=== PATIENT | female | born 1995 | race Native Hawaiian/Other Pacific Islander ===

== ENCOUNTER 2019-12-18 07:57 | Outpatient (REF) | payer MEDICAID, SELFPAY | END 2019-12-18 07:58 | disposition home or self-care (01) | LOC: HO.LAB 07:57 | PROVIDERS: Visit Provider Internal Medicine | DX: Z20.828 Contact with and (suspected) exposure to other viral communicable diseases (principal) | CPT/HCPCS: 87635 ==

== ENCOUNTER 2020-01-09 12:12 | Outpatient (REF) | payer MEDICAID, SELFPAY | END 2020-01-09 12:13 | disposition home or self-care (01) | LOC: HO.LAB 12:12 | PROVIDERS: PCP Internal Medicine; Visit Provider Internal Medicine | DX: Z20.828 Contact with and (suspected) exposure to other viral communicable diseases (principal) | CPT/HCPCS: C9803; U0003 ==

== ENCOUNTER 2020-01-10 17:33 | Emergency (ER) | payer MEDICAID, SELFPAY ==
[2020-01-10 17:43] VITALS: BP 110/63; PULSE 99; RESP 16; TEMP 37.4; O2SAT 97; BMI 22.1
--- NOTE | 2020-01-10 18:15 | ED.GENADULT ---
HPI - General Adult General Chief complaint: General Medical Stated complaint: flu like symptoms Time Seen by Provider: 01/10/20 18:06 History of Present Illness HPI narrative: Patient complains of body aches runny nose fatigue for 5 or 6 days, and then yesterday she developed a sore throat that makes it very painful to eat, but she is able to swallow, no cough no difficulty breathing no nausea or vomiting, she did have 1 episode of diarrhea several days ago but has no diarrhea today no abdominal pain no dysuria Related Data Allergies Allergy/AdvReac Type Severity Reaction Status Date / Time Iodinated Contrast Media Allergy Unknown RASH Unverified 11/14/19 17:33 [Iodinated Contrast Media - IV Dye] oxycodone [From PERCOCET] Allergy Unknown TACHYCARDIA Unverified 11/14/19 17:33 Review of Systems Review of Systems: Review of systems is positive for fever body aches and sore throat and runny nose There is no cough no shortness of breath no chest pain no abdominal pain no burning with urination no vomiting or diarrhea today, no rash, no headache no weakness no dizziness Yes all other systems are reviewed and are negative PMFSH Past Medical History Source: nursing notes reviewed Medical History (Updated 01/10/20 @ 19:00 by LATANYA Landaverde) Muscle spasm Ovarian cyst Social History Social History Alcohol intake: never Smoked in Last 30 Days: No Substance Use Type: Marijuana Advance Directives: No Advance Directives Information Provided: Yes Physical Exam Vital Signs: Vital Signs: Last Vital Signs Temp 99.3 F 01/10/20 17:43 Pulse 99 01/10/20 17:43 Resp 16 01/10/20 17:43 BP 110/63 01/10/20 17:43 Pulse Ox 97 01/10/20 17:43 Body Mass Index 22.1 General appearance comfortable no acute distress A&O x3 the The eyes are clear with no redness or discharge The pharynx has mild symmetrical tonsillar swelling with mild erythema, no exudate, uvula is midline there is no drooling in the voice is normal The neck is supple without lymphadenopathy The chest is clear to auscultation bilaterally with full symmetrical equal breath sounds The heart no murmurs There is no respiratory distress The abdomen is soft nontender Extremities no rash no edema no calf tenderness Neuro no focal deficit Course Course Course Narrative: Rapid strep test was negative Patient tolerates p.o. and is given 1 dose of prednisone for relief of pain on swallowing Discharge Plan Discharge Clinical Impression: Viral infection Patient Disposition: Home, Self-Care Additional Instructions: We tested for strep throat and the rapid test was negative We follow this up with a throat culture in the lab which takes 1-2 days and if it grows any strep we will call you and start antibiotics This is very likely a viral illness possibly COVID so wear mask and be careful with other people as it may be very contagious Return any time any worse condition or concerns A negative COVID test does not rule out COVID as the test can miss many patients so if you are still symptomatic you need to continue wearing a mask and staying away from close contact with people Use [id number] Tylenol or Motrin as needed Stand Alone Forms: Work/School Release
[2020-01-10] MEDS: Ibuprofen 400 MG TABLET PO (19:03)
[2020-01-10] MEDS: predniSONE 20 MG TABLET 60 MG PO (19:03)
== END 2020-01-10 19:06 | disposition home or self-care (01) ==
PROVIDERS: Emergency Provider Emergency Medicine; PCP Internal Medicine
DX: B34.9 Viral infection, unspecified (principal); M79.10 Myalgia, unspecified site; Z20.828 Contact with and (suspected) exposure to other viral communicable diseases; F12.90 Cannabis use, unspecified, uncomplicated; Z11.59 Encounter for screening for other viral diseases
CPT/HCPCS: 87071; 87880; 99283; 99284

== ENCOUNTER 2020-10-23 21:40 | Emergency (ER) | payer MEDICAID, SELFPAY ==
[2020-10-23 22:17] VITALS: BP 115/60; PULSE 60; RESP 18; TEMP 36.9; O2SAT 99; BMI 21.2
[2020-10-23 23:17] LABS: Glucose Urine UA NEG (NEG); Leukocyte Esterase Urine NEG (NEG); Nitrite Urine NEG (NEG); Specific Gravity - Urine 1.025 (1.005-1.025); UACC Culture Trigger NO; Urine Blood 2+ (NEG); Urine Ketones NEG (NEG); Urine Protein NEG (NEG-TRACE)
[2020-10-23 23:19] LABS: Appearance Urine HAZY; Color Urine YELLOW; UPreg QC Valid YES; Urine Pregnancy NEGATIVE (NEGATIVE)
[2020-10-23 23:24] LABS: Mucus Urine 4+ /LPF; Squamous Epithelial Cell Urine 2+ /LPF; WBC Urine 0 /HPF (0-4)
[2020-10-24] VITALS: BP 103/52; PULSE 64; RESP 16; TEMP 36.9; O2SAT 98
[2020-10-24 01:23] VITALS: BP 113/42; PULSE 76; RESP 18; O2SAT 98
[2020-10-24] MEDS: 0.9 % Sodium Chloride 1,000 ML 999 ML IV (01:29)
[2020-10-24] MEDS: Lidocaine HCl Viscous 2 % 15 ML SOLUTION 10 ML MUCOUS MEM (01:29)
[2020-10-24] MEDS: ondansetron HCL 4 MG/2 ML VIAL IVPUSH (01:29)
[2020-10-24] MEDS: Magnesium Hydrox/Alum Hydrox 30 ML ORAL.SUSP PO (01:29)
--- NOTE | 2020-10-24 01:46 | ED_ITS ---
HPI - Abdominal Pain General Chief Complaint: Abdominal Pain Stated Complaint: abd pain Time Seen by Provider: 10/24/20 01:00 Source: patient Mode of arrival: ambulatory History of Present Illness HPI narrative: 25-year-old female who presents with complaints of 2 months of abdominal discomfort without associated fever, chills, nausea, vomiting, diarrhea, urinary pain/burning/frequency. Patient states it had then resolved and then came back on approximately 3 days ago. Again not associated with any additional constitutional symptoms. Patient is not been evaluated by her primary care provider. Related Data Previous Rx's Medication Instructions Recorded omeprazole 40 mg capsule,delayed 40 mg PO DAILY 30 Days #30 cap 10/24/20 release Allergies Allergy/AdvReac Type Severity Reaction Status Date / Time Iodinated Contrast Media Allergy Unknown RASH Verified 10/23/20 22:16 [Iodinated Contrast Media - IV Dye] oxycodone [From PERCOCET] Allergy Unknown TACHYCARDIA Verified 10/23/20 22:16 Review of Systems Review of Systems Pertinent positives and negatives as stated in HPI 10 point review of systems is otherwise negative. Physical Exam Vital Signs: Vital Signs: Last Vital Signs Temp 98.4 F 10/24/20 00:00 Pulse 73 10/24/20 05:11 Resp 16 10/24/20 05:11 BP 106/49 L 10/24/20 05:11 Pulse Ox 100 10/24/20 05:11 Body Mass Index 21.2 VITAL SIGNS: Reviewed. GENERAL: Well developed, well nourished, in no acute distress. HEAD: Normocephalic/atraumatic EYES: PERRLA, EOMI EARS: Ext canals without abnormality NOSE: Nares patent bilateral OROPHARYNX: no oral lesions noted, posterior pharynx clear LUNGS: Normal breath sounds. No adventitious sounds or accessory muscle use. SpO2<98> CARDIOVASCULAR: Regular rate and rhythm without noted murmurs ABDOMEN: Soft, mild tenderness primarily in epigastric without rebound non- distended with bowel sounds. Course Course Course Narrative: A 25-year-old female with history and clinical presentation of gastritis and possible less likely pancreatitis. Patient otherwise appears cheerful and well and in no acute distress. On re-evaluation patient reports significant improvement of abdominal discomfort located in the epigastrium tested reports lower abdominal discomfort. Patient otherwise discharged in stable condition with instructions follow-up with primary care provider for further management. MDM - Abdominal Pain Lab Data Result diagrams: 10/24/20 01:51 10/24/20 01:51 Labs: Lab Results 10/23/20 10/23/20 10/24/20 Range/Units 23:09 23:09 01:51 WBC 6.8 (4.8-10.8) X10*3/uL RBC 4.32 (4.20-5.50) X10*6/uL Hgb 11.4 L (12.0-16.0) g/dl Hct 35.0 L (37-47) % MCV 81.0 (80-98) fL MCH 26.4 L (27.0-33.0) pg MCHC 32.6 (31.0-35.0) g/dl RDW 13.2 (11.0-16.0) % Plt Count 237 (160-400) X10*3/uL MPV 10.4 (9.4-12.3) fL Immature Gran % (Auto) 0.1 (0.0-0.4) % Neut % (Auto) 45.5 (45-73) % Lymph % (Auto) 45.0 H (20-40) % [place] % (Auto) 8.1 (2-11) % Eos % (Auto) 1.0 (0-4) % Baso % (Auto) 0.3 (0-2) % Lymph # (Auto) 3.0 (1.2-4.9) X10*3/uL [place] # (Auto) 0.6 (0.1-1.2) X10*3/uL Eos # (Auto) 0.1 (0.0-0.4) X10*3/uL Baso # (Auto) 0.0 (0.0-0.2) X10*3/uL Abs Immat Gran (auto) 0.01 (0.00-0.03) X10*3/uL Absolute Neuts (auto) 3.1 (2.0-8.3) X10*3/uL Absolute Nucleated RBC 0.000 (0.0-0.012) X10*3/uL Nucleated RBC % (auto) 0.0 (0.0-0.2) /100WBC Sodium (135-145) mmol/L Potassium (3.3-5.1) mmol/L Chloride (96-108) mmol/L Carbon Dioxide (22-29) mmol/L Anion Gap (12-20) BUN (9-16) mg/dL Creatinine (0.5-1.4) mg/dL Estim Creat Clear Calc Estimated GFR Random Glucose (60-115) mg/dL Calcium (8.4-10.2) mg/dL Total Bilirubin (0.0-1.0) mg/dL AST (5-31) U/L ALT (0-31) U/L Alkaline Phosphatase (39-117) U/L Total Protein (6.5-8.0) g/dL Albumin (3.5-5.0) g/dL Lipase (8-78) U/L Urine Color YELLOW Urine Appearance HAZY Urine pH 6.0 (5.0-8.0) Ur Specific [place] 1.025 (1.005-1.025) Urine Protein NEG (NEG-TRACE) MG/DL Urine Glucose (UA) NEG (NEG) MG/DL Urine Ketones NEG (NEG) MG/DL Urine Blood 2+ H (NEG) Urine Nitrite NEG (NEG) Ur Leukocyte Esterase NEG (NEG) Urine RBC 10-14 H (0) /HPF Urine WBC 0 (0-4) /HPF Ur Squamous Epith Cells 2+ /LPF Urine Bacteria NONE /LPF Urine Mucus 4+ /LPF Urine Test NEGATIVE (NEGATIVE) 10/24/20 Range/Units 01:51 WBC (4.8-10.8) X10*3/uL RBC (4.20-5.50) X10*6/uL Hgb (12.0-16.0) g/dl Hct (37-47) % MCV (80-98) fL MCH (27.0-33.0) pg MCHC (31.0-35.0) g/dl RDW (11.0-16.0) % Plt Count (160-400) X10*3/uL MPV (9.4-12.3) fL Immature Gran % (Auto) (0.0-0.4) % Neut % (Auto) (45-73) % Lymph % (Auto) (20-40) % [place] % (Auto) (2-11) % Eos % (Auto) (0-4) % Baso % (Auto) (0-2) % Lymph # (Auto) (1.2-4.9) X10*3/uL [place] # (Auto) (0.1-1.2) X10*3/uL Eos # (Auto) (0.0-0.4) X10*3/uL Baso # (Auto) (0.0-0.2) X10*3/uL Abs Immat Gran (auto) (0.00-0.03) X10*3/uL Absolute Neuts (auto) (2.0-8.3) X10*3/uL Absolute Nucleated RBC (0.0-0.012) X10*3/uL Nucleated RBC % (auto) (0.0-0.2) /100WBC Sodium 140 (135-145) mmol/L Potassium 3.8 (3.3-5.1) mmol/L Chloride 108 (96-108) mmol/L Carbon Dioxide 26 (22-29) mmol/L Anion Gap 10 L (12-20) BUN 12 (9-16) mg/dL Creatinine 0.72 (0.5-1.4) mg/dL Estim Creat Clear Calc 97.9 Estimated GFR > 60 Random Glucose 95 (60-115) mg/dL Calcium 8.5 (8.4-10.2) mg/dL Total Bilirubin 0.3 (0.0-1.0) mg/dL AST 14 (5-31) U/L ALT 13 (0-31) U/L Alkaline Phosphatase 51 (39-117) U/L Total Protein 6.7 (6.5-8.0) g/dL Albumin 4.0 (3.5-5.0) g/dL Lipase 28 (8-78) U/L Urine Color Urine Appearance Urine pH (5.0-8.0) Ur Specific [place] (1.005-1.025) Urine Protein (NEG-TRACE) MG/DL Urine Glucose (UA) (NEG) MG/DL Urine Ketones (NEG) MG/DL Urine Blood (NEG) Urine Nitrite (NEG) Ur Leukocyte Esterase (NEG) Urine RBC (0) /HPF Urine WBC (0-4) /HPF Ur Squamous Epith Cells /LPF Urine Bacteria /LPF Urine Mucus /LPF Urine Test (NEGATIVE) Discharge Plan Discharge Clinical Impression: Abdominal discomfort, Gastritis Patient Disposition: Home, Self-Care Instructions: Gastritis (ED), Diet for Stomach Ulcers and Gastritis (ED) Additional Instructions: 1. Increase fluid hydration especially with water. 2. Recommend Tylenol 1000 mg, orally, every 6 hours as needed for pain control. Do not exceed 4000 mg within 24 hours. 3. Ibuprofen 400 mg, orally with milk or food, every 6 hours as needed for pain control. 4. Follow-up with your primary care provider in the next 2-3 days for re-evaluation. Return to the ER for acute worsening of symptoms. Prescriptions: New omeprazole 40 mg capsule,delayed release(DR/EC) 40 mg PO DAILY 30 Days Qty: 30 RF: 0 Referrals: Ghazala Cabezas MD [Primary Care Provider] - 2 days PMF Past Medical History Source: nursing notes reviewed Medical History Muscle spasm Ovarian cyst Social History Social History Alcohol intake: never Substance Use Type: Marijuana Advance Directives: No Advance Directives Information Provided: No Patient : No
[2020-10-24 01:55] LABS: MANUAL DIFF FLAG NO
[2020-10-24 02:10] LABS: Basophils Percent Auto 0.3 % (0-2); Eosinophils Absolute Auto 0.1 X10*3/uL (0.0-0.4); Hemoglobin 11.4 g/dl (12.0-16.0); Imm Gran Abs Auto 0.01 X10*3/uL (0.00-0.03); Imm Gran Pct Auto 0.1 % (0.0-0.4); Mean Corpuscular HGB Conc 32.6 g/dl (31.0-35.0); Mean Corpuscular Hemoglobin 26.4 pg (27.0-33.0); Mean Platelet Volume 10.4 fL (9.4-12.3); Monocytes Absolute Auto 0.6 X10*3/uL (0.1-1.2); Monocytes Percent Auto 8.1 % (2-11); Neutrophils Absolute Auto 3.1 X10*3/uL (2.0-8.3); Neutrophils Percent Auto 45.5 % (45-73); Platelet Count 237 X10*3/uL (160-400); Red Blood Count 4.32 X10*6/uL (4.20-5.50); Red Cell Distribution Width 13.2 % (11.0-16.0); White Blood Count 6.8 X10*3/uL (4.8-10.8)
[2020-10-24 02:28] LABS: Alanine Aminotransferase 13 U/L (0-31); Alkaline Phosphatase 51 U/L (39-117); Anion Gap 10 (12-20); Aspartate Amino Transferase 14 U/L (5-31); Bilirubin Total 0.3 mg/dL (0.0-1.0); Blood Urea Nitrogen 12 mg/dL (9-16); Calcium 8.5 mg/dL (8.4-10.2); Carbon Dioxide 26 mmol/L (22-29); Chloride 108 mmol/L (96-108); Creatinine Clr Calc Pharmacy 97.9; Estimated Glomerular Filt Rate > 60; Glucose Random 95 mg/dL (60-115); Potassium 3.8 mmol/L (3.3-5.1); Sodium 140 mmol/L (135-145); Total Protein 6.7 g/dL (6.5-8.0)
[2020-10-24 03:12] VITALS: BP 105/56; PULSE 57; RESP 17; O2SAT 98
--- NOTE | 2020-10-24 05:04 | PC.NURSE ---
pt lubna peres, requests meds for GUERRIER. Leela made aware. Per Leela v/o pt to receive tylenol and toradol
[2020-10-24 05:11] VITALS: BP 106/49; PULSE 73; RESP 16; O2SAT 100
[2020-10-24] MEDS: Acetaminophen 325 MG TABLET PO (05:13)
[2020-10-24] MEDS: Ketorolac Tromethamine 15 MG/ML VIAL IVPUSH (05:13)
[2020-10-24] MEDS: Acetaminophen 325 MG TABLET 650 MG PO (05:13)
[2020-10-24 05:36] LABS: Lipase 28 U/L (8-78)
== END 2020-10-24 06:04 | disposition home or self-care (01) ==
PROVIDERS: Emergency Provider Student in an Organized Health Care Education/Training Program; PCP Internal Medicine
DX: K29.70 Gastritis, unspecified, without bleeding (principal); R10.13 Epigastric pain
CPT/HCPCS: 36415; 80053; 81001; 81025; 83690; 85025; 96361; 96374; 96375; 99284; J1885; J2405

== ENCOUNTER 2020-11-05 12:14 | Outpatient (REF) | payer MEDICAID, SELFPAY | END 2020-11-05 12:15 | disposition home or self-care (01) | LOC: HO.LAB 12:14 | PROVIDERS: Visit Provider Internal Medicine | DX: Z20.822 Contact with and (suspected) exposure to COVID-19 (principal) | CPT/HCPCS: C9803; U0003; U0005 ==

== ENCOUNTER 2020-11-22 17:46 | Emergency (ER) | payer MEDICAID, SELFPAY ==
--- NOTE | ~2020-11-22 | US_ITS ---
EXAMINATION: US PELVIC AND TRANSVAGINAL US PELVIS OVARIAN DOPPLER CLINICAL INFORMATION: Pain. Vaginal spotting. LMP of 10/21/2020. COMPARISON: Pelvic ultrasound from 07/27/2017 TECHNIQUE: Ultrasound of the pelvis is performed using both transabdominal and transvaginal transducers along with Doppler. Transvaginal imaging is performed due to inadequate visualization transabdominally. FINDINGS: Uterus: The uterus is anteverted, anteflexed and measures 7.5 x 2.8 x 4.4 cm (cervix to fundus x AP x transverse dimension). Endometrium measures up to 0.4 cm AP. No evidence of endometrial lesion. A contraceptive device is well centered within the endometrium. The uterus is smooth in contour and has normal myometrial echogenicity. No evidence of leiomyoma. The cervix is unremarkable. Adnexa: Both ovaries are well visualized and have normal echotexture. Right ovary measures 3.3 x 2.2 x 1.8 cm, volume of 6.8 mL. Left ovary measures 2.1 x 2.3 x 1.7 cm, volume of 4.3 mL Color Doppler images with spectral waveforms show presence of normal arterial flow within each ovary. No ovarian torsion. There is no pelvic ascites or fluid collection. US/US pelvic and transvaginal IMPRESSION: * The uterus and ovaries are sonographically normal. No ovarian mass or torsion. * A contraceptive device is well centered within the endometrial cavity. * No pelvic free fluid.
--- NOTE | ~2020-11-22 | CT_ITS ---
EXAMINATION: CT ABDOMEN AND PELVIS WITHOUT CONTRAST CLINICAL INFORMATION: Right lower quadrant abdomen pain COMPARISON: 06/24/2017 TECHNIQUE: Multidetector volumetric imaging was performed from the superior aspect of the liver through the pubic symphysis. Sagittal and coronal reformatted images were obtained on the technologist's workstation. This CT examination was performed using dose optimization techniques as appropriate, variously including the following: *Automated exposure control *Adjustment of mA and/or kV according to patient size (this includes techniques or standardized protocols for targeted exams where dose is matched to indication/reason for exam; i.e. extremities or head) *Use of iterative reconstruction technique DLP: 394 mGy-cm FINDINGS: LUNG BASES: The visualized lung bases are unremarkable. LIVER, GALLBLADDER, AND BILIARY TREE: The liver is normal in size, shape, and attenuation. No focal hepatic lesion or biliary ductal dilatation is present. The gallbladder is unremarkable with no evidence of radiopaque gallstones, gallbladder wall thickening, or obvious pericholecystic inflammatory changes. PANCREAS: Unremarkable. SPLEEN: Unremarkable. ADRENAL GLANDS: Unremarkable. KIDNEYS AND URETERS: The kidneys are normal in size, shape, and attenuation. No hydronephrosis, hydroureter, or calculi seen. No perinephric stranding. BLADDER: Unremarkable. GASTROINTESTINAL TRACT: The small and large bowel are unremarkable. The appendix is not identified, though no inflammatory changes are seen in its expected location to suggest appendicitis. No free fluid or free air is seen. ABDOMINAL WALL: No significant hernia is appreciated. LYMPH NODES: No lymphadenopathy is seen, though assessment is limited in the absence of intravenous contrast. VASCULAR: Unremarkable. PELVIC VISCERA: IUD is present. OSSEOUS STRUCTURES: Unremarkable. CT/CT abdomen pelvis wo con IMPRESSION: No acute findings identified in the abdomen/pelvis. Appendix is not identified, though no inflammatory changes are seen in its expected location to suggest appendicitis.
--- NOTE | ~2020-11-22 | US_ITS ---
EXAMINATION: US PELVIC AND TRANSVAGINAL US PELVIS OVARIAN DOPPLER CLINICAL INFORMATION: Pain. Vaginal spotting. LMP of 10/21/2020. COMPARISON: Pelvic ultrasound from 07/27/2017 TECHNIQUE: Ultrasound of the pelvis is performed using both transabdominal and transvaginal transducers along with Doppler. Transvaginal imaging is performed due to inadequate visualization transabdominally. FINDINGS: Uterus: The uterus is anteverted, anteflexed and measures 7.5 x 2.8 x 4.4 cm (cervix to fundus x AP x transverse dimension). Endometrium measures up to 0.4 cm AP. No evidence of endometrial lesion. A contraceptive device is well centered within the endometrium. The uterus is smooth in contour and has normal myometrial echogenicity. No evidence of leiomyoma. The cervix is unremarkable. Adnexa: Both ovaries are well visualized and have normal echotexture. Right ovary measures 3.3 x 2.2 x 1.8 cm, volume of 6.8 mL. Left ovary measures 2.1 x 2.3 x 1.7 cm, volume of 4.3 mL Color Doppler images with spectral waveforms show presence of normal arterial flow within each ovary. No ovarian torsion. There is no pelvic ascites or fluid collection. US/US pelvic ovarian doppler IMPRESSION: * The uterus and ovaries are sonographically normal. No ovarian mass or torsion. * A contraceptive device is well centered within the endometrial cavity. * No pelvic free fluid.
[2020-11-22 17:57] VITALS: BP 114/64; PULSE 78; RESP 17; TEMP 36.5; O2SAT 98; BMI 22.1
[2020-11-22 19:52] LABS: Appearance Urine CLEAR; Color Urine STRAW; Glucose Urine UA NEG (NEG); Leukocyte Esterase Urine NEG (NEG); Nitrite Urine NEG (NEG); PH 6.5 (5.0-8.0); Specific Gravity - Urine 1.025 (1.005-1.025); UACC Culture Trigger NO; Urine Blood 3+ (NEG); Urine Ketones NEG (NEG); Urine Protein NEG (NEG-TRACE)
[2020-11-22 19:54] LABS: UPreg QC Valid YES; Urine Pregnancy NEGATIVE (NEGATIVE)
[2020-11-22 19:59] LABS: RBC Urine 30-49 /HPF (0); Squamous Epithelial Cell Urine 1+ /LPF; WBC Urine 0 /HPF (0-4)
[2020-11-22 20:11] LABS: Basophils Percent Auto 0.4 % (0-2); Eosinophils Absolute Auto 0.1 X10*3/uL (0.0-0.4); Eosinophils Percent Auto 1.2 % (0-4); Hematocrit 39.8 % (37-47); Hemoglobin 13.1 g/dl (12.0-16.0); Imm Gran Abs Auto 0.02 X10*3/uL (0.00-0.03); Imm Gran Pct Auto 0.4 % (0.0-0.4); Lymphocytes Absolute Auto 2.4 X10*3/uL (1.2-4.9); Lymphocytes Percent Auto 42.6 % (20-40); MANUAL DIFF FLAG NO; Mean Corpuscular HGB Conc 32.9 g/dl (31.0-35.0); Mean Corpuscular Hemoglobin 26.6 pg (27.0-33.0); Mean Corpuscular Volume 80.9 fL (80-98); Monocytes Absolute Auto 0.5 X10*3/uL (0.1-1.2); Monocytes Percent Auto 8.5 % (2-11); Neutrophils Absolute Auto 2.7 X10*3/uL (2.0-8.3); Neutrophils Percent Auto 46.9 % (45-73); Platelet Count 278 X10*3/uL (160-400); Red Blood Count 4.92 X10*6/uL (4.20-5.50); Red Cell Distribution Width 13.5 % (11.0-16.0); White Blood Count 5.6 X10*3/uL (4.8-10.8)
[2020-11-22 20:29] LABS: Alanine Aminotransferase 76 U/L (0-31); Albumin Level 4.6 g/dL (3.5-5.0); Alkaline Phosphatase 70 U/L (39-117); Anion Gap 12 (12-20); Aspartate Amino Transferase 55 U/L (5-31); Bilirubin Total 0.4 mg/dL (0.0-1.0); Blood Urea Nitrogen 10 mg/dL (9-16); Calcium 9.2 mg/dL (8.4-10.2); Carbon Dioxide 26 mmol/L (22-29); Chloride 105 mmol/L (96-108); Creatinine Clr Calc Pharmacy 97.9; Estimated Glomerular Filt Rate > 60; Glucose Random 70 mg/dL (60-115); Potassium 4.4 mmol/L (3.3-5.1); Sodium 139 mmol/L (135-145); Total Protein 7.8 g/dL (6.5-8.0)
--- NOTE | 2020-11-22 22:53 | ED_ITS ---
HPI - General Adult General Chief complaint: General Medical Stated complaint: vaginal burning Time Seen by Provider: 11/22/20 19:05 Source: patient Mode of arrival: ambulatory Limitations: no limitations History of Present Illness HPI narrative: This 25-year-old female who reports history of H pylori currently on her last day of H pylori treatment she presents today with complaint of states she has had painful discomfort during intercourse for last couple days also having some discomfort during urination and slight discharge that is slightly weight and also spotting as if she is having her menstrual cycle which she will get irregular. She otherwise denies any nausea vomiting or diarrhea. States does have some suprapubic and right lower quadrant pain for same duration time. Onset (ago): day(s) Severity: mild Quality: aching Pain Consistency: constant Relieving factors: none Exacerbating factors: none Associated symptoms: denies other symptoms Treatments prior to arrival: none Related Data Previous Rx's Medication Instructions Recorded omeprazole 40 mg capsule,delayed 40 mg PO DAILY 30 Days #30 cap 10/24/20 release ibuprofen 800 mg tablet 800 mg PO Q8H PRN #14 tab 11/23/20 metronidazole 500 mg tablet 500 mg PO Q12H #14 tab 11/23/20 (Flagyl) Allergies Allergy/AdvReac Type Severity Reaction Status Date / Time Iodinated Contrast Media Allergy Intermediate RASH Verified 11/22/20 17:57 [Iodinated Contrast Media - IV Dye] oxycodone [From PERCOCET] Allergy Intermediate TACHYCARDIA Verified 11/22/20 17:57 Review of Systems Review of Systems: Constitutional: No Weight loss, No Fever, No Chills, No Night Sweats, No Fatigue, No Malaise ENT/Mouth: No Hearing loss, No Ear Pain, No Nasal Congestion, No Sinus Pain, No Hoarseness, No sore throat, No Rhinorrhea, No Swallowing Difficulty . Eyes: No Eye Pain, No Swelling, No Redness, No Foreign Body, No Discharge, No Vision Changes Cardiovascular: No Chest Pain, No SOB, No Dyspnea on Exertion, No Orthopnea, No Edema, No Palpitations Respiratory: No Cough, No Sputum, No Wheezing, No Smoke Exposure, No Dyspnea Gastrointestinal: No Nausea, No Vomiting, No Diarrhea, No Constipation, No abdominal Pain, No Hematochezia, No Melena Genitourinary:As noted per HPI Musculoskeletal: No joint pain, No Myalgias, No Joint Swelling Skin: No Skin Lesions, No rash Neuro: No Weakness, No Numbness, No Paresthesias, No Loss of Consciousness, No Dizziness, No Headache Psych: No Social Issues Heme/Lymph: No Bruising, No Bleeding,No Lymphadenopathy Endocrine: No Polyuria, No Polydipsia, No Temperature Intolerance Yes all other systems are reviewed and are negative [facility] Past Medical History Medical History Muscle spasm Ovarian cyst Social History Social History Alcohol intake: never Substance Use Type: Marijuana Advance Directives: No Advance Directives Information Provided: Yes Patient : No Physical Exam Vital Signs: Vital Signs: Last Vital Signs Temp 97.7 F 11/22/20 17:57 Pulse 78 11/22/20 17:57 Resp 17 11/22/20 17:57 BP 114/64 11/22/20 17:57 Pulse Ox 98 11/22/20 17:57 Body Mass Index 22.1 Const: General: cooperative and healthy appearing; No acute distress or intoxicated appearing Nutritional Appearance: average body habitus Orientation/consciousness: patient oriented x3 HENMT: Head: Yes normal to inspection Ears: hearing grossly normal bilaterally Eyes: General: appearance normal, both eyes and all related structures Visual Cheema: normal visual cheema by confrontation Neck: Neck: Yes normal visual inspection, No positive Brudzinski's sign, No positive Kernig's sign and No tender Thyroid: Thyroid normal Chest: Chest palpation & inspection: normal inspection of the chest Resp: Effort & Inspection: normal respiratory effort Cardio: Jugular venous distension: no JVD Rate: regular rate Rhythm: regular rhythm Heart sounds: S1 normal heart sound present and S2 normal heart sound present GI: Inspection: Yes normal to inspection Palpation (GI): Soft to palpation, Firmness to palpation present (GI) and Tenderness to palpation present (GI) in the RLQ (mild, no rebound ) Percussion: Yes normal to percussion Auscultation: normal bowel sounds : General: Yes no CVA tenderness Back/Spine/Pelvis: Back: no CVA tenderness Skin: General skin exam: no rashes or lesions noted Neuro: General: patient oriented x3 Extrem: General: Yes normal to inspection Course Course Course Narrative: Trace 5-year-old female with history of H pylori currently toward the end of her treatment presenting with right lower quadrant abdominal pain also having some spotting and mild discharge with irregular menstrual cycle. Labs overall reassuring very slight bump in AST/ALT a denies any alcohol use. She has an unremarkable ultrasound however still states mild discomfort in the right-sided suprapubic region/right lower quadrant thus CT of the abdomen/pelvis done after discussion with the patient rule out appendicitis given her allergy to IV contrast this was suboptimal however there was no findings to suggest appendicitis and given stable examination I reviewed with her precautions for home care return follow-up instructions. In the meantime will discharge with supportive care. Denies any concern for STI and defers on empiric treatment for STDs. Medical Decision Making Lab Data Result diagrams: 11/22/20 19:47 11/22/20 19:47 Labs: Lab Results 11/22/20 11/22/20 11/22/20 Range/Units 19:39 19:40 19:47 WBC 5.6 (4.8-10.8) X10*3/uL RBC 4.92 (4.20-5.50) X10*6/uL Hgb 13.1 (12.0-16.0) g/dl Hct 39.8 (37-47) % MCV 80.9 (80-98) fL MCH 26.6 L (27.0-33.0) pg MCHC 32.9 (31.0-35.0) g/dl RDW 13.5 (11.0-16.0) % Plt Count 278 (160-400) X10*3/uL MPV 10.0 (9.4-12.3) fL Immature Gran % (Auto) 0.4 (0.0-0.4) % Neut % (Auto) 46.9 (45-73) % Lymph % (Auto) 42.6 H (20-40) % [place] % (Auto) 8.5 (2-11) % Eos % (Auto) 1.2 (0-4) % Baso % (Auto) 0.4 (0-2) % Lymph # (Auto) 2.4 (1.2-4.9) X10*3/uL [place] # (Auto) 0.5 (0.1-1.2) X10*3/uL Eos # (Auto) 0.1 (0.0-0.4) X10*3/uL Baso # (Auto) 0.0 (0.0-0.2) X10*3/uL Abs Immat Gran (auto) 0.02 (0.00-0.03) X10*3/uL Absolute Neuts (auto) 2.7 (2.0-8.3) X10*3/uL Absolute Nucleated RBC 0.000 (0.0-0.012) X10*3/uL Nucleated RBC % (auto) 0.0 (0.0-0.2) /100WBC Sodium (135-145) mmol/L Potassium (3.3-5.1) mmol/L Chloride (96-108) mmol/L Carbon Dioxide (22-29) mmol/L Anion Gap (12-20) BUN (9-16) mg/dL Creatinine (0.5-1.4) mg/dL Estim Creat Clear Calc Estimated GFR Random Glucose (60-115) mg/dL Calcium (8.4-10.2) mg/dL Total Bilirubin (0.0-1.0) mg/dL AST (5-31) U/L ALT (0-31) U/L Alkaline Phosphatase (39-117) U/L Total Protein (6.5-8.0) g/dL Albumin (3.5-5.0) g/dL Urine Color STRAW Urine Appearance CLEAR Urine pH 6.5 (5.0-8.0) Ur Specific [place] 1.025 (1.005-1.025) Urine Protein NEG (NEG-TRACE) MG/DL Urine Glucose (UA) NEG (NEG) MG/DL Urine Ketones NEG (NEG) MG/DL Urine Blood 3+ H (NEG) Urine Nitrite NEG (NEG) Ur Leukocyte Esterase NEG (NEG) Urine RBC 30-49 H (0) /HPF Urine WBC 0 (0-4) /HPF Ur Squamous Epith Cells 1+ /LPF Urine Bacteria NONE /LPF Urine Test NEGATIVE (NEGATIVE) 11/22/20 Range/Units 19:47 WBC (4.8-10.8) X10*3/uL RBC (4.20-5.50) X10*6/uL Hgb (12.0-16.0) g/dl Hct (37-47) % MCV (80-98) fL MCH (27.0-33.0) pg MCHC (31.0-35.0) g/dl RDW (11.0-16.0) % Plt Count (160-400) X10*3/uL MPV (9.4-12.3) fL Immature Gran % (Auto) (0.0-0.4) % Neut % (Auto) (45-73) % Lymph % (Auto) (20-40) % [place] % (Auto) (2-11) % Eos % (Auto) (0-4) % Baso % (Auto) (0-2) % Lymph # (Auto) (1.2-4.9) X10*3/uL [place] # (Auto) (0.1-1.2) X10*3/uL Eos # (Auto) (0.0-0.4) X10*3/uL Baso # (Auto) (0.0-0.2) X10*3/uL Abs Immat Gran (auto) (0.00-0.03) X10*3/uL Absolute Neuts (auto) (2.0-8.3) X10*3/uL Absolute Nucleated RBC (0.0-0.012) X10*3/uL Nucleated RBC % (auto) (0.0-0.2) /100WBC Sodium 139 (135-145) mmol/L Potassium 4.4 (3.3-5.1) mmol/L Chloride 105 (96-108) mmol/L Carbon Dioxide 26 (22-29) mmol/L Anion Gap 12 (12-20) BUN 10 (9-16) mg/dL Creatinine 0.72 (0.5-1.4) mg/dL Estim Creat Clear Calc 97.9 Estimated GFR > 60 Random Glucose 70 (60-115) mg/dL Calcium 9.2 D (8.4-10.2) mg/dL Total Bilirubin 0.4 (0.0-1.0) mg/dL AST 55 H (5-31) U/L ALT 76 H (0-31) U/L Alkaline Phosphatase 70 D (39-117) U/L Total Protein 7.8 (6.5-8.0) g/dL Albumin 4.6 (3.5-5.0) g/dL Urine Color Urine Appearance Urine pH (5.0-8.0) Ur Specific [place] (1.005-1.025) Urine Protein (NEG-TRACE) MG/DL Urine Glucose (UA) (NEG) MG/DL Urine Ketones (NEG) MG/DL Urine Blood (NEG) Urine Nitrite (NEG) Ur Leukocyte Esterase (NEG) Urine RBC (0) /HPF Urine WBC (0-4) /HPF Ur Squamous Epith Cells /LPF Urine Bacteria /LPF Urine Test (NEGATIVE) Discharge Plan Discharge Clinical Impression: Vaginal discharge, Lower abdominal pain Patient Disposition: Home, Self-Care Instructions: Bacterial Vaginosis (ED), Acute Abdominal Pain (ED) Additional Instructions: Your ultrasound did not show any acute findings today The CT scan of your abdomen pelvis did not identify any acute findings to suggest appendicitis Your blood work was overall reassuring Your vaginal swabs are pending Given his symptoms and you will be empirically treated with antibiotics Please return if you have any concerns or worsening symptoms Otherwise follow-up as instructed Thank you Prescriptions: New metronidazole [Flagyl] 500 mg tablet 500 mg PO Q12H Qty: 14 RF: 0 ibuprofen 800 mg tablet 800 mg PO Q8H PRN (Reason: pain) Qty: 14 RF: 0 No Action omeprazole 40 mg capsule,delayed release(DR/EC) 40 mg PO DAILY 30 Days Qty: 30 RF: 0
[2020-11-23 03:24] LABS: CT PCR NOT DETECTED (Not Detect.); NG PCR NOT DETECTED (Not Detect.)
[2020-11-23 08:41] LABS: BV Int Neg Control Negative (Negative); BV Int Pos Control Positive (Positive)
== END 2020-11-23 00:54 | disposition home or self-care (01) ==
PROVIDERS: Nurse Practitioner Primary Care; Emergency Provider Emergency Medicine; PCP Internal Medicine
DX: N89.8 Other specified noninflammatory disorders of vagina (principal); R30.0 Dysuria; R10.30 Lower abdominal pain, unspecified; F12.90 Cannabis use, unspecified, uncomplicated; Z79.899 Other long term (current) drug therapy
CPT/HCPCS: 36415; 74176; 76830; 76856; 80053; 81001; 81025; 85025; 87480; 87491; 87510; 87591; 87660; 93975; 99283; 99284

== ENCOUNTER 2020-11-24 14:45 | Outpatient (REF) | payer MEDICAID, SELFPAY ==
--- NOTE | ~2020-11-24 | US_ITS ---
EXAMINATION: US VENOUS ULTRASOUND WITH DOPPLER LOWER EXTREMITY, BILATERAL CLINICAL INFORMATION: Swelling and numbness COMPARISON: None TECHNIQUE: Ultrasound of the deep veins is performed from the hip to the calf with compression sonography and color and pulse Doppler assessment. Spectral analysis with color-flow imaging is performed. FINDINGS: RIGHT: There is normal venous compression and respiratory variation and augmented flow. The visualized common femoral vein, superficial femoral vein, profunda femoral vein, popliteal vein, and the trifurcation region shows no evidence of deep venous thrombosis. There is no significant popliteal fossa cyst. LEFT: There is normal venous compression and respiratory variation and augmented flow. The visualized common femoral vein, superficial femoral vein, profunda femoral vein, popliteal vein, and the trifurcation region shows no evidence of deep venous thrombosis. There is no significant popliteal fossa cyst. US/US venous duplex LE BI IMPRESSION: No DVT demonstrated in the bilateral lower extremity.
== END 2020-11-24 14:46 | disposition home or self-care (01) ==
LOC: HO.HMGCX 14:45
PROVIDERS: PCP Internal Medicine; Visit Provider Emergency Medicine
DX: I83.93 Asymptomatic varicose veins of bilateral lower extremities (principal); R22.43 Localized swelling, mass and lump, lower limb, bilateral
CPT/HCPCS: 93970

== ENCOUNTER 2023-04-21 03:58 | Inpatient (IN) | payer MEDICAID, SELFPAY ==
[2023-04-21] VITALS (7 sets, daily range): BP systolic 98–109; BP diastolic 48–82; PULSE 74–91; RESP 14–18; TEMP 36.6–37.2; O2SAT 96–100; BMI 23.1; BMI 24.0
--- NOTE | ~2023-04-21 | CT_ITS ---
EXAMINATION: CT ABDOMEN AND PELVIS WITHOUT CONTRAST CLINICAL INFORMATION: Severe abdominal pain. COMPARISON: 11/22/2020 TECHNIQUE: Multidetector volumetric imaging was performed from the superior aspect of the liver through the pubic symphysis. Sagittal and coronal reformatted images were obtained on the technologist's workstation. This CT examination was performed using dose optimization techniques as appropriate, variously including the following: *Automated exposure control *Adjustment of mA and/or kV according to patient size (this includes techniques or standardized protocols for targeted exams where dose is matched to indication/reason for exam; i.e. extremities or head) *Use of iterative reconstruction technique DLP: 380 mGy-cm FINDINGS: LUNG BASES: The visualized lung bases are unremarkable. LIVER, GALLBLADDER, AND BILIARY TREE: The noncontrast liver is normal in size and contour. No biliary ductal dilatation is present. The gallbladder is unremarkable with no evidence of radiopaque gallstones, gallbladder wall thickening, or obvious pericholecystic inflammatory changes. PANCREAS: Unremarkable. SPLEEN: Unremarkable. ADRENAL GLANDS: Unremarkable. KIDNEYS AND URETERS: The kidneys are normal in size, shape, and attenuation. Punctate nonobstructing calculus upper pole left kidney. No hydronephrosis. No perinephric stranding. BLADDER: Unremarkable. GASTROINTESTINAL TRACT: Small and large bowel loops are of normal caliber. No small bowel obstruction. ABDOMINAL WALL: No significant hernia is appreciated. LYMPH NODES: Multiple subcentimeter mesenteric lymph nodes are nonspecific but have increased since the prior study. VASCULAR: Normal caliber abdominal aorta. PELVIC VISCERA: Intrauterine device is in place. OSSEOUS STRUCTURES: No destructive bone lesions. CT/CT abdomen pelvis wo IV con IMPRESSION: Interval increase in subcentimeter mesenteric lymph nodes. Consider mesenteric adenitis. Punctate nonobstructing left renal calculus. No hydronephrosis.
[2023-04-21] MEDS: ondansetron HCL 4 MG/2 ML VIAL IVPUSH ×2 (04:28→18:39)
[2023-04-21 04:31] LABS: MANUAL DIFF FLAG NO
[2023-04-21 04:33] LABS: Basophils Percent Auto 0.3 % (0-2); Hematocrit 37.9 % (37.0-47.0); Hemoglobin 12.8 g/dl (12.0-16.0); Imm Gran Abs Auto 0.01 X10*3/uL (0.00-0.03); Imm Gran Pct Auto 0.3 % (0.0-0.4); Lymphocytes Absolute Auto 0.6 X10*3/uL (1.2-4.9); Lymphocytes Percent Auto 15.1 % (20-40); Mean Corpuscular HGB Conc 33.8 g/dl (31.0-35.0); Mean Corpuscular Hemoglobin 26.3 pg (27.0-33.0); Mean Platelet Volume 9.5 fL (9.4-12.3); Monocytes Absolute Auto 0.8 X10*3/uL (0.1-1.2); Monocytes Percent Auto 18.9 % (2-11); Neutrophils Absolute Auto 2.6 x10*3/uL (2.0-8.3); Neutrophils Percent Auto 65.4 % (45-73); Platelet Count 222 X10*3/uL (160-400); Red Blood Count 4.86 X10*6/uL (4.20-5.50); Red Cell Distribution Width 13.5 % (11.0-16.0)
--- NOTE | 2023-04-21 04:40 | ED.ABDPAIN ---
HPI - Abdominal Pain General Chief Complaint: Abdominal Pain Stated Complaint: NAUSEA/VOMITING Time Seen by Provider: 04/21/23 04:32 Source: patient Mode of arrival: ambulatory Limitations: no limitations History of Present Illness HPI narrative: Patient comes in the emergency room complaining of 4 days of nausea vomiting and diarrhea. Patient states that she has tried multiple doses of Imodium, Pepto-Bismol but she is still having both vomiting and diarrhea. Patient complaining of mild abdominal cramping, no significant abdominal pain, no URI or UTI symptoms. Related Data Previous Rx's Medication Instructions Recorded omeprazole 40 mg capsule,delayed 40 mg PO DAILY 30 days #30 caps 10/24/20 release ibuprofen 800 mg tablet 800 mg PO Q8H PRN pain #14 tabs 11/23/20 metronidazole 500 mg tablet 500 mg PO Q12H #14 tabs 11/23/20 (Flagyl) fluconazole 150 mg tablet 150 mg PO Q3D 2 doses #2 tabs 11/26/20 (Diflucan) diphenoxylate-atropine 2.5 1 tab PO TID PRN diarrhea #10 tabs 04/21/23 mg-0.025 mg tablet (Lomotil) ondansetron 4 mg disintegrating 4 mg PO Q8H PRN nausea and 04/21/23 tablet vomiting #10 tabs Allergies Allergy/AdvReac Type Severity Reaction Status Date / Time Iodinated Contrast Media Allergy Intermediate RASH Verified 04/21/23 04:06 [Iodinated Contrast Media - IV Dye] oxycodone [From PERCOCET] Allergy Intermediate TACHYCARDIA Verified 04/21/23 04:06 Review of Systems Review of Systems Constitutional : No Weight loss, No Fever, No Chills, No Night Sweats, No Fatigue, No Malaise ENT/Mouth : No Hearing loss, No Ear Pain, No Nasal Congestion, No Sinus Pain, No Hoarseness, No sore throat, No Rhinorrhea, No Swallowing Difficulty Eyes: No Eye Pain, No Swelling, No Redness, No Foreign Body, No Discharge, No Vision Changes Cardiovascular : No Chest Pain, No SOB, No Dyspnea on Exertion, No Orthopnea, No Edema, No Palpitations Respiratory : No Cough, No Sputum, No Wheezing, No Smoke Exposure, No Dyspnea Gastrointestinal : Complaining of nausea vomiting and diarrhea, abdominal cramping Genitourinary : no irregular bleeding, No Dysuria, No Urinary Frequency, No Hematuria, No Urinary Incontinence, No Urgency, No Flank Pain, No Urinary Flow Changes, No Hesitancy Musculoskeletal : No joint pain, No Myalgias, No Joint Swelling Skin : No Skin Lesions, No rash Neuro : No Weakness, No Numbness, No Paresthesias, No Loss of Consciousness, No Dizziness, No Headache Psych : No Anxiety/Panic, No Depression, No SI/HI/AH/VH, No Social Issues, Heme/Lymph: No Bruising, No Bleeding,No Lymphadenopathy Endocrine : No Polyuria, No Polydipsia, No Temperature Intolerance [facility] Past Medical History Medical History Muscle spasm Ovarian cyst Social History Social History Alcohol intake: never Substance Use Type: Marijuana Advance Directives: No Advance Directives Information Provided: Yes Physical Exam ED Vital Signs: Vital Signs - 24 hr 04/21/23 04:08 04/21/23 06:00 Temperature 98.4 F 98.8 F Pulse Rate 75 91 Respiratory Rate 18 16 Blood Pressure 103/51 L 103/48 L Pulse Oximetry 97 97 Oxygen Delivery Method Room Air Room Air BMI result Body Mass Index 23.1 Const Other: Appearance: Alert. Oriented X3. No acute distress. Eyes: Pupils equal, round and reactive to light. ENT: Pharynx normal. Neck: Normal inspection. Neck supple. No lymph nodes noted. No crepitus CVS: Normal heart rate and rhythm. Pulses normal. Normal S1 and S2 Respiratory: No respiratory distress. Breath sounds normal. No Wheezing. No rales Abdomen: Soft and nontender. No rigidity. No distention. Skin: Skin warm and dry. Patient looks pale. Normal skin turgor. Extremities: No lower extremity edema. No Lacerations. No Rash Neuro: Oriented X 3. No motor deficit. No sensory deficit. Moving all extremities. No slurred speech. CN 2 through 12 grossly intact Psych: calm, cooperative, normal affect Course Course Course Narrative: -all of patient's labs pending Patient receiving IV fluids, Zofran and Lomotil Medical Decision Making Medical Decision Making MDM Narrative: Patient feeling much better. However, patient did not tolerate p.o. -my interpretation of labs: Hematology basically at baseline, chemistry: mild dehydration. -patient was given more medications for nausea vomiting, 2 L of fluid. -after 2 L of fluid and medications, please p.o. challenge. -if patient is able to tolerate p.o., patient may be discharged home, otherwise patient will need to be admitted -sign-out given to my colleague LATANYA Rhoades Differential Diagnosis Differential Diagnoses: The differential diagnosis associated with the presentation includes (Gastritis, gastroenteritis, viral illness) Admission/Observation Consideration of admission/observation: Escalation of care including admission/observation considered (Patient's seem dehydrated, given fluids, initially difficulty tolerating p.o.. Admission was considered) Lab Data MDM Lab Attestation statement: I reviewed the patient's lab results. 04/21/23 04:26 04/21/23 04:26 Labs: Lab Results 04/21/23 Range/Units 04:26 WBC 4.0 L (4.8-10.8) X10*3/uL RBC 4.86 (4.20-5.50) X10*6/uL Hgb 12.8 (12.0-16.0) g/dl Hct 37.9 (37.0-47.0) % MCV 78.0 L (80.0-98.0) fL MCH 26.3 L (27.0-33.0) pg MCHC 33.8 (31.0-35.0) g/dl RDW 13.5 (11.0-16.0) % Plt Count 222 (160-400) X10*3/uL MPV 9.5 (9.4-12.3) fL Immature Gran % (Auto) 0.3 (0.0-0.4) % Neut % (Auto) 65.4 (45-73) % Lymph % (Auto) 15.1 L (20-40) % [facility] % (Auto) 18.9 H (2-11) % Eos % (Auto) 0.0 (0-4) % Baso % (Auto) 0.3 (0-2) % Lymph # (Auto) 0.6 L (1.2-4.9) X10*3/uL [facility] # (Auto) 0.8 (0.1-1.2) X10*3/uL Eos # (Auto) 0.0 (0.0-0.4) X10*3/uL Baso # (Auto) 0.0 (0.0-0.2) X10*3/uL Abs Immat Gran (auto) 0.01 (0.00-0.03) X10*3/uL Absolute Neuts (auto) 2.6 (2.0-8.3) x10*3/uL Absolute Nucleated RBC 0.000 (0.0-0.012) X10*3/uL Nucleated RBC % (auto) 0.0 (0.0-0.2) /100WBC Sodium 138 (135-145) mmol/L Potassium 3.3 (3.3-5.1) mmol/L Chloride 105 (96-108) mmol/L Carbon Dioxide 21 L (22-29) mmol/L Anion Gap 15 (12-20) BUN 12 (9-16) mg/dL Creatinine 0.77 (0.5-1.4) mg/dL Estim Creat Clear Calc 89.2 Estimated GFR > 60 Random Glucose 125 H (60-115) mg/dL Calcium 9.2 (8.4-10.2) mg/dL Total Bilirubin 0.4 (0.0-1.0) mg/dL Direct Bilirubin 0.2 (0.0-0.5) mg/dL AST 37 H (5-31) U/L ALT 51 H (0-31) U/L Alkaline Phosphatase 74 (39-117) U/L Total Protein 8.3 H (6.5-8.0) g/dL Albumin 4.6 (3.5-5.0) g/dL Lipase 10 (8-78) U/L Beta HCG, Quant < 2 mIU/mL Medications Administered Discontinued Medications Generic Name Dose Route Start Last Admin Trade Name Freq PRN Reason Stop Dose Admin Diphenoxylate HCl/Atropine 1 tab 04/21/23 04:39 04/21/23 04:51 Diphenoxylate/Atrop 2.5/0.025 Tablet PO 04/21/23 04:40 1 tab ONCE ONE Administration Sodium Chloride 1,000 mls @ 999 mls/hr 04/21/23 04:38 04/21/23 05:55 Ns IVCONT 04/21/23 05:38 Infused .Q1H1M ONE Infusion Ondansetron HCl 4 mg 04/21/23 04:26 04/21/23 04:28 Ondansetron Hcl 4 Mg/2 Ml Vial IVPUSH 04/21/23 04:27 4 mg ONCE ONE Administration Prochlorperazine Edisylate 10 mg 04/21/23 06:58 04/21/23 07:22 Prochlorperazine Edisylate 10 Mg/2 Ml Vial IVPUSH 04/21/23 06:59 10 mg ONCE ONE Administration Critical Care Time Critical Care Time Critical Care Time: Yes Total Critical Care Time: 45 Attestation: I have personally provided critical care time. Time includes review of lab data, radiology results, discussion with consultants, and monitoring for potential decompensation. Intervention performed as documented. Discharge Plan Discharge Clinical Impression: Nausea & vomiting, Diarrhea Patient Disposition: Home, Self-Care Instructions: Acute Nausea and Vomiting (ED) Additional Instructions: Please follow-up with your primary care physician tomorrow. If you have any worsening or new symptoms, please return to the emergency room or call 911 Prescriptions: New ondansetron 4 mg tablet,disintegrating 4 mg PO Q8H PRN (Reason: nausea and vomiting) Qty: 10 0RF diphenoxylate-atropine [Lomotil] 2.5-0.025 mg tablet 1 tab PO TID PRN (Reason: diarrhea) Qty: 10 0RF Rx Instructions: Keep this medication out of reach of children No Action omeprazole 40 mg capsule,delayed release(DR/EC) 40 mg PO DAILY 30 Days Qty: 30 0RF metronidazole [Flagyl] 500 mg tablet 500 mg PO Q12H Qty: 14 0RF ibuprofen 800 mg tablet 800 mg PO Q8H PRN (Reason: pain) Qty: 14 0RF fluconazole [Diflucan] 150 mg tablet 150 mg PO Q3D Qty: 2 0RF Rx Instructions: may repeat second dose 72 hrs after first dose if symptoms persist Stand Alone Forms: Work/School Release
[2023-04-21 04:46] LABS: Alanine Aminotransferase 51 U/L (0-31); Albumin Level 4.6 g/dL (3.5-5.0); Alkaline Phosphatase 74 U/L (39-117); Anion Gap 15 (12-20); Aspartate Amino Transferase 37 U/L (5-31); Bilirubin Direct 0.2 mg/dL (0.0-0.5); Bilirubin Total 0.4 mg/dL (0.0-1.0); Blood Urea Nitrogen 12 mg/dL (9-16); Calcium 9.2 mg/dL (8.4-10.2); Carbon Dioxide 21 mmol/L (22-29); Chloride 105 mmol/L (96-108); Creatinine Clr Calc Pharmacy 89.2; Estimated Glomerular Filt Rate > 60; Glucose Random 125 mg/dL (60-115); Lipase 10 U/L (8-78); Potassium 3.3 mmol/L (3.3-5.1); Sodium 138 mmol/L (135-145); Total Protein 8.3 g/dL (6.5-8.0)
[2023-04-21] MEDS: Diphenoxylate/Atrop 2.5/0.025 TABLET 1 TAB PO (04:51)
[2023-04-21] MEDS: 0.9 % Sodium Chloride 1,000 ML 999 ML IVCONT ×2 (04:51→08:23)
[2023-04-21 04:53] LABS: HCG Quantitative < 2 mIU/mL
--- NOTE | 2023-04-21 06:16 | PC.NURSE ---
Pt given alycia tre and crackers for PO challenge
--- NOTE | 2023-04-21 06:29 | MHC.EDTECH ---
PATIENT WAS GIVEN PO CHALLENGE AND PATIENT TOLERATED WELL RN AND PROVIDER AWARE .
[2023-04-21] MEDS: Prochlorperazine Edisylate 10 MG/2 ML VIAL IVPUSH (07:22)
--- NOTE | 2023-04-21 07:44 | PC.NURSE ---
patient complaining of increasing abdominal pain and diarrhea after PO challenge. medicated per the MAR, continues with persistent nausea
[2023-04-21] MEDS: Famotidine/PF 20 MG/2 ML VIAL IVPUSH (08:23)
[2023-04-21] MEDS: Metoclopramide HCl 10 MG/2 ML VIAL IVPUSH (08:23)
[2023-04-21] MEDS: diphenhydrAMINE HCL 50 MG/ML VIAL IVPUSH (08:23)
--- NOTE | 2023-04-21 08:34 | PC.NURSE ---
medicated per the MAR, second liter of fluids infusing. patient resting quietly at this time with call crabtree within reach.
[2023-04-21 09:21] LABS: Influenza A PCR NEGATIVE (Negative); Influenza B PCR NEGATIVE (Negative); Resp Syncy Virus RNA Qual PCR NEGATIVE (Negative); SARS COV2 PCR INHOUSE NEGATIVE (Negative)
--- NOTE | 2023-04-21 11:14 | PC.NURSE ---
re-attempting to PO challenge with alycia tre and crackers. patient continues to endorse abdominal pain at this time.
[2023-04-21] MEDS: fentaNYL citrate/PF 100 MCG/2 ML VIAL 25 MCG IVPUSH (16:03)
--- NOTE | 2023-04-21 16:07 | PC.NURSE ---
continues to endorse vomiting and abdominal pain, unable to tolerate PO throughout shift after many PO trials. medicated per the MAR for pain
--- NOTE | 2023-04-21 16:08 | PHA.MEDREC ---
Pharmacy Consult ? Medication Reconciliation Pharmacy has completed the medication reconciliation. Patient reported taking Felxeril every once in a while. Kaylah Gill, PharmD
--- NOTE | 2023-04-21 17:21 | P.HPHOSP_ITS ---
History of Present Illness Date of Service: 04/21/23 Chief Complaint: Abdominal pain 28-year-old female presents with 4 days of nausea vomiting diarrhea. She is multiple doses of Imodium Pepto-Bismol but still no relief. In the emergency room multiple doses of Zofran and Compazine without results. CT scan consistent with mesenteric adenitis. Admission requested Review of Systems 2 Review of Systems: Denies chest pain Denies shortness of breath Admits nausea vomiting and diarrhea Denies fever chills PMFSH Medical History Muscle spasm Ovarian cyst Social History Alcohol intake: never Substance Use Type: Marijuana Advance Directives: No Advance Directives Information Provided: Yes Meds Allergies Allergy/AdvReac Type Severity Reaction Status Date / Time Iodinated Contrast Media Allergy Intermediate RASH Verified 04/21/23 04:06 [Iodinated Contrast Media - IV Dye] oxycodone [From PERCOCET] Allergy Intermediate TACHYCARDIA Verified 04/21/23 04:06 Active Medications: Current Medications Cyclobenzaprine HCl (Cyclobenzaprine Hcl 5 Mg Tablet) 5 mg PO TID PRN PRN Reason: Muscle Spasm Enoxaparin Sodium (Enoxaparin Sodium 40 Mg/0.4 Ml Syringe) 40 mg SUBCUT Q24H [facility] Morphine Sulfate (Morphine Sulfate 2 Mg/Ml Cartridge) 2 mg IVPUSH Q4H PRN; Protocol PRN Reason: Pain, Moderate(Pain Scale 4-6) Ondansetron HCl (Ondansetron Hcl 4 Mg/2 Ml Vial) 4 mg IVPUSH Q4H PRN PRN Reason: nausea Sodium Chloride (0.9 % Sodium Chloride Flush 3 Ml Syringe) 3 ml IVFLUSH QSHIFT [facility] Home Medications Medication Instructions Recorded Confirmed Last Taken Type cyclobenzaprine 5 mg tablet 5 mg PO TID PRN Muscle Spasm 04/21/23 04/21/23 Unknown History Physical Exam 2 Vital Signs and Narrative: Vital Signs: Last Vital Signs Temp 98.5 F 04/21/23 15:49 Pulse 84 04/21/23 15:49 Resp 16 04/21/23 15:49 BP 98/51 L 04/21/23 15:49 Pulse Ox 100 04/21/23 15:49 O2 Del Method Room Air 04/21/23 15:49 BMI result Body Mass Index 23.1 Const: Other: Awake alert no acute distress Resp: Other: Clear to auscultation bilaterally no rales rhonchi or wheezes Cardio: Other: No S4; positive S1-S2; no S3 murmurs rubs or gallops GI: Other: Soft nontender nondistended normoactive bowel sounds Extrem: Other: No edema bilaterally Results Labs 04/21/23 04:26 04/21/23 04:26 Labs: Laboratory Results - last 24 hr 04/21/23 04/21/23 04:26 08:30 MCV 78.0 L MCH 26.3 L MCHC 33.8 RDW 13.5 Plt Count 222 MPV 9.5 Immature Gran % (Auto) 0.3 Neut % (Auto) 65.4 Lymph % (Auto) 15.1 L [place] % (Auto) 18.9 H Eos % (Auto) 0.0 Baso % (Auto) 0.3 Lymph # (Auto) 0.6 L [place] # (Auto) 0.8 Eos # (Auto) 0.0 Baso # (Auto) 0.0 Abs Immat Gran (auto) 0.01 Absolute Neuts (auto) 2.6 Absolute Nucleated RBC 0.000 Nucleated RBC % (auto) 0.0 Anion Gap 15 Estim Creat Clear Calc 89.2 Estimated GFR > 60 Random Glucose 125 H Calcium 9.2 Total Bilirubin 0.4 Direct Bilirubin 0.2 AST 37 H ALT 51 H Alkaline Phosphatase 74 Total Protein 8.3 H Albumin 4.6 Lipase 10 Beta HCG, Quant < 2 Influenza Type A (PCR) NEGATIVE Influenza Type B (PCR) NEGATIVE RSV RNA Qual (PCR) NEGATIVE SARS-CoV-2 RNA (RT-PCR) NEGATIVE Imaging Radiologist's Impressions: Impressions Abdomen/Pelvis CT 04/21/23 12:26 IMPRESSION: Interval increase in subcentimeter mesenteric lymph nodes. Consider mesenteric adenitis. Punctate nonobstructing left renal calculus. No hydronephrosis. Assessment and Plan (1) Mesenteric adenitis: Status: Acute Plan 28-year-old female 4 days with nausea vomiting diarrhea which is failed outpatient therapy presents to ER. CT scan consistent with mesenteric adenitis 1. Mesenteric adenitis -empiric Zosyn (1) -IV morphine for pain -supplemental IV fluid with lactated Ringer's -advance diet as tolerated -GI consult if no improvement/response to therapy Full code Esequiel Will require at least 2 midnights going forward of inpatient stay to treat mesenteric adenitis and his symptoms with IV antibiotics and analgesia. May require specialist consultation. This can not be achieved a lesser acute setting Quality Stroke Does the patient have a stroke diagnosis?: No VTE Prior VTE?: No VTE Risk Level:: Medical - moderate - high VTE Device Contraindication: Treatment Not Indicated VTE Drug Contraindication: N/A - Med Ordered
[2023-04-21] MEDS: Lactated Ringers 1,000 ML 125 ML IVCONT (18:39)
--- NOTE | 2023-04-21 18:45 | PC.NURSE ---
patient reporting improvement in pain, able to tolerate PO clear liquids at this time. provided with PRN nausea medication
[2023-04-21] MEDS: Enoxaparin Sodium 40 MG/0.4 ML SYRINGE SUBCUT (20:49)
[2023-04-21 21:22] LABS: Appearance Urine Clear; Color Urine Yellow; Glucose Urine UA Negative (Negative); Leukocyte Esterase Urine Negative (Negative); Nitrite Urine Negative (Negative); PH 5.5 (5.0-9.0); Specific Gravity - Urine 1.025 (1.005-1.025); UMIC TRIGGER UACC YES; UPreg QC Valid YES; Urine Blood Large (3+) (Negative); Urine Ketones >=160 mg/dL (Negative); Urine Pregnancy NEGATIVE (NEGATIVE); Urine Protein 30 (1+) mg/dL (Neg-Trace)
[2023-04-21 21:35] LABS: Bacteria Urine None Seen (None Seen); Hyaline Casts Urine 0-2 /LPF (0-2); Squamous Epithelial Cell Urine 0-2 /HPF (0-2); WBC Urine 0-5 /HPF (0-5)
[2023-04-21] MEDS: Morphine Sulfate 2 MG/ML CARTRIDGE IVPUSH (22:40)
[2023-04-22] MEDS: Lactated Ringers 1,000 ML 125 ML IVCONT ×3 (02:45→19:08)
[2023-04-22 03:00] VITALS: BP 108/57; PULSE 62; RESP 16; TEMP 36.6; O2SAT 96
[2023-04-22] MEDS: ondansetron HCL 4 MG/2 ML VIAL IVPUSH ×4 (06:26→17:18)
[2023-04-22 06:28] LABS: Basophils Percent Auto 0.3 % (0-2); Hematocrit 33.4 % (37.0-47.0); Hemoglobin 11.1 g/dl (12.0-16.0); Imm Gran Abs Auto 0.01 X10*3/uL (0.00-0.03); Imm Gran Pct Auto 0.3 % (0.0-0.4); Lymphocytes Absolute Auto 1.7 X10*3/uL (1.2-4.9); Lymphocytes Percent Auto 48.8 % (20-40); MANUAL DIFF FLAG SCAN; Mean Corpuscular HGB Conc 33.2 g/dl (31.0-35.0); Mean Corpuscular Hemoglobin 26.4 pg (27.0-33.0); Mean Corpuscular Volume 79.5 fL (80.0-98.0); Mean Platelet Volume 9.8 fL (9.4-12.3); Monocytes Absolute Auto 0.6 X10*3/uL (0.1-1.2); Monocytes Percent Auto 16.2 % (2-11); Neutrophils Absolute Auto 1.2 x10*3/uL (2.0-8.3); Neutrophils Percent Auto 34.4 % (45-73); Platelet Count 166 X10*3/uL (160-400); Red Cell Distribution Width 13.6 % (11.0-16.0); SCAN SMEAR FLAG 1; White Blood Count 3.4 X10*3/uL (4.8-10.8)
[2023-04-22 06:47] LABS: Alanine Aminotransferase 35 U/L (0-31); Albumin Level 3.6 g/dL (3.5-5.0); Alkaline Phosphatase 55 U/L (39-117); Anion Gap 14 (12-20); Aspartate Amino Transferase 33 U/L (5-31); Bilirubin Total 0.4 mg/dL (0.0-1.0); Blood Urea Nitrogen 7 mg/dL (9-16); Calcium 8.1 mg/dL (8.4-10.2); Carbon Dioxide 22 mmol/L (22-29); Chloride 106 mmol/L (96-108); Estimated Glomerular Filt Rate > 60; Glucose Fasting 78 mg/dL (60-99); Sodium 139 mmol/L (135-145); Total Protein 6.4 g/dL (6.5-8.0)
[2023-04-22 07:31] VITALS: BP 97/55; PULSE 80; RESP 18; TEMP 36.8; O2SAT 98
[2023-04-22 08:41] LABS: SLIDE REVIEW VERIFIED
[2023-04-22] MEDS: KCl 40 mEq in 0.9 % Sodium Chl 40 MEQ/1,000 ML IV.SOLN 250 MEQ IV (08:41)
[2023-04-22] MEDS: Morphine Sulfate 2 MG/ML CARTRIDGE IVPUSH ×3 (10:52→23:56)
--- NOTE | 2023-04-22 12:48 | HO.PM.IMPN ---
Subjective Subjective Date of Service: 04/22/23 Interval History: Slowly improving. Tolerating small amounts of clear liquids Review of Systems Denies chest pain Denies shortness of breath Admits nausea vomiting and diarrhea Denies fever chills Physical Exam Vital Signs: Vital Signs: Last Vital Signs Temp 98.3 F 04/22/23 07:31 Pulse 80 04/22/23 07:31 Resp 18 04/22/23 07:31 BP 97/55 L 04/22/23 07:31 Pulse Ox 98 04/22/23 07:31 O2 Del Method Room Air 04/22/23 07:31 BMI result Body Mass Index 24.0 Const: Other: Awake alert no acute distress Resp: Other: Clear to auscultation bilaterally no rales rhonchi or wheezes Cardio: Other: No S4; positive S1-S2; no S3 murmurs rubs or gallops GI: Other: Soft nontender nondistended normoactive bowel sounds Extrem: Other: No edema bilaterally Objective Data Active Medications Cyclobenzaprine HCl (Cyclobenzaprine Hcl 5 Mg Tablet) 5 mg PO TID PRN PRN Reason: Muscle Spasm Enoxaparin Sodium (Enoxaparin Sodium 40 Mg/0.4 Ml Syringe) 40 mg SUBCUT Q24H [facility] Last Admin: 04/21/23 20:49 Dose: 40 mg Documented By: LAMIN Hydromorphone HCl (Hydromorphone Hcl 2 Mg Tablet) 2 mg PO Q4H PRN PRN Reason: Pain, Moderate(Pain Scale 4-6) Lactated Ringer's (Lr) 1,000 mls @ 125 mls/hr IVCONT .Q8H [facility] Last Admin: 04/22/23 09:07 Dose: Not Given Documented By: DEBORA Non-Admin Reason: IV Running Morphine Sulfate (Morphine Sulfate 2 Mg/Ml Cartridge) 2 mg IVPUSH Q4H PRN; Protocol PRN Reason: Pain, Moderate(Pain Scale 4-6) Last Admin: 04/22/23 10:52 Dose: 2 mg Documented By: DEBORA Ondansetron HCl (Ondansetron Hcl 4 Mg/2 Ml Vial) 4 mg IVPUSH Q4H PRN PRN Reason: nausea Last Admin: 04/22/23 12:26 Dose: 4 mg Documented By: DEBORA Sodium Chloride (0.9 % Sodium Chloride Flush 3 Ml Syringe) 3 ml IVFLUSH QSHIFT JESSICA Last Admin: 04/22/23 07:08 Dose: Not Given Documented By: DEBORA Non-Admin Reason: IV Running Labs 04/22/23 06:09 04/22/23 06:09 Labs: Laboratory Results - last 24 hr 04/21/23 04/22/23 21:12 06:09 MCV 79.5 L MCH 26.4 L MCHC 33.2 RDW 13.6 Plt Count 166 D MPV 9.8 Immature Gran % (Auto) 0.3 Neut % (Auto) 34.4 L Lymph % (Auto) 48.8 H [place] % (Auto) 16.2 H Eos % (Auto) 0.0 Baso % (Auto) 0.3 Lymph # (Auto) 1.7 [place] # (Auto) 0.6 Eos # (Auto) 0.0 Baso # (Auto) 0.0 Abs Immat Gran (auto) 0.01 Absolute Neuts (auto) 1.2 L Absolute Nucleated RBC 0.000 Nucleated RBC % (auto) 0.0 Smear Tech's Comments VERIFIED Anion Gap 14 Estim Creat Clear Calc 109.0 Estimated GFR > 60 Fasting Glucose 78 Calcium 8.1 L D Total Bilirubin 0.4 AST 33 H ALT 35 H Alkaline Phosphatase 55 Total Protein 6.4 L Albumin 3.6 Urine Color Yellow Urine Appearance Clear Urine pH 5.5 Ur Specific [place] 1.025 Urine Protein 30 (1+) H Urine Glucose (UA) Negative Urine Ketones >=160 Urine Blood Large (3+) H Urine Nitrite Negative Ur Leukocyte Esterase Negative Urine RBC 11-20 H Urine WBC 0-5 Ur Squamous Epith Cells 0-2 Urine Bacteria None Seen Hyaline Casts 0-2 Urine Test NEGATIVE Assessment and Plan (1) Mesenteric adenitis: Status: Acute Plan 28-year-old female 4 days with nausea vomiting diarrhea which is failed outpatient therapy presents to ER. CT scan consistent with mesenteric adenitis 1. Mesenteric adenitis -empiric Zosyn (2) -IV morphine for pain.. Will add oral Dilaudid -supplemental IV fluid with lactated Ringer's(potassium repleted with 40 mEq in 1 L) -advance diet as tolerated Full code Lovenox Requires ongoing hospitalization for IV antibiotics and IV volume repletion and pain management for adenitis; unable to tolerate p.o. Quality Stroke Does the patient have a stroke diagnosis?: No VTE Prior VTE?: No VTE Risk Level:: Medical - moderate - high VTE Device Contraindication: Treatment Not Indicated VTE Drug Contraindication: N/A - Med Ordered
[2023-04-22] MEDS: HYDROmorphone HCl 2 MG TABLET PO (13:30)
[2023-04-22 15:12] VITALS: BP 119/64; PULSE 75; RESP 16; TEMP 36.3; O2SAT 99
--- NOTE | 2023-04-22 15:31 | MHC.CM.PN ---
CM MET WITH PATIENT FOR ASSESSMENT.'PATIENT IS CRYING AND EXPRESSING ABDOMINAL PAIN THAT IS NOT RELIEVED. SHE IS WILLING TO PARTICIPATE IN DISCUSSION BUT FINDS IT DIFFICULT DECISION MADE WITH PATIENT TO SPEAK AT A MORE APPROPRIATE TIME FOR HER.
[2023-04-22] MEDS: Enoxaparin Sodium 40 MG/0.4 ML SYRINGE SUBCUT (17:15)
--- NOTE | 2023-04-22 17:20 | PC.NURSE ---
Pt vomiting, last given PRN zofran 4m at 16:30 not due again until 20:30. MD Dr sharma made aware, MD verbalized okay to give additional dose of zofran 4mg now, Pt medicated per APR, Pt resting in bed with eyes closed, respirations even and unlabored, call crabtree within reach.
[2023-04-22 19:11] VITALS: BP 102/59; PULSE 71; RESP 14; TEMP 36.8; O2SAT 100
[2023-04-22] MEDS: Pantoprazole Sodium 40 MG/10 ML VIAL IVPUSH (20:12)
[2023-04-22] MEDS: Prochlorperazine Edisylate 10 MG/2 ML VIAL 5 MG IVPUSH ×2 (20:13→23:56)
--- NOTE | 2023-04-22 20:35 | MHC.PIE ---
p; pt c/o nausea.note; prn zofran given at 1717, one time dose phenergan given at 1912 with no result i; dr multani notified. new order nop now, compazine prn, protonix now and schedule. e; will cont to monitor
[2023-04-22 23:47] VITALS: BP 115/58; PULSE 65; RESP 16; TEMP 36.7; O2SAT 98
[2023-04-23] MEDS: Lactated Ringers 1,000 ML 125 ML IVCONT ×3 (03:20→17:28)
[2023-04-23 04:00] VITALS: BP 117/58; PULSE 74; RESP 16; TEMP 36.9; O2SAT 98
[2023-04-23] MEDS: Pantoprazole Sodium 40 MG/10 ML VIAL IVPUSH (06:12)
[2023-04-23 07:14] VITALS: BP 124/61; PULSE 85; RESP 16; TEMP 36.3; O2SAT 98
[2023-04-23 07:53] LABS: Basophils Percent Auto 0.3 % (0-2); Eosinophils Percent Auto 0.3 % (0-4); Hemoglobin 11.2 g/dl (12.0-16.0); Lymphocytes Absolute Auto 1.6 X10*3/uL (1.2-4.9); Lymphocytes Percent Auto 51.5 % (20-40); MANUAL DIFF FLAG SCAN; Mean Corpuscular HGB Conc 32.9 g/dl (31.0-35.0); Mean Corpuscular Hemoglobin 26.2 pg (27.0-33.0); Mean Corpuscular Volume 79.6 fL (80.0-98.0); Monocytes Absolute Auto 0.4 X10*3/uL (0.1-1.2); Monocytes Percent Auto 13.4 % (2-11); Neutrophils Absolute Auto 1.1 x10*3/uL (2.0-8.3); Neutrophils Percent Auto 34.5 % (45-73); Platelet Count 165 X10*3/uL (160-400); Red Blood Count 4.27 X10*6/uL (4.20-5.50); Red Cell Distribution Width 13.7 % (11.0-16.0); SCAN SMEAR FLAG 1; White Blood Count 3.1 X10*3/uL (4.8-10.8)
[2023-04-23 08:08] LABS: Alanine Aminotransferase 31 U/L (0-31); Albumin Level 3.6 g/dL (3.5-5.0); Alkaline Phosphatase 53 U/L (39-117); Anion Gap 16 (12-20); Aspartate Amino Transferase 27 U/L (5-31); Bilirubin Total 0.4 mg/dL (0.0-1.0); Blood Urea Nitrogen 6 mg/dL (9-16); Calcium 8.3 mg/dL (8.4-10.2); Carbon Dioxide 19 mmol/L (22-29); Chloride 108 mmol/L (96-108); Creatinine Clr Calc Pharmacy 110.7; Estimated Glomerular Filt Rate > 60; Glucose Fasting 63 mg/dL (60-99); Potassium 3.4 mmol/L (3.3-5.1); Sodium 140 mmol/L (135-145); Total Protein 6.5 g/dL (6.5-8.0)
[2023-04-23 08:14] LABS: SLIDE REVIEW VERIFIED
--- NOTE | 2023-04-23 08:46 | MHC.CM.PN ---
STEFANY delivered. Patient is from home with mother. Functionally independent. Denies use of DME or services. Does not have a PCP. Physician brochure provided. Patient will make appointment this week. No HCP. CM provided education and offered assistance. Patient declined. DP: Goal is home self care. Will need shuttle or Lyft. CM will continue to follow.
[2023-04-23] MEDS: Morphine Sulfate 2 MG/ML CARTRIDGE IVPUSH ×3 (10:12→17:28)
[2023-04-23 11:41] VITALS: BP 101/57; PULSE 62; TEMP 36.1; O2SAT 98
[2023-04-23] MEDS: Prochlorperazine Edisylate 10 MG/2 ML VIAL 5 MG IVPUSH ×2 (11:44→17:28)
--- NOTE | 2023-04-23 12:14 | HO.PM.IMPN ---
Subjective Subjective Date of Service: 04/23/23 Interval History: Slowly improving. Requesting diet today Review of Systems Denies chest pain Denies shortness of breath Admits nausea vomiting and diarrhea Denies fever chills Physical Exam Vital Signs: Vital Signs: Last Vital Signs Temp 96.9 F 04/23/23 11:41 Pulse 62 04/23/23 11:41 Resp 16 04/23/23 07:14 BP 101/57 L 04/23/23 11:41 Pulse Ox 98 04/23/23 11:41 O2 Del Method Room Air 04/23/23 11:41 BMI result Body Mass Index 24.0 Const: Other: Awake alert no acute distress Resp: Other: Clear to auscultation bilaterally no rales rhonchi or wheezes Cardio: Other: No S4; positive S1-S2; no S3 murmurs rubs or gallops GI: Other: Soft nontender nondistended normoactive bowel sounds Extrem: Other: No edema bilaterally Objective Data Active Medications Cyclobenzaprine HCl (Cyclobenzaprine Hcl 5 Mg Tablet) 5 mg PO TID PRN PRN Reason: Muscle Spasm Enoxaparin Sodium (Enoxaparin Sodium 40 Mg/0.4 Ml Syringe) 40 mg SUBCUT Q24H [facility] Last Admin: 04/22/23 17:15 Dose: 40 mg Documented By: DEBORA Hydromorphone HCl (Hydromorphone Hcl 2 Mg Tablet) 2 mg PO Q4H PRN PRN Reason: Pain, Moderate(Pain Scale 4-6) Last Admin: 04/22/23 13:30 Dose: 2 mg Documented By: DEBORA Lactated Ringer's (Lr) 1,000 mls @ 125 mls/hr IVCONT .Q8H [facility] Last Admin: 04/23/23 10:12 Dose: 125 mls/hr Documented By: DEBORA Morphine Sulfate (Morphine Sulfate 2 Mg/Ml Cartridge) 2 mg IVPUSH Q4H PRN; Protocol PRN Reason: Pain, Moderate(Pain Scale 4-6) Last Admin: 04/23/23 10:12 Dose: 2 mg Documented By: DEBORA Pantoprazole Sodium (Pantoprazole Sodium 40 Mg/10 Ml Vial) 40 mg IVPUSH DAILY@0630 [facility] Last Admin: 04/23/23 06:12 Dose: 40 mg Documented By: LAMIN Prochlorperazine Edisylate (Prochlorperazine Edisylate 10 Mg/2 Ml Vial) 5 mg IVPUSH Q4H PRN PRN Reason: Nausea and Vomiting Last Admin: 04/23/23 11:44 Dose: 5 mg Documented By: DEBORA Sodium Chloride (0.9 % Sodium Chloride Flush 3 Ml Syringe) 3 ml IVFLUSH QSHIFT [facility] Last Admin: 04/23/23 07:02 Dose: Not Given Documented By: DEBORA Non-Admin Reason: IV Running Labs 04/23/23 07:22 04/23/23 07:22 Labs: Laboratory Results - last 24 hr 04/23/23 07:22 MCV 79.6 L MCH 26.2 L MCHC 32.9 RDW 13.7 Plt Count 165 MPV 10.0 Immature Gran % (Auto) 0.0 Neut % (Auto) 34.5 L Lymph % (Auto) 51.5 H [place] % (Auto) 13.4 H Eos % (Auto) 0.3 Baso % (Auto) 0.3 Lymph # (Auto) 1.6 [place] # (Auto) 0.4 Eos # (Auto) 0.0 Baso # (Auto) 0.0 Abs Immat Gran (auto) 0.00 Absolute Neuts (auto) 1.1 L Absolute Nucleated RBC 0.000 Nucleated RBC % (auto) 0.0 Smear Tech's Comments VERIFIED Anion Gap 16 Estim Creat Clear Calc 110.7 Estimated GFR > 60 Fasting Glucose 63 Calcium 8.3 L Total Bilirubin 0.4 AST 27 ALT 31 Alkaline Phosphatase 53 Total Protein 6.5 Albumin 3.6 Assessment and Plan (1) Mesenteric adenitis: Status: Acute Plan 28-year-old female 4 days with nausea vomiting diarrhea which is failed outpatient therapy presents to ER. CT scan consistent with mesenteric adenitis 1. Mesenteric adenitis -IV morphine for pain.. Will add oral Dilaudid -supplemental IV fluid with lactated Ringer's(potassium repleted with 40 mEq in 1 L) -advance diet .. Regular diet today Full code Lovenox Requires ongoing hospitalization for IV antibiotics and IV volume repletion and pain management for adenitis; unable to tolerate p.o. Quality Stroke Does the patient have a stroke diagnosis?: No VTE Prior VTE?: No VTE Risk Level:: Medical - moderate - high VTE Device Contraindication: Treatment Not Indicated VTE Drug Contraindication: N/A - Med Ordered
--- NOTE | 2023-04-23 12:40 | PC.NURSE ---
Pt complaining of increased pain and nausea, previously medicated per MAR with no relief, MD Dr Hamilton made aware, Morphine not due until 14:12, okay to give medication early per MD. Pt resting in bed, respirations even and unlabored, effectiveness pending.
[2023-04-23] MEDS: methylPREDNISolone Sod Succ 125 MG/2 ML VIAL IVPUSH (14:00)
[2023-04-23 15:19] VITALS: BP 109/59; PULSE 64; RESP 16; TEMP 36.7; O2SAT 98
[2023-04-23] MEDS: Enoxaparin Sodium 40 MG/0.4 ML SYRINGE SUBCUT (17:28)
[2023-04-23 18:46] VITALS: BP 116/61; PULSE 65; RESP 16; TEMP 36.4; O2SAT 98
[2023-04-23] MEDS: Metoclopramide HCl 10 MG/2 ML VIAL 5 MG IVPUSH (19:44)
[2023-04-23] MEDS: Ketorolac Tromethamine 15 MG/ML VIAL IVPUSH (23:08)
[2023-04-23 23:47] VITALS: BP 108/61; PULSE 70; RESP 16; TEMP 37; O2SAT 98
[2023-04-24] VITALS (8 sets, daily range): BP systolic 95–119; BP diastolic 52–66; PULSE 54–88; RESP 15–19; TEMP 36.3–37.2; O2SAT 96–98
[2023-04-24] MEDS: Lactated Ringers 1,000 ML 125 ML IVCONT ×3 (00:53→18:35)
[2023-04-24 04:01] LABS: Cancel Lactic Acid Canceled
[2023-04-24] MEDS: 0.9 % Sodium Chloride 1,000 ML 999 ML IV (04:06)
[2023-04-24 04:41] LABS: Hematocrit 33.3 % (37.0-47.0); Hemoglobin 11.3 g/dl (12.0-16.0); Lymphocytes Absolute Auto 1.3 X10*3/uL (1.2-4.9); Lymphocytes Percent Auto 57.2 % (20-40); MANUAL DIFF FLAG SCAN; Mean Corpuscular HGB Conc 33.9 g/dl (31.0-35.0); Mean Corpuscular Hemoglobin 26.6 pg (27.0-33.0); Mean Corpuscular Volume 78.4 fL (80.0-98.0); Mean Platelet Volume 9.8 fL (9.4-12.3); Monocytes Absolute Auto 0.3 X10*3/uL (0.1-1.2); Monocytes Percent Auto 11.4 % (2-11); Neutrophils Absolute Auto 0.7 x10*3/uL (2.0-8.3); Neutrophils Percent Auto 31.4 % (45-73); Platelet Count 174 X10*3/uL (160-400); Red Blood Count 4.25 X10*6/uL (4.20-5.50); Red Cell Distribution Width 13.4 % (11.0-16.0); SCAN SMEAR FLAG 1
[2023-04-24 04:42] LABS: White Blood Count 2.3 X10*3/uL (4.8-10.8)
[2023-04-24 04:54] LABS: Alanine Aminotransferase 26 U/L (0-31); Albumin Level 3.6 g/dL (3.5-5.0); Alkaline Phosphatase 49 U/L (39-117); Anion Gap 13 (12-20); Aspartate Amino Transferase 25 U/L (5-31); Bilirubin Total 0.4 mg/dL (0.0-1.0); Blood Urea Nitrogen 6 mg/dL (9-16); Calcium 8.5 mg/dL (8.4-10.2); Carbon Dioxide 20 mmol/L (22-29); Chloride 109 mmol/L (96-108); Creatinine Clr Calc Pharmacy 110.7; Estimated Glomerular Filt Rate > 60; Glucose Random 97 mg/dL (60-115); Potassium 3.9 mmol/L (3.3-5.1); Sodium 138 mmol/L (135-145); Total Protein 6.4 g/dL (6.5-8.0)
[2023-04-24 05:01] LABS: SLIDE REVIEW VERIFIED
[2023-04-24] MEDS: Metoclopramide HCl 10 MG/2 ML VIAL 5 MG IVPUSH ×4 (05:08→22:36)
[2023-04-24] MEDS: Ketorolac Tromethamine 15 MG/ML VIAL IVPUSH ×3 (05:22→18:31)
[2023-04-24] MEDS: Pantoprazole Sodium 40 MG/10 ML VIAL IVPUSH ×2 (05:25→18:27)
--- NOTE | 2023-04-24 08:53 | HO.PM.IMPN ---
Subjective Subjective Date of Service: 04/24/23 Interval History: Follow up and pain, nausea and vomiting, mesenteric adenitis Slowly improving. Requesting diet today Review of Systems Denies chest pain Denies shortness of breath Admits nausea vomiting and diarrhea Denies fever chills Physical Exam Vital Signs: Vital Signs: Last Vital Signs Temp 97.4 F 04/24/23 07:26 Pulse 88 04/24/23 07:26 Resp 15 04/24/23 07:26 BP 117/54 L 04/24/23 07:26 Pulse Ox 96 04/24/23 07:26 O2 Del Method Room Air 04/24/23 07:26 BMI result Body Mass Index 24.0 Appearing in no acute distress lung sounds are clear to auscultation heart regular rate rhythm, clear S1, S2 positive bowel sounds, abdomen is soft, nontender neuro patient is alert x3, no focal deficits Objective Data Active Medications Cyclobenzaprine HCl (Cyclobenzaprine Hcl 5 Mg Tablet) 5 mg PO TID PRN PRN Reason: Muscle Spasm Enoxaparin Sodium (Enoxaparin Sodium 40 Mg/0.4 Ml Syringe) 40 mg SUBCUT Q24H [facility] Last Admin: 04/23/23 17:28 Dose: 40 mg Documented By: DEBORA Hydromorphone HCl (Hydromorphone Hcl 2 Mg Tablet) 2 mg PO Q4H PRN PRN Reason: Pain, Moderate(Pain Scale 4-6) Last Admin: 04/22/23 13:30 Dose: 2 mg Documented By: DEBORA Lactated Ringer's (Lr) 1,000 mls @ 125 mls/hr IVCONT .Q8H [facility] Last Infusion: 04/24/23 05:13 Dose: 125 mls/hr Documented By: CHARLI Metoclopramide HCl (Metoclopramide Hcl 10 Mg/2 Ml Vial) 5 mg IVPUSH Q4H PRN PRN Reason: Nausea and Vomiting Last Admin: 04/24/23 05:08 Dose: 5 mg Documented By: CHARLI Morphine Sulfate (Morphine Sulfate 2 Mg/Ml Cartridge) 2 mg IVPUSH Q4H PRN; Protocol PRN Reason: Pain, Moderate(Pain Scale 4-6) Last Admin: 04/23/23 17:28 Dose: 2 mg Documented By: HO.PRESTOS Pantoprazole Sodium (Pantoprazole Sodium 40 Mg/10 Ml Vial) 40 mg IVPUSH DAILY@0630 [facility] Last Admin: 04/24/23 05:25 Dose: 40 mg Documented By: CHARLI Sodium Chloride (0.9 % Sodium Chloride Flush 3 Ml Syringe) 3 ml IVFLUSH QSHIFT [facility] Last Admin: 04/24/23 08:19 Dose: Not Given Documented By: DAVID Non-Admin Reason: IV Running Labs 04/24/23 04:19 04/24/23 04:19 Labs: Laboratory Results - last 24 hr 04/24/23 04:19 MCV 78.4 L MCH 26.6 L MCHC 33.9 RDW 13.4 Plt Count 174 MPV 9.8 Immature Gran % (Auto) 0.0 Neut % (Auto) 31.4 L Lymph % (Auto) 57.2 H [place] % (Auto) 11.4 H Eos % (Auto) 0.0 Baso % (Auto) 0.0 Lymph # (Auto) 1.3 [place] # (Auto) 0.3 Eos # (Auto) 0.0 Baso # (Auto) 0.0 Abs Immat Gran (auto) 0.00 Absolute Neuts (auto) 0.7 L Absolute Nucleated RBC 0.000 Nucleated RBC % (auto) 0.0 Smear Tech's Comments VERIFIED Anion Gap 13 Estim Creat Clear Calc 110.7 Estimated GFR > 60 Random Glucose 97 Calcium 8.5 Total Bilirubin 0.4 AST 25 ALT 26 Alkaline Phosphatase 49 Total Protein 6.4 L Albumin 3.6 Assessment and Plan (1) Mesenteric adenitis: Status: Acute Plan 28-year-old female 4 days with nausea vomiting diarrhea which is failed outpatient therapy presents to ER. CT scan consistent with mesenteric adenitis Mesenteric adenitis supplemental IV fluid with lactated Ringer's IV narcotics and antiemetics advance diet . Regular diet today GI consult pending supportive care Transaminitis ? viral illness resolved Full code Attending Dr. Musa Iraheta Requires ongoing hospitalization for IV antibiotics and IV volume repletion and pain management for adenitis; unable to tolerate p.o. Quality Stroke Does the patient have a stroke diagnosis?: No VTE Prior VTE?: No VTE Risk Level:: Medical - moderate - high VTE Device Contraindication: Treatment Not Indicated VTE Drug Contraindication: N/A - Med Ordered
[2023-04-24] MEDS: HYDROmorphone HCl 2 MG TABLET PO (11:18)
--- NOTE | 2023-04-24 14:04 | MHC.CM.PN ---
per rounds pt not ready for dc awaiting gi consult dc plan remains home
[2023-04-24] MEDS: LORazepam 2 MG/ML VIAL 1 MG IVPUSH (17:44)
--- NOTE | 2023-04-24 17:46 | PM.EVENT ---
Event Note Date of Service: 04/24/23 Event Note: GI Consult-Full note dictated-History from patient and EMR. Imp: Resolving viral process with associated N/V/Diarrhea and abdominal pain. She reports her 6 year old daughter had similar symptoms lasting for about 2 days just before she became ill herself. Her leukopenia with predominant lymphocytes and the CT scan with possible lymphadenitis would support a viral process as well. She denies any previous chronic GI complaints. She reports that her vomiting and diarrhea have resolved, although she is still having some nausea, anorexia, and abdominal discomfort. Her abdominal exam is benign other than some mild diffuse tenderness. Rec: Continue supportive care, analgesics, antiemetics, diet as tolerated, and PPI for the short term(I increased it to BID for the time being). F/U CBC for the morning. I don't think any further imaging or endoscopic intervention is needed at the present time. If her pain and UGI complaints persist and prevent discharge, then could consider a Gallbladder U/S and upper endoscopy. I did review all of this in detail with the patient and offered her reassurance. She is comfortable with this plan. She does have some baseline anxiety and uses marijuana at least twice a day. Her RN was going to look into getting an order for an anxiolytic if needed. Please call me if problems persist or worsen during the hospitalization. Thanks. Time Spent With Patient Time: Total time managing care of this patient today ____ minutes.
[2023-04-24] MEDS: Enoxaparin Sodium 40 MG/0.4 ML SYRINGE SUBCUT (17:48)
[2023-04-24] MEDS: ondansetron HCL 4 MG/2 ML VIAL IVPUSH (18:33)
[2023-04-24] MEDS: Morphine Sulfate 2 MG/ML CARTRIDGE IVPUSH (22:37)
[2023-04-25] MEDS: Lactated Ringers 1,000 ML 125 ML IVCONT ×2 (02:34→09:30)
[2023-04-25] MEDS: Ketorolac Tromethamine 15 MG/ML VIAL IVPUSH ×2 (02:35→09:30)
[2023-04-25] MEDS: ondansetron HCL 4 MG/2 ML VIAL IVPUSH ×3 (02:35→13:24)
[2023-04-25 03:23] VITALS: BP 102/53; PULSE 67; RESP 16; TEMP 37.1; O2SAT 98
--- NOTE | 2023-04-25 04:11 | CONS_ITS ---
DATE OF SERVICE: 04/24/2023 REASON FOR CONSULTATION: Nausea, vomiting, abdominal pain, diarrhea, and abnormal CT scan of the abdomen. HISTORY OF PRESENT ILLNESS: This has been obtained from the patient and the medical record. The patient is a 28-year-old female who is generally in good health but developed the onset of nausea, vomiting, and diarrhea. This began about 4 days ago. She describes that her 6-year-old daughter had similar symptoms for about 2 days prior to that, although she got better fairly quickly. Since the patient has been ill, she had persistent symptoms refractory to outpatient treatment with Pepto-Bismol, Imodium, and Advil. She came to the ER on April 21 and was admitted. Since admission, she does report that her diarrhea and vomiting have resolved, although she is still left with some nausea and fairly diffuse abdominal pain, although most localized in the upper abdomen. Her appetite is still diminished. She is having some symptoms of acid reflux as well. She denies any vomiting or diarrhea today. She had not noticed any hematochezia nor melena. There was no sign of any hematemesis nor coffee-grounds emesis. Prior to this acute illness she denies any chronic GI complaint such as heartburn, dysphagia, abdominal pain, anorexia, early satiety, hematochezia, nor melena. She has not been on any antibiotics at home. Other than some occasional Advil during this acute illness, she does not use any chronic NSAIDs. She does not smoke any cigarettes or use alcohol, but does smoke marijuana at least twice a day. She denies any known family history of significant GI problems. At the present time, she is feeling anxious. She describes that she does have a baseline of some anxiety. Her present medications include Protonix 40 mg IV daily, cyclobenzaprine p.r.n., Lovenox, hydromorphone p.r.n., ketorolac 15 mg IV every 6 hours p.r.n., Reglan p.r.n., morphine p.r.n., Zofran p.r.n., and the pantoprazole 40 mg daily. PAST MEDICAL HISTORY: A . Jaw surgery for TMJ syndrome. She denies any medical problems such as diabetes, heart disease, asthma, stroke, nor kidney disease. SOCIAL HISTORY: As above. She smokes marijuana twice a day but does not use any tobacco nor alcohol. She has one 6-year-old daughter. FAMILY HISTORY: Noncontributory. REVIEW OF SYSTEMS: CONSTITUTIONAL: Prior to becoming ill, she had been feeling well with good energy and good appetite. SKIN: No rash, no pruritus. CARDIAC: No chest pain. PULMONARY: No coughing, no hemoptysis. GI: As above. URINARY: No dysuria, no hematuria. NEUROLOGIC: No headache or seizures. PSYCHIATRIC: She does have some intermittent episodes of anxiety. PHYSICAL EXAMINATION: GENERAL: The patient is a pleasant, alert female. She appears comfortable, but anxious. SKIN: Warm and dry. Anicteric sclerae. Moist mucous membranes. NECK: Supple without lymphadenopathy. CHEST: Clear. CARDIAC: Normal S1, S2. ABDOMEN: Soft, nondistended. Normal bowel sounds, but she does have some mild tenderness diffusely, although more so in the epigastric area. There is no mass, rebound, or guarding. EXTREMITIES: Without edema. IMAGING DATA: Her CT scan showed no particular abnormalities other than some described small mesenteric lymph nodes which were felt to be nonspecific. There is no definitive evidence of surrounding inflammation or mass. The remainder of the study appeared unremarkable including a normal liver, gallbladder, pancreas and spleen. Her CBC has been notable for some relative leukopenia with her white count of 4000 on admission, which has decreased to 2300 today. Differential shows only 31% neutrophils and 57% lymphocytes. Hemoglobin was 11.3 with MCV of 78. Platelets 174,000. Normal chemistries. BUN 6, creatinine 0.6. LFTs were minimally elevated on admission, but are normal both yesterday and today. Lipase was normal. test was negative. She was negative for influenza, RSV, and COVID. IMPRESSION: Given the patient's clinical history of her 6-year-old having a similar illness just prior to her becoming ill, the CT scan finding with some nonspecific lymphadenopathy, her CBC with a leukopenia and predominantly lymphocytosis, and the associated symptoms of nausea, vomiting, and diarrhea, this would all tend to speak for some type of viral process that is slowly running its course. Given her workup thus far, I do not think this represents any other underlying pathology such as ulcer disease or inflammatory bowel disease. At this point she is still having some lingering symptoms including that of the nausea and abdominal pain, but her vomiting and diarrhea have resolved. I would therefore continue supportive care, analgesics, antiemetics, diet as tolerated, and a PPI for short-term use twice a day. I have ordered a followup CBC for the morning in regard to the leukopenia. At this point, I would continue to observe her, and I do not think she needs any further imaging or endoscopic intervention at this time. However, if her abdominal pain and upper GI complaints persist and are preventing her from being discharged, then we could consider a gallbladder ultrasound and upper endoscopy. However at this point, I do not think that is necessary. I do suspect her symptoms will continue to improve. I did review all this in detail with her and offered her reassurance. She understood and was comfortable with the plan. Please contact me if I could be of any further assistance during the hospitalization. Thank you for the consultation. MD DENISE Chin/HENRY / [phone] MTDD
[2023-04-25] MEDS: Pantoprazole Sodium 40 MG/10 ML VIAL IVPUSH (05:41)
[2023-04-25 06:34] LABS: Basophils Percent Auto 0.2 % (0-2); Hemoglobin 10.4 g/dl (12.0-16.0); Imm Gran Abs Auto 0.02 X10*3/uL (0.00-0.03); Imm Gran Pct Auto 0.4 % (0.0-0.4); Lymphocytes Absolute Auto 2.8 X10*3/uL (1.2-4.9); Lymphocytes Percent Auto 53.8 % (20-40); MANUAL DIFF FLAG SCAN; Mean Corpuscular HGB Conc 33.5 g/dl (31.0-35.0); Mean Corpuscular Hemoglobin 26.7 pg (27.0-33.0); Mean Corpuscular Volume 79.7 fL (80.0-98.0); Mean Platelet Volume 10.3 fL (9.4-12.3); Monocytes Absolute Auto 0.4 X10*3/uL (0.1-1.2); Monocytes Percent Auto 7.8 % (2-11); Neutrophils Percent Auto 37.8 % (45-73); Platelet Count 150 X10*3/uL (160-400); Red Blood Count 3.89 X10*6/uL (4.20-5.50); Red Cell Distribution Width 13.3 % (11.0-16.0); SCAN SMEAR FLAG 1; White Blood Count 5.2 X10*3/uL (4.8-10.8)
[2023-04-25 07:04] LABS: SLIDE REVIEW VERIFIED
[2023-04-25 07:21] VITALS: BP 111/60; PULSE 61; RESP 16; TEMP 36.6; O2SAT 98
--- NOTE | 2023-04-25 10:43 | MHC.CM.PN ---
pt slick a bed at [facility] her friend will pick her up between 2 and 3 to transport her
[2023-04-25 11:43] VITALS: BP 116/69; PULSE 58; RESP 12; TEMP 36.2; O2SAT 98
--- NOTE | 2023-04-25 11:51 | P.DS_ITS ---
DS: Providers Provider Date of Service: 04/25/23 Date of admission: 04/21/23 17:06 Primary care physician: None Physician Consults: 04/24/23 08:52 Consult to Gastroenterology Routine Consulting Provider: Marcelino Nash Reason for consultation: abd pain, mesenteric adenitis DS: Diagnosis Discharge Diagnosis (1) Mesenteric adenitis: Status: Acute DS: Summary Hospital Course Hospital Course: History and physical as per admitting provider. 28-year-old female presents with 4 days of nausea vomiting diarrhea. She is multiple doses of Imodium Pepto-Bismol but still no relief. In the emergency room multiple doses of Zofran and Compazine without results. CT scan consistent with mesenteric adenitis. Admission requested 28-year-old woman treated for intractable nausea vomiting, diarrhea with CT scan showing mesenteric adenitis. She was seen and evaluated by Gastroenterology who thought her symptoms were related to viral illness, not representing underlying pathology such as ulcer disease or inflammatory bowel disease. Patient has been treated with antiemetics, narcotic pain medications, diet has been advanced slowly. Patient is feeling significantly better. No fever leukocytosis noted. , labs within acceptable limits. The patient talked with case management regarding [facility] placement. She has been accepted at a local [facility] your plan is to discharge patient. Transaminitis. Secondary to viral illness Time Attestation Discharge coordination time: Greater than 30 minutes Quality: Safe Use of Opioids Does Pt have an Active Cancer Diagnosis on the Problem List?: No Quality: Stroke Does the patient have a stroke diagnosis?: No Physical Exam Vital Signs: Vital Signs: Last Vital Signs Temp 97.2 F 04/25/23 11:43 Pulse 58 04/25/23 11:43 Resp 12 04/25/23 11:43 BP 116/69 04/25/23 11:43 Pulse Ox 98 04/25/23 11:43 O2 Del Method Room Air 04/25/23 11:43 BMI result Body Mass Index 24.0 Appearing in no acute distress head is normocephalic atraumatic eyes pupils are PERRLA sclera is anicteric mouth throat mucous membranes are intact and moist neck is supple no lymphadenopathy, no JVD noted lung sounds are clear to auscultation heart regular rate rhythm, clear S1, S2 positive bowel sounds, abdomen is soft, nontender neuro patient is alert x3, no focal deficits DS: Data Data Completed and Pending Labs on day of discharge: Laboratory Results - last 24 hr 04/25/23 05:53 WBC 5.2 RBC 3.89 L Hgb 10.4 L Hct 31.0 L MCV 79.7 L MCH 26.7 L MCHC 33.5 RDW 13.3 Plt Count 150 L MPV 10.3 Immature Gran % (Auto) 0.4 Neut % (Auto) 37.8 L Lymph % (Auto) 53.8 H [place] % (Auto) 7.8 Eos % (Auto) 0.0 Baso % (Auto) 0.2 Lymph # (Auto) 2.8 [place] # (Auto) 0.4 Eos # (Auto) 0.0 Baso # (Auto) 0.0 Abs Immat Gran (auto) 0.02 Absolute Neuts (auto) 2.0 Absolute Nucleated RBC 0.000 Nucleated RBC % (auto) 0.0 Smear Tech's Comments VERIFIED Discharge Plan Discharge Anticipated Discharge Date/Time: 04/25/23 11:48 Patient Disposition: Home, Self-Care Discharge Diagnosis: Mesenteric adenitis Nausea, vomiting, diarrhea Discharge Medications: New ondansetron 4 mg tablet,disintegrating 4 mg PO Q8H PRN (Reason: nausea and vomiting) Qty: 10 0RF diphenoxylate-atropine [Lomotil] 2.5-0.025 mg tablet 1 tab PO TID PRN (Reason: diarrhea) Qty: 10 0RF Rx Instructions: Keep this medication out of reach of children omeprazole 20 mg Capsule,Delayed Release(Dr/Ec) 20 mg PO BID@0630,1630 Qty: 28 0RF Continued cyclobenzaprine 5 mg Tablet 5 mg PO TID PRN (Reason: Muscle Spasm) Discharge Orders: Discharge Order (Routine); Ordered 04/25/23 Ordered By: Leny Man Diet: Advance to usual diet Activity on Discharge: As tolerated Stand Alone Forms: Patient Portal Discharge page, Work/School Release Care Plan Goals: Drink plenty of fluids, eat a bland diet for a few days Health Concerns: Mesenteric adenitis Nausea, vomiting, diarrhea Plan of Treatment: Follow-up with primary care provider as needed Take all medications as prescribed Assessment: See discharge summary Patient Instructions: Acute Nausea and Vomiting (ED), Mesenteric Adenitis (GEN)
[2023-04-25] MEDS: Metoclopramide HCl 10 MG/2 ML VIAL 5 MG IVPUSH (12:22)
== END 2023-04-25 14:39 | disposition home or self-care (01) | DRG 254 ==
LOC: HO.ED 15:23 → HO.S3 18:14 → HO.EDOVER 04-24 12:08 → HO.S3 04-24 12:08
PROVIDERS: Internal Medicine; Admitting Provider Hospitalist; Emergency Provider Emergency Medicine; Visit Provider Nurse Practitioner Acute Care
DX: I88.0 Nonspecific mesenteric lymphadenitis (principal); B34.9 Viral infection, unspecified; Z91.041 Radiographic dye allergy status; Z79.899 Other long term (current) drug therapy
CPT/HCPCS: 0241U; 36415; 74176; 80048; 80053; 80076; 81001; 81025; 83690; 84702; 85025; 99285; C9113; J0737; J1200; J1650; J1885; J2060; J2270; J2405; J2550; J2765; J2930; J3010; J3480; J7120

== ENCOUNTER → 2023-04-21 17:06 | Outpatient (BNV) | payer MEDICAID, SELFPAY | PROVIDERS: Admitting Provider Hospitalist; Emergency Provider Emergency Medicine; Visit Provider Hospitalist | DX: I88.0 Nonspecific mesenteric lymphadenitis (principal) | CPT/HCPCS: 99223; 99232; 99233; 99239 ==

== ENCOUNTER 2023-06-16 11:28 | Emergency (ER) | payer MEDICAID, SELFPAY ==
--- NOTE | ~2023-06-16 | CT_ITS ---
EXAMINATION: CT ABDOMEN AND PELVIS WITHOUT CONTRAST CLINICAL INFORMATION: Periumbilical pain and vomiting COMPARISON: Previous exam March 2023 TECHNIQUE: Multidetector volumetric imaging was performed from the superior aspect of the liver through the pubic symphysis. Sagittal and coronal reformatted images were obtained on the technologist's workstation. This CT examination was performed using dose optimization techniques as appropriate, variously including the following: *Automated exposure control *Adjustment of mA and/or kV according to patient size (this includes techniques or standardized protocols for targeted exams where dose is matched to indication/reason for exam; i.e. extremities or head) *Use of iterative reconstruction technique DLP: 3-4 mGy-cm FINDINGS: LUNG BASES: The visualized lung bases are unremarkable. LIVER, GALLBLADDER, AND BILIARY TREE: The liver is normal in size, shape, and attenuation. No focal hepatic lesion or biliary ductal dilatation is present. The gallbladder is unremarkable with no evidence of radiopaque gallstones, gallbladder wall thickening, or obvious pericholecystic inflammatory changes. PANCREAS: Unremarkable. SPLEEN: Unremarkable. ADRENAL GLANDS: Unremarkable. KIDNEYS AND URETERS: The kidneys are normal in size, shape, and attenuation. No hydronephrosis, hydroureter small nonobstructing left renal stones. No perinephric stranding. BLADDER: Not optimally distended. Question mild diffuse bladder wall thickening. GASTROINTESTINAL TRACT: Constipation. The small and large bowel are otherwise unremarkable. The appendix is unremarkable. ABDOMINAL WALL: No significant hernia is appreciated. LYMPH NODES: Small bowel mesentery lymphadenopathy decreased compared to previous exam. VASCULAR: Unremarkable. PELVIC VISCERA: IUD in the uterus in satisfactory position. Uterus and ovaries otherwise unremarkable. OSSEOUS STRUCTURES: Unremarkable. CT/CT abdomen pelvis wo IV con IMPRESSION: Constipation. Small nonobstructing left renal stones. IUD in the uterus in satisfactory position. Small bowel mesentery lymphadenopathy decreased compared to previous exam Fleischner guidelines were followed.
[2023-06-16 11:37] VITALS: BP 102/56; PULSE 84
[2023-06-16 11:38] VITALS: BP 94/63; PULSE 96; RESP 17; TEMP 37.2; O2SAT 98; BMI 22.3
--- NOTE | 2023-06-16 11:38 | ED_ITS ---
HPI - General Adult General Chief complaint: Abdominal Pain Stated complaint: ABD PAIN Time Seen by Provider: 06/16/23 17:23 Source: patient Mode of arrival: ambulatory Limitations: no limitations History of Present Illness HPI narrative: 28 yo female with history of admission here in March for intractable N/V and mesenteric adenitis due to viral illness presents to the ER for evaluation of 2 days of 1010 constant abdominal pain, nausea and vomiting. The pain is from her epigastric area to her periumbilical area and she states her abd feels distended. She developed a subjective fever and a sore throat yesterday. No BM in 4 days. She has been passing gas. MD complaint: abdominal pain and throat pain Onset (ago): day(s) Location: mouth and abdomen Radiation: non-radiation Severity: severe Severity scale (1-10): 10 Quality: aching Pain Consistency: constant Relieving factors: none Exacerbating factors: eating Associated symptoms: fever/chills and nausea/vomiting Treatments prior to arrival: none Related Data Home Medications ?Medication ?Instructions ?Recorded ?Confirmed cyclobenzaprine 5 mg tablet 5 mg PO TID PRN Muscle Spasm 04/21/23 04/21/23 Previous Rx's ?Medication ?Instructions ?Recorded diphenoxylate-atropine 2.5 1 tab PO TID PRN diarrhea #10 tabs 04/21/23 mg-0.025 mg tablet (Lomotil) ondansetron 4 mg disintegrating 4 mg PO Q8H PRN nausea and 04/21/23 tablet vomiting #10 tabs omeprazole 20 mg capsule,delayed 20 mg PO BID@0630,1630 #28 caps 04/25/23 release amoxicillin 500 mg tablet 500 mg PO BID #20 tabs 06/16/23 ondansetron 4 mg disintegrating 4 mg PO TID PRN nausea and 06/16/23 tablet vomiting #7 tabs polyethylene glycol 3350 17 17 g PO DAILY #119 grams 06/16/23 gram/dose oral powder (Miralax) sennosides 8.6 mg capsule (senna) 8.6 mg PO BEDTIME PRN constipation 06/16/23 #7 caps Allergies Allergy/AdvReac Type Severity Reaction Status Date / Time Iodinated Contrast Media Allergy Intermediate RASH Verified 06/16/23 11:41 [Iodinated Contrast Media - IV Dye] oxycodone [From PERCOCET] Allergy Intermediate TACHYCARDIA Verified 06/16/23 11:41 ketorolac [From Toradol] Allergy Confusion Verified 06/16/23 11:42 Review of Systems 2 Review of Systems: Yes all other systems are reviewed and are negative [facility] Past Medical History Medical History Muscle spasm Ovarian cyst Social History Social History Household Members: Family Housing: Apartment Alcohol intake: never Patient Tobacco Use Status: Never used Tobacco Substance Use Type: Marijuana Advance Directives: No Advance Directives Information Provided: Yes service: No Physical Exam ED Vital Signs: Vital Signs - 24 hr 06/16/23 11:38 06/16/23 17:07 06/16/23 17:07 Temperature 98.9 F 98.6 F 98.3 F Pulse Rate 96 97 106 H Respiratory Rate 17 18 18 Blood Pressure 94/63 105/58 L 105/58 L Pulse Oximetry 98 99 100 Oxygen Delivery Method Room Air Room Air Room Air BMI result Body Mass Index 22.3 Appearance: Alert. Oriented X3. No acute distress. Head: normocephalic, atraumatic. Eyes: Pupils equal, round and reactive to light. ENT: Pharynx normal. + tonsillar swelling or exudates bilaterally Neck: Normal inspection. Neck supple. CVS: Normal heart rate and rhythm. Pulses normal. Respiratory: No respiratory distress. Breath sounds normal. Abdomen: Soft, mild diffuse tenderness and guarding, normal active, +BS x4 Skin: Skin warm and dry. Normal skin color. Normal skin turgor. No rashes. Extremities: No lower extremity edema. No joint swelling. Neuro/psych: Oriented X 3. No motor deficit. No sensory deficit. CN II-XII intact. Normal speech and cognition. Course Course Course Narrative: This is an RME: Additional HPI, ROS, PE not included below will be deferred to primary provider. 28 yo f presents with abdominal pain. Reports nausea and constipation X 4 days. Denies sick contacts. Denies chest pain, shortness of breath, fever. Reports dizziness. Plan- labs and viral tests Medications Administered Discontinued Medications Generic Name Dose Route Start Last Admin Trade Name Freq PRN Reason Stop Dose Admin Lactated Ringer's 1,000 mls @ 999 mls/hr 06/16/23 17:30 06/16/23 17:53 Lr IV 06/16/23 18:30 999 mls/hr .Q1H1M JESSICA Administration Morphine Sulfate 4 mg 06/16/23 17:30 06/16/23 17:49 Morphine Sulfate 4 Mg/Ml Cartridge IVPUSH 06/16/23 17:31 4 mg ONCE ONE Administration Protocol Ondansetron HCl 4 mg 06/16/23 17:06 06/16/23 17:12 Ondansetron Odt 4 Mg Tab.Rapdis TRANSLINGU 06/16/23 17:07 4 mg ONCE ONE Administration Ondansetron HCl 4 mg 06/16/23 17:30 06/16/23 17:48 Ondansetron Hcl 4 Mg/2 Ml Vial IVPUSH 06/16/23 17:31 4 mg ONCE ONE Administration Medical Decision Making Medical Decision Making [facility] Narrative: 28 y/o female presenting to the ER for evaluation of abdominal pain, bloating, sore throat, fever, vomiting. She states feels similar to her admission here in March. Her exam reveals soft abdomen with normoactive bowel sounds she does have some guarding but it is diffuse and no focal tenderness. Her pharynx exam is consistent with strep throat. This could be contributing to her abdominal pain. Patient was treated with IV morphine and Zofran for reports of 10/10 abdominal pain. She was given IV fluids. She appeared hemoconcentrated from her baseline. She does have a slight wound leukocytosis of 14.1 which is most likely due to vomiting verses strep throat. Doubt acute abdominal infection. LFTs are normal. She had a CT scan performed which showed constipation. No acute process. Lymph nodes from her previous CT scan are improved. After IV morphine and Zofran, on re-evaluation patients pain was much improved. She was sitting with her family and feeling better. Discussed results of CT scan and lab workup. Will treat constipation and for strep throat. Her strep throat test is negative however clinically she is meeting criteria for treatment. She is stable for discharge home with antibiotics and bowel regimen. Return precautions were discussed. All questions were answered. Differential Diagnosis Differential Diagnoses: The differential diagnosis associated with the presentation includes strep, covid, flu, constipation, SBO, cholecystitis, appendicitis, gastritis, other viral syndrome, no evidence of peritonsillar abcsess or retropharyngeal abscess Admission/Observation Consideration of admission/observation: Escalation of care including admission/observation considered Lab Data MDM Lab Attestation statement: I reviewed the patient's lab results. Leukocytosis, no longer anemic, mildly elevated CRP of 4.02, normal LFTs. 06/16/23 11:51 06/16/23 11:51 Labs: Lab Results 06/16/23 06/16/23 06/16/23 Range/Units 11:49 11:51 17:53 WBC 14.1 H (4.8-10.8) X10*3/uL RBC 4.86 D (4.20-5.50) X10*6/uL Hgb 12.8 D (12.0-16.0) g/dl Hct 38.9 D (37.0-47.0) % MCV 80.0 (80.0-98.0) fL MCH 26.3 L (27.0-33.0) pg MCHC 32.9 (31.0-35.0) g/dl RDW 13.5 (11.0-16.0) % Plt Count 223 D (160-400) X10*3/uL MPV 9.8 (9.4-12.3) fL Immature Gran % (Auto) 0.4 (0.0-0.4) % Neut % (Auto) 83.8 H (45-73) % Lymph % (Auto) 8.1 L (20-40) % [place] % (Auto) 7.4 (2-11) % Eos % (Auto) 0.1 (0-4) % Baso % (Auto) 0.2 (0-2) % Lymph # (Auto) 1.1 L (1.2-4.9) X10*3/uL [place] # (Auto) 1.0 (0.1-1.2) X10*3/uL Eos # (Auto) 0.0 (0.0-0.4) X10*3/uL Baso # (Auto) 0.0 (0.0-0.2) X10*3/uL Abs Immat Gran (auto) 0.05 H (0.00-0.03) X10*3/uL Absolute Neuts (auto) 11.9 H (2.0-8.3) x10*3/uL Absolute Nucleated RBC 0.000 (0.0-0.012) X10*3/uL Nucleated RBC % (auto) 0.0 (0.0-0.2) /100WBC Sodium 138 (135-145) mmol/L Potassium 3.7 (3.3-5.1) mmol/L Chloride 106 (96-108) mmol/L Carbon Dioxide 25 (22-29) mmol/L Anion Gap 11 L (12-20) BUN 8 L (9-16) mg/dL Creatinine 0.68 (0.5-1.4) mg/dL Estim Creat Clear Calc 100.9 Estimated GFR > 60 Random Glucose 108 (60-115) mg/dL Calcium 9.4 D (8.4-10.2) mg/dL Magnesium 1.9 (1.6-2.6) mg/dL Total Bilirubin 0.7 (0.0-1.0) mg/dL AST 15 (5-31) U/L ALT 10 (0-31) U/L Alkaline Phosphatase 56 (39-117) U/L C-Reactive Protein 4.02 H (< or = 0.50) mg/dL Total Protein 7.8 (6.5-8.0) g/dL Albumin 4.5 (3.5-5.0) g/dL Lipase 9 (8-78) U/L Urine Color Yellow Urine Appearance Clear Urine pH 8.5 (5.0-9.0) Ur Specific [place] 1.020 (1.005-1.025) Urine Protein Trace (Neg-Trace) mg/dL Urine Glucose (UA) Negative (Negative) mg/dL Urine Ketones 15 (Negative) mg/dL Urine Blood Large (3+) H (Negative) Urine Nitrite Negative (Negative) Ur Leukocyte Esterase Negative (Negative) Urine RBC >20 H (0-2) /HPF Urine WBC 0-5 (0-5) /HPF Ur Squamous Epith Cells 0-2 (0-2) /HPF Urine Bacteria None Seen (None Seen) Hyaline Casts 0-2 (0-2) /LPF Urine Test NEGATIVE (NEGATIVE) Influenza Type A (PCR) NEGATIVE (Negative) Influenza Type B (PCR) NEGATIVE (Negative) RSV RNA Qual (PCR) NEGATIVE (Negative) SARS-CoV-2 RNA (RT-PCR) NEGATIVE (Negative) S. pyogenes GrpA GURMEET Negative (Negative) Independent Interpretation I performed an independent interpretation of an: CT Scan Interpretation: High stool burden, no acute process, agree with radiology read Radiology Impression Discussion of test interpretation with radiology: I have reviewed the radiologist's reading. Radiologist Impression: EXAMINATION: CT ABDOMEN AND PELVIS WITHOUT CONTRAST CLINICAL INFORMATION: Periumbilical pain and vomiting COMPARISON: Previous exam March 2023 TECHNIQUE: Multidetector volumetric imaging was performed from the superior aspect of the liver through the pubic symphysis. Sagittal and coronal reformatted images were obtained on the technologist's workstation. This CT examination was performed using dose optimization techniques as appropriate, variously including the following: *Automated exposure control *Adjustment of mA and/or kV according to patient size (this includes techniques or standardized protocols for targeted exams where dose is matched to indication/reason for exam; i.e. extremities or head) *Use of iterative reconstruction technique DLP: 3-4 mGy-cm FINDINGS: LUNG BASES: The visualized lung bases are unremarkable. LIVER, GALLBLADDER, AND BILIARY TREE: The liver is normal in size, shape, and attenuation. No focal hepatic lesion or biliary ductal dilatation is present. The gallbladder is unremarkable with no evidence of radiopaque gallstones, gallbladder wall thickening, or obvious pericholecystic inflammatory changes. PANCREAS: Unremarkable. SPLEEN: Unremarkable. ADRENAL GLANDS: Unremarkable. KIDNEYS AND URETERS: The kidneys are normal in size, shape, and attenuation. No hydronephrosis, hydroureter small nonobstructing left renal stones. No perinephric stranding. BLADDER: Not optimally distended. Question mild diffuse bladder wall thickening. GASTROINTESTINAL TRACT: Constipation. The small and large bowel are otherwise unremarkable. The appendix is unremarkable. ABDOMINAL WALL: No significant hernia is appreciated. LYMPH NODES: Small bowel mesentery lymphadenopathy decreased compared to previous exam. VASCULAR: Unremarkable. PELVIC VISCERA: IUD in the uterus in satisfactory position. Uterus and ovaries otherwise unremarkable. OSSEOUS STRUCTURES: Unremarkable. CT/CT abdomen pelvis wo IV con IMPRESSION: Constipation. Small nonobstructing left renal stones. IUD in the uterus in satisfactory position. Small bowel mesentery lymphadenopathy decreased compared to previous exam Independent Historian Clinical information obtained from an independent historian. History obtained from or confirmed by: Parent External Record Review External record reviewed: Inpatient record, Outpatient record, Prior outpatient labs and Prior outpatient radiology Prescription Management I considered prescription management with: Pain Medication and Antibiotic Critical Care Time Critical Care Time Critical Care Time: Yes Total Critical Care Time: 32 Attestation: I have personally provided critical care time exclusive of time spent on separately billable procedures. Time includes review of lab data, radiology results, bedside re-evaluation of pain, mental status and hemodynamics after administration of IV narcotics and monitoring for potential decompensation. Intervention performed as documented. Discharge Plan Discharge Clinical Impression: Strep throat Constipation Qualifiers: Constipation type: unspecified constipation type Qualified Code(s): K59.00 - Constipation, unspecified Patient Disposition: Home, Self-Care Instructions: Constipation (DC), Strep Throat (DC) Additional Instructions: Your CT scan today showed significant constipation. Recommend decreasing your own hydration and increasing the fiber in your diet. Take the prescribed laxatives as directed. You can also take [id number] Colace to soften her stools. You can use [id number] suppositories as well. You are being treated for strep throat. Take the prescribed antibiotics as directed, do not miss any doses and complete the entire course. The next dose is due tomorrow morning. You can use warm saltwater gargles 3 times per day to help with sore throat. Take Tylenol and Motrin as needed for pain. Follow-up with your doctor. If you develop new or worsening symptoms call 911 or come back to the ER for further evaluation. Prescriptions: New amoxicillin 500 mg tablet 500 mg PO BID Qty: 20 0RF polyethylene glycol 3350 [Miralax] 17 gram/dose powder 17 g PO DAILY Qty: 119 0RF senna 8.6 mg capsule 8.6 mg PO BEDTIME PRN (Reason: constipation) Qty: 7 0RF ondansetron 4 mg tablet,disintegrating 4 mg PO TID PRN (Reason: nausea and vomiting) Qty: 7 0RF No Action ondansetron 4 mg tablet,disintegrating 4 mg PO Q8H PRN (Reason: nausea and vomiting) Qty: 10 0RF diphenoxylate-atropine [Lomotil] 2.5-0.025 mg tablet 1 tab PO TID PRN (Reason: diarrhea) Qty: 10 0RF Rx Instructions: Keep this medication out of reach of children cyclobenzaprine 5 mg Tablet 5 mg PO TID PRN (Reason: Muscle Spasm) omeprazole 20 mg Capsule,Delayed Release(Dr/Ec) 20 mg PO BID@0630,1630 Qty: 28 0RF Stand Alone Forms: Work/School Release Print Language: Ecuadorean
[2023-06-16 11:58] LABS: MANUAL DIFF FLAG NO
[2023-06-16 12:02] LABS: Basophils Percent Auto 0.2 % (0-2); Eosinophils Percent Auto 0.1 % (0-4); Hematocrit 38.9 % (37.0-47.0); Hemoglobin 12.8 g/dl (12.0-16.0); Imm Gran Abs Auto 0.05 X10*3/uL (0.00-0.03); Imm Gran Pct Auto 0.4 % (0.0-0.4); Lymphocytes Absolute Auto 1.1 X10*3/uL (1.2-4.9); Lymphocytes Percent Auto 8.1 % (20-40); Mean Corpuscular HGB Conc 32.9 g/dl (31.0-35.0); Mean Corpuscular Hemoglobin 26.3 pg (27.0-33.0); Mean Platelet Volume 9.8 fL (9.4-12.3); Monocytes Percent Auto 7.4 % (2-11); Neutrophils Absolute Auto 11.9 x10*3/uL (2.0-8.3); Neutrophils Percent Auto 83.8 % (45-73); Platelet Count 223 X10*3/uL (160-400); Red Blood Count 4.86 X10*6/uL (4.20-5.50); Red Cell Distribution Width 13.5 % (11.0-16.0); White Blood Count 14.1 X10*3/uL (4.8-10.8)
[2023-06-16 12:05] LABS: Appearance Urine Clear; Color Urine Yellow; Glucose Urine UA Negative (Negative); Leukocyte Esterase Urine Negative (Negative); Nitrite Urine Negative (Negative); PH 8.5 (5.0-9.0); UMIC TRIGGER UACC YES; Urine Blood Large (3+) (Negative); Urine Ketones 15 mg/dL (Negative); Urine Protein Trace mg/dL (Neg-Trace)
[2023-06-16 12:06] LABS: UPreg QC Valid YES; Urine Pregnancy NEGATIVE (NEGATIVE)
[2023-06-16 12:07] LABS: Bacteria Urine None Seen (None Seen); Hyaline Casts Urine 0-2 /LPF (0-2); RBC Urine >20 /HPF (0-2); Squamous Epithelial Cell Urine 0-2 /HPF (0-2); WBC Urine 0-5 /HPF (0-5)
[2023-06-16 12:19] LABS: Alanine Aminotransferase 10 U/L (0-31); Albumin Level 4.5 g/dL (3.5-5.0); Alkaline Phosphatase 56 U/L (39-117); Anion Gap 11 (12-20); Aspartate Amino Transferase 15 U/L (5-31); Bilirubin Total 0.7 mg/dL (0.0-1.0); Blood Urea Nitrogen 8 mg/dL (9-16); Calcium 9.4 mg/dL (8.4-10.2); Carbon Dioxide 25 mmol/L (22-29); Chloride 106 mmol/L (96-108); Creatinine Clr Calc Pharmacy 100.9; Estimated Glomerular Filt Rate > 60; Glucose Random 108 mg/dL (60-115); Lipase 9 U/L (8-78); Magnesium 1.9 mg/dL (1.6-2.6); Potassium 3.7 mmol/L (3.3-5.1); Sodium 138 mmol/L (135-145); Total Protein 7.8 g/dL (6.5-8.0)
[2023-06-16 12:49] LABS: Influenza A PCR NEGATIVE (Negative); Influenza B PCR NEGATIVE (Negative); Resp Syncy Virus RNA Qual PCR NEGATIVE (Negative); SARS COV2 PCR INHOUSE NEGATIVE (Negative)
[2023-06-16 17:07] VITALS: BP 105/58; PULSE 106; PULSE 97; RESP 18; TEMP 36.8; TEMP 37; O2SAT 100; O2SAT 99
[2023-06-16] MEDS: Ondansetron ODT 4 MG TAB.RAPDIS TRANSLINGU (17:12)
[2023-06-16 17:41] LABS: C Reactive Protein 4.02 mg/dL (< or = 0.50)
[2023-06-16] MEDS: ondansetron HCL 4 MG/2 ML VIAL IVPUSH (17:48)
[2023-06-16] MEDS: Morphine Sulfate 4 MG/ML CARTRIDGE IVPUSH (17:49)
[2023-06-16] MEDS: Lactated Ringers 1,000 ML 999 ML IV (17:53)
[2023-06-16 19:37] LABS: IDNOW Serial# 58CA691E; Strep A Nucleic Acid Negative (Negative)
--- NOTE | 2023-06-16 19:38 | PC.NURSE ---
Assumed care of pt at 19:00. PT laying in bed, states that she continues to feel pain at this time 10/06. Plan of care ongoing.
[2023-06-16] MEDS: Milk of Magnesia 30 ML ORAL.SUSP PO (19:54)
[2023-06-16] MEDS: Amoxicillin 500 MG CAPSULE PO (19:54)
[2023-06-16] MEDS: bisacodyL 5 MG TABLET.DR 10 MG PO (19:54)
[2023-06-16 19:57] VITALS: BP 112/53; PULSE 100; O2SAT 100
[2023-06-16 20:09] VITALS: BP 112/53; PULSE 100; RESP 18; TEMP 36.8; O2SAT 100
== END 2023-06-16 20:10 | disposition home or self-care (01) ==
PROVIDERS: Physician Assistant; Emergency Provider Emergency Medicine
DX: J02.0 Streptococcal pharyngitis (principal); K59.00 Constipation, unspecified
CPT/HCPCS: 0241U; 74176; 80053; 81001; 81003; 81025; 83690; 83735; 85025; 86140; 87651; 96361; 96374; 96375; 99284; J2270; J2405; J7120

== ENCOUNTER 2023-08-04 12:45 | Emergency (ER) | payer SELFPAY ==
[2023-08-04 13:43] VITALS: BP 104/60; PULSE 70; RESP 14; TEMP 36.6; O2SAT 99; BMI 21.7
--- NOTE | 2023-08-04 13:43 | ED_ITS ---
HPI - General Adult General Chief complaint: Skin/Abscess/Foreign Body Stated complaint: abscess Time Seen by Provider: 08/04/23 18:04 History of Present Illness HPI narrative: This is a 28-year-old woman with a past medical history of ovarian cysts, muscle spasm who presents for evaluation of swelling to her perineum. Patient reports that she noted this initially beginning 5 days prior to presentation. She reports increasing pain to the area. She reports no prior similar occurrence. She states no drainage associated. She states no fevers or chills. She states no associated dysuria or abnormal vaginal discharge. She states unchanged bowel habits. She states no abdominal pain. States no nausea or vomiting. States no chest pain or dyspnea. Related Data Home Medications ?Medication ?Instructions ?Recorded ?Confirmed cyclobenzaprine 5 mg tablet 5 mg PO TID PRN Muscle Spasm 04/21/23 04/21/23 Previous Rx's ?Medication ?Instructions ?Recorded diphenoxylate-atropine 2.5 1 tab PO TID PRN diarrhea #10 tabs 04/21/23 mg-0.025 mg tablet (Lomotil) ondansetron 4 mg disintegrating 4 mg PO Q8H PRN nausea and 04/21/23 tablet vomiting #10 tabs omeprazole 20 mg capsule,delayed 20 mg PO BID@0630,1630 #28 caps 04/25/23 release amoxicillin 500 mg tablet 500 mg PO BID #20 tabs 06/16/23 ondansetron 4 mg disintegrating 4 mg PO TID PRN nausea and 06/16/23 tablet vomiting #7 tabs polyethylene glycol 3350 17 17 g PO DAILY #119 grams 06/16/23 gram/dose oral powder (Miralax) sennosides 8.6 mg capsule (senna) 8.6 mg PO BEDTIME PRN constipation 06/16/23 #7 caps Allergies Allergy/AdvReac Type Severity Reaction Status Date / Time Iodinated Contrast Media Allergy Intermediate RASH Verified 08/04/23 13:44 [Iodinated Contrast Media - IV Dye] oxycodone [From PERCOCET] Allergy Intermediate TACHYCARDIA Verified 08/04/23 13:44 ketorolac [From Toradol] Allergy Confusion Verified 08/04/23 13:44 Review of Systems Review of Systems: ROS as per HPI [facility] Past Medical History Medical History Muscle spasm Ovarian cyst Social History Social History Household Members: Family Housing: Apartment Alcohol intake: never Patient Tobacco Use Status: Never used Tobacco Substance Use Type: Marijuana Advance Directives: No Advance Directives Information Provided: No service: No Physical Exam ED Vital Signs: Vital Signs - 24 hr 08/04/23 13:43 08/04/23 16:00 Temperature 97.8 F 99.0 F Pulse Rate 70 79 Respiratory Rate 14 Blood Pressure 104/60 108/64 Pulse Oximetry 99 98 Oxygen Delivery Method Room Air Room Air BMI result Body Mass Index 21.7 Gen: NAD, AOx3 HEENT: NCAT, EOMI CV: RRR Pulm: CTAB, no increased work of breathing GI: Soft, NTND, no rebound, guarding or rigidity : Left inferior perirectal abscess that does not approximate the anus, is without purulent drainage or circumferential erythema and is with point tenderness (exam performed with construction equipment technician Courtney Ferrari) Neuro: Grossly non focal Course Course Course Narrative: This is an RME performed by More Lamb, GENERAL DISTILLERY WORKER: Additional HPI, ROS, PE not included below will be deferred to primary provider. Patient is a 28-year-old female who reports abscess to the perineum with progression in size and pain for the past 5 days. Reports history of similar in the past that she has been able to drain on her own. Endorses enlarged lymph nodes to the left groin as well. Physical exam, unable to visualize in triage due to privacy concerns. Plan: Placed in waiting room pending bed availability for assessment and possible incision and drainage Medications Administered Discontinued Medications Generic Name Dose Route Start Last Admin Trade Name Vanita PRN Reason Stop Dose Admin Lidocaine HCl 10 ml 08/04/23 19:27 08/04/23 19:35 Lidocaine Hcl 1 % 10 Ml Vial INFILTRATI 08/04/23 19:28 10 ml ONCE ONE Administration Procedures Abscess I/D Site: scalp and donald-rectal Side (if applicable): left Sedation/analgesia: none Local Anesthetic: lidocaine 1% Amount of anesthesia used (mL): 4 Technique: incised with blade Amount of fluid expressed (mL): 3 Sent for culture/gram staining?: No Irrigation: Yes Packing used?: none Complications: pain Medical Decision Making Medical Decision Making MDM Narrative: Differential diagnosis includes, but is not limited to perirectal abscess, pilonidal cyst, cellulitis. Patient is afebrile and hemodynamically stable on room air. Exam is benign and reassuring and consistent with isolated perirectal abscess without findings of superimposed cellulitis. Incision and drainage is performed with construction equipment technician Courtney Ferrari present throughout entire procedure. Incision and drainage performed with 3 cc or subcutaneously infiltrated 1% lidocaine to area of perirectal abscess with subsequent evident blanching of the superficial skin. A small approximate 2-1/2 mm linear incision is made with subsequent expression of approximately 3 cc purulent material. The abscess is subsequently irrigated with 250 cc pressure irrigation with normal saline. No packing is applied. Dressing is applied. On re-examination, patient is well-appearing and in no acute distress. ?Patient states symptoms have significantly improved. ?There is no indication for further emergent evaluation in this otherwise well-appearing patient as above. ?Patient is provided written and verbal instructions, educational materials, recommendations for outpatient follow-up, strict return precautions, general surgery referral and teach back is performed. ?Patient states understanding and agreement with plan of care. ?Patient is discharged home in stable and improved condition. Admission/Observation Consideration of admission/observation: Escalation of care including admission/observation considered Discharge Plan Discharge Clinical Impression: Abscess, perirectal Patient Disposition: Home, Self-Care Instructions: Abscess (ED), Abscess Incision and Drainage (DC) Additional Instructions: You were seen and evaluated in the emergency room. Your vital signs were normal and you did not have fever. ? You were found to have a perirectal abscess which was incised and drained. Please keep this area clean. Please be very gentle when washing with mild soap and warm water. Please do not soak your wound in water or spend any time in Jacuzzi/hot tubs. You can take 600 mg of ibuprofen every 6 hours as needed for pain with food and water. Please follow-up with your primary care doctor in the next 5-7 days. ? You are given a referral to follow up with General surgery. Please call them on Monday and schedule a follow-up appointment within the next week. Please return to the emergency room if you develop any worsening symptoms including, but not limited to fever, worsening pain, inability to have a bowel movements, nausea or vomiting. Prescriptions: No Action ondansetron 4 mg tablet,disintegrating 4 mg PO Q8H PRN (Reason: nausea and vomiting) Qty: 10 0RF diphenoxylate-atropine [Lomotil] 2.5-0.025 mg tablet 1 tab PO TID PRN (Reason: diarrhea) Qty: 10 0RF Rx Instructions: Keep this medication out of reach of children cyclobenzaprine 5 mg Tablet 5 mg PO TID PRN (Reason: Muscle Spasm) omeprazole 20 mg Capsule,Delayed Release(Dr/Ec) 20 mg PO BID@0630,1630 Qty: 28 0RF amoxicillin 500 mg tablet 500 mg PO BID Qty: 20 0RF polyethylene glycol 3350 [Miralax] 17 gram/dose powder 17 g PO DAILY Qty: 119 0RF senna 8.6 mg capsule 8.6 mg PO BEDTIME PRN (Reason: constipation) Qty: 7 0RF ondansetron 4 mg tablet,disintegrating 4 mg PO TID PRN (Reason: nausea and vomiting) Qty: 7 0RF Referrals: Faith Carmona MD [Physician] - Faith Carmona MD [Physician] - Print Language: Citizen Of [place]
[2023-08-04 16:00] VITALS: BP 108/64; PULSE 79; TEMP 37.2; O2SAT 98
[2023-08-04] MEDS: Lidocaine HCl 1 % 10 ML VIAL INFILTRATI (19:35)
== END 2023-08-04 20:10 | disposition home or self-care (01) ==
PROVIDERS: Emergency Provider Emergency Medicine
DX: K61.1 Rectal abscess (principal); Z79.899 Other long term (current) drug therapy
CPT/HCPCS: 46040; 99283; 99284

== ENCOUNTER 2023-08-11 09:48 | Emergency (ER) | payer SELFPAY ==
[2023-08-11 10:07] VITALS: BP 105/62; PULSE 96; RESP 16; TEMP 37.3; O2SAT 97; BMI 21.3
--- NOTE | 2023-08-11 10:53 | ED_ITS ---
HPI - General Adult General Chief complaint: General Medical Stated complaint: Abscess Time Seen by Provider: 08/11/23 10:17 Source: patient and RN notes reviewed Mode of arrival: ambulatory Limitations: no limitations History of Present Illness ED Provider: Brittany Mckenna PA-C HPI narrative: This is a 28-year-old female who presents emergency department with complaints of perirectal abscesses. Patient states that she was here 1 week ago where she had an abscess in her perirectal region which was excised and drained. She states that this has resolved however she notes to other abscesses that appeared. She states that the area is painful. She denies any fevers or chills. She has not on antibiotics. She called the surgeon to follow-up however states that they recommend her to come into the emergency room for these 2 abscesses to be drained and will follow-up outpatient with her. Denies any chest pain, abdominal pain, nausea, vomiting or diarrhea. No constipation. No other complaints or concerns at this time. MD complaint: Rectal abscess Onset (ago): day(s) Radiation: non-radiation Relieving factors: none Exacerbating factors: none Associated symptoms: denies other symptoms Treatments prior to arrival: none Related Data Home Medications ?Medication ?Instructions ?Recorded ?Confirmed cyclobenzaprine 5 mg tablet 5 mg PO TID PRN Muscle Spasm 04/21/23 04/21/23 Previous Rx's ?Medication ?Instructions ?Recorded diphenoxylate-atropine 2.5 1 tab PO TID PRN diarrhea #10 tabs 04/21/23 mg-0.025 mg tablet (Lomotil) ondansetron 4 mg disintegrating 4 mg PO Q8H PRN nausea and 04/21/23 tablet vomiting #10 tabs omeprazole 20 mg capsule,delayed 20 mg PO BID@0630,1630 #28 caps 04/25/23 release amoxicillin 500 mg tablet 500 mg PO BID #20 tabs 06/16/23 ondansetron 4 mg disintegrating 4 mg PO TID PRN nausea and 06/16/23 tablet vomiting #7 tabs polyethylene glycol 3350 17 17 g PO DAILY #119 grams 06/16/23 gram/dose oral powder (Miralax) sennosides 8.6 mg capsule (senna) 8.6 mg PO BEDTIME PRN constipation 06/16/23 #7 caps acetaminophen 500 mg tablet 1,000 mg (2 x 500 mg) PO Q8H PRN 08/11/23 (Tylenol Extra Strength) fever or pain #30 tabs cephalexin 500 mg capsule 500 mg PO QID 5 days #20 caps 08/11/23 ibuprofen 600 mg tablet 600 mg PO Q6H PRN fever or pain 08/11/23 #30 tabs morphine 15 mg immediate release 15 mg PO BID PRN pain #5 tabs 08/11/23 tablet Allergies Allergy/AdvReac Type Severity Reaction Status Date / Time Iodinated Contrast Media Allergy Intermediate RASH Verified 08/11/23 10:09 [Iodinated Contrast Media - IV Dye] oxycodone [From PERCOCET] Allergy Intermediate TACHYCARDIA Verified 08/11/23 10:09 ketorolac [From Toradol] Allergy Confusion Verified 08/11/23 10:09 Review of Systems Review of Systems: Yes all other systems are reviewed and are negative Constitutional: Constitutional: Reports as per [facility] Past Medical History Medical History Muscle spasm Ovarian cyst Social History Social History Household Members: Family Housing: Apartment Alcohol intake: never Patient Tobacco Use Status: Never used Tobacco Substance Use Type: Marijuana Advance Directives: No Advance Directives Information Provided: No service: No Physical Exam ED Vital Signs: Vital Signs - 24 hr 08/11/23 10:07 08/11/23 14:34 08/11/23 15:16 Temperature 99.1 F 98.5 F 98 F Pulse Rate 96 78 74 Respiratory Rate 16 16 14 Blood Pressure 105/62 85/60 L 99/62 Pulse Oximetry 97 98 100 Oxygen Delivery Method Room Air Room Air Room Air BMI result Body Mass Index 21.3 Const General: cooperative, comfortable and no acute distress Orientation/consciousness: patient oriented x3 Limitations: no limitations HENMT Head: Yes normal to inspection, Yes normocephalic and Yes atraumatic Ears: hearing grossly normal bilaterally General nose exam: Normal external nose present Face and sinus: Yes normal facial exam Mouth: Normal oral and palatal mucosa present, oropharynx normal and moist mucous membranes Throat: Yes posterior oropharynx normal Eyes General: appearance normal, both eyes and all related structures Eyelids: Yes eyelids normal Conjunctivae: conjunctivae normal Sclerae: sclerae normal Pupils: Equal, round and reactive pupils present EOM: EOMs intact bilaterally Neck Neck: Yes normal visual inspection, Yes full ROM and Yes no lymphadenopathy Lymphatic: no lymphadenopathy noted Chest Chest palpation & inspection: normal inspection of the chest Resp Effort & Inspection: normal respiratory effort and able to speak in complete sentences Auscultation: clear to auscultation bilaterally, no crackles, no rales, no rhonchi and no wheezes Cardio Rate: regular rate Rhythm: regular rhythm Heart sounds: S1 normal heart sound present and S2 normal heart sound present GI Other: Right superior perirectal abscess, 2-1/2 cm from anus there is a 3 cm x 3 cm abscess with induration fluctuance. Tender to palpation examination was performed with CORINE Hung present. Inspection: Yes normal to inspection Skin General skin exam: no rashes or lesions noted Trauma: no lacerations or abrasions Wounds: no wounds Neuro General: patient oriented x3 and moves all extremities Cranial nerves: Yes Equal, round and reactive pupils present Extrem General: Yes normal to inspection Right upper extremity: normal to inspection Left upper extremity: normal to inspection Right lower extremity: normal to inspection Left lower extremity: normal to inspection Medications Administered Discontinued Medications Generic Name Dose Route Start Last Admin Trade Name Freq PRN Reason Stop Dose Admin Diphtheria/Tetanus/Acell Pertussis 0.5 ml 08/11/23 14:14 08/11/23 14:46 Diphth,Pertus(Acell),Tet Adult 0.5 Ml Syringe IM 08/11/23 14:15 0.5 ml .ONCE ONE Administration Lidocaine HCl 5 ml 08/11/23 12:57 08/11/23 13:34 Lidocaine Hcl 1 % Mpf 5 Ml Vial INFILTRATI 08/11/23 12:58 5 ml ONCE ONE Administration Morphine Sulfate 15 mg 08/11/23 12:57 08/11/23 13:34 Morphine Sulfate Immed Release 15 Mg Tablet PO 08/11/23 12:58 15 mg ONCE ONE Administration Procedures Abscess I/D Site: donald-rectal Side (if applicable): right Local Anesthetic: lidocaine 1% Amount of anesthesia used (mL): 4 Technique: incised with blade Amount of fluid expressed (mL): 8 Sent for culture/gram staining?: No Irrigation: Yes Packing used?: iodoform Medical Decision Making Medical Decision Making MDM Narrative: This is a 28-year-old female who presents emergency department for evaluation perirectal abscess. Patient with abscess requiring incision and drainage On arrival, vital signs within normal limits. Incision and drainage was performed. Incision and drainage was performed with 11 blade scalpel, 1 cm linear incision was made, there was approximately 8 cc of purulent drainage that was expressed. This region was irrigated with saline, and packing was applied. Dressing was applied. see procedure note for detail. Patient feeling much better after receiving I&D. Started on antibiotics as patient as patient had previous abscess 1 week ago. Will refer to surgery for further management and evaluation. She understands and agrees with plan. Given wound care instructions and advised to return in 48-72 hours for wound check. She understands and agrees with plan. Patient given Tdap and department today. Patient stable for discharge Differential Diagnosis Differential Diagnoses: The differential diagnosis associated with the presentation includes Abscess, cyst, cellulitis Lab Data [facility] Lab Attestation statement: I reviewed the patient's lab results. Radiology Impression Discussion of test interpretation with radiology: I have reviewed the radiologist's reading. External Record Review External record reviewed: Inpatient record, Office record, Outpatient record, Prior outpatient labs, Prior outpatient radiology, Primary care record and Outside ED record Discharge Plan Discharge Clinical Impression: Abscess, perirectal Patient Disposition: Home, Self-Care Instructions: Abscess (ED), Abscess Follow-up (ED), Incision and Drainage (ED) Additional Instructions: You were seen in the emergency department. You had a perirectal abscess that was incised and drained. We applied a wick in this region to keep the area draining. Please keep area clean and dry. You may change out dressings multiple times a day as needed. I am also placing you on antibiotics, take antibiotics as prescribed, finish the entire course even if your feeling better. We also updated your tetanus shot in the department. Please return in 48-72 hours to ensure that the abscess is improving. Please follow-up with General surgery as you likely need further management of these abscesses. Please return to the emergency room if you develop any new or worsening symptoms including but not limited to fevers, worsening pain, inability to have a bowel movement, nausea or vomiting. You may also take ibuprofen and/or Tylenol as needed for pain. I am giving you a short prescription for oral morphine. Only take as needed for severe pain only. Please be advised that this can cause drowsiness, do not drink alcohol or drive while taking this medication. Please be advised that this can be addictive use for severe pain. Do not share this medication with others Prescriptions: New cephalexin 500 mg capsule 500 mg PO QID 5 Days Qty: 20 0RF ibuprofen 600 mg tablet 600 mg PO Q6H PRN (Reason: fever or pain) Qty: 30 0RF acetaminophen [Tylenol Extra Strength] 500 mg tablet 1,000 mg PO Q8H PRN (Reason: fever or pain) Qty: 30 0RF morphine 15 mg tablet 15 mg PO BID PRN (Reason: pain) Qty: 5 0RF Rx Instructions: Partial Fill upon patient request. No Action ondansetron 4 mg tablet,disintegrating 4 mg PO Q8H PRN (Reason: nausea and vomiting) Qty: 10 0RF diphenoxylate-atropine [Lomotil] 2.5-0.025 mg tablet 1 tab PO TID PRN (Reason: diarrhea) Qty: 10 0RF Rx Instructions: Keep this medication out of reach of children cyclobenzaprine 5 mg Tablet 5 mg PO TID PRN (Reason: Muscle Spasm) omeprazole 20 mg Capsule,Delayed Release(Dr/Ec) 20 mg PO BID@0630,1630 Qty: 28 0RF amoxicillin 500 mg tablet 500 mg PO BID Qty: 20 0RF polyethylene glycol 3350 [Miralax] 17 gram/dose powder 17 g PO DAILY Qty: 119 0RF senna 8.6 mg capsule 8.6 mg PO BEDTIME PRN (Reason: constipation) Qty: 7 0RF ondansetron 4 mg tablet,disintegrating 4 mg PO TID PRN (Reason: nausea and vomiting) Qty: 7 0RF Interventions: ED Discharge Assessment Last Done: 08/11/23 15:16 Discharge Date/Time: 08/11/23 15:18 Print Language: Macedonian
[2023-08-11] MEDS: Morphine Sulfate Immed Release 15 MG TABLET PO (13:34)
[2023-08-11] MEDS: Lidocaine HCl 1 % MPF 5 ML VIAL INFILTRATI (13:34)
--- NOTE | 2023-08-11 13:40 | PC.NURSE ---
pt was evaluated by provider, she was made aware of the ed care plan. SHe was agreeable, medicated as charted.
[2023-08-11 14:34] VITALS: BP 85/60; PULSE 78; RESP 16; TEMP 36.9; O2SAT 98
[2023-08-11] MEDS: Diphth,Pertus(ACell),Tet Adult 0.5 ML SYRINGE IM (14:46)
[2023-08-11 15:16] VITALS: BP 99/62; PULSE 74; RESP 14; TEMP 36.6; O2SAT 100
== END 2023-08-11 15:18 | disposition home or self-care (01) ==
PROVIDERS: Emergency Provider Emergency Medicine
DX: K61.1 Rectal abscess (principal); Z79.899 Other long term (current) drug therapy
CPT/HCPCS: 46040; 90471; 90715; 99283; 99284

== ENCOUNTER 2023-10-27 09:05 | Emergency (ER) | payer MEDICAID, SELFPAY ==
--- NOTE | ~2023-10-27 | XR_ITS ---
EXAMINATION: XR ANKLE, RIGHT CLINICAL INFORMATION: Pain. COMPARISON: None available. TECHNIQUE: AP, lateral, and mortise views of the right ankle. FINDINGS: No fracture. Alignment is anatomic. No erosions. Joint spaces are maintained. Soft tissues are normal. XR/XR ankle RT min 3V IMPRESSION: Normal right ankle. Electronically signed by: Sharonda Plata MD 10/27/2023 09:48 AM EDT
--- NOTE | ~2023-10-27 | XR_ITS ---
EXAMINATION: XR KNEE, RIGHT CLINICAL INFORMATION: Trauma, pain. COMPARISON: None available. TECHNIQUE: Four views of the right knee. FINDINGS: No acute appearing fracture or dislocation. Well-corticated osseous bodies adjacent to the lateral femoral condyle most likely sequela of chronic injury. No significant soft tissue abnormality. No joint effusion. XR/XR knee RT 3V IMPRESSION: 1. No acute fracture or dislocation. 2. Well-corticated osseous bodies adjacent to the lateral femoral condyle most likely sequela of chronic injury. Electronically signed by: Sharonda Plata MD 10/27/2023 09:49 AM EDT
[2023-10-27 09:12] VITALS: BP 104/56; PULSE 66; RESP 14; TEMP 37; O2SAT 100; BMI 22.1
--- NOTE | 2023-10-27 09:15 | ED_ITS ---
HPI - Extremity Injury (Lower) General Chief Complaint: Extremity Injury, Lower Stated Complaint: R knee pain Time Seen by Provider: 10/27/23 09:10 Source: patient Mode of arrival: ambulatory Limitations: no limitations History of Present Illness HPI Narrative: This is a 28 years old patient presented to the emergency department complaining of right knee pain and right ankle pain she states that she fell about 2 weeks ago. Denies any fever chills MD complaint: other (Right ankle right knee pain) Type of Injury: blunt Place: street/outdoors Severity: mild Relieving factors: nothing Exacerbating factors: nothing Context: fall Other symptoms: none Related Data Home Medications ?Medication ?Instructions ?Recorded ?Confirmed cyclobenzaprine 5 mg tablet 5 mg PO TID PRN Muscle Spasm 04/21/23 04/21/23 Previous Rx's ?Medication ?Instructions ?Recorded diphenoxylate-atropine 2.5 1 tab PO TID PRN diarrhea #10 tabs 04/21/23 mg-0.025 mg tablet (Lomotil) ondansetron 4 mg disintegrating 4 mg PO Q8H PRN nausea and 04/21/23 tablet vomiting #10 tabs omeprazole 20 mg capsule,delayed 20 mg PO BID@0630,1630 #28 caps 04/25/23 release amoxicillin 500 mg tablet 500 mg PO BID #20 tabs 06/16/23 ondansetron 4 mg disintegrating 4 mg PO TID PRN nausea and 06/16/23 tablet vomiting #7 tabs polyethylene glycol 3350 17 17 g PO DAILY #119 grams 06/16/23 gram/dose oral powder (Miralax) sennosides 8.6 mg capsule (senna) 8.6 mg PO BEDTIME PRN constipation 06/16/23 #7 caps acetaminophen 500 mg tablet 1,000 mg (2 x 500 mg) PO Q8H PRN 08/11/23 (Tylenol Extra Strength) fever or pain #30 tabs cephalexin 500 mg capsule 500 mg PO QID 5 days #20 caps 08/11/23 ibuprofen 600 mg tablet 600 mg PO Q6H PRN fever or pain 08/11/23 #30 tabs morphine 15 mg immediate release 15 mg PO BID PRN pain #5 tabs 08/11/23 tablet Allergies Allergy/AdvReac Type Severity Reaction Status Date / Time Iodinated Contrast Media Allergy Intermediate RASH Verified 10/27/23 09:13 [Iodinated Contrast Media - IV Dye] oxycodone [From PERCOCET] Allergy Intermediate TACHYCARDIA Verified 10/27/23 09:13 ketorolac [From Toradol] Allergy Confusion Verified 10/27/23 09:13 Review of Systems Constitutional: Constitutional: Reports no additional constitutional complaints ENT: Reports system reviewed and no additional complaints, except as documented Genitourinary: Genitourinary: Reports no additional female genitourinary complaints [facility] Past Medical History [facility] Narrative: Denies Medical History Muscle spasm Ovarian cyst Social History Social History Household Members: Family Housing: Apartment Alcohol intake: never Patient Tobacco Use Status: Never used Tobacco Substance Use Type: Marijuana Advance Directives: No Advance Directives Information Provided: No service: No Physical Exam Vital Signs: Vital Signs: Last Vital Signs Temp 98.4 F 10/27/23 10:50 Pulse 82 10/27/23 10:50 Resp 18 10/27/23 10:50 BP 107/60 10/27/23 10:50 Pulse Ox 98 10/27/23 10:50 O2 Del Method Room Air 10/27/23 10:50 BMI result Body Mass Index 22.1 She looks well she is not toxic-appearing Const: General: cooperative Nutritional Appearance: well nourished Orientation/consciousness: patient oriented x3 HEENT: Head: Yes normal to inspection General nose exam: Normal external nose present Face and sinus: Yes normal facial exam Mouth: Normal oral and palatal mucosa present Neck: Neck: Yes normal visual inspection and Yes full ROM Chest: Chest palpation & inspection: normal inspection of the chest Resp: Effort & Inspection: normal respiratory effort Cardio: Jugular venous distension: no JVD Rate: regular rate Rhythm: regular rhythm GI: Inspection: Yes normal to inspection Palpation (GI): Soft to palpation, not firm, nontender and no guarding Skin: General skin exam: no rashes or lesions noted Lesions: no lesions Rashes: no rashes Neuro: General: patient oriented x3 Cranial nerves: Yes CN's II-XII intact bilaterally Extrem: Other: Tenderness in the right knee no effusion deformity Ankle exam shows no swelling no deformity Course Reevaluation(s) Reevaluation #1: X-ray negative with the patient will be discharged home Time: 10:36 Medications Administered Discontinued Medications Generic Name Dose Route Start Last Admin Trade Name Freq PRN Reason Stop Dose Admin Acetaminophen 975 mg 10/27/23 09:14 10/27/23 09:20 Acetaminophen 325 Mg Tablet PO 10/27/23 09:15 975 mg ONCE ONE Administration Medical Decision Making Medical Decision Making [facility] Narrative: Patient presented with knee pain ankle pain will get x-ray Differential Diagnosis Differential Diagnoses: The differential diagnosis associated with the presentation includes Knee fracture, ankle fracture, knee dislocation ankle dislocation Independent Interpretation I performed an independent interpretation of an: Plain X-Ray Interpretation: X-ray right knee and right ankle no fracture no dislocation Radiology Impression Discussion of test interpretation with radiology: I have reviewed the radiologist's reading. Radiologist Impression: XR/XR knee RT 3V IMPRESSION: 1. No acute fracture or dislocation. 2. Well-corticated osseous bodies adjacent to the lateral femoral condyle most likely sequela of chronic injury. Electronically signed by: Sharonda Plata MD 10/27/2023 09:49 AM EDT RP n 3V IMPRESSION: Normal right ankle. Electronically signed by: Sharonda Plata MD 10/27/2023 09:48 AM EDT Dictated By: Sharonda Plata Signed By: <Electronically Discharge Plan Discharge Clinical Impression: Acute knee pain, Ankle sprain and strain Patient Disposition: Home, Self-Care Instructions: Knee Pain (ED) Additional Instructions: Follow-up with your primary care physician return to the emergency department if worse Prescriptions: No Action ondansetron 4 mg tablet,disintegrating 4 mg PO Q8H PRN (Reason: nausea and vomiting) Qty: 10 0RF diphenoxylate-atropine [Lomotil] 2.5-0.025 mg tablet 1 tab PO TID PRN (Reason: diarrhea) Qty: 10 0RF Rx Instructions: Keep this medication out of reach of children cyclobenzaprine 5 mg Tablet 5 mg PO TID PRN (Reason: Muscle Spasm) omeprazole 20 mg Capsule,Delayed Release(Dr/Ec) 20 mg PO BID@0630,1630 Qty: 28 0RF amoxicillin 500 mg tablet 500 mg PO BID Qty: 20 0RF polyethylene glycol 3350 [Miralax] 17 gram/dose powder 17 g PO DAILY Qty: 119 0RF senna 8.6 mg capsule 8.6 mg PO BEDTIME PRN (Reason: constipation) Qty: 7 0RF ondansetron 4 mg tablet,disintegrating 4 mg PO TID PRN (Reason: nausea and vomiting) Qty: 7 0RF cephalexin 500 mg capsule 500 mg PO QID 5 Days Qty: 20 0RF ibuprofen 600 mg tablet 600 mg PO Q6H PRN (Reason: fever or pain) Qty: 30 0RF acetaminophen [Tylenol Extra Strength] 500 mg tablet 1,000 mg PO Q8H PRN (Reason: fever or pain) Qty: 30 0RF morphine 15 mg tablet 15 mg PO BID PRN (Reason: pain) Qty: 5 0RF Rx Instructions: Partial Fill upon patient request. Referrals: Arnel Isaac MD [Physician] - 5 days Interventions: ED Discharge Assessment Last Done: 10/27/23 10:50 Discharge Date/Time: 10/27/23 10:51 Print Language: Israeli
[2023-10-27] MEDS: Acetaminophen 325 MG TABLET 975 MG PO (09:20)
[2023-10-27 09:22] VITALS: BP 104/57; PULSE 93; RESP 18; TEMP 36.6; O2SAT 99
[2023-10-27 10:50] VITALS: BP 107/60; PULSE 82; RESP 18; TEMP 36.9; O2SAT 98
== END 2023-10-27 10:51 | disposition home or self-care (01) ==
PROVIDERS: Emergency Provider Emergency Medicine
DX: M25.561 Pain in right knee (principal); S93.401A Sprain of unspecified ligament of right ankle, initial encounter; S96.911A Strain of unspecified muscle and tendon at ankle and foot level, right foot, initial encounter; W19.XXXA Unspecified fall, initial encounter; Y93.9 Activity, unspecified; Y92.410 Unspecified street and highway as the place of occurrence of the external cause; Y99.9 Unspecified external cause status
CPT/HCPCS: 73562; 73610; 99283; 99284

== ENCOUNTER 2023-11-21 12:58 | Outpatient (AMB) | payer MEDICAID, SELFPAY ==
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
== END 2023-11-21 13:12 | disposition home or self-care (01) ==
PROVIDERS: Visit Provider Orthopaedic Surgery
DX: S83.241A Other tear of medial meniscus, current injury, right knee, initial encounter (principal); W19.XXXA Unspecified fall, initial encounter
CPT/HCPCS: 99203

== ENCOUNTER → 2023-11-21 12:58 | Outpatient (BNVA) | payer MEDICAID, SELFPAY | PROVIDERS: Visit Provider Orthopaedic Surgery | DX: S83.241D Other tear of medial meniscus, current injury, right knee, subsequent encounter (principal); W19.XXXD Unspecified fall, subsequent encounter | CPT/HCPCS: 99202 ==

== ENCOUNTER 2024-01-12 14:30 | Emergency (ER) | payer MEDICAID, SELFPAY ==
--- NOTE | ~2024-01-12 | US_ITS ---
EXAMINATION: US PELVIS CLINICAL INFORMATION: Post coital bleeding. LMP: 12/02/2023 COMPARISON: Pelvic ultrasound dated November 22, 2020. TECHNIQUE: Ultrasound of the pelvis is performed using both transabdominal and transvaginal transducers along with Doppler. Transvaginal imaging is performed due to inadequate visualization transabdominally. FINDINGS: Uterus: The uterus is anteverted, anteflexed and measures 6.4 x 2.9 x 3.8 cm. There is a small amount of fluid within the cervix. There is a contraceptive device well centered within the endometrium. The uterus is smooth in contour and has normal myometrial echogenicity. No visible fibroid. Adnexa: Both ovaries are visualized. There is normal color flow to the adnexa. There is no ovarian torsion. There is no pelvic ascites or fluid collection. Right ovary measures 2.6 x 1.8 x 2.1 cm, volume 5.2 mL. Left ovary measures 2.8 x 1.4 x 1.7 cm, volume 3.5 mL. There is a 1.3 cm left ovarian cyst. US/US pelvic and transvaginal IMPRESSION: The uterus is sonographically normal. There is a small amount of fluid within the cervix. The ovaries are normal in appearance. No ovarian mass or torsion. A contraceptive device is well centered within the endometrial cavity. Electronically signed by: Rolf Cope DO 01/12/2024 04:55 PM [facility]
[2024-01-12 15:30] VITALS: BP 100/64; PULSE 66; RESP 18; TEMP 36.8; O2SAT 100; BMI 20.3
--- NOTE | 2024-01-12 15:31 | ED_ITS ---
HPI - General Adult General Chief complaint: Vaginal Bleeding Stated complaint: hip pain, vaginal bleeding Time Seen by Provider: 01/12/24 18:29 Source: patient Limitations: no limitations History of Present Illness ED Provider: Viky Zavala PA-C HPI narrative: 28-year-old otherwise healthy female presents with vaginal bleeding. Patient states she has been having postcoital pain and bleeding for months. Denies having ?rough intercourse?. Patient does have a longstanding IUD that does cause her pelvic discomfort, she has had a in place for 7 years. When the bleeding began today, the patient states it was a small gush of blood. Since, it has subsided, she is now spotting. Related Data Home Medications ?Medication ?Instructions ?Recorded ?Confirmed cyclobenzaprine 5 mg tablet 5 mg PO TID PRN Muscle Spasm 04/21/23 11/22/23 Previous Rx's ?Medication ?Instructions ?Recorded diphenoxylate-atropine 2.5 1 tab PO TID PRN diarrhea #10 tabs 04/21/23 mg-0.025 mg tablet (Lomotil) ondansetron 4 mg disintegrating 4 mg PO Q8H PRN nausea and 04/21/23 tablet vomiting #10 tabs omeprazole 20 mg capsule,delayed 20 mg PO BID@0630,1630 #28 caps 04/25/23 release amoxicillin 500 mg tablet 500 mg PO BID #20 tabs 06/16/23 ondansetron 4 mg disintegrating 4 mg PO TID PRN nausea and 06/16/23 tablet vomiting #7 tabs polyethylene glycol 3350 17 17 g PO DAILY #119 grams 06/16/23 gram/dose oral powder (Miralax) sennosides 8.6 mg capsule (senna) 8.6 mg PO BEDTIME PRN constipation 06/16/23 #7 caps acetaminophen 500 mg tablet 1,000 mg (2 x 500 mg) PO Q8H PRN 08/11/23 (Tylenol Extra Strength) fever or pain #30 tabs cephalexin 500 mg capsule 500 mg PO QID 5 days #20 caps 08/11/23 ibuprofen 600 mg tablet 600 mg PO Q6H PRN fever or pain 08/11/23 #30 tabs morphine 15 mg immediate release 15 mg PO BID PRN pain #5 tabs 08/11/23 tablet Allergies Allergy/AdvReac Type Severity Reaction Status Date / Time Iodinated Contrast Media Allergy Intermediate RASH Verified 01/12/24 15:33 [Iodinated Contrast Media - IV Dye] oxycodone [From PERCOCET] Allergy Intermediate TACHYCARDIA Verified 01/12/24 15:33 ketorolac [From Toradol] Allergy Confusion Verified 01/12/24 15:33 Review of Systems 2 Review of Systems: Yes all other systems are reviewed and are negative Constitutional: Constitutional: Denies fatigue and Denies fever(s) Gastrointestinal: Gastrointestinal: Denies abdominal pain, Denies nausea and Denies vomiting Genitourinary: Genitourinary: Reports abnormal vaginal bleeding and Reports pelvic pain Endocrine: Endocrine: Denies fatigue PMFSH Past Medical History Attestation statement: The following information was validated with the patient. Medical History Muscle spasm Ovarian cyst Social History Social History Household Members: Family Housing: Apartment Alcohol intake: never Patient Tobacco Use Status: Never used Tobacco Substance Use Type: Marijuana Advance Directives: No Advance Directives Information Provided: No service: No Physical Exam ED Vital Signs: Vital Signs - 24 hr 01/12/24 15:30 Temperature 98.3 F Pulse Rate 66 Respiratory Rate 18 Blood Pressure 100/64 Pulse Oximetry 100 Oxygen Delivery Method Room Air BMI result Body Mass Index 20.3 Const Other: Alert well-appearing Orientation/consciousness: patient oriented x3 Resp Other: Nonlabored respiration Cardio Other: Normal peripheral perfusion GI Other: Abdomen is soft, nondistended nontender Other: Deferred pelvic as a transvaginal ultrasound was already completed, bleeding has stopped Skin Other: Warm dry no rash Neuro General: patient oriented x3, no focal motor deficits and CN's II-XI intact bilaterally Psych Other: Calm cooperative Course Course Course Narrative: This is an RME performed by More Lamb CNP: Additional HPI, ROS, PE not included below will be deferred to primary provider. Patient is a 28-year-old female who presents emergency department for evaluation she is complaining of pain to the right lateral/lower abdomen associated vaginal bleeding. She reports having sexual intercourse this morning and immediately afterwards she had a large amount of vaginal bleeding, since then has gone through 3 panty liners which she states is heavy bleeding for her. She does not anticipate that this is her menstrual cycle as it typically comes in the beginning of the month though at times it can be a regular due to her Mirena. She states that she has recently performed a string check for the IUD and they were present. Does admit to a history of PCOS. Denies concern for sexually transmitted infections. Plan: Serum labs, urinalysis, STI testing, pelvic ultrasound Medical Decision Making Medical Decision Making MDM Narrative: 28-year-old otherwise healthy female presents with vaginal bleeding. Patient states she has been having postcoital pain and bleeding for months. Denies having ?rough intercourse?. Patient does have a longstanding IUD that does cause her pelvic discomfort, she has had a in place for 7 years. When the bleeding began today, the patient states it was a small gush of blood. Since, it has subsided, she is now spotting. Problem: Dyspareunia, dysfunctional uterine bleeding History: Per patient I have considered the following differential diagnoses: Uterine fibroid, dyssynchronous endometrium, dysfunctional uterine bleeding, IUD eroding into the uterus, vaginal canal laceration, ectopic Plan: Screening labs and a transvaginal ultrasound were obtained from triage. The patient's bleeding has stopped. There is no abnormality noted on the transvaginal ultrasound. She is not complaining of vaginal pain she is complaining of pelvic pain after intercourse. I advised the patient that perhaps the IUD is causing the bleeding and the pain, she can follow up with her grinder needle tip to have it removed and to discuss other options for control. She is in agreement with the plan. She is not to suggest ectopic. I have independently reviewed the following tests: Labs: No leukocytosis, not anemic, no electrolyte abnormality, urine not infected just passing hematuria, not Transvaginal ultrasound: US/US pelvic and transvaginal IMPRESSION: The uterus is sonographically normal. There is a small amount of fluid within the cervix. The ovaries are normal in appearance. No ovarian mass or torsion. A contraceptive device is well centered within the endometrial cavity. Electronically signed by: Rolf Cope DO 01/12/2024 04:55 PM [facility] Lab Data 01/12/24 16:24 01/12/24 16:24 Labs: Lab Results 01/12/24 Range/Units 16:24 WBC 7.0 (4.8-10.8) X10*3/uL RBC 4.46 (4.20-5.50) X10*6/uL Hgb 11.8 L (12.0-16.0) g/dl Hct 35.7 L (37.0-47.0) % MCV 80.0 (80.0-98.0) fL MCH 26.5 L (27.0-33.0) pg MCHC 33.1 (31.0-35.0) g/dl RDW 13.5 (11.0-16.0) % Plt Count 234 (160-400) X10*3/uL MPV 9.7 (9.4-12.3) fL Immature Gran % (Auto) 0.3 (0.0-0.4) % Neut % (Auto) 58.0 (45-73) % Lymph % (Auto) 33.0 (20-40) % [place] % (Auto) 7.7 (2-11) % Eos % (Auto) 0.4 (0-4) % Baso % (Auto) 0.6 (0-2) % Lymph # (Auto) 2.3 (1.2-4.9) X10*3/uL [place] # (Auto) 0.5 (0.1-1.2) X10*3/uL Eos # (Auto) 0.0 (0.0-0.4) X10*3/uL Baso # (Auto) 0.0 (0.0-0.2) X10*3/uL Abs Immat Gran (auto) 0.02 (0.00-0.03) X10*3/uL Absolute Neuts (auto) 4.1 (2.0-8.3) x10*3/uL Absolute Nucleated RBC 0.000 (0.0-0.012) X10*3/uL Nucleated RBC % (auto) 0.0 (0.0-0.2) /100WBC Sodium 142 (135-145) mmol/L Potassium 3.8 (3.3-5.1) mmol/L Chloride 108 (96-108) mmol/L Carbon Dioxide 25 (22-29) mmol/L Anion Gap 13 (12-20) BUN 12 (9-16) mg/dL Creatinine 0.68 (0.5-1.4) mg/dL Estim Creat Clear Calc 100.4 Estimated GFR > 60 Random Glucose 94 (60-115) mg/dL Calcium 9.3 (8.4-10.2) mg/dL Total Bilirubin 0.5 (0.0-1.0) mg/dL AST 22 (5-31) U/L ALT 17 (0-31) U/L Alkaline Phosphatase 51 (39-117) U/L C-Reactive Protein < 0.04 (< or = 0.50) mg/dL Total Protein 7.2 (6.5-8.0) g/dL Albumin 4.4 (3.5-5.0) g/dL Discharge Plan Discharge Clinical Impression: Abnormal vaginal bleeding, Dyspareunia in female Patient Disposition: Home, Self-Care Instructions: Dysfunctional Uterine Bleeding (ED), Dyspareunia in Women (DC) Additional Instructions: All of your labs are normal, you were not . Your IUD is in proper placement. You did not sustain a traumatic injury. The transvaginal ultrasound was unremarkable. You need to follow up with a grinder needle tip, you may require a different method of control, the IUD is causing you discomfort and maybe the cause of the bleeding. [facility] [address] [phone] [facility] [phone] [facility] [phone] Prescriptions: No Action ondansetron 4 mg tablet,disintegrating 4 mg PO Q8H PRN (Reason: nausea and vomiting) Qty: 10 0RF diphenoxylate-atropine [Lomotil] 2.5-0.025 mg tablet 1 tab PO TID PRN (Reason: diarrhea) Qty: 10 0RF Rx Instructions: Keep this medication out of reach of children cyclobenzaprine 5 mg Tablet 5 mg PO TID PRN (Reason: Muscle Spasm) omeprazole 20 mg Capsule,Delayed Release(/Ec) 20 mg PO BID@0630,1630 Qty: 28 0RF amoxicillin 500 mg tablet 500 mg PO BID Qty: 20 0RF polyethylene glycol 3350 [Miralax] 17 gram/dose powder 17 g PO DAILY Qty: 119 0RF senna 8.6 mg capsule 8.6 mg PO BEDTIME PRN (Reason: constipation) Qty: 7 0RF ondansetron 4 mg tablet,disintegrating 4 mg PO TID PRN (Reason: nausea and vomiting) Qty: 7 0RF cephalexin 500 mg capsule 500 mg PO QID 5 Days Qty: 20 0RF ibuprofen 600 mg tablet 600 mg PO Q6H PRN (Reason: fever or pain) Qty: 30 0RF acetaminophen [Tylenol Extra Strength] 500 mg tablet 1,000 mg PO Q8H PRN (Reason: fever or pain) Qty: 30 0RF morphine 15 mg tablet 15 mg PO BID PRN (Reason: pain) Qty: 5 0RF Rx Instructions: Partial Fill upon patient request. Print Language: French
[2024-01-12 16:29] LABS: MANUAL DIFF FLAG NO
[2024-01-12 16:40] LABS: Basophils Percent Auto 0.6 % (0-2); Eosinophils Percent Auto 0.4 % (0-4); Hematocrit 35.7 % (37.0-47.0); Hemoglobin 11.8 g/dl (12.0-16.0); Imm Gran Abs Auto 0.02 X10*3/uL (0.00-0.03); Imm Gran Pct Auto 0.3 % (0.0-0.4); Lymphocytes Absolute Auto 2.3 X10*3/uL (1.2-4.9); Mean Corpuscular HGB Conc 33.1 g/dl (31.0-35.0); Mean Corpuscular Hemoglobin 26.5 pg (27.0-33.0); Mean Platelet Volume 9.7 fL (9.4-12.3); Monocytes Absolute Auto 0.5 X10*3/uL (0.1-1.2); Monocytes Percent Auto 7.7 % (2-11); Neutrophils Absolute Auto 4.1 x10*3/uL (2.0-8.3); Platelet Count 234 X10*3/uL (160-400); Red Blood Count 4.46 X10*6/uL (4.20-5.50); Red Cell Distribution Width 13.5 % (11.0-16.0)
[2024-01-12 16:45] LABS: Alanine Aminotransferase 17 U/L (0-31); Albumin Level 4.4 g/dL (3.5-5.0); Anion Gap 13 (12-20); Aspartate Amino Transferase 22 U/L (5-31); Bilirubin Total 0.5 mg/dL (0.0-1.0); Blood Urea Nitrogen 12 mg/dL (9-16); C Reactive Protein < 0.04 mg/dL (< or = 0.50); Calcium 9.3 mg/dL (8.4-10.2); Carbon Dioxide 25 mmol/L (22-29); Chloride 108 mmol/L (96-108); Creatinine Clr Calc Pharmacy 100.4; Estimated Glomerular Filt Rate > 60; Glucose Random 94 mg/dL (60-115); Potassium 3.8 mmol/L (3.3-5.1); Sodium 142 mmol/L (135-145); Total Protein 7.2 g/dL (6.5-8.0)
[2024-01-12 17:09] LABS: Alkaline Phosphatase 51 U/L (39-117)
[2024-01-12 19:49] VITALS: BP 102/58; PULSE 71; RESP 18; TEMP 36.8; O2SAT 99
== END 2024-01-12 19:50 | disposition home or self-care (01) ==
PROVIDERS: Nurse Practitioner Family; Emergency Provider Internal Medicine
DX: N94.10 Unspecified dyspareunia (principal); N93.8 Other specified abnormal uterine and vaginal bleeding; N93.0 Postcoital and contact bleeding
CPT/HCPCS: 36415; 76830; 76856; 80053; 85025; 86140; 99282; 99284

== ENCOUNTER 2024-05-03 10:51 | Outpatient (REF) | payer MEDICAID, SELFPAY ==
--- NOTE | ~2024-05-03 | XR_ITS ---
EXAMINATION: XR CHEST 2 VIEWS HISTORY: PAIN COMPARISON: Comparison is made with the prior examination dated 04/21/2019. FINDINGS: PA and lateral views of the chest are submitted. The lungs are expanded and clear. There is no pleural effusion, pneumothorax, or pulmonary vascular congestion. The heart is normal in size. The bones are intact. XR/XR chest 2V IMPRESSION: No acute cardiopulmonary abnormality. Electronically signed by: Marcelino Mark MD 05/03/2024 11:19 AM SYDNI
--- OUTSIDE RECORDS SUMMARY | 2024-05-03 12:25 | XMS_ITS | Encounter Summary ---
Author Organization [employer] Address [address] [facility] [address] [place] [address] Care Team Providers Care Nuclear Officer Name Role Phone Unavailable Primary Care Provider Unavailabl e Encounter Details Date Type Department Care Team (Late st Contact Info) Description 05/03/2024 Telephone [facility] [address] [place], [place] [phone] Dick Martinez MD [address] [place], [place] [phone] Social History Tobacco Use Types Packs/Day Years Used Date Smoking Tobacco: Never Assessed Comments Unknown Sex and Gender Information Value Date Recorded Sex Assigned at Female 12/27/2021 10:19 AM EDT Legal Sex Female 10:19 AM EDT Gender Identity Female 12/27/2021 10:19 AM EDT Sexual Orientation Straight 12/27/2021 10 :19 AM EDT documented as of this encounter Miscellaneous Notes * Telephone Encounter - Alejandro Gonzalez - 05/03/2024 10:54 AM EST Patient added to [facility] New Patient wait list as 05-03-2024 documented in this encounter Plan of Treatment Upcoming Encounters Date Type Department Care Team (Late st Contact Info) Description 05/08/2024 9:00 AM EDT Procedure Visit [facility] [address] [place], [place] [phone] Yolanda Bess FNP [address] [place], [place] [phone] documented as of this encounter Visit Diagnoses Not on filedocumented in this encounter
--- OUTSIDE RECORDS SUMMARY | 2024-05-03 12:25 | XMS_ITS | Clinical Summary ---
Author Organization [employer] Address [address] [facility] [address] [place] [address] Care Team Providers Care Utilization Supervisor Name Role Phone Unavailable Primary Care Provider Unavailabl e Allergies No known active allergies Medications cyclobenzaprine (Flexeril) 5 MG tabletIndicatio ns:Costochondri tis Take 1-2 tablets (5-10 mg) by mouth if needed each day for muscle spasms for up to 10 days. 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 Temporomandibular disorder 06/27/2018 Encounters Date Type Department Care Team Description 05/03/2024 Telephone [facility] [address] [place] [phone] Dick Martinez MD 05/01/2024 7:00 PM EST Office Visit [facility] [address] [place], [place] [phone] Raven Payne, [employer] EX[employer]OR Sternal pain (Primary Dx); Vomiting, unspecified vomiting type, unspecified whether nausea present; Costochondritis 05/01/2024 Travel from Last 3 Months Immunizations Name Administration Dates Next Due Tdap 08/11/2023 Social History Tobacco Use Types Packs/Day Years Used Date Smoking Tobacco: Never Assessed Comments Unknown Sex and Gender Information Value Date Recorded Sex Assigned at Female 12/27/2021 10:19 AM EDT Legal Sex Female 10:19 AM EDT Gender Identity Female 12/27/2021 10:19 AM EDT Sexual Orientation Straight 12/27/2021 10 :19 AM EDT Last Filed Vital Signs Vital Sign Reading Time Taken Comments Blood Pressure 122/63 05/01/2024 7:14 PM EST Pulse 94 05/01/2024 7:14 PM EST Temperature 37.1 ??C (98.7 ??F) 05/01/2024 7:14 PM ES T Respiratory Rate 16 05/01/2024 7:14 PM EST Oxygen Saturation 100% 05/01/2024 7:14 PM EST Inhaled Oxygen Concentration - - Weight 53.8 kg (118 lb 9.6 oz) 05/01/2024 7:14 P M EST Height 160 cm (5' 3 ) 05/01/2024 7:14 PM EST Body Mass Index 21.01 05/01/2024 7:14 PM EST Plan of Treatment Upcoming Encounters Date Type Department Care Team (Late st Contact Info) Description 05/08/2024 9:00 AM EDT Procedure Visit [facility] [address] [place], [place] [phone] Yolanda Bess FNP [address] [place], [place] [phone] Health Maintenance Due Date Last Done Comments Depression Screening 1994 HIV Screening 1994 SDOH Screening 1994 Alcohol/Substance Use Screening 2006 Tobacco Screening 2006 Family Planning (PISQ) 2009 Hepatitis C Screening 2012 Hepatitis B Vaccines (1 of 3 - 19+ 3-dose series) 2013 Pap Smear 2015 COVID-19 Vaccine ( - 2023-2 5 season) 2023 Influenza Vaccine (#1) 2023 Cervical Cancer Screening 2024 HPV/Cotest 2024 DTaP/Tdap/Td Vaccines (2 - T d or Tdap) 08/10/2033 08/11/2023 Zoster Vaccines (1 of 2) 2044 RSV Patients and Pa tients Aged 60 years or older (1 - 1-dose 75+ series) 2069 HIB Vaccines Aged Out No longer eligi ble based on patient's age to complete this topic HPV Vaccines Aged Out No longer eligi ble based on patient's age to complete this topic Hepatitis A Vaccines Aged Out No long er eligible based on patient's age to complete this topic IPV Vaccines Aged Out No longer eligi ble based on patient's age to complete this topic Meningococcal Vaccine Aged Out No harshil wang eligible based on patient's age to complete this topic Pneumococcal Vaccine: Pediat rics (0 to 5 Years) and At-Risk Patients (6 to 49) Years) Aged Out No longer elig ible based on patient's age to complete this topic RSV under 20 months Aged Out No longe r eligible based on patient's age to complete this topic Rotavirus Vaccines Aged Out No longer eligible based on patient's age to complete this topic Procedures Procedure Name Priority Date/Time Associated Diagnosis Comments XR CHEST 2 VIEWS Routine 05/03/2024 10:5 3 AM EST Sternal pain from Last 3 Months Results * XR Chest 2 Views (05/03/2024 10:53 AM EST) Anatomical Region Laterality Modality Chest Radiographic Abbie ging 05/03/2024 10:5 3 AM EST Narrative 05/03/2024 11:22 AM EST ?[facility] ?[address] ?[place] [address] ?XRay Report ? Signed ? Patient: Miguelina Walsh ?MR#: [id number] ?? [id number] ? : 1995 ?Acct:[id number] ? Age/Sex: 29 / F ?ADM Date: 05/03/24 ? Loc: HO.HHCX ? Attending Dr: Raven Payne [employer] EXTRACTOR ? Ordering Physician: Raven Payne [employer] EXTRACTOR ?? Date of Service: 05/03/24 ?? Procedure(s): XR chest 2V ?? Accession Number(s): [id number] ? cc: Raven Payne [employer] EXTRACTOR ? EXAMINATION: ??XR CHEST 2 VIEWS ? HISTORY: PAIN ? COMPARISON: Comparison is made with the prior examination dated ?? 04/21/2019. ? FINDINGS: ??PA and lateral views of the chest are submitted. The lungs ?? are expanded and clear. ??There is no pleural effusion, pneumothorax, or ?? pulmonary vascular congestion. ??The heart is normal in size. ??The bones ?? are intact. ? XR/XR chest 2V ?? IMPRESSION: ?? No acute cardiopulmonary abnormality. ? Electronically signed by: ??Marcelino Mark MD ??05/03/2024 11:19 AM EST ?? RP ? Dictated By: ?Marcelino Mark MD ? Signed By: ?<Electronically signed by Marcelino Mark MD in OV> ?05/03/24 1119 ? DD/ 1053 ? TD/TT: 05/03/24 1100 ? Digital Media Buyer: ? Procedure Note [employer], Image - 05/03/[address] [address] XRay Report Signed Patient: Saul Walsh#: [id number] : 1995Acct:[id number] Age/Sex: 29 / FADM Date: 05/03/24 [facility]: Raven Payne [employer] EXTRACTOR Ordering Physician: Raven Payne Date of Service: 05/03/24 Procedure(s): XR chest 2V Accession Number(s): [id number] cc: Raven Payne EXAMINATION: XR CHEST 2 VIEWS HISTORY: PAIN COMPARISON: Comparison is made with the prior examination dated 04/21/2019. FINDINGS: PA and lateral views of the chest are submitted. The lungs are expanded and clear. There is no pleural effusion, pneumothorax, or pulmonary vascular congestion. The heart is normal in size. The bones are intact. XR/XR chest 2V IMPRESSION: No acute cardiopulmonary abnormality. Electronically signed by: Marcelino Mark MD 05/03/2024 11:19 AM EST Dictated By: Marcelino Mark MD Signed By: <Electronically signed by Marcelino Mark MD in OV> 05/03/24 1119 DD/ 1053 TD/TT: 05/03/24 1100 Digital Media Buyer: Raven Payne [employer] EXTRACTOR IMG XR PROCEDURES Final Result from Last 3 Months Insurance [facility] [address] [place] [phone] [place] [phone] [place] [address]
--- OUTSIDE RECORDS SUMMARY | 2024-05-03 12:25 | XMS_ITS ---
Author Organization [facility] Address [address] [place], [place] [address] Care Team Providers Care Multiple Games Dealer Name Role Phone BURKE KENT Primary Care Provider Allergies Allergen (clinical drug ingredient) Drug/Non Drug Allergy documented on EMR Reaction Allergy Type Onset Date Status acetaminophen / oxycodone Percocet Unknown Drug Allergy Active REASON FOR VISIT 6 MTH FU, LABS Medications Medication SIG (Take, Route, Frequency, Duration) Notes Start Date End Date Status CeleXA 20 MG 1 tablet Orally Once a day for 90 days 05/19/2022 Unknown Cyclobenzaprine HCl 10 MG 1 tablet at be dtime as needed Orally Once a day Unknown Encounters Encounter Location Date Provider Diagnosis [address] [id number] 12/01/2022 BURKE KENT Cervical pain (neck) M54.2 ; Moderate episode of recurrent major depressive disorder F33.1 ; Anxiety F41.9 ; Other fatigue R53.83 ; HSV-1 (herpes simplex virus 1) infection B00.9 and Slow transit constipation K59.01 Assessments Encounter Date Diagnosis (ICD Code) Assessment Notes Treatment Notes Treatment Clinical Notes Section Notes 12/01/2022 Cervical pain (neck) (ICD-10 - M54.2) RECOMMENDATIONS given include: alternating cold packs and moist heat and I have advised to report any new or worsening symptoms. 12/01/2022 Moderate episode of recurrent major depressive disorder (ICD-10 - F33.1) Patient advised to continue applicable medication regimen, exercise regularly and avoid substance abuse. 12/01/2022 Anxiety (ICD-10 - F41.9) RECOMMENDATIONS given include: increase physical activity and avoid substance abuse. 12/01/2022 Other fatigue (ICD-10 - R53.83) Patient with symptoms of sob, tiredness. Oriented about increase exercise as tolerate and good sleep hygiene. Avoid caffeeine, tobacco use and alcohol consumption, Consider start routine exercise as tolerate. Low fat diet increase fiber and fruits. Oriented about vitamin supplement with cautions. Request labs for evaluaution in the next visit. 12/01/2022 HSV-1 (herpes simplex virus 1) infection (ICD-10 - B00.9) Patient advised and counselled to Always use condoms and dental dams during oral, anal, and vaginal sex,don''t have sex during a herpes outbreak, even with a condom. There may be sores on places the condom doesn''t cover.also patient advised to keep health diet and to use lip balms with at least 1 percent lemon balm.lemon tea and lemon tea compresses.peppermi nt, mint, and witch cici oil.aloe vera gel, which is available to buy online, to soothe inflamed sores while providing crucial moisture.licorice root, which contains glycyrrhizic acid, considered to be an antiviral. 12/01/2022 Slow transit constipation (ICD-10 - K59.01) Plan Of Treatment Future Test Test Name Order Date TSH and Free T4 11/30/2022 CMP (Comprehensive Metabolic panel) 05/2022 Hemoglobin A1c 11/30/2022 CBC With Differential/Platelet Lipid Panel 11/30/2022 Next Appt Details Follow Up: 6 Months, Reason: labs follow up Progress Notes * JHONY FRANCISEDOB: 5 (29 yo F)Acc No.[id number]:12/01/2022 Patient:?DIXIE FRANCISBRENDAYuli Provider:?ITMOTHY WALKER :1995???Age:27 Y???Sex:Female D ate:12/01/2022 Address: [address] [facility] Subjective: * Chief Complaints: * ???1. 6 MTH FU, LABS. * HPI: ???Constitutional:? Patient is a 27 year old female presents to office for follow up but did not do blood work. * ROS:?General/Constitutional:?Denies?Change in appetite.?Denies?Chills.?Denies?Fatigue.?Denies?Fever.?Denies?Headache.?Denies?L ightheadedness.?Denies?Sleep disturbance.?Denies?Weight gain,?denies.?Denies?Weight loss,?denies.?You or a family member has had a problem w\anesthesia?denies.?Cardiovascular:?Denies?Chest pain.?Denies?Chest pain at rest.?Denies?Chest pain with exertion.?Denies?Claudication.?Denies?Congenital heart problems.?Denies?Cyanosis.?Denies?Difficulty laying flat.?Denies?Dizziness.?Denies?Dyspnea on exertion.?Denies?Fluid accumulation in the legs.?Denies?Heart murmur,?denies.?Denies?Heart problems,?denies.?Denies?High blood pressure,?denies.?Denies?Irregular heartbeat,?denies.?Denies?Orthopnea.?Denies?Other vascular anomalies.?Denies?Palpitations,?denies.?Denies?Rheumatic fever,?denies.?Denies?Shortness of breath.?Denies?Weakness.?Denies?Weight gain.?Musculoskeletal:?Denies?Arthritis/Arthralgia,?denies.?Denies?Back problems,?denies.?Denies?Carpal tunnel.?Denies?History of Gout,?denies.?Denies?Joint stiffness.?Denies?Leg cramps.?Denies?Limping gait.?Denies?Muscle aches.?Denies?Pain in shoulder(s).?Denies?Painful joints.?Denies?Sciatica.?Denies?Swollen joints.?Denies?Trauma to arm(s).?Denies?Trauma to hip(s).?Denies?Trauma to knee(s).?Denies?Trauma to ankle(s).?Denies?Weakness.? * Medical History:?History of anemia during , Muscle spasms. * Surgical History:?c/section 2016. * Hospitalization/Major Diagno stic Procedure:?anxiety attack 2022. * Family History:?Father: flavia meeks, arthritis,muscle problems.?Mother: alive, arthritis, osteoporosis, fibromyalgia, palpitaions, crystal bones.?Siblings: alive, sister:RAbrother: schizoprenia, bipolar disorder.? * Social History:?ADL:?I CAN BATHE MY SELF: YES. I CAN COOK/PREPARE MEAL: YES. I CAN FEED MYSELF: YES. I CAN REMEMBER MY NAME: YES. I CAN CLEAN MY HOUSE: YES. I CAN CONVERSE MEANINGFULLY: YES. I CAN FIND MY WAY HOME: YES. I KNOW WHERE I LIVE: YES. I CAN CONTROL MY BLADDER: YES. I CAN DRESS MYSELF: YES. I LIVE INDEPENDENTLY: YES. I KNOW THE CURRENT DATE: YES. I CAN CONTROL MY BOWEL: YES. I CAN OPERATE A MOTOR VEHICLE: YES. I CAN RECOGNIZE FAMILIAR FACES: YES. I USE PUBLIC TRANSPORTATION: NO. * Medications:?Unknown Cyclobe nzaprine HCl 10 MG Tablet 1 tablet at bedtime as needed Orally Once a day , Unknown CeleXA 20 MG Tablet 1 tablet Orally Once a day , Medication List reviewed and reconciled with the patient * Allergies:?Percocet. Objective: * Vitals:? * Examination: ???General Examination: ?GENERAL APPEARANCE:?, alert, well hydrated, in no distress.?HEAD:?normocephalic, atraumatic.?EYES:?pupils equal, round, reactive to light and accommodation.?EARS:?normal.?ORAL CAVITY:?mucosa moist.?THROAT:?clear.?NECK/THYROID:?neck supple, full range of motion, no cervical lymphadenopathy.?HEART:?no murmurs, regular rate and rhythm,.?LUNGS:?clear to auscultation bilaterally.?ABDOMEN:?normal, bowel sounds present, soft, nontender, nondistended.?NEUROLOGIC:?non focal, motor strength normal upper and lower extremities.?SKIN:?no suspicious lesions, warm and dry.?EXTREMITIES:?no clubbing, cyanosis, or edema.? Assessment: * Assessment: 1.?Moderate episode of recur rent major depressive disorder - F33.1???2.?Cervical pain (neck) - M54.2???3.?Anxiety - F41.9???4.?Other fatigue - R53.83???5.?HSV-1 (herpes simplex virus 1) infection - B00.9???6.?Slow transit constipation - K59.01??? Plan: * Treatment: 2.?Cervical pain (neck)?LAB: CMP (Comprehensive Metabolic panel) (Ordered for 11/30/2022) ?LAB: Hemoglobin A1c (Ordered for 11/30/2022) ?LAB: Lipid Panel (Ordered for 11/30/2022) ?LAB: TSH and Free T4 (Ordered for 11/30/2022) ?LAB: CBC With Differential/Platelet (Ordered for 11/30/2022) Clinical Notes: RECOMMENDATIONS given include: alternating cold packs and moist heat and I have advised to report any new or worsening symptoms.?? 3.?Anxiety?LAB: CMP (Comprehensive Metabolic panel) (Ordered for 11/30/2022) ?LAB: Hemoglobin A1c (Ordered for 11/30/2022) ?LAB: Lipid Panel (Ordered for 11/30/2022) ?LAB: TSH and Free T4 (Ordered for 11/30/2022) ?LAB: CBC With Differential/Platelet (Ordered for 11/30/2022) Clinical Notes: RECOMMENDATIONS given include: increase physical activity and avoid substance abuse.?? 4.?Other fatigue?LAB: CMP (Comprehensive Metabolic panel) (Ordered for 11/30/2022) ?LAB: Hemoglobin A1c (Ordered for 11/30/2022) ?LAB: Lipid Panel (Ordered for 11/30/2022) ?LAB: TSH and Free T4 (Ordered for 11/30/2022) ?LAB: CBC With Differential/Platelet (Ordered for 11/30/2022) Clinical Notes: Patient with symptoms of sob, tiredness. Oriented about increase exercise as tolerate and good sleep hygiene. Avoid caffeeine, tobacco use and alcohol consumption, Consider start routine exercise as tolerate. Low fat diet increase fiber and fruits. Oriented about vitamin supplement with cautions. Request labs for evaluaution in the next visit.?? 5.?HSV-1 (herpes simplex vir us 1) infection?LAB: CMP (Comprehensive Metabolic panel) (Ordered for 11/30/2022) ?LAB: Hemoglobin A1c (Ordered for 11/30/2022) ?LAB: Lipid Panel (Ordered for 11/30/2022) ?LAB: TSH and Free T4 (Ordered for 11/30/2022) ?LAB: CBC With Differential/Platelet (Ordered for 11/30/2022) Clinical Notes: Patient advised and counselled to Always use condoms and dental dams during oral, anal, and vaginal sex,don''t have sex during a herpes outbreak, even with a condom. There may be sores on places the condom doesn''t cover.also patient advised to keep health diet and to use lip balms with at least 1 percent lemon balm.lemon tea and lemon tea compresses.peppermint, mint, and witch cici oil.aloe vera gel, which is available to buy online, to soothe inflamed sores while providing crucial moisture.licorice root, which contains glycyrrhizic acid, considered to be an antiviral.?? 6.?Slow transit constipation ?LAB: CMP (Comprehensive Metabolic panel) (Ordered for 11/30/2022) ?LAB: Hemoglobin A1c (Ordered for 11/30/2022) ?LAB: Lipid Panel (Ordered for 11/30/2022) ?LAB: TSH and Free T4 (Ordered for 11/30/2022) ?LAB: CBC With Differential/Platelet (Ordered for 11/30/2022) * Procedure Codes:?1159F MED L IST DOCD IN RCRD, 1160F RVW MEDS BY RX/DR IN RCRD, 1170F FXNL STATUS ASSESSED, VITAL SIGNS RECORDED, 3028F O2 SATURATION DOC REV, 3008F BODY MASS INDEX DOCD, 3074F SYST BP LT 130 MM HG, 3078F DIAST BP < 80 MM HG, 1126F AMNT PAIN NOTED NONE PRSNT, G8418 BMI < 22 CALCUATE W/FOLLOWUP * Follow Up:?6 Months (Reason: labs follow up) * Billing Information: * Visit Code:? 78944 Office Visit, Est Pt., Level 4. * Procedure Codes:? 1159F MED LIST DOCD IN RCRD. 1160F RVW MEDS BY RX/DR IN RD. 1170F FXNL STATUS ASSESSED. VITAL SIGNS RECORDED. 3028F O2 SATURATION DOC REV. 3008F BODY MASS INDEX DOCD. 3074F SYST BP LT 130 MM HG. 3078F DIAST BP < 80 MM HG. 1126F AMNT PAIN NOTED NONE PRSNT. G8418 BMI < 22 CALCUATE W/FOLLOWUP. * Electronic signature of BURKE KENT APRN on 05/03/2024 at 12:24 PM EST Sign off status: Pending * Provider:?TIMOTHY WALKER Date:?12/01 Generated for Juanis bernabe/Edyta/eTransmitting on:?05/03/2024 12:24 PM EST History and Physical Notes * HPI (History of Present Illness) Category Sub-Category Detail Notes Category Not es Constitutional Patient is a 27 year old female presents to office for follow up but did not do blood work Examination Category Sub-Category Detail Notes Category Not es General Examination GENERAL APPEARANCE: , alert, well hydrated, in no distress HEAD: normocephalic, atrau matic EYES: pupils equal, round, reactive to light and accommodation EARS: normal THROAT: clear NECK/THYROID: neck supple, full ra nge of motion, no cervical lymphadenopathy HEART: no murmurs, regular rate and rhythm, LUNGS: clear to auscultatio n bilaterally ABDOMEN: normal, bowel sounds present, soft, nontender, nondistended NEUROLOGIC: non focal, motor str ength normal upper and lower extremities SKIN: no suspicious lesion s, warm and dry EXTREMITIES: no clubbing, cyanosi s, or edema ORAL CAVITY: mucosa moist
--- OUTSIDE RECORDS SUMMARY | 2024-05-03 12:25 | XMS_ITS | Encounter Summary ---
Author Organization [employer] [facility] Address [address] [place] [address] Care Team Providers Care Cementer Hand Name Role Phone Unavailable Primary Care Provider Unavailabl e Encounter Details Date Type Department Care Team (Late st Contact Info) Description 05/01/2024 7:00 PM EST Office Visit [facility] [address] [place] [address] Raven Payne, FLIGHT RADIO OPERATOR [address] [place] [address] Sternal pain (Primary Dx); Vomiting, unspecified vomiting type, unspecified whether nausea present; Costochondritis Social History Tobacco Use Types Packs/Day Years Used Date Smoking Tobacco: Never Assessed Comments Unknown Sex and Gender Information Value Date Recorded Sex Assigned at Female 12/27/2021 10:19 AM EDT Legal Sex Female 10:19 AM EDT Gender Identity Female 12/27/2021 10:19 AM EDT Sexual Orientation Straight 12/27/2021 10 :19 AM EDT documented as of this encounter Last Filed Vital Signs Vital Sign Reading [...] Mass Index 21.01 05/01/2024 7:14 PM EST documented in this encounter Progress Notes * Raven Payne, FLIGHT RADIO OPERATOR - 05/01/2024 7:00 PM EST Subjective: Miguelina Jackson is a 29 y.o. female new patient who presents to the walk- in center for a sickvisit. HPI Reports that she was picking up a laundry basket approximately 1 week ago when she felt a pain in her sternum area. Since that day, has been experiencing pressure and tension below sternum and in between ribs, sometimes radiating to muscles in the back. Denies any shortness of breath or difficulty breathing. Vomiting x 1, but otherwise denies any fever, chills, nausea, vomiting, or diarrhea. Has tried Tylenol 500 mg with some relief. No active chest pain. Patient Active Problem List Diagnosis Depressive disorder Migraine without aura, not refractory Dermal mycosis Temporomandibular disorder Review of Systems Constitutional: Negative for chills and fever. Respiratory: Negative for cough, shortness of breath and wheezing. Cardiovascular: Negative for chest pain and palpitations. Gastrointestinal: Negative for diarrhea, nausea and vomiting. Musculoskeletal: Positive for arthralgias and myalgias. Visit Vitals BP 122/63 (BP Location: Left arm, Patient Position: Sitting, BP Cuff Size: Adult) Pulse 94 Temp 98.7 ??F (37.1 ??C) (Temporal) Resp 16 Ht 5' 3 (1.6 m) Wt 118 lb 9.6 oz (53.8 kg) SpO2 100% BMI 21.01 kg/m?? BSA 1.55 m?? Physical Exam Constitutional: Appearance: Normal appearance. HENT: Head: Atraumatic. Right Ear: External ear normal. Left Ear: External ear normal. Cardiovascular: Rate and Rhythm: Normal rate and regular rhythm. Pulmonary: Effort: Pulmonary effort is normal. Breath sounds: Normal breath sounds. Musculoskeletal: Comments: Tenderness to palpation at base of sternum, xiphoid process. Also with mild tenderness topalpation of intercostal muscles between anterior ribs 6-7 bilaterally Neurological: Mental Status: She is alert and oriented to person, place, and time. Psychiatric: Mood and Affect: Mood normal. Behavior: Behavior normal. Problem List Items Addressed This Visit Visit Diagnoses Sternal pain - Primary - No erythema or ecchymosis of exam, mild TTP over posterior sternum/xiphoid process. No SOB/resp symptoms. Reports symptom onset following physical exertion lifting up heavy laundry basket - Check CXR out to r/o any bony abnormality -Suspect muscle strain. May use PO OTC analgesics and PO cyclobenzaprine PRN muscle spasms. Reviewed med symptoms and SE - Follow up/ED precautions reviewed Relevant Orders XR Chest 2 Views Vomiting, unspecified vomiting type, unspecified whether nausea present - One episode of vomiting - Denies other GI symptoms - Rapid COVID, Flu A&B negative Relevant Orders POCT Rapid COVID Ag POCT Influenza A manually resulted POCT Influenza B manually resulted Costochondritis Relevant Medications cyclobenzaprine (Flexeril) 5 MG tablet Follow up: New patient appointment, walk-in center sooner as needed. Add: At end of appointment patient also mentioned that she is interested in removing her IUD. Reports was placed approximately 6-7 years ago. Scheduled 05/08/2024. documented in this encounter Plan of Treatment Upcoming Encounters Date Type Department Care Team (Late st Contact Info) Description 05/08/2024 9:00 AM EDT Procedure Visit [facility] [address] [place] [address] Yolanda Bess FNP [address] [place] [address] Scheduled Orders Name Type Priority Associated Diagnoses Orde r Schedule POCT Rapid COVID Ag Point of Care Testing Routine Vomiting, unspecified vomiting type, unspecified whether nausea present Ordered: 05/01/2024 POCT Influenza A manually resulted Point of Care Testing Routine Vomiting, unspecified vomiting type, unspecified whether nausea present Ordered: 05/01/2024 POCT Influenza B manually resulted Point of Care Testing Routine Vomiting, unspecified vomiting type, unspecified whether nausea present Ordered: 05/01/2024 documented as of this encounter Procedures Procedure Name Priority Date/Time Associated Diagnosis Comments XR CHEST 2 VIEWS Routine 05/03/2024 10:5 3 AM EST Sternal pain documented in this encounter Results * XR Chest 2 Views (05/03/2024 10:53 AM EST) Anatomical Region Laterality Modality Chest Radiographic Abbie ging 05/03/2024 10:5 3 AM EST Narrative 05/03/2024 11:22 AM EST ?[facility] ?[address] ?[place] [address] ?XRay Report ? Signed ? Patient: Miguelina Walsh ?MR#: [id number] ?? [id number] ? : 1995 ?Acct:[id number] ? Age/Sex: 29 / F ?ADM Date: 05/03/24 ? Loc: HO.HHCX ? Attending Dr: Raven BRONSON ? Ordering Physician: Raven Payne ?? Date of Service: 05/03/24 ?? Procedure(s): XR chest 2V ?? Accession Number(s): [id number] ? cc: Raven Payne ? EXAMINATION: ??XR CHEST 2 VIEWS ? [...] ??Marcelino Mark MD ??05/03/2024 11:19 AM EST ? Dictated By: ?Marcelino Mark MD ? Signed By: ?<Electronically signed by Marcelino Mark MD in OV> ?05/03/24 1119 ? DD/ 1053 ? TD/TT: 05/03/24 1100 ? Contract Engineer: ? Procedure Note Lit Espinoza - 05/03/2024 [facility] [address] [place] [address] XRay Report Signed Patient: Saul Walsh#: [id number] : 1995Acct:[id number] Age/Sex: 29 / FADM Date: 05/03/24 Loc: HO.HHCX Attending Dr: Raven BRONSON Ordering Physician: Raven Payne Date of Service: 05/03/24 Procedure(s): XR chest 2V Accession Number(s): [id number] cc: Raven Payne EXAMINATION: XR CHEST 2 [...] by: Marcelino Mark MD 05/03/2024 11:19 AM [facility] [place] Dictated By: Marcelino Mark MD Signed By: <Electronically signed by Marcelino Mark MD in OV> 05/03/24 1119 DD/ 1053 TD/TT: 05/03/24 1100 Contract Engineer: Raven BRONSON IMG XR PROCEDURES Final Result documented in this encounter Visit Diagnoses Diagnosis Sternal pain- Primary Vomiting, unspecified vomiting type, unspecified whether nausea present Costochondritis Tietze's disease documented in this encounter
--- OUTSIDE RECORDS SUMMARY | 2024-05-03 12:25 | XMS_ITS | Encounter Summary ---
Author Organization [employer] Address [address] [address] [place] [address] Care Team Providers Care Gis Mapping Technician Name Role Phone Unavailable Primary Care Provider Unavailabl e Encounter Details Date Type Department Care Team (Latest Contact Info) Description 05/01/2024 Travel Social History Tobacco Use Types Packs/Day Years Used Date Smoking Tobacco: Never Assessed Comments Unknown Sex and Gender Information Value Date Recorded Sex Assigned at Female 12/27/2021 10:19 AM EDT Legal Sex Female 10:19 AM EDT Gender Identity Female 12/27/2021 10:19 AM EDT Sexual Orientation Straight 12/27/2021 10 :19 AM EDT documented as of this encounter Plan of Treatment Upcoming Encounters Date Type Department Care Team (Late st Contact Info) Description 05/08/2024 9:00 AM EDT Procedure Visit [facility] [address] [place] [address] Yolanda Bess FNP [address] [place] [address] documented as of this encounter Visit Diagnoses Not on filedocumented in this encounter
--- OUTSIDE RECORDS SUMMARY | 2024-05-03 12:25 | XMS_ITS ---
Author Organization [facility] Address [address] [place], [place] [address] Care Team Providers Care Multimedia Engineer Name Role Phone BURKE KENT Primary Care Provider [phone] BHAVYA GOMEZ [phone] REASON FOR VISIT All over itching Medications Medication SIG (Take, Route, Frequency, Duration) Notes Start Date End Date Status CeleXA 20 MG 1 tablet Orally Once a day for 90 days 05/19/2022 Not-Taking Cyclobenzaprine HCl 10 MG 1 tablet at be dtime as needed Orally Once a day Active Encounters Encounter Location Date Provider Diagnosis [facility]en [address] [place] [phone] 11/30/2022 BHAVYA GOMEZ Plan Of Treatment No Information Progress Notes * JHONY FRANCISEDOB: 5 (29 yo F)Acc No.[id number]:11/30/2022 Patient:?DIXIE FRANCISKOKOJUDYYuli Provider:?BHAVYA GOMEZ DO :1995???Age:27 Y???Sex:Female D ate:11/30/2022 [address] [id number] Pcp:BURKE KENT Subjective: * Chief Complaints: * ???1. All over itching. * Medical History:? * Medications:?Taking Cycloben zaprine HCl 10 MG Tablet 1 tablet at bedtime as needed Orally Once a day , Not-Taking CeleXA 20 MG Tablet 1 tablet Orally Once a day Objective: * Vitals:? Assessment: Plan: * Treatment: * Billing Information: * Visit Code:? * Procedure Codes:? * Electronic signature of LATRICE GOMEZ DO on 05/03/2024 at 12:24 PM EST Sign off status: Pending * Provider:?BHAVYA GOMEZ DO Date:?11/30 Generated for Juanis bernabe/Edyta/Caridaditting on:?05/03/2024 12:24 PM EST
--- OUTSIDE RECORDS SUMMARY | 2024-05-03 12:25 | XMS_ITS | Patient Health Record ---
Author Organization [facility] Address [address] [place], [place] [id number] Care Team Providers Care Concrete Stone Finisher Name Role Phone BURKE KENT Primary Care Provider Allergies Allergen (clinical drug ingredient) Drug/Non Drug Allergy documented on EMR Reaction Allergy Type Onset Date Status acetaminophen / oxycodone Percocet Unknown Drug Allergy Active Reason For Referral No Information Medications Medication SIG (Take, Route, Frequency, Duration) Notes Start Date End Date Status CeleXA 20 MG 1 tablet Orally Once a day for 90 days 05/19/2022 Unknown Cyclobenzaprine HCl 10 MG 1 tablet at be dtime as needed Orally Once a day Unknown Problems Problem Type SNOMED Code ICD Code Onset Dates Problem Status W/U Status Risk Notes Problem 38409291 Slow transit constipation (K59.01) Active confirmed Problem 99531582 Other fatigue (R53.83) Active confirmed Problem 25776708287280847 Unspecified ovarian cyst, right side (N83.201) Active confirmed Problem 84022627160706254 Unspecified ovarian cyst, left side (N83.202) Active confirmed Problem 16527285 Anxiety (F41.9) Active confirmed Problem 262126214 BMI 20.0-20.9, adult (Z68.20) Active confirmed Problem 541788917 Moderate episode of recurrent major depressive disorder (F33.1) Active confirmed Problem 356248433 Screen for STD (sexually transmitted disease) (Z11.3) Active confirmed Problem 037033260 HSV-1 (herpes simplex virus 1) infection (B00.9) Active confirmed Problem 14178608 Cervical pain (neck) (M54.2) Active confirmed Plan Of Treatment Future Test Test Name Order Date XRAY CSPINE 2V 05/19/2022 TSH and Free T4 06/01/2022 CMP (Comprehensive Metabolic panel) 06/2022 Hemoglobin A1c 06/01/2022 CBC With Differential/Platelet 3 Lipid Panel 06/01/2022 TSH and Free T4 10/21/2022 CMP (Comprehensive Metabolic panel) 09/28 Hemoglobin A1c 10/21/2022 CBC With Differential/Platelet 3 Lipid Panel 10/21/2022 TSH and Free T4 11/30/2022 CMP (Comprehensive Metabolic panel) 05/2022 Hemoglobin A1c 11/30/2022 CBC With Differential/Platelet 3 Lipid Panel 11/30/2022 Insurance Providers Payer Name Payer Address Payer Phone Subscriber Number Group Number Insured Name Patient Relationship to Insured Coverage Start Date Coverage End Date [facility] [address] [facility] [id number] [id number] MATA FRANCIS Self - patient is the insured Medical (General) History Medical History History ICD Code history of anemia during muscle spasms Surgical History Surgery Date(Month/Year) c/section 2016 Hospitalization History Reason Date(Month/Year) anxiety attack 2022
== END 2024-05-03 10:52 | disposition home or self-care (01) ==
LOC: HO.HHCX 10:51
PROVIDERS: Visit Provider Registered Nurse
DX: R07.89 Other chest pain (principal)
CPT/HCPCS: 71046

== ENCOUNTER → 2024-05-03 10:53 | Outpatient (BNV) | payer MEDICAID, SELFPAY | PROVIDERS: Visit Provider Radiology Diagnostic Radiology | DX: R07.9 Chest pain, unspecified (principal) | CPT/HCPCS: 71046 ==

== ENCOUNTER 2024-05-08 | Outpatient (REF) | payer MEDICAID, SELFPAY ==
[2024-05-10 19:33] LABS: C. trachomatis RNA TMA NOT DETECTED (NOT DETECTED); N. gonorrhoeae RNA TMA NOT DETECTED (NOT DETECTED)
[2024-05-13 14:12] LABS: HPV Genotype 16 Negative (Negative); HPV Genotype 18 Negative (Negative); HPV High Risk Positive (Negative)
[2024-05-17 13:28] LABS: Trichomonas (NAAT) NOT DETECTED
--- OUTSIDE RECORDS SUMMARY | 2024-08-22 13:00 | XMS_ITS | Clinical Summary ---
Author Organization [employer] Address [address] [place] [address] Care Team Providers Care Physician Office Specialist Name Role Phone Yolanda Bess [facility] Primary Care Provider [phone] Allergies Active Allergy Reactions Criticality Noted Date Comments Acetaminophen 02/06/2018 Iodinated Contrast Media 07/25/2018 Oxycodone 02/06/2018 Oxycodone-Acetaminophen Palpitations,Unknown Low Oxycodone allergy Medications * This document contains information received from the source organization and may not represent a complete record from that organization. cyclobenzaprine (Flexeril) 10 MG tabletIndications :Temporomandibula r disorder Take 10 mg by mouth at [...] 40 tablet 1 5 07/05/19 26 Active betamethasone dipropionate 0.05 % cream Apply topically if needed each day (alopecia) for up to 14 days. 15 g 5 08/16/19 25 Active Problems Problem Noted Date Diagnosed [...] organization. Date Type Department Care Team Description 08/16/2024 3:30 PM EDT Office Visit [facility] [address] [place] [phone] Yolanda Bess FNP Peritonsillar abscess (Primary Dx) 08/16/2024 Travel 08/06/2024 Orders Only [facility] External Provider, [facility] 08/02/[address] [address] Yolanda Bess FNP Lab Add On 08/01/2024 3:20 PM EDT Office Visit [facility] [address] [address] Love Yuen DO Alopecia areata (Primary Dx) 07/11/2024 Telephone [facility] [address] [place] [phone] Yolanda Bess FNP Renetta Recall 07/04/2024 1:00 PM EDT Office Visit [facility] [address] [place] [phone] Love Yuen DO Pharyngitis, unspecified etiology (Primary Dx) 07/04/2024 Travel 06/18/2024 Telephone [facility] [address] [place] [phone] Yolanda Bess FNP Results 06/14/2024 1:30 PM EDT Office Visit [address] [address] Yolanda Bess FNP Moderate episode of recurrent major depressive disorder (CMS/HCC) (Primary Dx); Temporomandibular disorder 06/14/2024 Travel 06/06/2024 Telephone [facility] [address] [place] [phone] Yolanda Bess FNP 06/06/2024 Telephone [facility] [address] [place] [phone] Yolanda Bess FNP 06/04/[address] [address] Yolanda Bess FNP Pt1 request (Pt requesting pt1 and is in need of transportation to appointment in [place] from [address] [place] [phone]/to [address] [place] [phone]. Pt reports her appointment is on 06/10/2024.); PT1 Submitted 05/31/2024 9:30 AM EDT Office Visit [address] [address] Yolanda Bess FNP Well adult on routine health check (Primary Dx); Depressive disorder; Temporomandibular disorder 05/31/2024 Travel 05/30/2024 Travel 05/27/[address] [address] Yolanda Bess FNP Results 05/24/2024 Patient Outreach [facility] [address] [place], [place] [phone] Yolanda Bess FNP Pre-visit Planning (SDOH was already completed. ) from Last 3 Months Immunizations Immunization Administration [...] Q2 Not on file 05/08/2024 Comments No Intention Date Recorded Ambivalent about becoming (find ing) 06/14/2024 Sex and Gender Information Value Date Recorded Sex Assigned at Female 12/27/2021 10:19 AM EDT Legal Sex Female 10:19 AM EDT Gender Identity Female 12/27/2021 10:19 AM EDT Sexual Orientation Straight 12/27/2021 10 :19 AM EDT Last Filed Vital Signs Vital Sign Reading Time Taken Comments Blood Pressure 116/62 08/16/2024 3:45 PM EDT Pulse 63 08/16/2024 3:45 PM EDT Temperature 37 C (98.6 F) 08/16/2024 3:45 PM EDT Respiratory Rate 18 08/16/2024 3:45 PM EDT Oxygen Saturation 99% 08/16/2024 3:45 PM EDT Inhaled Oxygen Concentration - - Weight 58.5 kg (129 lb) 08/16/2024 3:45 PM EDT Height 160 cm (5' 3 ) 08/16/2024 3:45 PM EDT Body Mass Index 22.85 08/16/2024 3:45 PM EDT Plan of Treatment Upcoming Encounters Date Type Department Care Team (Late st Contact Info) Description 08/28/2024 9:30 AM EDT Office Visit [facility] [address] [place], [place] [phone] Yolanda Bess FNP [address] [place], [place] [phone] Health Maintenance Due Date Last Done Comments Hepatitis B Vaccines (1 of 3 - 19+ 3-dose series) 2013 COVID-19 Vaccine (2023-2 5 season) 2023 Influenza Vaccine (Season Ended) 2024 Depression Monitoring 12/14/2024 06/14/2024 , 06/14/2024 Alcohol/Substance Use Screening 05/08/2025 05/08/2024 SDOH Screening 05/08/2025 05/08/2024 Family Planning (PISQ) 06/17/2025 06/17/2024 Disability Screening 08/16/2025 08/16/2024 Tobacco Screening 08/16/2025 08/16/2024 Pap Smear 05/10/2027 05/09/2024, 05/08/2024, 05/08/2024 Cervical [...] Years) and At-Risk Patients (6 to 49) Years Aged Out No longer eligible b ased [...] WO CONTRAST Routine 08/06/2024 2:20 PM EDT BASIC METABOLIC PANEL Routine 08/06/2024 1:54 PM EDT High risk human papillomavirus (HPV) detected LACTIC ACID Routine 08/06/2024 1:54 PM EDT High risk human papillomavirus (HPV) detected CBC WITH AUTO DIFFERENTIAL Routine 08/06/2024 1:54 PM EDT High risk human papillomavirus (HPV) detected BLOOD CULTURE (FIRST) Routine 08/06/2024 1:54 PM EDT BLOOD CULTURE (SECOND) Routine 08/06/2024 1:54 PM EDT IRON AND TOTAL IRON BINDING CAPACITY Routine 08/02/2024 Low hemoglobin FERRITIN Routine 08/01/2024 3:34 PM EDT High risk human papillomavirus (HPV) detected IRON AND TOTAL IRON BINDING CAPACITY Routine 08/01/2024 3:34 PM EDT High risk human papillomavirus (HPV) detected CBC WITH AUTO DIFFERENTIAL Routine 08/01/2024 3:34 PM EDT Alopecia areata BASIC METABOLIC PANEL Routine 08/01/2024 3:34 PM EDT Alopecia areata HEMOGLOBIN A1C Routine 08/01/2024 3:34 PM EDT Alopecia areata VITAMIN D,25-OH,TOTAL,IA Routine 08/01/2024 3:34 PM EDT Alopecia areata TSH Routine 08/01/2024 3:34 PM EDT Alopecia areata T4, FREE Routine 08/01/2024 3:34 PM EDT Alopecia areata CULTURE, THROAT Routine 07/04/2024 1:13 PM EDT [...] 2 VIEWS Routine 05/22/2024 2:06 PM EDT HM PAP/HPV Routine 05/09/2024 HEPATITIS C AB W/REFL TO HCV RNA, QN, PCR Routine 05/08/2024 10:41 AM EDT Screening examination for venereal disease HIV 1/2 ANTIGEN/ANTIBODY, FOURTH GENERATION W/RFL Routine 05/08/2024 10:41 AM EDT Screening examination for venereal disease from Last 3 Months or Most Recently Relevant to Health Maintenance Results * CT Soft Tissue Neck w/o Contrast (08/06/2024 2:20 PM EDT) Anatomical Region Laterality Modality Head, Neck Computed Tomogra phy 08/06/2024 2:20 PM EDT Narrative 08/06/2024 4:17 PM EDT [place] [address] [place] Scan Report Signed Patient: Miguelina Walsh MR#: [id number] : 1995 Acct:[id number] Age/Sex: 29 / F ADM Date: 08/06/24 Loc: HO.ED Attending Dr: Ordering Physician: Sindy Dias MD Date of Service: 08/06/24 Procedure(s): CT soft tissue neck wo IV con Accession Number(s): [id number] cc: [facility]; Sindy Dias MD Report Number: [id number]: Total DLP = 0.00 mGy-cm EXAMINATION: CT [...] Space: - Normal. Parapharyngeal Fat Planes: -Normal. Route Process Administrator Spaces: -Normal. Anterior Cervical Space: -Normal. Imaged [...] Ron Lozada MD 08/06/2024 04:14 PM EDT Dictated By: Ron Lozada MD Signed By: <Electronically signed by Ron Lozada MD in OV> 08/06/24 1614 DD/ 1420 TD/TT: 08/06/24 1538 Housekeeper Manager: Procedure Note Donotuseinterpreter, Image - 08/06/[address] [address] [address] Scan Report Signed Patient: Saul Walsh#: [id number] : 1995Acct:[id number] Age/Sex: 29 / FADM Date: 08/06/24 Loc: HO.ED Attending Dr: Ordering Physician: Sindy Dias MD Date of Service: 08/06/24 Procedure(s): CT soft tissue neck wo IV con Accession Number(s): [id number] cc: [facility]; Sindy Dias MD Report Number: [id number]: Total DLP = 0.00 mGy-cm EXAMINATION: CT [...] Space: - Normal. Parapharyngeal Fat Planes: -Normal. Route Process Administrator Spaces: -Normal. Anterior Cervical Space: -Normal. Imaged [...] Ron Lozada MD 08/06/2024 04:14 PM EDT Dictated By: Ron Lozada MD Signed By: <Electronically signed by Ron Lozada MD in OV> 08/06/24 1614 DD/ 1420 TD/TT: 08/06/24 1538 Housekeeper Manager: [facility] External Provider IMG CT PROCEDURES Final Result * Blood Culture (First) (08/06/2024 1:54 PM EDT) Blood Venous blood specimen / Unknown 08/06/2024 1:54 PM EDT 08/06/2024 1:58 PM EDT Comment:Blood Narrative [facility] - 08/11/2024 3:58 PM EDT Blood Culture (First) No growth after 5 days. Specimen Source: Blood Generic External Data Provider LAB MICROBIOLOGY - GENERAL ORDERABLES Final Result [facility] [address] [place] [phone] * Blood Culture (Second) (08/06/2024 1:54 PM EDT) Blood Venous blood specimen / Unknown 08/06/2024 1:54 PM EDT 08/06/2024 1:58 PM EDT Comment:Blood Narrative [facility] - 08/11/2024 3:58 PM EDT Blood Culture (Second) No growth after 5 days. Specimen Source: Blood us Generic External Data Provider LAB MICROBIOLOGY - GENERAL ORDERABLES Final Result [facility] [address] [place] [address] [phone] * (ABNORMAL) CBC auto differential (08/06/2024 1:54 PM EDT) Only the most recent of3 resultswithin the time period is included. White Blood Count 11.0(H) 4.8 - 10.8 X10*3/uL [facility] Red Blood Count 4.61 4.20 - 5.50 X10*6/uL [facility] Hemoglobin 12.1 12.0 - 16.0 g/dl [facility] Hematocrit 37.7 37.0 - 47.0 % [facility] Mean Corpuscular Volume 81.8 80.0 - 98.0 fL [facility] Mean Corpuscular Hemoglobin 26.2(L) 27.0 - 33.0 pg [facility] Mean Corpuscular HGB Conc 32.1 31.0 - 35.0 g/dl [facility] Red Cell Distribution Width 14.5 11.0 - 16.0 % [facility] Platelet Count 233 160 - 400 X10*3/uL [facility] Mean Platelet Volume 9.2(L) 9.4 - 12.3 fL [facility] Neutrophils Percent Auto 79.2(H) 45 - 73 % [facility] Imm Gran Pct Auto 0.4 0.0 - 0.4 % [facility] Lymphocytes Percent Auto 10.3(L) 20 - 40 % [facility] Monocytes Percent Auto 9.7 2 - 11 % [facility] Eosinophils Percent Auto 0.0 0 - 4 % [facility] Basophils Percent Auto 0.4 0 - 2 % [facility] NRBC Pct Auto 0.0 0.0 - 0.2 /100WBC [facility] Neutrophils Absolute Auto 8.7(H) 2.0 - 8.3 x10*3/uL [facility] Imm Gran Abs Auto 0.04(H) 0.00 - 0.03 X10*3/uL [facility] Lymphocytes Absolute Auto 1.1(L) 1.2 - 4.9 X10*3/uL [facility] Monocytes Absolute Auto 1.1 0.1 - 1.2 X10*3/uL [facility] Eosinophils Absolute Auto 0.0 0.0 - 0.4 X10*3/uL [facility] Basophils Absolute Auto 0.0 0.0 - 0.2 X10*3/uL [facility] NRBC Abs Auto 0.000 0.0 - 0.012 X10*3/uL [facility] 08/06/2024 1:54 PM EDT 08/06/2024 1:58 PM EDT us Generic External Data Provider LAB BLOOD ORDERAB LES Final Result Performing Organization Address [facility]/ZIP Co de Phone Number [facility] [address] [place] [phone] * Lactic Acid (08/06/2024 1:54 PM EDT) Lactic Acid 1.8 0.5 - 2.0 mmol/L [facility] 08/06/2024 1:54 PM EDT 08/06/2024 1:58 PM EDT us Generic External Data Provider LAB BLOOD ORDERAB LES Final Result Performing Organization Address [facility] Co de Phone Number [facility] [address] [place] [phone] * (ABNORMAL) Basic Metabolic Panel (08/06/2024 1:54 PM EDT) Only the most recent of2 resultswithin the time period is included. Sodium 140 135 - 145 mmol/L [facility] Potassium 3.5 3.3 - 5.1 mmol/L [facility] Chloride 107 96 - 108 mmol/L [facility] Carbon Dioxide 26 22 - 29 mmol/L [facility] Anion Gap 11(L) 12 - 20 [facility] Urea Nitrogen (BUN) 11 9 - 16 mg/dL [facility] Creatinine, Serum 0.64 0.5 - 1.4 mg/dL [facility] Creatinine Clr Calc Pharmacy 106.3 [facility] Comment:Provided height and weight: 160.02 cm,58.967 kg.eGFR (calculated from the MDRD study equation) and eCrCl(calculated from the Cockcroft-Gault equation) are based ondifferent parameters and may not yield comparable results.If eCrCl result is absurd, please check patient'sheight/weight. Estimated Glomerular Filt Rate >60 [facility] Comment:Chronic Kidney Disea se: Estimated GFR < 60 mL/min/1.60m2Execen Kidney Disease: Estimated GFR < 15 mL/min/1.73m2 Glucose 89 60 - 115 mg/dL [facility] Calcium 8.6 8.4 - 10.2 mg/dL [facility] 08/06/2024 1:54 PM EDT 08/06/2024 1:58 PM EDT us Generic External Data Provider LAB BLOOD ORDERAB LES Final Result [facility] [address] [place] [phone] * Iron And Total Iron Binding Capacity (08/02/2024) Only the most recent of2 resultswithin the time period is included. Blood Venous blood specimen / Unknown us Yolanda Bess VOICE OVER ANNOUNCER LAB BLOOD ORDERABLES Final Res ult [facility] [address] [place] [phone] [phone] * (ABNORMAL) Vitamin D, 25-Hydroxy, Total, Immunoassay (08/01/2024 3:34 PM EDT) Vitamin D 25-OH Total 20.2(L) >30 ng/mL [facility] Comment: Health Based Reference Values*< 20 ng/mL [id number] ng/mL Insufficient> 30 ng/mL Sufficient*Laurie BOOKER. N Engl J Med. 2007;357:266-280There is no well-established upper level of normal vitamin Dlevels. Some laboratories use 50 ng/mL as an upper limit ofnormal. However, toxicity is patient-dependent and may occurat any level. Careful correlation with the patient'spresentation is necessary and, if there is concern forvitamin D toxicity, treatment should be consideredirrespective of the serum level.Care must be taken in interpreting Vitamin D results fromdifferent laboratories and methodologies. Published datademonstrated that results from patients undergoinghemodialysis may show a negative bias when tested withvarious automated 25-OH vitamin D assays when compared toLC-MS/MS.When testing samples from patients whose predominant form ofVitamin D is Vitamin D2, such as patients receiving VitaminD2 supplementation, results that are subtherapeutic shouldbe confirmed with another method such as LC-MS/MS. Blood Venous blood specimen / Unknown 08/01/2024 3:34 PM EDT 08/01/2024 4:09 PM EDT us Love Yuen DO LAB BLOOD ORDERABLES Final R esult Performing Organization Address [facility]/ZIP Co de Phone Number [facility] [address] [place] [phone] * TSH (08/01/2024 3:34 PM EDT) Thyroid Stimulating Hormone 0.98 0.32 - 4.0 uIU/mL [facility] Comment:TSH 3rd Generation ( [facility]) Blood Venous blood specimen / Unknown 08/01/2024 3:34 PM EDT 08/01/2024 4:09 PM EDT Love Yuen LAB BLOOD ORDERABLES Final R esult Performing Organization Address City/[facility] Co de Phone Number [facility] [address] [place] [phone] * T4, Free (08/01/2024 3:34 PM EDT) Free T4 (Free Thyroxine) 1.07 0.71 - 1.85 ng/dL [facility] Blood Venous blood specimen / Unknown 08/01/2024 3:34 PM EDT 08/01/2024 4:09 PM EDT [facility] BLOOD ORDERABLES Final R esult Performing Organization Address [facility] de Phone Number [facility] [address] [place] [phone] * Hemoglobin A1c (08/01/2024 3:34 PM EDT) Hemoglobin A1c 5.3 <6.0 % [facility] Comment:Hemoglobin A1C Refer ence Range Adults: 4.8 - 6.0 % Non diabetic: < 6.0 % Goal: < 7.0 %Additional Action Suggested: > 8.0 %Note: Hemoglobin A1c results are invalid for patients with abnormal amounts of HbF. Blood transfusions may impact the HbA1c concentration in the patient sample. Estimated Average Glucose 105 mg/dL [facility] Comment:eAG = Estimated ave rage glucose which is %A1C expressed asaverage glucose, using the formula of the G9Q-YtyedolCuptoch Glucose study (ADAG), Diabetes Care, Vol.31,#8,2007 Blood Venous blood specimen / Unknown 08/01/2024 3:34 PM EDT 08/01/2024 4:03 PM EDT Love Yuen DO LAB BLOOD ORDERABLES Final R esult Performing Organization Address City/[facility]/ZIP Co de Phone Number [facility] [address] [place] [phone] * Ferritin (08/01/2024 3:34 PM EDT) Ferritin 33 10 - 122 ng/mL [facility] 08/01/2024 3:34 PM EDT 08/01/2024 4:09 PM EDT Love Yuen DO LAB BLOOD ORDERABLES Final R esult Performing Organization Address [facility] Co de Phone Number [facility] [address] [place] [phone] * Culture, Throat (07/04/2024 1:13 PM EDT) Throat Structure of anterior portion of neck / Unknown 07/04/2024 1:13 PM EDT 07/04/2024 4:41 PM EDT Comment:Throat Narrative [facility] - 07/06/2024 11:02 AM EDT Throat Culture No Group A Beta-hemolytic Streptococci isolated. Specimen Source: Throat Love Yuen DO LAB MICROBIOLOGY - GENERAL O RDERABLES Final Result Performing Organization Address [facility]/ZIP Co de Phone Number [facility] [address] [place] [phone] * Influenza B (ID NOW Rapid Molecular) (07/04/2024 1:12 PM EDT) Influenza B Negative Negative, Indeterminate [facility] Swab 07/04/2024 1:12 PM EDT Love Yuen DO POINT OF CARE TEST ENTER/DARLENE T ORDERABLES Final Result Performing Organization Address [facility]/ZIP Co de Phone Number [facility] [address] [place] [phone] * Influenza A (ID NOW Rapid Molecular) (07/04/2024 1:12 PM EDT) [facility] Influenza A Negative Negative, Indeterminate [facility] Swab 07/04/2024 1:12 PM EDT Love Yuen DO POINT OF CARE TEST ENTER/DARLENE T ORDERABLES Final Result Performing Organization Address [facility] Co de Phone Number [facility] [address] [place] [phone] * POCT Rapid COVID Ag (07/04/2024 1:12 PM EDT) [facility] Rapid COVID Ag Negative [facility] Swab 07/04/2024 1:12 PM EDT Love Yuen DO POINT OF CARE TEST ENTER/DARLENE T ORDERABLES Final Result Performing Organization Address [facility] Co de Phone Number [facility] [address] [place] [phone] * POCT rapid strep A manually resulted (07/04/2024 1:12 PM EDT) [facility] Rapid Strep A Screen Negative Negative, None Detected [facility] Swab 07/04/2024 1:12 PM EDT Love Yuen DO POINT OF CARE TEST ENTER/DARLENE T ORDERABLES Final Result Performing Organization Address [facility] Co de Phone Number [facility] [address] [place] [phone] * Strep A Nucleic Acid (05/22/2024 2:57 PM EDT) Pathologist [facility] IDNOW SERIAL# [id number] [facility] Strep A Nucleic Acid Negative Negative [facility] Comment:All test results mus t be correlated with clinical findings.This test has not been evaluated for monitoring treatment ofinfection.Additional follow-up testing using the culture method isrequired if the result is negative and clinical symptomspersist, or in the event of an acute rheumatic feveroutbreak. 05/22/2024 2:57 PM EDT 05/22/2024 3:00 PM EDT Generic External Data Provider LAB MICROBIOLOGY - GENERAL ORDERABLES Final Result Performing Organization Address [facility] Co de Phone Number [facility] [address] [place] [phone] * High Sensitivity Troponin I (05/22/2024 2:57 PM EDT) [facility] TROPONIN I HIGH SENSITIVITY <2.7 <3.5 - 17.0 ng/L [facility] Comment:[facility] high sens itivity Troponin-I results should beused in conjunction with other diagnostic information suchas ECG, clinical observations and information, and patientsymptoms to aid in the diagnosis of VA. 05/22/2024 2:57 PM EDT 05/22/2024 3:00 PM EDT Generic External Data Provider LAB BLOOD ORDERAB LES Final Result Performing Organization Address [facility] Co de Phone Number [facility] [address] [place] [phone] * SARS-CoV-2 RNA, Influenza A/B, and RSV RNA, Ql NAAT (05/22/2024 2:57 PM EDT) [facility] Influenza A PCR NEGATIVE Negative [facility] Influenza B PCR NEGATIVE Negative [facility] Resp Syncy Virus RNA Qual PCR NEGATIVE Negative [facility] SARS COV2 PCR NEGATIVE Negative [facility] Comment:All test results mus t be [...] use by authorized laboratories.Testing performed on the [employer] GeneXpert utilizingreal-time RT-PCR.All SARS CoV2 and positive influenza A/B results arereported to [facility]. 05/22/2024 2:57 PM EDT 05/22/2024 3:00 PM EDT us Generic External Data Provider LAB MICROBIOLOGY - GENERAL ORDERABLES Final Result [facility] [address] [place] [phone] * hCG, Total, Quantitative (05/22/2024 2:57 PM EDT) HCG Quantitative <2 mIU/mL [facility] Comment:Weeks post LMP Appro ximate hCG(Last Menstrual Period) Range (mIU/ml)3 - 4 weeks 9 - 1304 - 5 weeks 75 - 2,6005 - 6 weeks 850 - 20,8006 - 7 weeks 4000 - 100,2007 - 12 weeks 11,500 - 289,30956 - 16 weeks 18,300 - 137,85096 - 29 weeks (2nd trimester) 1,400 - 53,33683 - 41 weeks (3rd trimester) 940 - [...] ORDERAB LES Final Result Performing Organization Address [facility] Co de Phone Number [facility] [address] [place] [phone] * Magnesium (05/22/2024 2:57 PM EDT) Pathologist [facility] Magnesium 1.7 1.6 - 2.6 mg/dL [facility] 05/22/2024 2:57 PM EDT 05/22/2024 3:00 PM EDT Generic External Data Provider LAB BLOOD ORDERAB LES Final Result Performing Organization Address [facility] Co de Phone Number [facility] [address] [place] [phone] * Lipase (05/22/2024 2:57 PM EDT) Pathologist [facility] Lipase 9 8 - 78 U/L [facility] 05/22/2024 2:57 PM EDT 05/22/2024 3:00 PM EDT Generic External Data Provider LAB BLOOD ORDERAB LES Final Result Performing Organization Address [facility] de Phone Number [facility] [address] [place] [phone] * (ABNORMAL) Comprehensive Metabolic Panel (05/22/2024 2:57 PM EDT) [facility] Sodium 139 135 - 145 mmol/L [facility] Potassium 4.0 3.3 - 5.1 mmol/L [facility] Chloride 106 96 - 108 mmol/L [facility] Carbon Dioxide 23 22 - 29 mmol/L [facility] Anion Gap 14 12 - 20 [facility] Urea Nitrogen (BUN) 8(L) 9 - 16 mg/dL [facility] Creatinine, Serum 0.67 0.5 - 1.4 mg/dL [facility] Creatinine Clr Calc Pharmacy 101.5 [facility] Comment:Provided height and weight: 160.02 cm,53.977 kg.eGFR (calculated from the MDRD study equation) and eCrCl(calculated from the Cockcroft-Gault equation) are based ondifferent parameters and may not yield comparable results.If eCrCl result is absurd, please check patient'sheight/weight. Estimated Glomerular Filt Rate >60 [facility] Comment:Chronic Kidney Disea se: Estimated GFR < 60 mL/min/1.91n7Agbqde Kidney Disease: Estimated GFR < 15 mL/min/1.73m2 Glucose 92 60 - 115 mg/dL [facility] Calcium 9.2 8.4 - 10.2 mg/dL [facility] Bilirubin, Total 0.7 0.0 - 1.0 mg/dL [facility] Aspartate Amino Transferase 38(H) 5 - 31 U/L [facility] Alanine Aminotransferase 38(H) 0 - 31 U/L [facility] Total Protein 7.6 6.5 - 8.0 g/dL [facility] Albumin Level 4.3 3.5 - 5.0 g/dL [facility] Alkaline Phosphatase 88 39 - 117 U/L [facility] 05/22/2024 2:57 PM EDT 05/22/2024 3:00 PM EDT us Generic External Data Provider LAB BLOOD ORDERAB LES Final Result [facility] [address] [place] [phone] * XR Chest 2 Views (05/22/2024 2:06 PM EDT) Anatomical Region Laterality Modality Chest Radiographic Abbie ging 05/22/2024 2:06 PM EDT Narrative 05/22/2024 2:43 PM EDT [address] [address] XRay Report Signed Patient: Miguelina Walsh MR#: [id number] : 1995 Acct:[id number] Age/Sex: 29 / F ADM Date: 05/22/24 Loc: HO.ED Attending Dr: Ordering Physician: Kandy Connell NP Date of Service: 05/22/24 Procedure(s): XR chest 2V Accession Number(s): [id number] cc: [facility]; Kandy Connell NP EXAMINATION: XR CHEST [...] 05/22/24 1440 DD/ 1406 TD/TT: 05/22/24 1431 Housekeeper Manager: Procedure Note Donotuseinterpreter, Image - 05/22/2024 [place] [id number] XRay Report Signed Patient: Saul Walsh#: [id number] : 1995Acct:[id number] Age/Sex: 29 / FADM Date: 05/22/24 Loc: HO.ED Attending Dr: Ordering Physician: Kandy Connell NP Date of Service: 05/22/24 Procedure(s): XR chest 2V Accession Number(s): [id number] cc: [facility]; Kandy Connell NP EXAMINATION: XR CHEST [...] 05/22/24 1440 DD/ 1406 TD/TT: 05/22/24 1431 Housekeeper Manager: [facility] External Provider IMG XR PROCEDURES Final Result * (ABNORMAL) HM PAP/HPV (05/09/2024) Pap Smear 1. NILM 1. NILM HPV Detected(A ) Undetected, Indeterminate , Quantitative, Not Detected Historical Provider HEALTH MAINTENANCE Final Result * Hepatitis C Antibody with Reflex to HCV, RNA, Quantitative, Real-Time PCR (05/08/2024 10:41 AM EDT) Hepatitis C Antibody Nonreactive Nonreactive [facility] Comment:Antibodies to HCV no t detected; does not exclude early acuteHCV infection. Blood Venous blood specimen / Unknown 05/08/2024 10:41 AM EDT 05/08/2024 11:45 AM EDT Yolanda Bess [facility] LAB BLOOD ORDERABLES Final Res ult [facility] [address] [place] [phone] * HIV-1/2 Antigen and Antibodies, Fourth Generation, with Reflexes (05/08/2024 10:41 AM EDT) HIV AB/AG Nonreactive Nonreactive [facility] Comment:HIV-1 p24 Ag and/or HIV-1/HIV-2 Ab not detected.A test result that is nonreactive does not exclude thepossibility of exposure to or infection with HIV-1 and/orHIV-2. Nonreactive results in this assay for individualswith prior exposure to HIV-1 and/or HIV-2 may be due toantigen and antibody levels that are below the limit ofdetection of this assay.The [employer] HIV Ag/Ab Combo assay result andsupplemental assay results should be interpreted inconjunction with the patient's clinical presentation,history and other laboratory results. If the results areinconsistent with clinical evidence, additional testing issuggested to confirm the result. Blood Venous blood specimen / Unknown 05/08/2024 10:41 AM EDT 05/08/2024 11:45 AM EDT us Yolanda Bess [facility] LAB BLOOD ORDERABLES Final Res ult [facility] [address] [place] [phone] from Last 3 Months or Most Recently Relevant to Health Maintenance [place] [address] [place] [address] C3 Care Teams Physician Office Specialist Relationship Specialty Start Date End Date Yolanda Bess FNP [address] [place] [phone] PCP - General Family Medicine 05/08/24
== END 2024-05-08 00:01 | disposition home or self-care (01) ==
LOC: HO.LNP
PROVIDERS: Visit Provider Nurse Practitioner Family
DX: Z11.3 Encounter for screening for infections with a predominantly sexual mode of transmission (principal)
CPT/HCPCS: 87491; 87591; 87626; 87661; 88175

== ENCOUNTER 2024-05-08 10:39 | Outpatient (REF) | payer MEDICAID, SELFPAY ==
--- OUTSIDE RECORDS SUMMARY | 2024-05-08 12:20 | XMS_ITS | Encounter Summary ---
Author Organization [email or web address] Address [address] [facility] 7t [place] [address] Care Team Providers Care Exhibit Preparator Name Role Phone Yolanda Bess Primary Care Provider [phone] Encounter Details Date Type Department Care Team (Latest Contact Info) Description 05/08/2024 9:00 AM EDT Procedure Visit [facility] MEDICINE [address] [place] [address] Yolanda Bess FNP [address] [place] [address] Encounter for IUD removal (Primary Dx); Routine cervical smear; Screening examination for venereal disease Social History Tobacco Use Types Packs/Day Years Used Date Smoking Tobacco: Never Smokeless Tobacco: Never Tobacco Cessation:Counseling Given: Not Answered Depression Answer Date Recorded Patient Health Questionnaire-9 Score 11 05/08/2024 Patient Health Questionnaire-9 Score 11 05/08/2024 Last PHQ-9: Questionnaire Data Not on file 0 05/08/2024 Housing Stability Answer Date Recorded What is your housing situation today? I have housing today, but I am worried about losing housing in the future 05/08/[address] you li ve. Do you have problems with any of the following? None of the above 05/08/2024 Food Insecurity Answer Date Recorded Within the past 12 months, y ou worried that your food would run out before you got money to buy more: Never True 2024 Within the past 12 months,th e food you bought just didn't last and you didn't have enough money to get more: Sometimes True 05/08/2024 Transportation Answer Date Recorded In the past 12 months, has l ack of transportation kept you from medical appts, meetings, work or from getting things needed for daily living? Yes, it has kept me from non-medical meetings, work, or getting things that I need 05/08/2024 Utilities Answer Date Recorded In the past 12 months, has t he electric, gas, oil or water company threatened to shut off services in your home? No 05/08/2024 Depression Answer Date Recorded Patient Health Questionnaire-2 Score 2 05/08/2024 Internet Access Answer Date Recorded Internet Access Q1 Yes 05/08/2024 Internet Access Q2 Not on file 05/08/2024 Comments Unknown Sex and Gender Information Value Date Recorded Sex Assigned at Female 12/27/2021 10:19 AM EDT Legal Sex Female 10:19 AM EDT Gender Identity Female 12/27/2021 10:19 AM EDT Sexual Orientation Straight 12/27/2021 10 :19 AM EDT documented as of this encounter Last Filed Vital Signs Vital Sign Reading Time Taken Comments Blood Pressure 98/64 05/08/2024 9:18 AM EDT Pulse 70 05/08/2024 9:18 AM EDT Temperature 36.5 ??C (97.7 ??F) 05/08/2024 9:18 AM ED T Respiratory Rate 17 05/08/2024 9:18 AM EDT Oxygen Saturation 98% 05/08/2024 9:18 AM EDT Inhaled Oxygen Concentration - - Weight 53.1 kg (117 lb) 05/08/2024 9:18 AM EDT Height 160 cm (5' 3 ) 05/08/2024 9:18 AM EDT Body Mass Index 20.73 05/08/2024 9:18 AM EDT documented in this encounter Progress Notes * AUDIE Bah - 05/08/2024 9:00 AM EDT Here for IUD removal and routine HELP DESK ASSOCIATE visit with pap. History of PCOS dx at 16 yrs and on hormonal patch before having a baby at 22 yrs and transitioned to IUD after of daughter. Would like IUD removed due to discomfort with device. 1 AMAB partner, last sexually active more than 5 days ago. Oral/vaginal/anal sex. Would like full STI testing today. Not planning at this time. Will use condoms, would like to see if menses are regular after IUD removal. Pap history: Patient reports normal, unsure last pap. STI history none Menses: LMP 04/05/2024 x 5days sometimes heavy with cramps history: daughter 2017 via [place] . Any pain/bleeding with sex?yes. Sometimes with spotting Living: Who do they live with? Partner and daughter Any safety concerns at home or with partner? Denies concern for violence Changes in breast exam? No Family history of breast/ovarian/colon/uterine cancer? Mother's sisiter at 35 years IUD Removal Procedure Note Reports was placed approximately 7 years ago Type of IUD: Mirena Date of insertion: 02/2017 Reason for removal: Discomfort since insertion and just tired of IUD Procedure Time Out Documentation Time out performed Procedure Details IUD strings visible: yes Removal: IUD strings grasped and IUD removed intact with gentle traction. The patient tolerated theprocedure well. All appropriate instructions regarding removal were reviewed. Plans for contraception:condoms Other follow-up needed: none The patient was advised to call for any fever or for prolonged or severe pain or bleeding. Review of Systems Constitutional: Negative for fever and unexpected weight change. HENT: Negative for sore throat. Respiratory: Negative for cough, chest tightness, shortness of breath and wheezing. Cardiovascular: Negative for chest pain, palpitations and leg swelling. Gastrointestinal: Negative for abdominal pain, nausea and vomiting. Genitourinary: Negative for dyspareunia, dysuria, frequency, genital sores, menstrual problem, pelvic pain, urgency, vaginal bleeding, vaginal discharge and vaginal pain. Neurological: Negative for dizziness. Psychiatric/Behavioral: Negative for sleep disturbance and suicidal ideas. Visit Vitals BP 98/64 (BP Location: Left arm, Patient Position: Sitting, BP Cuff Size: Adult) Pulse 70 Temp 97.7 ??F (36.5 ??C) (Oral) Resp 17 Ht 5' 3 (1.6 m) Wt 117 lb (53.1 kg) LMP 04/11/2024 (Approximate) SpO2 98% BMI 20.73 kg/m?? Smoking Status Never BSA 1.54 m?? Physical Exam Technical Support Manager Izzy Corbin CNM Constitutional: Appearance: Normal appearance. Chest: Breasts: Right: Normal. No swelling, bleeding, inverted nipple, mass, nipple discharge, skin change or tenderness. Left: Normal. No swelling, bleeding, inverted nipple, mass, nipple discharge, skin change or tenderness. Lymphadenopathy: Upper Body: Right upper body: No supraclavicular or axillary adenopathy. Left upper body: No supraclavicular or axillary adenopathy. Genitourinary: General: Normal vulva. Labia: Right: No rash, tenderness, lesion or injury. Left: No rash, tenderness, lesion or injury. Vagina: Normal. No signs of injury and foreign body. No vaginal discharge, erythema, tenderness, bleeding or lesions. Cervix: No cervical motion tenderness, discharge, friability, lesion, erythema, cervical bleeding or eversion. IUD strings noted prior to removal. Uterus: Normal. Not enlarged and not tender. Adnexa: Right adnexa normal and left adnexa normal. Right: No mass, tenderness or fullness. Left: No mass, tenderness or fullness. Neurological: Mental Status: She is alert. Psychiatric: Mood and Affect: Mood normal. Behavior: Behavior normal. Neurological: Mental Status: She is alert. Psychiatric: Mood and Affect: Mood normal. Behavior: Behavior normal. Problem List Items Addressed This Visit Encounter for IUD removal - Primary IUD removed easily, see procedure note. Report irregular periods. Plans to use condoms, aware of EC. May return for control at any time. Routine cervical smear If normal repeat in 5 yrs Urged to talk with mother as it sounds like she had genetics testing for hereditary cancer syndromes. Will followup at next visit and refer to genetics if indicated as maternal aunt had breast cancer at 35. Relevant Orders Pap Smear Screening examination for venereal disease Relevant Orders Chlamydia/N. Gonorrhoeae RNA, TMA, Rectal Chlamydia/N. Gonorrhoeae RNA, TMA, Throat Hepatitis B Core Antibody, Total Hepatitis B Surface Antibody, Qualitative Hepatitis B surface antigen, EIA Hepatitis C Antibody with Reflex to HCV, RNA, Quantitative, Real-Time PCR HIV-1/2 Antigen and Antibodies, Fourth Generation, with Reflexes Syphilis Screen STI testing add on (NG, CT, Trich) UNDER PRESSER Resident Attestation: Patient was seen and evaluated by Yolanda BRONSON in collaboration with Izzy Corbin CNM who has reviewed my assessment and plan. I, Izzy Corbin CNM, have reviewed the resident's note and agree with the assessment & plan of care as documented above. IUD removed by myself and Yolanda BRONSON together. documented in this encounter Plan of Treatment Upcoming Encounters Date Type Department Care Team (Late st Contact Info) Description 05/31/2024 9:30 AM EDT Office Visit [facility] MEDICINE [address] [place], [place] [phone] Yolanda Bess FNP [address] [place], [place] [phone] Scheduled Orders Name Type Priority Associated Diagnoses Order Schedule Chlamydia/N. Gonorrhoeae RNA, TMA, Rectal Microbiology Routine Screening examination for venereal disease Expected: 05/08/2024 (Approximate), Expires: 05/08/2025 Chlamydia/N. Gonorrhoeae RNA, TMA, Throat Microbiology Routine Screening examination for venereal disease Expected: 05/08/2024 (Approximate), Expires: 05/08/2025 Hepatitis B Core Antibody, Total Lab Routine Screening examination for venereal disease Expected: 05/08/2024 (Approximate), Expires: 05/08/2025 Hepatitis B Surface Antibody, Qualitative Lab Routine Screening examination for venereal disease Expected: 05/08/2024 (Approximate), Expires: 05/08/2025 Hepatitis B surface antigen, EIA Lab Routine Screening examination for venereal disease Expected: 05/08/2024 (Approximate), Expires: 05/08/2025 Hepatitis C Antibody with Reflex to HCV, RNA, Quantitative, Real-Time PCR Lab Routine Screening examination for venereal disease Expected: 05/08/2024 (Approximate), Expires: 05/08/2025 HIV-1/2 Antigen and Antibodies, Fourth Generation, with Reflexes Lab Routine Screening examination for venereal disease Expected: 05/08/2024 (Approximate), Expires: 05/08/2025 Syphilis Screen Lab Routine Screening examination for venereal disease Expected: 05/08/2024 (Approximate), Expires: 05/08/2025 Pap Smear Pathology and Cytology Routine Routine cervical smear Ordered: 05/08/2024 STI testing add on (NG, CT, Trich) Pathology and Cytology Routine Screening examination for venereal disease Ordered: 05/08/2024 documented as of this encounter Visit Diagnoses Diagnosis Encounter for IUD removal- Primary Routine cervical smear Screening for malignant neoplasm of the cervix Screening examination for venereal disease documented in this encounter Additional Health Concerns Assessment Noted Time PHQ-9 Depression Total Score: 11 025 10:16 AM EDT documented as of this encounter Care Teams Exhibit Preparator Relationship Specialty Start Date End Date Yolanda Bess FNP [address] [place] [phone] PCP - General Family Medicine 05/08/24 documented as of this encounter
--- OUTSIDE RECORDS SUMMARY | 2024-05-08 12:20 | XMS_ITS ---
Author Organization [facility] Address [address] [place], [place] [id number] Care Team Providers Care Oil Field Equipment Mechanic Name Role Phone BURKE KENT Primary Care Provider BHAVYA GOMEZ [phone] REASON FOR VISIT All over itching Medications Medication SIG (Take, Route, Frequency, Duration) Notes Start Date End Date Status CeleXA 20 MG 1 tablet Orally Once a day for 90 days 05/19/2022 Not-Taking Cyclobenzaprine HCl 10 MG 1 tablet at be dtime as needed Orally Once a day Active Encounters Encounter Location Date Provider Diagnosis [facility] Shireen [address] [place] [id number] 11/30/2022 BHAVYA GOMEZ Plan Of Treatment No Information Progress Notes * JHONY FRANCISEDOB: 5 (29 yo F)Acc No.[id number]:11/30/2022 Patient:?DIXIE FRANCISKOKOJUDYYuli Provider:?BHAVYA GOMEZ DO :1995???Age:27 Y???Sex:Female D ate:11/30/2022 [address] [phone] Pcp:BURKE KENT Subjective: * Chief Complaints: * [...] Electronic signature of LATRICE GOMEZ DO on 05/08/2024 at 12:20 PM EDT Sign off status: Pending * Provider:?BHAVYA GOMEZ DO Date:?11/30 Generated for Juanis bernabe/Edyta/Caridaditting on:?05/08/2024 12:20 PM EDT
--- OUTSIDE RECORDS SUMMARY | 2024-05-08 12:20 | XMS_ITS ---
Author Organization [facility] Address [address] [place], [place] [address] Care Team Providers Care Operations Accountant Name Role Phone BURKE KENT Primary Care Provider [phone] Allergies Allergen (clinical drug ingredient) Drug/Non Drug [...] Unknown Encounters Encounter Location Date Provider Diagnosis [address] [phone] 12/01/2022 BURKE KENT Cervical pain (neck) M54.2 [...] * JHONY FRANCISEDOB: 5 (29 yo F)Acc No.[id number]:12/01/2022 Patient:?DIXIE FRANCISBRENDAYuli Provider:?TIMOTHY WALKER :1995???Age:27 Y???Sex:Female D ate:12/01/2022 [address] [facility] [id number] Subjective: * Chief Complaints: * ???1. 6 [...] up) * Billing Information: * Visit Code:? 98384 Office Visit, Est Pt., Level 4. * [...] Electronic signature of BURKE KENT APRN on 05/08/2024 at 12:20 PM EDT Sign off status: Pending * Provider:?TIMOTHY WALKER Date:?12/01 Generated for Juanis bernabe/Edyta/eTransmitting on:?05/08/2024 12:20 PM EDT History and Physical Notes * HPI (History [...]
--- OUTSIDE RECORDS SUMMARY | 2024-05-08 12:20 | XMS_ITS | Encounter Summary ---
Author Organization [employer] Address [address] [facility] 7t [place] [address] Care Team Providers Care Doorperson Name Role Phone Unavailable Primary Care Provider [...] Description 05/31/2024 9:30 AM EDT Office Visit [facility] MEDICINE [address] [place] [address] Yolanda Bess FNP [address] [place] [address] documented as of this encounter Visit Diagnoses Not on filedocumented in this encounter
--- OUTSIDE RECORDS SUMMARY | 2024-05-08 12:20 | XMS_ITS | Encounter Summary ---
Author Organization [employer] Address [address] [address] 7t [place] [address] Care Team Providers Care Heel Lining Paster Name Role Phone Unavailable Primary Care Provider Unavailabl e Encounter Details Date Type Department Care Team ([facility] st Contact Info) Description 05/01/2024 7:00 PM EST Office Visit [facility] [address] [place] [address] Raven Payne, DIESEL TRUCK MECHANIC [address] [place] [address] Sternal pain (Primary Dx); Vomiting, unspecified vomiting [...] this encounter Progress Notes * Raven Payne, DIESEL TRUCK MECHANIC - 05/01/2024 7:00 PM EST Subjective: Miguelina [...] Description 05/31/2024 9:30 AM EDT Office Visit [facility] [address] [place] [address] Yolanda Bess FNP [address] [place] [address] Scheduled Orders Name Type Priority Associated Diagnoses [...] AM EST Narrative 05/03/2024 11:22 AM EST ?[facility] ?[address] ?[place] [address] ?XRay Report ? Signed ? Patient: Miguelina Walsh ?MR#: [id number] ?? [id number] ? : 1995 ?Acct:[id number] ? Age/Sex: 29 / F ?ADM Date: 05/03/24 ? Loc: HO.HHCX ? Attending Dr: Raven BRONSON ? Ordering Physician: Raven Payne ?? Date of Service: 05/03/24 ?? Procedure(s): XR chest 2V ?? Accession Number(s): [id number] ? cc: Raven Payne ? EXAMINATION: ??XR [...] DD/ 1053 ? TD/TT: 05/03/24 1100 ? Automobile Repossessor: ? Procedure Note Lit Espinoza - 05/03/2024 [facility] [address] [place] [address] XRay Report Signed Patient: Saul Walsh#: [id number] : 1995Acct:[id number] Age/Sex: 29 / FADM Date: 05/03/24 Loc: HO.HHCX Attending Dr: Raven BRONSON Ordering Physician: Raven Payne Date of Service: 05/03/24 Procedure(s): XR chest 2V Accession Number(s): [id number] cc: Raven Payne EXAMINATION: XR CHEST 2 [...] by: Marcelino Mark MD 05/03/2024 11:19 AM [facility] Dictated By: Marcelino Mark MD Signed By: <Electronically signed by Marcelino Mark MD in OV> 05/03/24 1119 DD/ 1053 TD/TT: 05/03/24 1100 Automobile Repossessor: Raven BRONSON IMG XR PROCEDURES Final Result documented in this encounter Visit Diagnoses Diagnosis Sternal pain- Primary Vomiting, unspecified vomiting type, unspecified whether nausea present Costochondritis Tietze's disease documented in this encounter
--- OUTSIDE RECORDS SUMMARY | 2024-05-08 12:20 | XMS_ITS | Encounter Summary ---
Author Organization [employer] Address [address] [facility] [address] 7[address] [place] [address] Care Team Providers Care Restaurant Hospitality Manager Name Role Phone Yolanda Bess NETWORK ARCHITECT MANAGER Primary Care Provider [phone] Encounter Details Date Type Department Care Team (Latest Contact Info) Description 05/08/2024 Travel Social History Tobacco Use Types Packs/Day Years Used Date Smoking Tobacco: Never Smokeless Tobacco: Never Depression Answer Date Recorded Patient Health Questionnaire-9 [...] the past 12 months, has t he Stion, gas, oil or water company threatened to [...] Description 05/31/2024 9:30 AM EDT Office Visit [facility] MEDICINE [address] [place] [address] Yolanda Bess FNP [address] [place] [address] documented as of this encounter Visit Diagnoses Not on filedocumented in this encounter Additional Health Concerns Assessment Noted Time PHQ-9 Depression Total Score: 11 025 10:16 AM EDT documented as of this encounter Care Teams Restaurant Hospitality Manager Relationship Specialty Start Date End Date Yolanda Bess FNP [address] [place] [address] PCP - General Family Medicine 05/08/24 documented as of this encounter
--- OUTSIDE RECORDS SUMMARY | 2024-05-08 12:21 | XMS_ITS | Encounter Summary ---
Author Organization [facility] Address [address] [place] [address] 7t [place] [address] Care Team Providers Care Ethnology Teacher Name Role Phone Unavailable Primary Care Provider Unavailabl e Encounter Details Date Type Department Care Team (Late st Contact Info) Description 05/03/2024 Telephone [facility] MEDICINE [address] [place] [phone] Dick Martinez MD [address] [place] [address] Social History Tobacco Use Types Packs/Day Years [...] 05/03/2024 10:54 AM EST Patient added to [facility] New Patient wait list as 05-03-2024 documented in this encounter Plan of Treatment Upcoming Encounters Date Type Department Care Team (Late st Contact Info) Description 05/31/2024 9:30 AM EDT Office Visit [facility] MEDICINE [address] [place] [address] Yolanda Bess FNP [address] [place] [address] [place] [address] documented as of this encounter Visit Diagnoses Not on filedocumented in this encounter
--- OUTSIDE RECORDS SUMMARY | 2024-05-08 12:21 | XMS_ITS | Clinical Summary ---
Author Organization [employer] Address [address] [facility] 7t [place] [address] Care Team Providers Care Manual Writer Name Role Phone Yolanda Bess STRAW HAT WASHER OPERATOR Primary Care Provider [phone] Allergies Active Allergy Reactions Criticality Noted Date Comments Acetaminophen 02/06/2018 Iodinated Contrast Media 07/25/2018 Oxycodone 02/06/2018 Oxycodone-Acetaminophen Palpitations,Unknown Low Oxycodone allergy Medications cyclobenzaprine (Flexeril) 5 MG tabletIndicatio ns:Costochondri tis Take 1-2 tablets (5-10 mg) by mouth if needed each day for muscle spasms for up to 10 days. 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 MEDICINE [address] [place], [place] [phone] Yolanda Bess FNP Encounter for IUD removal (Primary Dx); Routine cervical smear; Screening examination for venereal disease 05/08/2024 Travel 05/07/2024 Telephone [facility] [address] [place], [place] [phone] Dick Martinez MD New patient appt. 05/03/2024 Telephone [facility] [address] [place] [address] Dick Martinez MD 05/01/2024 7:00 PM EST Office Visit [facility] [address] [place] [address] Phalen, Raven, STRAW HAT WASHER OPERATOR Sternal pain (Primary Dx); Vomiting, unspecified vomiting type, unspecified whether nausea present; Costochondritis 05/01/2024 Travel from Last 3 Months Immunizations Name Administration Dates Next Due Tdap 08/11/2023 Family History Medical History Relation Name Comments Breast cancer Mother's Sister Relation Name Status Comments Mother's Sister Social History Tobacco Use Types Packs/Day Years [...] Mass Index 20.73 05/08/2024 9:18 AM EDT Plan of Treatment Upcoming Encounters Date Type Department Care Team (Late st Contact Info) Description 05/31/2024 9:30 AM EDT Office Visit [facility] MED[facility] [address] [place], [place] [phone] Yolanda Bess STRAW HAT WASHER OPERATOR [address] [place], [place] [phone] Health Maintenance Due Date Last Done Comments HIV Screening 1995 Hepatitis C Screening 2012 Hepatitis B Vaccines (1 of 3 - 19+ 3-dose series) 2013 Pap Smear 2015 COVID-19 Vaccine ( - 2023-2 5 season) 2023 Influenza Vaccine (#1) 2023 Cervical Cancer Screening 2024 HPV/Cotest 2024 Depression Monitoring (PHQ-9) 11/08/2024, 05/08/2024 Alcohol/Substance Use Screening 05/08/2025 05/08/2024 Depression Screening 05/08/2025 05/08/2024, 05/08/2024 Family Planning (PISQ) 05/08/2025 05/08/2024 SDOH Screening 05/08/2025 05/08/2024 Tobacco Screening 05/08/2025 05/08/2024 DTaP/Tdap/Td Vaccines (2 - T d or Tdap) 08/10/2033 08/11/2023 Zoster Vaccines (1 of 2) 2044 RSV Patients and Patients Aged 60 years or older (1 - [...] age to complete this topic Pneumococcal Vaccine: Pediatrics (0 to 5 Years) and At-Risk Patients (6 to 49) Years) Aged Out No longer eligible b ased on patient's age to complete this topic [...] AM EST Narrative 05/03/2024 11:22 AM EST ?[facility] ?[address] ?[place] [address] ?XRay Report ? Signed ? Patient: Rangel Renetta,Yohannie ?MR#: [id number] ?? [id number] ? : 1995 ?Acct:[id number] ? Age/Sex: 29 / F ?ADM Date: //25 ? Loc: HO.HHCX ? Attending Dr: Raven BRONSON ? Ordering Physician: Raven Payne ?? Date of Service: 05/03/24 ?? Procedure(s): XR chest 2V ?? Accession Number(s): [id number] ? cc: Raven Payne ? EXAMINATION: ??XR [...] DD/ 1053 ? TD/TT: 05/03/24 1100 ? Threat Analyst: ? Procedure Note Alexis, Image - 05/03/2024 [place] [address] XRay Report Signed Patient: Saul Walsh#: [id number] : 1995Acct:[id number] Age/Sex: 29 / FADM Date: 05/03/24 Loc: HO.HHCX Attending Dr: Raven Payne STRAW HAT WASHER OPERATOR Ordering Physician: Raven Payne Date of Service: 05/03/24 Procedure(s): XR chest 2V Accession Number(s): [id number] cc: Raven Payne EXAMINATION: XR CHEST 2 [...] 05/03/24 1119 DD/ 1053 TD/TT: 05/03/24 1100 Threat Analyst: Raven DENTONP IMG XR PROCEDURES Final Result from Last [address] [place] [address] [place] [address] C3 Care Teams Manual Writer Relationship Specialty Start Date End Date Yolanda Bess FNP [address] [place] [address] PCP - General Family Medicine 05/08/24
--- OUTSIDE RECORDS SUMMARY | 2024-05-08 12:21 | XMS_ITS | Patient Health Record ---
Author Organization [facility] Address [address], [place] [id number] Care Team Providers Care Loading Dock Helper Name Role Phone BURKE KENT Primary Care Provider [phone] Allergies Allergen (clinical drug ingredient) Drug/Non Drug [...] Problem Status W/U Status Risk Notes Problem 35112468 Slow transit constipation (K59.01) Active confirmed Problem 59478378 Other fatigue (R53.83) Active confirmed Problem 64912725091600659 Unspecified ovarian cyst, right side (N83.201) Active confirmed Problem 78362392922950203 Unspecified ovarian cyst, left side (N83.202) Active confirmed Problem 92669648 Anxiety (F41.9) Active confirmed Problem 913586109 BMI 20.0-20.9, adult (Z68.20) Active confirmed Problem 258381653 Moderate episode of recurrent major depressive disorder (F33.1) Active confirmed Problem 873355820 Screen for STD (sexually transmitted disease) (Z11.3) Active confirmed Problem 439113653 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
--- OUTSIDE RECORDS SUMMARY | 2024-05-08 12:21 | XMS_ITS | Encounter Summary ---
Author Organization [employer] Address [address] [place] [address] Care Team Providers Care Lead Massage Therapist Name Role Phone Unavailable Primary Care Provider Unavailabl e Reason for Visit * Reason Onset Date Comments New patient appt. 05/07/2024 Encounter Details Date Type Department Care Team ([facility] st Contact Info) Description 05/07/2024 Telephone [facility] MEDICINE [address] [place] [address] Dick Martinez MD [address] [place] [address] New patient appt. Social History Tobacco Use Types Packs/Day Years Used Date Smoking Tobacco: Never Assessed Depression Answer Date Recorded Patient Health Questionnaire-9 [...] encounter Miscellaneous Notes * Telephone Encounter - Adriana Alanis - 05/07/2024 2:56 PM EDT Outgoing call to pt to book ELECT[employer] appt. No answer. Left message. * Telephone Encounter - Adriana Alanis - 05/07/2024 2:56 PM EDT ----- Message from Dale Doshi sent at 05/07/2024 2:00 PM EDT ----- ----- Message ----- From: Evy Sotelo [place] Sent: 05/01/2024 8:10 PM EDT To: Dale Vitale Pt need new pt appt please documented in this encounter Plan of Treatment Upcoming Encounters Date Type Department Care Team (Late st Contact Info) Description 05/31/2024 9:30 AM EDT Office Visit [facility] MEDICINE [address] [place] [address] Yolanda Bess FNP [address] [place], [place] [id number] documented as of this encounter Visit Diagnoses Not on filedocumented in this encounter
[2024-05-08 12:53] LABS: Syphilis Screen Nonreactive (Nonreactive)
[2024-05-08 13:01] LABS: HBS Num1 7.62 mIU/mL (0-7.99); HBsAGNum1 0.31 S/CO (0.00-0.99); HIV AB/AG Nonreactive (Nonreactive); HIV Num 1 0.11 S/CO (0.00-0.99); Hepatitis B Core Antibody Nonreactive (Nonreactive); Hepatitis B Surface Antigen Negative (Negative); ~HepC Num1 0.09 S/CO (0.00-0.79); ~Hepatitis B Surface Antibody NONREACTIVE (Nonreactive); ~Hepatitis C Antibody Nonreactive (Nonreactive)
== END 2024-05-08 10:40 | disposition home or self-care (01) ==
LOC: HO.HHCL 10:39
PROVIDERS: Visit Provider Nurse Practitioner Family
DX: Z11.3 Encounter for screening for infections with a predominantly sexual mode of transmission (principal)
CPT/HCPCS: 36415; 86704; 86706; 86780; 86803; 87340; 87389

== ENCOUNTER 2024-05-22 13:51 | Emergency (ER) | payer MEDICAID, SELFPAY ==
--- NOTE | ~2024-05-22 | XR_ITS ---
EXAMINATION: XR CHEST 2 VIEWS HISTORY: chest pain COMPARISON: Comparison is made with the prior examination dated 05/03/2024. FINDINGS: PA and lateral views of the chest are submitted. The lungs are expanded and clear. There is no pleural effusion, pneumothorax, or pulmonary vascular congestion. The heart is normal in size. The bones are intact. XR/XR chest 2V IMPRESSION: No acute cardiopulmonary abnormality. Electronically signed by: Marcelino Mark MD 05/22/2024 02:40 PM EDT
--- NOTE | 2024-05-22 14:05 | ED.GENADULT ---
HPI - General Adult General Chief complaint: Chest Pain Stated complaint: Chest pain this morning, NV x5 days Time Seen by Provider: 05/22/24 14:04 Source: patient, RN notes reviewed and old records reviewed Mode of arrival: ambulatory Limitations: no limitations History of Present Illness ED Provider: Becki HPI narrative: Patient is a 29-year-old female presenting to the emergency department with complaint of sore throat, chest and epigastric pain, nausea and vomiting, but generalized body aches, subjective fevers for the past 4-5 days. States significant other and daughter have been sick with similar symptoms. She went to urgent care a couple days ago and tested negative for flu and COVID. Was discharged with a prescription for Zofran which she has been using with little relief of nausea and vomiting. Has also been using Tylenol and ibuprofen. MD complaint: sore throat, vomiting Onset (ago): day(s) Related Data Home Medications ?Medication ?Instructions ?Recorded ?Confirmed cyclobenzaprine 5 mg tablet 5 mg PO TID PRN Muscle Spasm 04/21/23 11/22/23 Previous Rx's ?Medication ?Instructions ?Recorded diphenoxylate-atropine 2.5 1 tab PO TID PRN diarrhea #10 tabs 04/21/23 mg-0.025 mg tablet (Lomotil) ondansetron 4 mg disintegrating 4 mg PO Q8H PRN nausea and 04/21/23 tablet vomiting #10 tabs omeprazole 20 mg capsule,delayed 20 mg PO BID@0630,1630 #28 caps 04/25/23 release amoxicillin 500 mg tablet 500 mg PO BID #20 tabs 06/16/23 ondansetron 4 mg disintegrating 4 mg PO TID PRN nausea and 06/16/23 tablet vomiting #7 tabs polyethylene glycol 3350 17 17 g PO DAILY #119 grams 06/16/23 gram/dose oral powder (Miralax) sennosides 8.6 mg capsule (senna) 8.6 mg PO BEDTIME PRN constipation 06/16/23 #7 caps acetaminophen 500 mg tablet 1,000 mg (2 x 500 mg) PO Q8H PRN 08/11/23 (Tylenol Extra Strength) fever or pain #30 tabs cephalexin 500 mg capsule 500 mg PO QID 5 days #20 caps 08/11/23 ibuprofen 600 mg tablet 600 mg PO Q6H PRN fever or pain 08/11/23 #30 tabs morphine 15 mg immediate release 15 mg PO BID PRN pain #5 tabs 08/11/23 tablet Allergies Allergy/AdvReac Type Severity Reaction Status Date / Time Iodinated Contrast Media Allergy Intermediate RASH Verified 05/22/24 14:24 [Iodinated Contrast Media - IV Dye] oxycodone [From PERCOCET] Allergy Intermediate TACHYCARDIA Verified 05/22/24 14:24 ketorolac [From Toradol] Allergy Confusion Verified 05/22/24 14:24 Review of Systems Review of Systems: As per HPI Yes all other systems are reviewed and are negative Constitutional: Constitutional: Reports as per HPI [facility] Past Medical History Medical History Muscle spasm Ovarian cyst Social History Social History Household Members: Family Housing: Apartment Alcohol intake: never Patient Tobacco Use Status: Never used Tobacco Substance Use Type: Marijuana Advance Directives: No Advance Directives Information Provided: No service: No Physical Exam ED Vital Signs: BMI result Body Mass Index 21.1 Const General: cooperative, healthy appearing and no acute distress Orientation/consciousness: oriented to person, oriented to place, oriented to time and patient oriented x3 Limitations: no limitations HENMT Head: Yes normocephalic and Yes atraumatic Ears: external ears normal, TM's normal bilaterally and EAC's normal General nose exam: Normal external nose present and Normal nasal mucous membranes and turbinates present Face and sinus: Yes face symmetric Mouth: oropharynx normal and moist mucous membranes Throat: Yes uvula midline and Yes abnormal tonsil (3+ bilat, erythematous, no exudate) Eyes Pupils: Equal, round and reactive pupils present Neck Neck: Yes normal visual inspection and Yes supple Lymphatic: no lymphadenopathy noted Resp Effort & Inspection: normal respiratory effort and able to speak in complete sentences Auscultation: clear to auscultation bilaterally Cardio Rate: regular rate Rhythm: regular rhythm Heart sounds: S1 normal heart sound present and S2 normal heart sound present GI Palpation (GI): Soft to palpation and nontender Auscultation: normoactive bowel sounds General: Yes no CVA tenderness Back/Spine/Pelvis Back: no CVA tenderness Skin General skin exam: elasticity normal and turgor normal Neuro General: oriented to person, oriented to place, oriented to time, patient oriented x3, moves all extremities, no focal motor deficits and CN's II-XI intact bilaterally Cranial nerves: Yes Equal, round and reactive pupils present Cognition (Neuro): normal cognition Extrem General: Yes full ROM, Yes no pedal edema and Yes no calf tenderness Psych Mental Status: mental status grossly normal Affect: normal affect Thought process: Normal thought process present Medications Administered Generic Name Dose Route Start Last Admin Trade Name Freq PRN Reason Stop Dose Admin Sodium Chloride 1,000 mls @ 999 mls/hr 05/22/24 15:00 05/22/24 15:11 Ns IV 05/22/24 16:00 999 mls/hr .Q1H1M JESSICA Administration Discontinued Medications Generic Name Dose Route Start Last Admin Trade Name Freq PRN Reason Stop Dose Admin Diphenhydramine HCl 25 mg 05/22/24 14:51 05/22/24 15:11 Diphenhydramine Hcl 50 Mg/Ml Vial IVPUSH 05/22/24 14:52 25 mg ONCE ONE Administration Medical Decision Making Medical Decision Making [facility] Narrative: Patient is a 29-year-old female presenting to the emergency department with complaint of sore throat, chest and epigastric pain, nausea and vomiting, but generalized body aches, subjective fevers for the past 4-5 days. On exam patient is awake, A+Ox3, VS WNL, afebrile, normal neurological exam without focal deficits, physical exam findings as above. Given reported symptoms and physical exam findings, initial differential includes but is not limited to strep pharyngitis, viral illness, gastroenteritis, electrolyte abnormality. Unlikely ACS but will check EKG, troponin. EKG shows sinus rhythm with short DC. Labs notable for no leukocytosis, no significant electrolyte abnormalities, no evidence of NURIS, slightly elevated transaminases, negative troponin. X-ray notable for no evidence of pneumonia. My interpretation is in agreement with the radiologist's interpretation. Strep swab negative. Viral serology negative. Patient up-to-date on results and all questions answered. Reports improvement in nausea after medications and IV fluids given in the ED. Will medicate patient with 1 time dose of dexamethasone. Advised patient to continue using Tylenol and ibuprofen, Zofran. Follow up with PCP as needed. Return precautions discussed at bedside. Patient verbalized understanding of and agreement with plan. Differential Diagnosis Differential Diagnoses: The differential diagnosis associated with the presentation includes as per [facility] Lab Data [facility] Lab Attestation statement: I reviewed the patient's lab results. as per [facility] 05/22/24 14:57 05/22/24 14:57 Labs: Lab Results 05/22/24 Range/Units 14:57 WBC 10.1 (4.8-10.8) X10*3/uL RBC 4.77 (4.20-5.50) X10*6/uL Hgb 12.6 (12.0-16.0) g/dl Hct 36.9 L (37.0-47.0) % MCV 77.4 L (80.0-98.0) fL MCH 26.4 L (27.0-33.0) pg MCHC 34.1 (31.0-35.0) g/dl RDW 13.3 (11.0-16.0) % Plt Count 224 (160-400) X10*3/uL MPV 9.5 (9.4-12.3) fL Immature Gran % (Auto) 0.4 (0.0-0.4) % Neut % (Auto) 81.9 H (45-73) % Lymph % (Auto) 9.3 L (20-40) % [place] % (Auto) 8.3 (2-11) % Eos % (Auto) 0.0 (0-4) % Baso % (Auto) 0.1 (0-2) % Lymph # (Auto) 0.9 L (1.2-4.9) X10*3/uL [place] # (Auto) 0.8 (0.1-1.2) X10*3/uL Eos # (Auto) 0.0 (0.0-0.4) X10*3/uL Baso # (Auto) 0.0 (0.0-0.2) X10*3/uL Abs Immat Gran (auto) 0.04 H (0.00-0.03) X10*3/uL Absolute Neuts (auto) 8.3 (2.0-8.3) x10*3/uL Absolute Nucleated RBC 0.000 (0.0-0.012) X10*3/uL Nucleated RBC % (auto) 0.0 (0.0-0.2) /100WBC Sodium 139 (135-145) mmol/L Potassium 4.0 (3.3-5.1) mmol/L Chloride 106 (96-108) mmol/L Carbon Dioxide 23 (22-29) mmol/L Anion Gap 14 (12-20) BUN 8 L (9-16) mg/dL Creatinine 0.67 (0.5-1.4) mg/dL Estim Creat Clear Calc 101.5 Estimated GFR > 60 Random Glucose 92 (60-115) mg/dL Calcium 9.2 (8.4-10.2) mg/dL Magnesium 1.7 (1.6-2.6) mg/dL Total Bilirubin 0.7 (0.0-1.0) mg/dL AST 38 H (5-31) U/L ALT 38 H (0-31) U/L Alkaline Phosphatase 88 (39-117) U/L Troponin I High Sens < 2.7 (<3.5-17.0) ng/L Total Protein 7.6 (6.5-8.0) g/dL Albumin 4.3 (3.5-5.0) g/dL Lipase 9 (8-78) U/L Beta HCG, Quant < 2 mIU/mL Influenza Type A (PCR) NEGATIVE (Negative) Influenza Type B (PCR) NEGATIVE (Negative) RSV RNA Qual (PCR) NEGATIVE (Negative) SARS-CoV-2 RNA (RT-PCR) NEGATIVE (Negative) S. pyogenes GrpA GURMEET Negative (Negative) Independent Interpretation I performed an independent interpretation of an: EKG (Sinus rhythm, rate 97 beats per minute, shortened DC interval at 102ms, normal QTC) and Plain X-Ray Interpretation: No evidence of pneumonia on chest x-ray Radiology Impression Discussion of test interpretation with radiology: I have reviewed the radiologist's reading. Radiologist Impression: XR/XR chest 2V IMPRESSION: No acute cardiopulmonary abnormality. External Record Review External record reviewed: Inpatient record, Office record and Outpatient record Discharge Plan Discharge Clinical Impression: Viral illness, Pharyngitis Patient Disposition: Home, Self-Care Instructions: Pharyngitis (ED), Viral Syndrome (ED) Additional Instructions: You were evaluated in the emergency department today for sore throat, body aches, and nausea/vomiting. Your Covid, flu, RSV, and strep tests were all negative. Your symptoms are likely related to a viral illness which will resolve on its own with time and rest. You were given a one-time dose of a steroid in the ED which will last several days to decrease inflammation. You should ensure adequate fluid intake, and can use Tylenol 650 mg or ibuprofen 600 mg every 6 hours as needed for fever or discomfort. We also recommend using over the counter nasal saline spray to thin your mucous. Please follow-up with your primary care provider this week. Return to the emergency department if you develop worsening chest pain, worsening shortness of breath, difficulty swallowing, fever 100.4? F or greater, persistent vomiting, or any other concerning symptoms. Prescriptions: No Action ondansetron 4 mg tablet,disintegrating 4 mg PO Q8H PRN (Reason: nausea and vomiting) Qty: 10 0RF diphenoxylate-atropine [Lomotil] 2.5-0.025 mg tablet 1 tab PO TID PRN (Reason: diarrhea) Qty: 10 0RF Rx Instructions: Keep this medication out of reach of children cyclobenzaprine 5 mg Tablet 5 mg PO TID PRN (Reason: Muscle Spasm) omeprazole 20 mg Capsule,Delayed Release(Dr/Ec) 20 mg PO BID@0630,1630 Qty: 28 0RF amoxicillin 500 mg tablet 500 mg PO BID Qty: 20 0RF polyethylene glycol 3350 [Miralax] 17 gram/dose powder 17 g PO DAILY Qty: 119 0RF senna 8.6 mg capsule 8.6 mg PO BEDTIME PRN (Reason: constipation) Qty: 7 0RF ondansetron 4 mg tablet,disintegrating 4 mg PO TID PRN (Reason: nausea and vomiting) Qty: 7 0RF cephalexin 500 mg capsule 500 mg PO QID 5 Days Qty: 20 0RF ibuprofen 600 mg tablet 600 mg PO Q6H PRN (Reason: fever or pain) Qty: 30 0RF acetaminophen [Tylenol Extra Strength] 500 mg tablet 1,000 mg PO Q8H PRN (Reason: fever or pain) Qty: 30 0RF morphine 15 mg tablet 15 mg PO BID PRN (Reason: pain) Qty: 5 0RF Rx Instructions: Partial Fill upon patient request. Stand Alone Forms: Work/School Release Print Language: Nigerian
--- NOTE | 2024-05-22 14:06 | ECG_ITS ---
Test Reason : CHEST PAIN Blood Pressure : */* mmHG Vent. Rate : 97 BPM Atrial Rate : 97 BPM P-R Int : 102 ms QRS Dur : 70 ms QT Int : 334 ms P-R-T Axes : 26 78 35 degrees QTcB Int : 424 ms Sinus rhythm with short FL Otherwise normal ECG When compared with ECG of 21-Apr-2019 20:12, FL interval has decreased Referred By: Kandy Connell Electronically Signed By: CARLITO BLANC MD
[2024-05-22 14:16] VITALS: BP 123/92; PULSE 90; O2SAT 100; BMI 21.1
[2024-05-22 15:02] LABS: MANUAL DIFF FLAG NO
[2024-05-22 15:03] LABS: Basophils Percent Auto 0.1 % (0-2); Hematocrit 36.9 % (37.0-47.0); Hemoglobin 12.6 g/dl (12.0-16.0); Imm Gran Abs Auto 0.04 X10*3/uL (0.00-0.03); Imm Gran Pct Auto 0.4 % (0.0-0.4); Lymphocytes Absolute Auto 0.9 X10*3/uL (1.2-4.9); Lymphocytes Percent Auto 9.3 % (20-40); Mean Corpuscular HGB Conc 34.1 g/dl (31.0-35.0); Mean Corpuscular Hemoglobin 26.4 pg (27.0-33.0); Mean Corpuscular Volume 77.4 fL (80.0-98.0); Mean Platelet Volume 9.5 fL (9.4-12.3); Monocytes Absolute Auto 0.8 X10*3/uL (0.1-1.2); Monocytes Percent Auto 8.3 % (2-11); Neutrophils Absolute Auto 8.3 x10*3/uL (2.0-8.3); Neutrophils Percent Auto 81.9 % (45-73); Platelet Count 224 X10*3/uL (160-400); Red Blood Count 4.77 X10*6/uL (4.20-5.50); Red Cell Distribution Width 13.3 % (11.0-16.0); White Blood Count 10.1 X10*3/uL (4.8-10.8)
[2024-05-22 15:11] LABS: IDNOW Serial# 58CA691E; Strep A Nucleic Acid Negative (Negative)
[2024-05-22] MEDS: 0.9 % Sodium Chloride 1,000 ML 999 ML IV (15:11)
[2024-05-22] MEDS: diphenhydrAMINE HCL 50 MG/ML VIAL 25 MG IVPUSH (15:11)
[2024-05-22 15:27] LABS: Troponin-I High Sensitivity < 2.7 ng/L (<3.5-17.0)
[2024-05-22 15:28] LABS: Alanine Aminotransferase 38 U/L (0-31); Albumin Level 4.3 g/dL (3.5-5.0); Anion Gap 14 (12-20); Aspartate Amino Transferase 38 U/L (5-31); Bilirubin Total 0.7 mg/dL (0.0-1.0); Blood Urea Nitrogen 8 mg/dL (9-16); Calcium 9.2 mg/dL (8.4-10.2); Carbon Dioxide 23 mmol/L (22-29); Chloride 106 mmol/L (96-108); Creatinine Clr Calc Pharmacy 101.5; Estimated Glomerular Filt Rate > 60; Glucose Random 92 mg/dL (60-115); HCG Quantitative < 2 mIU/mL; Lipase 9 U/L (8-78); Magnesium 1.7 mg/dL (1.6-2.6); Sodium 139 mmol/L (135-145); Total Protein 7.6 g/dL (6.5-8.0)
[2024-05-22 15:30] VITALS: BP 109/58; PULSE 91; RESP 17; TEMP 38.1; O2SAT 100
[2024-05-22 15:32] LABS: Alkaline Phosphatase 88 U/L (39-117)
[2024-05-22 15:47] LABS: Influenza A PCR NEGATIVE (Negative); Influenza B PCR NEGATIVE (Negative); Resp Syncy Virus RNA Qual PCR NEGATIVE (Negative); SARS COV2 PCR INHOUSE NEGATIVE (Negative)
[2024-05-22] MEDS: Acetaminophen 1,000 MG/100 ML PIGGYBACK 400 MG IV (16:07)
[2024-05-22] MEDS: dexAMETHasone 2 MG TABLET 10 MG PO (16:07)
[2024-05-22 16:58] VITALS: BP 113/46; PULSE 84; RESP 16; TEMP 37.7; O2SAT 97
[2024-05-22 17:09] VITALS: BP 113/46; PULSE 84; RESP 16; TEMP 37.7; O2SAT 97
== END 2024-05-22 17:10 | disposition home or self-care (01) ==
PROVIDERS: Registered Nurse Emergency; Emergency Provider Emergency Medicine
DX: B34.9 Viral infection, unspecified (principal); J02.9 Acute pharyngitis, unspecified; R11.2 Nausea with vomiting, unspecified; R07.9 Chest pain, unspecified; Z03.818 Encounter for observation for suspected exposure to other biological agents ruled out; Z79.899 Other long term (current) drug therapy
CPT/HCPCS: 0241U; 71046; 80053; 83690; 83735; 84484; 84702; 85025; 87651; 93005; 96374; 96375; 99284; 99285; J0131; J1200; J8540

== ENCOUNTER → 2024-05-22 14:06 | Outpatient (BNV) | payer MEDICAID, SELFPAY | PROVIDERS: Emergency Provider Emergency Medicine; Visit Provider Radiology Diagnostic Radiology | DX: R07.9 Chest pain, unspecified (principal) | CPT/HCPCS: 71046 ==

== ENCOUNTER → 2024-05-22 14:06 | Outpatient (BNV) | payer MEDICAID, SELFPAY | PROVIDERS: Emergency Provider Emergency Medicine; Visit Provider Internal Medicine Cardiovascular Disease | DX: R07.9 Chest pain, unspecified (principal) | CPT/HCPCS: 93010 ==

== ENCOUNTER → 2024-06-11 18:10 | Outpatient (BNV) | payer MEDICAID, SELFPAY | PROVIDERS: Visit Provider Radiology Diagnostic Radiology | DX: M25.561 Pain in right knee (principal) | CPT/HCPCS: 73721 ==

== ENCOUNTER 2024-06-11 18:19 | Outpatient (REF) | payer MEDICAID, SELFPAY ==
--- OUTSIDE RECORDS SUMMARY | 2024-06-11 19:08 | XMS_ITS | Encounter Summary ---
Author Organization [employer] Address [address] [place] [address] Care Team Providers Care Church Administrator Name Role Phone Yolanda Bess PLANT PROPAGATOR Primary Care Provider [phone] Encounter Details Date Type Department Care Team ([facility] Contact Info) Description 06/06/2024 Telephone [facility] MEDICINE [address] [place] [address] Yolanda Bess FNP [address] [place] [address] Social History Tobacco Use Types Packs/Day Years Used Date Smoking Tobacco: Never Passive Smoke Exposure: Never Smokeless Tobacco: Never Alcohol Use Standard Drinks/Week Comments Not Asked 0 (1 standard drink = 0.6 oz pur e alcohol) Occasional Depression Answer Date Recorded Patient Health Questionnaire-9 [...] encounter Miscellaneous Notes * Telephone Encounter - Kalyani Ayoub RN - 06/06/2024 2:36 PM EDT T/C to pt for status check based on portal message. Pt reports increased anxiety d/t not being ableto keep her dog. States she spoke to triage nurse and was able to schedule appt with PCP. Pt aware of need to come to medical records re: letter request. States her anxiety is a little better now. States she has crisis number. Advised pt WIC availability. Pt verbalized understanding. documented in this encounter Plan of Treatment Upcoming Encounters Date Type Department Care Team (Late st Contact Info) Description 06/14/2024 1:30 PM EDT Office Visit [facility] MEDICINE [address] [place], [place] [phone] Yolanda Bess FNP [address] [place], [place] [phone] documented as of this encounter Visit Diagnoses Not on filedocumented in this encounter Additional Health Concerns Assessment Noted Time PHQ-9 Depression Total Score: 11 025 10:16 AM EDT documented as of this encounter Care Teams Church Administrator Relationship Specialty Start Date End Date Yolanda Bess FNP [address] [place] [address] PCP - General Family Medicine 05/08/24 documented as of this encounter
--- OUTSIDE RECORDS SUMMARY | 2024-06-11 19:08 | XMS_ITS | Encounter Summary ---
Author Organization [employer] Address [address] [place] [address] Care Team Providers Care Fuel Cell Engineer Name Role Phone Yolanda Bess [facility] Primary Care Provider [phone] Encounter Details Date Type Department Care Team ([facility] st Contact Info) Description 05/08/2024 Abstract [facility] MEDICINE [address] [place] [address] Yolanda Bess FNP [address] [place] [address] Social History Tobacco Use Types Packs/Day Years [...] Description 06/14/2024 1:30 PM EDT Office Visit [facility] MEDICINE [address] [place] [address] Yolanda Bess FNP [address] [place] [address] documented as of this encounter Visit Diagnoses Not on filedocumented in this encounter Additional Health Concerns Assessment Noted Time PHQ-9 Depression Total Score: 11 025 10:16 AM EDT documented as of this encounter Care Teams Fuel Cell Engineer Relationship Specialty Start Date End Date Yolanda Bess FNP [address] [place] [address] PCP - General Family Medicine 05/08/24 documented as of this encounter
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
--- OUTSIDE RECORDS SUMMARY | 2024-06-11 19:08 | XMS_ITS | Patient Health Record ---
Author Organization [facility] Address [address], [place] [id number] Care Team Providers Care Yarn Washer Name Role Phone BURKE KENT Primary Care [...] Problem Status W/U Status Risk Notes Problem 50547857 Slow transit constipation (K59.01) Active confirmed Problem 09496436 Other fatigue (R53.83) Active confirmed Problem 29721016032948513 Unspecified ovarian cyst, right side (N83.201) Active confirmed Problem 41013274667531605 Unspecified ovarian cyst, left side (N83.202) Active confirmed Problem 79322771 Anxiety (F41.9) Active confirmed Problem 203959530 BMI 20.0-20.9, adult (Z68.20) Active confirmed Problem 365496904 Moderate episode of recurrent major depressive disorder (F33.1) Active confirmed Problem 892775263 Screen for STD (sexually transmitted disease) (Z11.3) Active confirmed Problem 360075557 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
--- OUTSIDE RECORDS SUMMARY | 2024-06-11 19:08 | XMS_ITS | Clinical Summary ---
Author Organization [employer] Address [address] [facility] [address] [place] [address] Care Team Providers Care Director Of Digital Marketing Name Role Phone Yolanda Bess MEDICAL DIRECTOR OCCUPATIONAL HEALTH Primary Care Provider [phone] Allergies Active Allergy Reactions Criticality Noted Date Comments Acetaminophen 02/06/2018 Iodinated Contrast Media 07/25/2018 Oxycodone 02/06/2018 Oxycodone-Acetaminophen Palpitations,Unknown Low Oxycodone allergy Medications cyclobenzaprine (Flexeril) 10 MG tabletIndications:Te mporomandibular disorder Take 10 mg by mouth at bedtime. Active omeprazole (PriLOSEC) [address] capsule Take 1 capsule by mouth every 48 hours. 021 Active Senna-Time 8.6 MG tablet Take 1 tablet by mouth if needed for constipati on. 024 Active meloxicam (Mobic) 7.5 MG tabletIndications:Te mporomandibular disorder Take 1 tablet (7.5 mg) by mouth Once per day. 30 tablet 025 2024 Active ibuprofen 600 MG tabletIndications:Bi lateral temporomandibular joint pain Take 1 tablet (600 mg) by mouth 3 times daily for 10 days. 30 tablet 025 2024 acetaminophen (Tylenol Extra Strength) 500 MG tabletIndications:Bi lateral temporomandibular joint pain Take 1 tablet (500 mg) by mouth every 6 (six) hours if needed for mild pain for up to 10 days. 30 tablet 025 2024 meloxicam (Mobic) 7.5 MG tablet Take 7.5 mg by mouth Once per day. 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 [address] [place] [phone] Yolanda Bess FNP 06/06/[address] [address] Yolanda Bess FNP 06/04/[address] [address] Yolanda Bess FNP Pt1 request (Pt requesting pt1 and is in need of transportation to appointment in [place] from [address] [place] [phone] [address] [place] [phone]. Pt reports her appointment is on 06/10/2024.); PT1 Submitted 05/31/2024 9:30 AM EDT Office Visit [address] [address] Yolanda Bess FNP Well adult on routine health check (Primary Dx); Depressive disorder; Temporomandibular disorder 05/31/2024 Travel 05/30/2024 Travel 05/27/[address] [address] Yolanda Bess FNP Results 05/24/2024 Patient Outreach [facility] [address] [place], [place] [phone] Yolanda Bess FNP Pre-visit Planning (SDOH was already completed. ) 05/20/2024 6:00 PM EDT Office Visit [facility]ALK[facility] [address] [address] Kj Syed MD Viral URI (Primary Dx) 05/15/[address] [address] Yolanda Bess FNP 05/15/[address] [address] Yolanda Bess FNP 05/14/2024 2:00 PM EDT [facility] [address] [address] Ghazala Cabezas MD Bilateral temporomandibular joint pain (Primary Dx) 05/14/2024 Travel 05/10/2024 Population Health Risk Score [facility] () [address] [phone] Provider, Population Health Generic 05/08/2024 9:00 AM EDT Procedure Visit [address] [address] Yolanda Bess FNP Encounter for IUD removal (Primary Dx); Routine cervical smear; Screening examination for venereal disease 05/08/2024 Orders Only [address] [address] Yolanda Bess FNP High risk human papillomavirus (HPV) detected (Primary Dx) 05/08/[address] [address] Yolanda Bess FNP 05/08/2024 Travel 05/07/[address] [address] Dick Martinez MD New patient appt. 05/03/[address] [address] Dick Martinez MD 05/01/2024 7:00 PM EST Office Visit [facility] [address] [place] [phone] KerryRaven, MEDICAL DIRECTOR OCCUPATIONAL HEALTH Sternal pain (Primary Dx); Vomiting, unspecified vomiting type, unspecified whether nausea present; Costochondritis 05/01/2024 Travel from Last 3 Months Immunizations Name Administration Dates Next Due Tdap 08/11/2023 Family History Medical History Relation Name Comments Breast cancer Mother's Sister Relation Name Status Comments Mother's Sister Social History Tobacco Use Types Packs/Day Years Used Date Smoking Tobacco: Never Passive Smoke Exposure: Never Smokeless Tobacco: Never Tobacco Cessation:Counseling Given: Not Answered Alcohol Use Standard Drinks/Week Comments Not Asked [...] Sign Reading Time Taken Comments Blood Pressure 110/70 05/31/2024 9:42 AM EDT Pulse 84 05/31/2024 9:42 AM EDT Temperature 37.1 ??C (98.8 ??F) 05/31/2024 9:42 AM ED T Respiratory Rate 18 05/31/2024 9:42 AM EDT Oxygen Saturation 99% 05/20/2024 5:09 PM EDT Inhaled Oxygen Concentration - - Weight 54 kg (119 lb) 05/31/2024 9:42 AM EDT Height 161.2 cm (5' 3.48 ) 05/31/2024 9:42 AM ED T Body Mass Index 20.76 05/31/2024 9:42 AM EDT Plan of Treatment Upcoming Encounters Date Type Department Care Team (Late st Contact Info) Description 06/14/2024 1:30 PM EDT Office Visit [facility] [address] [place] [address] Yolanda Bess FNP [address] [place] [address] Health Maintenance Due Date Last Done Comments Hepatitis B Vaccines (1 of 3 - 19+ 3-dose series) 2013 COVID-19 Vaccine (2023-2 5 season) 2023 Influenza Vaccine (#1) 2023 Depression Monitoring 11/08/2024 05/08/2024 , 05/08/2024 Alcohol/Substance Use Screening 05/08/2025 05/08/2024 Depression Screening 05/08/2025 05/08/2024, 05/08/2024 Family Planning (PISQ) 05/08/2025 05/08/2024 SDOH Screening 05/08/2025 05/08/2024 Tobacco Screening 05/31/2025 05/31/2024 Pap Smear 05/10/2027 05/09/2024, 05/08/2024, 05/08/2024 Cervical Cancer Screening 05/09/2029 HPV/Cotest 05/09/2029 05/09/2024, 05/08/2024 DTaP/Tdap/Td Vaccines (2 - T d or Tdap) 08/10/2033 08/11/2023 Zoster Vaccines (1 of 2) 2044 RSV Patients and Patients Aged 60 years or older (1 - 1-dose 75+ series) 2069 HIV Screening Completed 05/08/2024 Hepatitis C Screening Completed 05/08/2024 HIB Vaccines Aged Out No longer eligi [...] Procedure Name Priority Date/Time Associated Diagnosis Comments HCG, TOTAL, QN Routine 05/22/2024 2:57 PM EDT LIPASE Routine 05/22/2024 2:57 PM EDT MAGNESIUM Routine 05/22/2024 2:57 PM EDT COMPREHENSIVE METABOLIC PANEL Routine 05/22/2024 2:57 PM EDT HIGH SENSITIVITY TROPONIN I Routine 05/22/2024 2:57 PM EDT CBC WITH AUTO DIFFERENTIAL Routine 05/22/2024 2:57 PM EDT SARS COV2/INFLUENZA A/B AND RSV RNA QL NAAT Routine 05/22/2024 2:57 PM EDT STREP A NUCLEIC ACID Routine 05/22/2024 2:57 PM EDT XR CHEST 2 VIEWS Routine 05/22/2024 2:06 PM EDT POCT INFLUENZA A (ID NOW RAPID MOLECULAR) Routine 05/20/2024 5:42 PM EDT Viral URI POCT INFLUENZA B (ID NOW RAPID MOLECULAR) Routine 05/20/2024 5:42 PM EDT Viral URI POCT RAPID COVID ANTIGEN Routine 05/20/2024 5:42 PM EDT Viral URI HM PAP/HPV Routine 05/09/2024 SYPHILIS SCREEN Routine 05/08/2024 10:41 AM EDT Screening examination for venereal disease HIV 1/2 ANTIGEN/ANTIBODY, FOURTH GENERATION W/RFL Routine 05/08/2024 10:41 AM EDT Screening examination for venereal disease HEPATITIS C AB W/REFL TO HCV RNA, QN, PCR Routine 05/08/2024 10:41 AM EDT Screening examination for venereal disease HEPATITIS B SURFACE ANTIGEN, EIA Routine 05/08/2024 10:41 AM EDT Screening examination for venereal disease HEPATITIS B SURFACE ANTIBODY, QUALITATIVE Routine 05/08/2024 10:41 AM EDT Screening examination for venereal disease HEPATITIS B CORE AB TOTAL Routine 05/08/2024 10:41 AM EDT Screening examination for venereal disease CHLAMYDIA/N. GONORRHOEAE AND T. VAGINALIS RNA, QUAL,TMA Routine 05/08/2024 9:51 AM EDT Screening examination for venereal disease PAP SMEAR Routine 05/08/2024 9:51 AM EDT Routine cervical smear HPV DNA, LOW/HIGH RISK Routine 9:51 AM EDT XR CHEST 2 VIEWS Routine 05/03/2024 10:5 3 AM EST Sternal pain from Last 3 Months Results * Strep A Nucleic Acid (05/22/2024 2:57 PM EDT) IDNOW SERIAL# [id number] [facility] Strep A Nucleic Acid Negative Negative [facility] Comment:All test results mus t be correlated with clinical findings.This test has not been evaluated for monitoring treatment ofinfection.Additional follow-up testing using the culture method isrequired if the result is negative and clinical symptomspersist, or in the event of an acute rheumatic feveroutbreak. 05/22/2024 2:57 PM EDT 05/22/2024 3:00 PM EDT us Generic External Data Provider LAB MICROBIOLOGY - GENERAL ORDERABLES Final Result Performing Organization Address [facility] Co de Phone Number [facility] [address] [place] [phone] * High Sensitivity Troponin I (05/22/2024 2:57 PM EDT) Pathologist [facility] TROPONIN I HIGH SENSITIVITY <2.7 <3.5 - 17.0 ng/L [facility] Comment:The Valladares high sens itivity Troponin-I results should beused in conjunction with other diagnostic information suchas ECG, clinical observations and information, and patientsymptoms to aid in the diagnosis of AL. 05/22/2024 2:57 PM EDT 05/22/2024 3:00 PM EDT us Generic External Data Provider LAB BLOOD ORDERAB LES Final Result Performing Organization Address City/[facility]/ZIP Co de Phone Number [facility] [address] [place] [phone] * SARS-CoV-2 RNA, Influenza A/B, and RSV RNA, Ql NAAT (05/22/2024 2:57 PM EDT) [facility] Influenza A PCR NEGATIVE Negative [facility] Influenza B PCR NEGATIVE Negative [facility] Resp Syncy Virus RNA Qual PCR NEGATIVE Negative [facility] SARS COV2 PCR NEGATIVE Negative [facility] Comment:All test results mus t be correlated with clinical findings.Negative results do not preclude SARS-CoV2, influenza Avirus, influenza B virus and/or RSV infectionand should not be used as the sole basis for treatment orother patient management decisions. Negative results must becombined with clinical observations, patient history, andepidemiological information.This test has not been evaluated for monitoring treatment ofinfection.This test has been authorized by the FDA under an EmergencyUse Authorization (EUA) for use by authorized laboratories.Testing performed on the [facility] GeneXpert utilizingreal-time RT-PCR.All SARS CoV2 and positive influenza A/B results arereported to [facility]. 05/22/2024 2:57 PM EDT 05/22/2024 3:00 PM EDT us Generic External Data Provider LAB MICROBIOLOGY - GENERAL ORDERABLES Final Result [facility] [address] [place] [address] [phone] * (ABNORMAL) CBC auto differential (05/22/2024 2:57 PM EDT) [facility] White Blood Count 10.1 4.8 - 10.8 X10*3/uL [facility] Red Blood Count 4.77 4.20 - 5.50 X10*6/uL [facility] Hemoglobin 12.6 12.0 - 16.0 g/dl [facility] Hematocrit 36.9(L) 37.0 - 47.0 % [facility] Mean Corpuscular Volume 77.4(L) 80.0 - 98.0 fL [facility] Mean Corpuscular Hemoglobin 26.4(L) 27.0 - 33.0 pg [facility] Mean Corpuscular HGB Conc 34.1 31.0 - 35.0 g/dl [facility] Red Cell Distribution Width 13.3 11.0 - 16.0 % [facility] Platelet Count 224 160 - 400 X10*3/uL [facility] Mean Platelet Volume 9.5 9.4 - 12.3 fL [facility] Neutrophils Percent Auto 81.9(H) 45 - 73 % [facility] Imm Gran Pct Auto 0.4 0.0 - 0.4 % [facility] Lymphocytes Percent Auto 9.3(L) 20 - 40 % [facility] Monocytes Percent Auto 8.3 2 - 11 % [facility] Eosinophils Percent Auto 0.0 0 - 4 % [facility] Basophils Percent Auto 0.1 0 - 2 % [facility] NRBC Pct Auto 0.0 0.0 - 0.2 /100WBC [facility] Neutrophils Absolute Auto 8.3 2.0 - 8.3 x10*3/uL [facility] Imm Gran Abs Auto 0.04(H) 0.00 - 0.03 X10*3/uL [facility] Lymphocytes Absolute Auto 0.9(L) 1.2 - 4.9 X10*3/uL [facility] Monocytes Absolute Auto 0.8 0.1 - 1.2 X10*3/uL [facility] Eosinophils Absolute Auto 0.0 0.0 - 0.4 X10*3/uL [facility] Basophils Absolute Auto 0.0 0.0 - 0.2 X10*3/uL [facility] NRBC Abs Auto 0.000 0.0 - 0.012 X10*3/uL [facility] 05/22/2024 2:57 PM EDT 05/22/2024 3:00 PM EDT us Generic External Data Provider LAB BLOOD ORDERAB LES Final Result [facility] [address] [place] [phone] [phone] * hCG, Total, Quantitative (05/22/2024 2:57 PM EDT) HCG Quantitative <2 mIU/mL [facility] Comment:Weeks post LMP Appr oximate hCG(Last Menstrual Period) Range (mIU/ml)3 - 4 weeks 9 - 1304 - 5 weeks 75 - 2,6005 - 6 weeks 850 - 20,8006 - 7 weeks 4000 - 100,2007 - 12 weeks 11,500 - 289,24486 - 16 weeks 18,300 - 137,31480 - 29 weeks (2nd trimester) 1,400 - 53,88933 - 41 weeks (3rd trimester) 940 - 60,000The Valladares B- hCG assay is used for the early detection ofpregnancy; it cannot be used to diagnose any conditionunrelated to . If a B-hCG level is not supportedby the clinical evidence, results should be confirmed by analternative method (qualitative urine hCG, for example). 05/22/2024 2:57 PM EDT 05/22/2024 3:00 PM EDT Generic External Data Provider LAB BLOOD ORDERAB LES Final Result Performing Organization Address [facility] Co de Phone Number [facility] [address] [place] [phone] * Magnesium (05/22/2024 2:57 PM EDT) Pathologist [facility] Magnesium 1.7 1.6 - 2.6 mg/dL [facility] 05/22/2024 2:57 PM EDT 05/22/2024 3:00 PM EDT Generic External Data Provider LAB BLOOD ORDERAB LES Final Result Performing Organization Address [facility] Co de Phone Number [facility] [address] [place] [phone] * Lipase (05/22/2024 2:57 PM EDT) Lipase 9 8 - 78 U/L [facility] 05/22/2024 2:57 PM EDT 05/22/2024 3:00 PM EDT us Generic External Data Provider LAB BLOOD ORDERAB LES Final Result [facility] [address] [place] [address] [phone] * (ABNORMAL) Comprehensive Metabolic Panel (05/22/2024 2:57 PM EDT) Sodium 139 135 - 145 mmol/L [facility] Potassium 4.0 3.3 - 5.1 mmol/L [facility] Chloride 106 96 - 108 mmol/L [facility] Carbon Dioxide 23 22 - 29 mmol/L [facility] Anion Gap 14 12 - 20 [facility] Urea Nitrogen (BUN) 8(L) 9 - 16 mg/dL [facility] Creatinine, Serum 0.67 0.5 - 1.4 mg/dL [facility] Creatinine Clr Calc Pharmacy 101.5 [facility] Comment:Provided height and weight: 160.02 cm,53.977 kg.eGFR (calculated from the MDRD study equation) and eCrCl(calculated from the Cockcroft-Gault equation) are based ondifferent parameters and may not yield comparable results.If eCrCl result is absurd, please check patient'sheight/weight. Estimated Glomerular Filt Rate >60 [facility] Comment:Chronic Kidney Disea se: Estimated GFR < 60 mL/min/1.73x3Yykdht Kidney Disease: Estimated GFR < 15 mL/min/1.73m2 Glucose 92 60 - 115 mg/dL [facility] Calcium 9.2 8.4 - 10.2 mg/dL [facility] Bilirubin, Total 0.7 0.0 - 1.0 mg/dL [facility] Aspartate Amino Transferase 38(H) 5 - 31 U/L [facility] Alanine Aminotransferase 38(H) 0 - 31 U/L [facility] Total Protein 7.6 6.5 - 8.0 g/dL [facility] Albumin Level 4.3 3.5 - 5.0 g/dL [facility] Alkaline Phosphatase 88 39 - 117 U/L [facility] 05/22/2024 2:57 PM EDT 05/22/2024 3:00 PM EDT us Generic External Data Provider LAB BLOOD ORDERAB LES Final Result [facility] [address] [place] [address] [phone] * XR Chest 2 Views (05/22/2024 2:06 PM EDT) Only the most recent of2 resultswithin the time period is included. Anatomical Region Laterality Modality Chest Radiographic Abbie ging 05/22/2024 2:06 PM EDT Narrative 05/22/2024 2:43 PM EDT ? [facility] ?[address] ?[place] [address] ?XRay Report ? Signed ? Patient: Miguelina Walsh ?MR#: [id number] ?? [id number] ? : 1995 ?Acct:[id number] ? Age/Sex: 29 / F ?ADM Date: 05/22/24 ? Loc: HO.ED ? Attending Dr: ? Ordering Physician: Kandy Connell NP ?? Date of Service: 05/22/24 ?? Procedure(s): XR chest 2V ?? Accession Number(s): [id number] ? cc: [facility]; Becki,Kandy BANKER MASON ? EXAMINATION: ??XR CHEST 2 VIEWS ? HISTORY: chest pain ? COMPARISON: Comparison is made with the prior examination dated ?? 05/03/2024. ? FINDINGS: ??PA and lateral views of the chest are submitted. The lungs ?? are expanded and clear. ??There is no pleural effusion, pneumothorax, or ?? pulmonary vascular congestion. ??The heart is normal in size. ??The bones ?? are intact. ? XR/XR chest 2V ?? IMPRESSION: ?? No acute cardiopulmonary abnormality. ? Electronically signed by: ??Marcelino Makr MD ??05/22/2024 02:40 PM EDT ? Dictated By: ?Marcelino Mark MD ? Signed By: ?<Electronically signed by Marcelino Mark MD in OV> ?05/22/24 1440 ? DD/ 1406 ? TD/TT: 05/22/24 1431 ? Certified Medical Technician: ? Procedure Note [place], Image - 05/22/[address] [address] XRay Report Signed Patient: Saul Walsh#: [id number] : 1995Acct:[id number] Age/Sex: 29 / FADM Date: 05/22/24 Loc: .ED Attending Dr: Ordering Physician: Kandy Connell NP Date of Service: 05/22/24 Procedure(s): XR chest 2V Accession Number(s): [id number] cc: [facility]; Kandy Connell NP EXAMINATION: XR CHEST 2 VIEWS HISTORY: chest pain COMPARISON: Comparison is made with the prior examination dated 05/03/2024. FINDINGS: PA and lateral views of the chest are submitted. The lungs are expanded and clear. There is no pleural effusion, pneumothorax, or pulmonary vascular congestion. The heart is normal in size. The bones are intact. XR/XR chest 2V IMPRESSION: No acute cardiopulmonary abnormality. Electronically signed by: Marcelino Mark MD 05/22/2024 02:40 PM EDT Dictated By: Marcelino Mark MD Signed By: <Electronically signed by Marcelino Mark MD in OV> 05/22/24 1440 DD/ 1406 TD/TT: 05/22/24 1431 Certified Medical Technician: us [facility] External Provider IMG XR PROCEDURES Final Result * POCT Rapid Influenza B VALLADARES ID NOW (05/20/2024 5:42 PM EDT) [facility] Influenza B Negative Negative, Indeterminate [facility] Swab 05/20/2024 5:42 PM EDT Kj Syed MD POINT OF CARE TEST ENTER/EDIT OR DERABLES Final Result Performing Organization Address [facility]/ZIP Co de Phone Number [facility] [address] [place] [phone] * POCT Rapid Influenza A VALLADARES ID NOW (05/20/2024 5:42 PM EDT) [facility] Influenza A Negative Negative, Indeterminate [facility] Swab 05/20/2024 5:42 PM EDT Kj Syed MD POINT OF CARE TEST ENTER/EDIT OR DERABLES Final Result Performing Organization Address [facility]/ZIP Co de Phone Number [facility] [address] [place] [phone] * POCT Rapid Covid-19 BinaxNOW (05/20/2024 5:42 PM EDT) [facility] Rapid COVID Ag Negative [facility] Swab 05/20/2024 5:42 PM EDT Kj Syed MD POINT OF CARE TEST ENTER/EDIT OR DERABLES Final Result Performing Organization Address [facility] Co de Phone Number [facility] [address] [place] [phone] * (ABNORMAL) HM PAP/HPV (05/09/2024) [facility] Pap Smear 1. NILM 1. NILM HPV Detected(A ) Undetected, Indeterminate , Quantitative, Not Detected Gerda Patel MD HEALTH MAINTENANCE Final Result * Syphilis Screen (05/08/2024 10:41 AM EDT) Syphilis Screen Nonreactive Nonreactive [facility] Blood Venous blood specimen / Unknown 05/08/2024 10:41 AM EDT 05/08/2024 11:45 AM EDT [facility]LES Final Res ult Performing Organization Address City/[facility]/ZIP Co de Phone Number [facility] [address] [place] [phone] * Hepatitis C Antibody with Reflex to HCV, RNA, Quantitative, Real-Time PCR (05/08/2024 10:41 AM EDT) Pathologist [facility] Hepatitis C Antibody Nonreactive Nonreactive [facility] Comment:Antibodies to HCV no t detected; does not exclude early acuteHCV infection. Blood Venous blood specimen / Unknown 05/08/2024 10:41 AM EDT 05/08/2024 11:45 AM EDT [facility] Final Res ult Performing Organization Address City/[facility]/ZIP Co de Phone Number [facility] [address] [place] [phone] * Hepatitis B surface antigen, EIA (05/08/2024 10:41 AM EDT) Pathologist [facility] Hepatitis B Surface Ag Negative Negative [facility] Blood Venous blood specimen / Unknown 05/08/2024 10:41 AM EDT 05/08/2024 11:45 AM EDT [facility] B[facility] ORDERABLES Final Res ult Performing Organization Address City/[facility]/ZIP Co de Phone Number [facility] [address] [place] [phone] * Hepatitis B Core Antibody, Total (05/08/2024 10:41 AM EDT) Pathologist [facility] Hepatitis B Core Antibody Nonreactive Nonreactive [facility] Blood Venous blood specimen / Unknown 05/08/2024 10:41 AM EDT 05/08/2024 11:45 AM EDT [facility] BLOOD ORDERABLES Final Res ult Performing Organization Address City/[facility]/ZIP Co de Phone Number [facility] [address] [place] [phone] * HIV-1/2 Antigen and Antibodies, Fourth Generation, with Reflexes (05/08/2024 10:41 AM EDT) [facility] HIV AB/AG Nonreactive Nonreactive [facility] Comment:HIV-1 p24 Ag and/or HIV-1/HIV-2 Ab not detected.A test result that is nonreactive does not exclude thepossibility of exposure to or infection with HIV-1 and/orHIV-2. Nonreactive results in this assay for individualswith prior exposure to HIV-1 and/or HIV-2 may be due toantigen and antibody levels that are below the limit ofdetection of this assay.The [employer] HIV Ag/Ab Combo assay result andsupplemental assay results should be interpreted inconjunction with the patient's clinical presentation,history and other laboratory results. If the results areinconsistent with clinical evidence, additional testing issuggested to confirm the result. Blood Venous blood specimen / Unknown 05/08/2024 10:41 AM EDT 05/08/2024 11:45 AM EDT [facility]anda [facility] LAB BLOOD ORDERABLES Final Res ult Performing Organization Address City/[facility]/ZIP Co de Phone Number [facility] [address] [place] [phone] * Hepatitis B Surface Antibody, Qualitative (05/08/2024 10:41 AM EDT) Pathologist [facility] ~Hepatitis B Surface Antibody NONREACTIVE Nonreactive [facility] Comment:Nonreactive: < 8.00 mIU/mL Blood Venous blood specimen / Unknown 05/08/2024 10:41 AM EDT 05/08/2024 11:45 AM EDT [facility] LAB BLOOD ORDERABLES Final Res ult [facility] [address] [place] [address] [phone] * STI testing add on (NG, CT, Trich) (05/08/2024 9:51 AM EDT) Trichomonas (NAAT) NOT DETECTED [facility] Comment:REFERENCE RANGE: NOT DETECTEDThe analytical performance characteristics of thisassay, when used to test SurePath(TM) specimens have beendetermined by [employer]. The modifications havenot been cleared or approved by the FDA. This assay hasbeen validated pursuant to the CLIA regulations and isused for clinical purposes.For additional information, please refer tohttps://education.Asthmatracker/faq/FMS315(This link is being provided for information/educational purposes only.)For additional information, please refer [email or web address].[email or web address]/faq/Trichomonastma(This link is being provided for informational/educational purposes only.)THIS TEST PERFORMED AT:[facility] [address] [phone] DIRECTOR: FLORA LAM MD CTNG Ref Lab NOT DETECTED NOT DETECTED [facility] NG Ref Lab NOT DETECTED NOT DETECTED [facility] ThinPrep?? vial Cervix uteri structure / Unknown 05/08/2024 9:51 AM EDT 05/09/2024 6:35 AM EDT Narrative [facility] - 05/17/2024 1:28 PM EDT Collection Date: [id number] by: GLOD Barcenas: Cervix Yolandaconstantino Bess [facility] CYTOLOGY ORDERABLES Final Result Performing Organization Address [facility] Co de Phone Number [facility] [address] [place] [address] [phone] * (ABNORMAL) HPV DNA, Low/High Risk (05/08/2024 9:51 AM EDT) HPV High Risk Positive(A) Negative [facility] HPV Genotype 16 Negative Negative [facility] HPV Genotype 18 Negative Negative [facility] Comment:HPV testing performe d at [facility] (CLIA#[id number]), [address] [place] [address].Testing for HPV was performed using the [employer] EMMANUEL ROI²0system. The presence of HPV in the female genital tract isassociated with a number of diseases, including cervicalcarcinoma. The HPV DNA high risk pool tests for HPV 31, 33,35, 39, 45, 51, 52, 56, 58, 59, 66 and 68. The testing forHPV 16 and 18 genotypes has also been performed. A positiveresult indicates detection of nucleic acid sequences fromone or more subtypes, whereas a negative result indicatessuch sequences were not detected. 05/08/2024 9:51 AM EDT 05/09/2024 6:37 AM EDT Yolandaconstantino Bess [facility] BLOOD ORDERABLES Final Res ult Performing Organization Address [facility] Co de Phone Number [facility] [address] [place] [address] [phone] Pap Smear (05/08/2024 9:51 AM EDT) Swab Cervix uteri structure / Unknown 05/08/2024 9:51 AM EDT 05/09/2024 6:10 AM EDT Narrative [facility] - 05/13/2024 4:01 PM EDT ----- ------- Name: BiggsMiguelina Dang ?Age/Sex: 29/F ? : 1995 Unit#: [id number] ?? Attend Dr: ?Re05/08/24 ?Status: PRE REF ? Location: HO.LNP ?Disch: ? ----- ------- SPEC : [id number] ? RECD: 05/09/24 ? STATUS: ??SOUT ? REQ NUM: [id number] ? ESSIE: 05/08/24 ? SUBM DR: Yolanda BessP ? ENTERED: ??05/09/24 ?SP TYPE: Pap Smr ?OTHR DR: ? ORDERED: ??Pap Smear ? Interpretation ?? Satisfactory for evaluation. ?? Negative for intraepithelial lesion or malignancy. ?? Coccobacilli consistent with shift in vaginal leeann. ? HPV High Risk: ??Positive ? HPV Genotyping 16: ??Negative ?? HPV Genotyping 18: ??Negative ?Clinical Information LMP: 04/11/24 Previous PAP test: Other surgery: Other history: IUD ? Material Received ?? ThinPrep-Cervical ----- ------- Signed (signature on file) ARMEN Santos (ASCP) 05/13/24 1601 ? ----- ------- ? END OF REPORT ? us Yolanda Bess MEDICAL DIRECTOR [facility] CYTOLOGY ORDERABLES Final Result [facility] [address] [place] [address] [phone] from Last [address] [place] [address] [place] [address] C3 Care Teams Director Of Digital Marketing Relationship Specialty Start Date End Date Yolanda Bess FNP [address] [place] [phone] PCP - General Family Medicine 05/08/24
== END 2024-06-11 18:20 | disposition home or self-care (01) ==
LOC: HO.MRI 18:19
PROVIDERS: Visit Provider Orthopaedic Surgery
DX: S83.241A Other tear of medial meniscus, current injury, right knee, initial encounter (principal)
CPT/HCPCS: 73721

== ENCOUNTER 2024-07-04 16:40 | Outpatient (REF) | payer MEDICAID, SELFPAY | END 2024-07-04 16:41 | disposition home or self-care (01) | LOC: HO.LNP 16:40 | PROVIDERS: Visit Provider Family Medicine | DX: J02.9 Acute pharyngitis, unspecified (principal) | CPT/HCPCS: 87070; 87147 ==

== ENCOUNTER 2024-07-17 08:57 | Outpatient (AMB) | payer MEDICAID, SELFPAY ==
--- NOTE | 2024-07-17 08:59 | A.OFFVIS_ITS ---
Vital Signs 07/17/24 09:01 Height 5 ft 3 in Weight 119 lb BMI 21.1 Intake Visit Reasons: OV- MRI review of right knee Intake Note: Miguelina is a 29 year old female who presents today for review of her right knee MRI results. She states that her right knee pain has improved somewhat since her last visit. She denies any locking or giving way. Allergies Iodinated Contrast Media [Iodinated Contrast Media - IV Dye] Allergy (Intermediate, Verified 07/17/24 09:01) RASH oxycodone [From PERCOCET] Allergy (Intermediate, Verified 07/17/24 09:01) TACHYCARDIA ketorolac [From Toradol] Allergy (Verified 07/17/24 09:01) Confusion Medication List - Last Reconciled 07/17/24 by Oral Griffiths MD acetaminophen (Tylenol Extra Strength) 1,000 mg (2 x 500 mg) PO Q8H PRN amoxicillin 500 mg PO BID cephalexin 500 mg PO QID 5 days cyclobenzaprine 5 mg PO TID PRN diphenoxylate-atropine 2.5-0.025 mg (Lomotil) 1 tab PO TID PRN ibuprofen 600 mg PO Q6H PRN morphine 15 mg PO BID PRN omeprazole 20 mg PO BID@0630,1630 ondansetron 4 mg PO TID PRN ondansetron 4 mg PO Q8H PRN polyethylene glycol 3350 (Miralax) 17 grams PO DAILY sennosides (senna) 8.6 mg PO BEDTIME PRN PFSH Medical History Muscle spasm Ovarian cyst Social History Household Members: Family Housing: Apartment Alcohol intake: never Patient Tobacco Use Status: Never used Tobacco Substance Use Type: Marijuana service: No Physical Exam Vital Signs: BMI result Body Mass Index 21.1 Const Other: Well-nourished well-developed very friendly female awake alert and oriented x3 in no acute distress Extrem Other: Bilateral lower extremity examination shows good capillary refill, no skin lesions noted, normal sensation light touch Right knee examination shows a minimal effusion, no crepitus with range of motion, negative Jovana's test, no instability Results Reviewed Results Reviewed: MRI of the patient's right knee shows no acute bony abnormalities, no significan t degenerative changes, no evidence of meniscus or ligamentous injury Assessment & Plan Assessment & Plan (1) Right knee pain: Code(s): M25.561 - Pain in right knee Category: Medical Plan Miguelina presents with intermittent right knee discomfort due to bony and soft tissue contusion. At this point the patient's symptoms continue to improve. We will hold off on a cortisone injection. She will continue with her activity modifications. She will follow up with me on an as-needed basis should her symptoms not plateau at an unacceptable level over the next few months. I spent 20 minutes in reviewing the patient's records and imaging studies, seeing the patient and documenting in the medical record. Coding Level of Care Code Est Pt Level 3 (59979) Complex EM visit Add On G2211 Diagnoses Right knee pain M25.561
[2024-07-17 09:01] VITALS: BMI 21.1
--- OUTSIDE RECORDS SUMMARY | 2024-07-17 10:15 | XMS_ITS | Patient Health Record ---
Author Organization [facility] Address [address] [place], [place] [id number] Care Team Providers Care Film And Video Graphics Designer Name Role Phone BURKE KENT Primary Care Provider [phone] Allergies Allergen (clinical drug ingredient) Drug/Non Drug [...] Problem Status W/U Status Risk Notes Problem 22209531 Slow transit constipation (K59.01) Active confirmed Problem 54951295 Other fatigue (R53.83) Active confirmed Problem 33799240037396380 Unspecified ovarian cyst, right side (N83.201) Active confirmed Problem 92892730706626572 Unspecified ovarian cyst, left side (N83.202) Active confirmed Problem 13095182 Anxiety (F41.9) Active confirmed Problem 238536251 BMI 20.0-20.9, adult (Z68.20) Active confirmed Problem 782333489 Moderate episode of recurrent major depressive disorder (F33.1) Active confirmed Problem 532365131 Screen for STD (sexually transmitted disease) (Z11.3) Active confirmed Problem 986861926 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
--- OUTSIDE RECORDS SUMMARY | 2024-07-17 10:15 | XMS_ITS | Clinical Summary ---
Author Organization [employer] Address [address] [place] [address] Care Team Providers Care Sheet Metal Duct Worker Supervisor Name Role Phone Yolanda Bess RADIAL DRILL PRESS SET UP OPERATOR Primary Care Provider [phone] Allergies Active Allergy Reactions Criticality Noted Date Comments Acetaminophen 02/06/2018 Iodinated Contrast Media 07/25/2018 Oxycodone 02/06/2018 Oxycodone-Acetaminophen Palpitations,Unknown Low Oxycodone allergy Medications * This document contains information received from the source organization and may not represent a complete record from that organization. cyclobenzaprine (Flexeril) 10 MG tabletIndicatio ns:Temporomandi bular disorder Take 10 mg by mouth at bedtime. Active omeprazole (PriLOSEC) [address] capsule Take 1 capsule by mouth every 48 hours. 1 Active Senna-Time 8.6 MG tablet Take 1 tablet by mouth if needed for constipation. 4 Active ibuprofen 600 MG tablet Take 1 tablet (600 mg) by mouth every 6 (six) hours if needed for mild pain. DO NOT TAKE WITH MELOXICAM 40 tablet 1 5 07/05/19 26 Active meloxicam (Mobic) 7.5 MG tabletIndicatio ns:Temporomandi bular disorder Take 1 tablet (7.5 mg) by mouth Once per day. 30 tablet 5 07/01/19 25 penicillin v potassium (Veetid) 500 MG tablet Take 1 tablet (500 mg) by mouth 2 times daily for 10 days. 20 tablet 5 07/15/19 25 predniSONE (Deltasone) 20 MG tablet Take 2 tablets (40 mg) by mouth Once per day for 3 days. 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 Date Type Department Care Team Description 07/11/2024 Telephone [facility] MEDICINE [address] [place] [phone] Yolanda Bess FNP Renetta Recall 07/04/2024 1:00 PM EDT Office Visit [facility] WALK[facility]IN [facility]ENTER [address] [place] [address] Love Yuen DO Pharyngitis, unspecified etiology (Primary Dx) 07/04/2024 Travel 06/18/2024 Telephone [facility] MEDICINE [address] [place] [phone] Yolanda Bess FNP Results 06/14/2024 1:30 PM EDT Office Visit [facility] MEDICINE [address] [place] [address] Yolanda Bess FNP Moderate episode of recurrent major depressive disorder (CMS/HCC) (Primary Dx); Temporomandibular disorder 06/14/2024 Travel 06/06/2024 Telephone [facility] MEDICINE [address] [place] [address] Yolanda Bess FNP 06/06/2024 Telephone [facility] MEDICINE [address] [place] [address] Yolanda Bess FNP 06/04/[address] [address] Yolanda Bess FNP Pt1 request (Pt requesting pt1 and is in need of transportation to appointment in [place] from [address] [facility] [address]/to [address] [facility] [address]. Pt reports her appointment is on 06/10/2024.); PT1 Submitted 05/31/2024 9:30 AM EDT Office Visit [address] [address] Yolanda Bess FNP Well adult on routine health check (Primary Dx); Depressive disorder; Temporomandibular disorder 05/31/2024 Travel 05/30/2024 Travel 05/27/[address] [address] Yolanda Bess FNP Results 05/24/2024 Patient Outreach [facility] CH[facility] MED & PEDS [address] [place], [place] [phone] Yolanda Bess FNP Pre-visit Planning (SDOH was already completed. ) 05/20/2024 6:00 PM EDT Office Visit [facility] WALK[facility] [address] [place] [phone] Kj Syed MD Viral URI (Primary Dx) 05/15/[address] [address] Yolanda Bess FNP 05/15/[address] [address] Yolanda Bess FNP 05/14/2024 2:00 PM EDT Office Visit [facility] [address] [place] [phone] Ghazala Cabezas MD Bilateral temporomandibular joint pain (Primary Dx) 05/14/2024 Travel 05/10/2024 Population Health Risk Score [facility] Department [address] [phone] Provider, Population Health Generic 05/08/2024 9:00 AM EDT Procedure Visit [facility] [address] Yolanda Bess FNP Encounter for IUD removal (Primary Dx); Routine cervical smear; Screening examination for venereal disease 05/08/2024 Orders Only [facility] [place] [address] Yolanda Bess FNP High risk human papillomavirus (HPV) detected (Primary Dx) 05/08/2024 Abstract [facility] [address] Yolanda Bess FNP 05/08/2024 Travel 05/07/2024 Telephone [facility] [place] [address] Dick Martinez MD New patient appt. 05/03/2024 [address] [place] [address] Dick Martinez MD 05/01/2024 7:00 PM EST Office Visit [facility] [place] [address] Raven Payne FNP Sternal pain (Primary Dx); Vomiting, unspecified vomiting type, unspecified whether nausea present; Costochondritis 05/01/2024 Travel from Last 3 Months Immunizations Immunization Administration Dates Next Due Tdap 08/11/2023 Family [...] Answer Date Recorded Patient Health Questionnaire-9 Score 20 06/14/2024 Patient Health Questionnaire-9 Score 20 06/14/2024 Last PHQ-9: Questionnaire Data Not on file 0 06/14/2024 Housing Stability Answer Date Recorded What is [...] Answer Date Recorded Patient Health Questionnaire-2 Score 4 06/14/2024 Internet Access Answer Date Recorded Internet Access Q1 Yes 05/08/2024 Internet Access Q2 Not on file 05/08/2024 Comments Unknown Intention Date Recorded Ambivalent about becoming (find ing) 06/14/2024 Sex and Gender Information Value Date Recorded Sex Assigned at Female 12/27/2021 10:19 AM EDT Legal Sex Female 10:19 AM EDT Gender Identity Female 12/27/2021 10:19 AM EDT Sexual Orientation Straight 12/27/2021 10 :19 AM EDT Last Filed Vital Signs Vital Sign Reading Time Taken Comments Blood Pressure 106/67 07/04/2024 12:56 PM EDT Pulse 103 07/04/2024 12:56 PM EDT Temperature 36.9 ??C (98.5 ??F) 07/04/2024 1 2:56 PM EDT Respiratory Rate 17 07/04/2024 12:5 6 PM EDT Oxygen Saturation 97% 07/04/2024 12: 56 PM EDT Inhaled Oxygen Concentration - - Weight 57.5 kg (126 lb 12.8 oz) 025 12:56 PM EDT Height 161.2 cm (5' 3.48 ) 06/14/2024 1:09 PM ED T Body Mass Index 22.12 06/14/2024 1:09 PM EDT Plan of Treatment Health Maintenance Due Date Last Done Comments Hepatitis B Vaccines (1 of 3 - 19+ 3-dose series) 2013 COVID-19 Vaccine (1 - 2023-2 5 season) 2023 Influenza Vaccine (#1) 2023 Alcohol/Substance Use Screening 05/08/2025 05/08/2024 SDOH Screening 05/08/2025 05/08/2024 Disability Screening 05/30/2025 05/30/2024 Depression Screening 06/14/2025 06/14/2024, 06/14/2024 Family Planning (PISQ) 06/17/2025 06/17/2024 Tobacco Screening 07/04/2025 07/04/2024 Pap Smear 05/10/2027 05/09/2024, 05/08/2024, 05/08/2024 Cervical [...] patient's age to complete this topic Meningococcal B Vaccine Aged Out No l onger eligible based on patient's age to complete [...] Procedure Name Priority Date/Time Associated Diagnosis Comments CULTURE, THROAT Routine 07/04/2024 1:13 PM EDT Pharyngitis, unspecified etiology POCT INFLUENZA B (ID NOW RAPID MOLECULAR) Routine 07/04/2024 1:12 PM EDT Pharyngitis, unspecified etiology POCT INFLUENZA A (ID NOW RAPID MOLECULAR) Routine 07/04/2024 1:12 PM EDT Pharyngitis, unspecified etiology POCT RAPID STREP A Routine 07/04/2024 1: 12 PM EDT Pharyngitis, unspecified etiology POCT RAPID COVID ANTIGEN Routine 07/04/2024 1:12 PM EDT Pharyngitis, unspecified etiology HCG, TOTAL, QN Routine 05/22/2024 2:57 PM [...] pain from Last 3 Months Results * Culture, Throat (07/04/2024 1:13 PM EDT) Throat Structure of anterior portion of neck / Unknown 07/04/2024 1:13 PM EDT 07/04/2024 4:41 PM EDT Comment:Throat Narrative [facility] - 07/06/2024 11:02 AM EDT Throat Culture No Group A Beta-hemolytic Streptococci isolated. Specimen Source: Throat us Love Yuen DO LAB MICROBIOLOGY - GENERAL O RDERABLES Final Result Performing Organization Address [facility]/ZIP Co de Phone Number [facility] [address] [place] [phone] * Influenza B (ID NOW Rapid Molecular) (07/04/2024 1:12 PM EDT) Only the most recent of2 resultswithin the time period is included. Influenza B Negative Negative, Indeterminate [facility] Swab 07/04/2024 1:12 PM EDT us Love Yuen DO POINT OF CARE TEST ENTER/DARLENE T ORDERABLES Final Result Performing Organization Address [facility] Co de Phone Number [facility] [address] [place] [phone] * Influenza A (ID NOW Rapid Molecular) (07/04/2024 1:12 PM EDT) Only the most recent of2 resultswithin the time period is included. Influenza A Negative Negative, Indeterminate [facility] Swab 07/04/2024 1:12 PM EDT us Love Yuen DO POINT OF CARE TEST ENTER/DARLENE T ORDERABLES Final Result Performing Organization Address City/[facility]/ZIP Co de Phone Number [facility] [address] [place] [phone] * POCT Rapid COVID Ag (07/04/2024 1:12 PM EDT) Only the most recent of2 resultswithin the time period is included. Rapid COVID Ag Negative [facility] Swab 07/04/2024 1:12 PM EDT Love Yuen DO POINT OF CARE TEST ENTER/DARLENE T ORDERABLES Final Result Performing Organization Address [facility] de Phone Number [facility] [address] [place] [phone] * POCT rapid strep A manually resulted (07/04/2024 1:12 PM EDT) [facility] Rapid Strep A Screen Negative Negative, None Detected [facility] Swab 07/04/2024 1:12 PM EDT Love Yuen DO POINT OF CARE TEST ENTER/DARLENE T ORDERABLES Final Result Performing Organization Address [facility] Phone Number [facility] [address] [place] [phone] * Strep A Nucleic Acid (05/22/2024 2:57 PM EDT) Pathologist [facility] IDNOW SERIAL# [id number] [facility] Strep A Nucleic Acid Negative Negative [facility] Comment:All test results mus t [...] GENERAL ORDERABLES Final Result Performing Organization Address [facility]/ZIP Co de Phone Number [facility] [address] [place] [phone] * High Sensitivity Troponin I (05/22/2024 2:57 PM EDT) TROPONIN I HIGH SENSITIVITY <2.7 <3.5 - 17.0 ng/L [facility] Comment:The Edge high sens itivity Troponin-I results should beused in conjunction with other diagnostic information suchas ECG, clinical observations and information, and patientsymptoms to aid in the diagnosis of [place]. 05/22/2024 2:57 PM EDT 05/22/2024 3:00 PM EDT us Generic External Data Provider LAB BLOOD ORDERAB LES Final Result [facility] [address] [place] [phone] * SARS-CoV-2 RNA, Influenza A/B, and RSV RNA, Ql NAAT (05/22/2024 2:57 PM EDT) [facility] Influenza A PCR NEGATIVE Negative [facility] Influenza B PCR NEGATIVE Negative [facility] Resp Syncy Virus RNA Qual PCR NEGATIVE Negative [facility] SARS COV2 PCR NEGATIVE Negative [facility] Comment:All test results mus t [...] use by authorized laboratories.Testing performed on the [employer] GeneXpert utilizingreal-time RT-PCR.All SARS CoV2 and positive influenza A/B results arereported to [facility]. 05/22/2024 2:57 PM EDT 05/22/2024 3:00 PM EDT us Generic External Data Provider LAB MICROBIOLOGY - GENERAL ORDERABLES Final Result [facility] [address] [place] [phone] * (ABNORMAL) CBC auto differential (05/22/2024 2:57 PM EDT) White Blood Count 10.1 4.8 - 10.8 X10*3/uL [facility] Red Blood Count 4.77 4.20 - 5.50 X10*6/uL [facility] Hemoglobin 12.6 12.0 - 16.0 g/dl [facility] Hematocrit 36.9(L) 37.0 - 47.0 % [facility] Mean Corpuscular Volume 77.4(L) 80.0 - 98.0 fL [facility] Mean Corpuscular Hemoglobin 26.4(L) 27.0 - 33.0 pg [facility] Mean Corpuscular HGB Conc 34.1 31.0 - 35.0 g/dl [facility] Red Cell Distribution Width 13.3 11.0 - 16.0 % [facility] Platelet Count 224 160 - 400 X10*3/uL [facility] Mean Platelet Volume 9.5 9.4 - 12.3 fL [facility] Neutrophils Percent Auto 81.9(H) 45 - 73 % [facility] Imm Gran Pct Auto 0.4 0.0 - 0.4 % [facility] Lymphocytes Percent Auto 9.3(L) 20 - 40 % [facility] Monocytes Percent Auto 8.3 2 - 11 % [facility] Eosinophils Percent Auto 0.0 0 - 4 % [facility] Basophils Percent Auto 0.1 0 - 2 % [facility] NRBC Pct Auto 0.0 0.0 - 0.2 /100WBC [facility] Neutrophils Absolute Auto 8.3 2.0 - 8.3 x10*3/uL [facility] Imm Gran Abs Auto 0.04(H) 0.00 - 0.03 X10*3/uL [facility] Lymphocytes Absolute Auto 0.9(L) 1.2 - 4.9 X10*3/uL [facility] Monocytes Absolute Auto 0.8 0.1 - 1.2 X10*3/uL [facility] Eosinophils Absolute Auto 0.0 0.0 - 0.4 X10*3/uL [facility] Basophils Absolute Auto 0.0 0.0 - 0.2 X10*3/uL [facility] NRBC Abs Auto 0.000 0.0 - 0.012 X10*3/uL [facility] 05/22/2024 2:57 PM EDT 05/22/2024 3:00 PM EDT us Generic External Data Provider LAB BLOOD ORDERAB LES Final Result [facility] [address] [place] [phone] * hCG, Total, Quantitative (05/22/2024 2:57 PM EDT) HCG Quantitative <2 mIU/mL [facility] Comment:Weeks post LMP Appro ximate hCG(Last Menstrual Period) Range (mIU/ml)3 - 4 weeks 9 - 1304 - 5 weeks 75 - 2,6005 - 6 weeks 850 - 20,8006 - 7 weeks 4000 - 100,2007 - 12 weeks 11,500 - 289,69421 - 16 weeks 18,300 - 137,19561 - 29 weeks (2nd trimester) 1,400 - 53,06359 - 41 weeks (3rd trimester) 940 - 60,000The Edge B- hCG assay is used for the [...] ORDERAB LES Final Result Performing Organization Address [facility]/ZIP Co de Phone Number [facility] [address] [place] [phone] * Magnesium (05/22/2024 2:57 PM EDT) Pathologist [facility] Magnesium 1.7 1.6 - 2.6 mg/dL [facility] 05/22/2024 2:57 PM EDT 05/22/2024 3:00 PM EDT Generic External Data Provider LAB BLOOD ORDERAB LES Final Result Performing Organization Address [facility] Co de Phone Number [facility] [address] [place] [phone] * Lipase (05/22/2024 2:57 PM EDT) [facility] Lipase 9 8 - 78 U/L [facility] 05/22/2024 2:57 PM EDT 05/22/2024 3:00 PM EDT Generic External Data Provider LAB BLOOD ORDERAB LES Final Result Performing Organization Address [facility] Co de Phone Number [facility] [address] [place] [phone] * (ABNORMAL) Comprehensive Metabolic Panel (05/22/2024 2:57 PM EDT) [facility] Sodium 139 135 - 145 mmol/L [facility] Potassium 4.0 3.3 - 5.1 mmol/L [facility] Chloride 106 96 - 108 mmol/L [facility] Carbon Dioxide 23 22 - 29 mmol/L [facility] Anion Gap 14 12 - 20 [facility] Urea Nitrogen (BUN) 8(L) 9 - 16 mg/dL [facility] Creatinine, Serum 0.67 0.5 - 1.4 mg/dL [facility] Creatinine Clr Calc Pharmacy 101.5 [facility] Comment:Provided height and weight: 160.02 cm,53.977 kg.eGFR (calculated from the MDRD study equation) and eCrCl(calculated from the Cockcroft-Gault equation) are based ondifferent parameters and may not yield comparable results.If eCrCl result is absurd, please check patient'sheight/weight. Estimated Glomerular Filt Rate >60 [facility] Comment:Chronic Kidney Disea se: Estimated GFR < 60 mL/min/1.86l3Etwfwu Kidney Disease: Estimated GFR < 15 mL/min/1.73m2 Glucose 92 60 - 115 mg/dL [facility] Calcium 9.2 8.4 - 10.2 mg/dL [facility] Bilirubin, Total 0.7 0.0 - 1.0 mg/dL [facility] Aspartate Amino Transferase 38(H) 5 - 31 U/L [facility] Alanine Aminotransferase 38(H) 0 - 31 U/L [facility] Total Protein 7.6 6.5 - 8.0 g/dL [facility] Albumin Level 4.3 3.5 - 5.0 g/dL [facility] Alkaline Phosphatase 88 39 - 117 U/L [facility] 05/22/2024 2:57 PM EDT 05/22/2024 3:00 PM EDT us Generic External Data Provider LAB BLOOD ORDERAB LES Final Result Performing Organization Address [facility]/State/ZIP Co de Phone Number [facility] [address] [place] [phone] * XR Chest 2 Views (05/22/2024 2:06 PM EDT) Only the most recent of2 resultswithin the time period is included. Anatomical Region Laterality Modality Chest Radiographic Abbie ging 05/22/2024 2:06 PM EDT Narrative 05/22/2024 2:43 PM EDT ? [facility] ?[address] ?[place] [address] ?XRay Report ? Signed ? Patient: Rangel Renetta,Yohannie ?MR#: [id number] ?? [id number] ? : 1995 ?Acct:[id number] ? Age/Sex: 29 / F ?ADM Date: 05/22/24 ? Loc: HO.ED ? Attending Dr: ? Ordering Physician: Kandy Connell NP ?? Date of Service: 05/22/24 ?? Procedure(s): XR chest 2V ?? Accession Number(s): [id number] ? cc: [facility]; Kandy Connell NP ? EXAMINATION: ??XR CHEST 2 VIEWS ? [...] ? Electronically signed by: ??Marcelino Mark MD ??05/22/2024 02:40 PM EDT ?? RP ? Dictated By: ?Marcelino Mark MD ? Signed By: ?<Electronically signed by Marcelino Mark MD in OV> ?05/22/24 1440 ? DD/ 1406 ? TD/TT: 05/22/24 1431 ? Management Instructor: ? Procedure Note Lit Espinoza - 05/22/2024 [place] [address] XRay Report Signed Patient: Saul Walsh#: [id number] : 1995Acct:[id number] Age/Sex: 29 / FADM Date: 05/22/24 Loc: HO.ED Attending Dr: Ordering Physician: Kandy Connell NP Date of Service: 05/22/24 Procedure(s): XR chest 2V Accession Number(s): [id number] cc: [facility]; Becki,Kandy [employer]ER EXAMINATION: XR CHEST 2 VIEWS HISTORY: chest [...] Marcelino Mark MD 05/22/2024 02:40 PM EDT RP Dictated By: Marcelino Mark MD Signed By: <Electronically signed by Marcelino Mark MD in OV> 05/22/24 1440 DD/ 1406 TD/TT: 05/22/24 1431 Management Instructor: [facility] External Provider IMG XR PROCEDURES Final Result * (ABNORMAL) HM PAP/HPV (05/09/2024) Pathologist [facility] Pap Smear 1. NILM 1. NILM HPV Detected(A ) Undetected, Indeterminate , Quantitative, Not Detected Historical Provider HEALTH MAINTENANCE Final Result * Syphilis Screen (05/08/2024 10:41 AM EDT) [facility] Syphilis Screen Nonreactive Nonreactive [facility] Blood Venous blood specimen / Unknown 05/08/2024 10:41 AM EDT 05/08/2024 11:45 AM EDT Yolanda Bess RADIAL DRILL PRESS SET UP OPERATOR LAB BLOOD ORDERABLES Final Res ult [facility] [address] [place] [phone] * Hepatitis C Antibody with Reflex to HCV, RNA, Quantitative, Real-Time PCR (05/08/2024 10:41 AM EDT) Pathologist [facility] Hepatitis C Antibody Nonreactive Nonreactive [facility] Comment:Antibodies to HCV no t detected; does not exclude early acuteHCV infection. Blood Venous blood specimen / Unknown 05/08/2024 10:41 AM EDT 05/08/2024 11:45 AM EDT Yolanda [facility] LAB BLOOD ORDERABLES Final Res ult Performing Organization Address [facility]/ZIP Co de Phone Number [facility] [address] [place] [phone] * Hepatitis B surface antigen, EIA (05/08/2024 10:41 AM EDT) Hepatitis B Surface Ag Negative Negative [facility] Blood Venous blood specimen / Unknown 05/08/2024 10:41 AM EDT 05/08/2024 11:45 AM EDT [employer] [facility] LAB BLOOD ORDERABLES Final Res ult Performing Organization Address [facility] Co de Phone Number [facility] [address] [place] [phone] * Hepatitis B Core Antibody, Total (05/08/2024 10:41 AM EDT) Hepatitis B Core Antibody Nonreactive Nonreactive [facility] Blood Venous blood specimen / Unknown 05/08/2024 10:41 AM EDT 05/08/2024 11:45 AM EDT [facility]anda [facility] LAB BLOOD ORDERABLES Final Res ult Performing Organization Address [facility] Co de Phone Number [facility] [address] [place] [phone] * HIV-1/2 Antigen and Antibodies, Fourth Generation, with Reflexes (05/08/2024 10:41 AM EDT) HIV AB/AG Nonreactive Nonreactive [facility] Comment:HIV-1 p24 Ag and/or HIV-1/HIV-2 Ab not detected.A test result that is nonreactive does not exclude thepossibility of exposure to or infection with HIV-1 and/orHIV-2. Nonreactive results in this assay for individualswith prior exposure to HIV-1 and/or HIV-2 may be due toantigen and antibody levels that are below the limit ofdetection of this assay.The [employer] HIV Ag/Ab Combo assay result andsupplemental assay results should be interpreted inconjunction with the patient's clinical presentation,history and other laboratory results. If the results areinconsistent with clinical evidence, additional testing issuggested to confirm the result. Blood Venous blood specimen / Unknown 05/08/2024 10:41 AM EDT 05/08/2024 11:45 AM EDT [employer] BLOOD ORDERABLES Final Res ult Performing Organization Address [facility]/ZIP Co de Phone Number [facility] [address] [place] [phone] * Hepatitis B Surface Antibody, Qualitative (05/08/2024 10:41 AM EDT) ~Hepatitis B Surface Antibody NONREACTIVE Nonreactive [facility] Comment:Nonreactive: < 8.00 mIU/mL Blood Venous blood specimen / Unknown 05/08/2024 10:41 AM EDT 05/08/2024 11:45 AM EDT [facility] Final Res ult Performing Organization Address [facility] Co de Phone Number [facility] [address] [place] [phone] * STI testing add on (NG, CT, Trich) (05/08/2024 9:51 AM EDT) Pathologist [facility] Trichomonas (NAAT) NOT DETECTED [facility] Comment:REFERENCE RANGE: NOT DETECTEDThe analytical performance characteristics of thisassay, when used to test SurePath(TM) specimens have beendetermined by [employer]. The modifications havenot been cleared or approved by the FDA. This assay hasbeen validated pursuant to the CLIA regulations and isused for clinical purposes.For additional information, please refer tohttps://education.qualifyor/faq/MEX120(This link is being provided for information/educational purposes only.)For additional information, please refer tohttp://education.qualifyor/faq/Trichomonastma(This link is being provided for informational/educational purposes only.)THIS TEST PERFORMED AT:[facility] [place] [address] [phone] DIRECTOR: FLORA LAM MD CTNG Ref Lab NOT DETECTED NOT DETECTED [facility] NG Ref Lab NOT DETECTED NOT DETECTED [facility] ThinPrep?? vial Cervix uteri structure / Unknown 05/08/2024 9:51 AM EDT 05/09/2024 6:35 AM EDT Narrative [facility] - 05/17/2024 1:28 PM EDT Collection Date: [id number] by: GOLD Barcenas: Cervix Yolanda Bess [facility] CYTOLOGY ORDERABLES Final Result [facility] [address] [place] [address] [phone] * (ABNORMAL) HPV DNA, Low/High Risk (05/08/2024 9:51 AM EDT) HPV High Risk Positive(A) Negative [facility] HPV Genotype 16 Negative Negative [facility] HPV Genotype 18 Negative Negative [facility] Comment:HPV testing performe d at [facility] (CLIA#[id number]), [address] [place] [phone].Testing for HPV was performed using the Shaila EMMANUEL 6800system. The presence of HPV in the female [...] 9:51 AM EDT 05/09/2024 6:37 AM EDT us Yolanda Bess [facility] BLOOD ORDERABLES Final Res ult [facility] [address] [place] [phone] * Pap Smear (05/08/2024 9:51 AM EDT) Swab Cervix uteri structure / Unknown 05/08/2024 9:51 AM EDT 05/09/2024 6:10 AM EDT Narrative [facility] - 05/13/2024 4:01 PM EDT ----- ------- Name: Miguelina Walsh ?Age/Sex: 29/F ? : 1995 Unit#: [id number] ?? Attend Dr: ?Re05/08/24 ?Status: PRE REF ? Location: HO.LNP ?Disch: ? ----- ------- SPEC : [id number] ? RECD: 05/09/24 ? STATUS: ??SOUT ? REQ NUM: [id number] ? ESSIE: 05/08/24 ? SUBM DR: Yolanda Bess ? ENTERED: ??05/09/24 ?SP TYPE: Pap Smr [...] ------- Signed (signature on file) ARMEN Santos ([facility]) 05/13/24 1601 ? ----- ------- ? END OF REPORT ? Yolanda Bess [facility] CYTOLOGY ORDERABLES Final Result [facility] [address] [place] [address] [phone] from Last 3 Months Insurance [facility] C3 Care Teams Sheet Metal Duct Worker Supervisor Relationship Specialty Start Date End Date Yolanda Bess FNP [address] [place] [phone] PCP - General Family Medicine 05/08/24
--- OUTSIDE RECORDS SUMMARY | 2024-07-17 10:15 | XMS_ITS | Encounter Summary ---
Author Organization [employer] Address [address] [facility] [place] [address] Care Team Providers Care Pet Technologist Name Role Phone Yolanda Bess INSIGHTS ANALYST Primary Care Provider [phone] Encounter Details Date Type Department Care Team ([facility] st Contact Info) Description 05/08/2024 Abstract [facility] [address] [place] [address] Yolanda Bess FNP [address] [place] [address] Social History Tobacco Use Types Packs/Day Years [...] AM EDT documented as of this encounter Functional Status * Over the past 2 weeks, how often have you been bothered by any of the following problems? Question Answer Date of Assessment Author Patient Health Questionnaire -2 Score 2 05/08/2024 10:16 AM EDT Daily Roldan [place] * Little interest or pleasure in doing things Answer Date of Assessment Author Several days 05/08/2024 10:16 AM Daily Maldonado [place] * Feeling down, depressed, or hopeless Answer Date of Assessment Author Several days 05/08/2024 10:16 AM Daily Maldonado [place] * Trouble falling or staying asleep, or sleeping too much Answer Date of Assessment Author More than half the days 05/08/2024 10:16 AM Daily Maldonado [place] * Feeling tired or having little energy Answer Date of Assessment Author More than half the days 05/08/2024 10:16 AM Daily Maldonado [place] * Poor appetite or overeating Answer Date of Assessment Author More than half the days 05/08/2024 10:16 AM Daily Maldonado [place] * Feeling bad about yourself - or that you are a failure or have let yourself or your family down Answer Date of Assessment Author Several days 05/08/2024 10:16 AM Daily Maldonado [place] * Trouble concentrating on things, such as reading the newspaper or watching television Answer Date of Assessment Author Several days 05/08/2024 10:16 AM Daily Maldonado [place] * Moving or speaking so slowly that other people could have noticed? Or the opposite - being so fidgety or restless that you have been moving around a lot more than usual. Answer Date of Assessment Author Several days 05/08/2024 10:16 AM Daily Maldonado [place] * Thoughts that you would be better off or hurting yourself in some way Answer Date of Assessment Author Not at all 05/08/2024 10:16 AM Daily Maldonado [place] * Patient Health Questionnaire-9 Score Answer Date of Assessment Author 11 05/08/2024 10:16 AM Daily Maldonado [place] * How difficult have these problems made it for you to do your work, take care of things at home, or get along with other people? Answer Date of Assessment Author Somewhat difficult 05/08/2024 10:16 AM Daily Manzo [place] * Over the last 2 weeks, how often have you been bothered by any of the following problems? Question Answer Date of Assessment Author Feeling nervous, anxious, or on edge 2 05/08/2024 10:16 AM Daily Maldonado [place] Not being able to stop or co ntrol worrying 2 05/08/2024 10:16 AM Daily Maldonado [place] Worrying too much about diff erent things 2 05/08/2024 10:16 AM Daily Maldonado [place] Trouble relaxing 1 05/08/2024 10:16 AM Daily Maldonado [place] Being so restless that it is hard to sit still 0 05/08/2024 10:16 AM Daily Maldonado MA Becoming easily annoyed or irritable 2 05/08/2024 10:16 AM Daily Maldonado [place] Feeling afraid as if somethi ng awful might happen 0 05/08/2024 10:16 AM Daily Maldonado [place] YENI-7 Total Score 9 05/08/2024 10:16 AM Daily Maldonado [place] documented as of this encounter Plan of Treatment Not on file documented as of this encounter Visit Diagnoses Not on filedocumented in this encounter Additional Health Concerns Assessment Noted Time PHQ-9 Depression Total Score: 11 025 10:16 AM EDT documented as of this encounter Care Teams Pet Technologist Relationship Specialty Start Date End Date Yolanda Bess FNP [address] [place] [address] PCP - General Family Medicine 05/08/24 documented as of this encounter
== END 2024-07-17 09:15 | disposition home or self-care (01) ==
LOC: HO.HOS 08:58
PROVIDERS: Visit Provider Orthopaedic Surgery
DX: M25.561 Pain in right knee (principal)
CPT/HCPCS: 99213

== ENCOUNTER → 2024-07-17 08:57 | Outpatient (BNVA) | payer MEDICAID, SELFPAY | PROVIDERS: Visit Provider Orthopaedic Surgery | DX: M25.561 Pain in right knee (principal) | CPT/HCPCS: 99212 ==

== ENCOUNTER 2024-08-01 15:32 | Outpatient (REF) | payer MEDICAID, SELFPAY ==
[2024-08-01 16:09] LABS: MANUAL DIFF FLAG NO
[2024-08-01 16:17] LABS: Basophils Percent Auto 0.6 % (0-2); Eosinophils Percent Auto 0.8 % (0-4); Hematocrit 34.4 % (37.0-47.0); Hemoglobin 11.4 g/dl (12.0-16.0); Imm Gran Abs Auto 0.02 X10*3/uL (0.00-0.03); Imm Gran Pct Auto 0.4 % (0.0-0.4); Lymphocytes Absolute Auto 2.4 X10*3/uL (1.2-4.9); Lymphocytes Percent Auto 49.8 % (20-40); Mean Corpuscular HGB Conc 33.1 g/dl (31.0-35.0); Mean Corpuscular Hemoglobin 26.6 pg (27.0-33.0); Mean Corpuscular Volume 80.2 fL (80.0-98.0); Mean Platelet Volume 9.3 fL (9.4-12.3); Monocytes Absolute Auto 0.4 X10*3/uL (0.1-1.2); Monocytes Percent Auto 8.1 % (2-11); Neutrophils Absolute Auto 1.9 x10*3/uL (2.0-8.3); Neutrophils Percent Auto 40.3 % (45-73); Platelet Count 264 X10*3/uL (160-400); Red Blood Count 4.29 X10*6/uL (4.20-5.50); White Blood Count 4.8 X10*3/uL (4.8-10.8)
[2024-08-01 17:02] LABS: Estimated Average Glucose 105 mg/dL; Hemoglobin A1c % 5.3 % (<6.0)
[2024-08-01 17:08] LABS: Anion Gap 8 (12-20); Blood Urea Nitrogen 9 mg/dL (9-16); Calcium 8.8 mg/dL (8.4-10.2); Carbon Dioxide 28 mmol/L (22-29); Chloride 106 mmol/L (96-108); Estimated Glomerular Filt Rate > 60; Glucose Random 84 mg/dL (60-115); Potassium 3.9 mmol/L (3.3-5.1); Sodium 138 mmol/L (135-145)
[2024-08-01 17:24] LABS: Free T4 (Free Thyroxine) 1.07 ng/dL (0.71-1.85); Thyroid Stimulating Hormone 0.98 uIU/mL (0.32-4.0); Vitamin D 25-OH Total 20.2 ng/mL (>30)
[2024-08-02 17:01] LABS: Iron 71 mcg/dL (30-160); Percent Iron Saturation 27 % (15-50); Total Iron Binding Capacity 266 mcg/dL (228-428); Unsaturated Iron Binding 195 ug/dL
[2024-08-02 17:15] LABS: Ferritin 33 ng/mL (10-122)
== END 2024-08-01 15:33 | disposition home or self-care (01) ==
LOC: HO.HHCL 15:32
PROVIDERS: Referring Provider Student in an Organized Health Care Education/Training Program; Visit Provider Family Medicine
DX: L63.9 Alopecia areata, unspecified (principal); D64.9 Anemia, unspecified
CPT/HCPCS: 36415; 80048; 82306; 82728; 83036; 83540; 84439; 84443; 85025

== ENCOUNTER 2024-08-06 13:05 | Emergency (ER) | payer MEDICAID, SELFPAY ==
--- NOTE | ~2024-08-06 | CT_ITS ---
EXAMINATION: CT SOFT TISSUE NECK WITHOUT CONTRAST CLINICAL INFORMATION: Swelling, worse on left side hypopharynx. COMPARISON: None available. TECHNIQUE: Without IV contrast, helical imaging was performed in the axial plane with generation of coronal and sagittal reformatted images. This CT examination was performed using dose optimization techniques as appropriate, variously including the following: *Automated exposure control *Adjustment of mA and/or kV according to patient size (this includes techniques or standardized protocols for targeted exams where dose is matched to indication/reason for exam; i.e. extremities or head) *Use of iterative reconstruction technique FINDINGS: Study is significantly limited, almost nondiagnostic for peritonsillar or other abscess, without the benefit of IV contrast. Lymph Nodes: -There are reactive appearing anterior and posterior cervical chain lymph nodes bilaterally. Carotid Sheath Structures: -Normal noncontrast appearance. Salivary Glands: -Normal. Tongue Base/Floor of Mouth: -Normal Mucosal Space: -Left greater than right palatine tonsillar hypertrophy. -Within the left palatine tonsil, there is a 1.2 x 1.0 x 1.2 cm hypoattenuating fluid collection suspicious for abscess. -Normal aryepiglottic folds and epiglottis. Visceral Space: -Thyroid gland: Normal. -Subglottic trachea and esophagus are normal. Retropharangeal Space: - Normal. Parapharyngeal Fat Planes: -Normal. Clinical Trial Manager Spaces: -Normal. Anterior Cervical Space: -Normal. Imaged Intracranial Contents: -No mass effect, edema, or hemorrhage. The skull base is normal. Globes and Orbits: -Normal. Paranasal Sinuses/Mastoids/Tympanic Spaces: -Normally aerated bilaterally. Lung Apices and Superior Mediastinal Structures: -Imaged lung apices are clear and superior mediastinal structures are normal. Bony Structures: -No suspicious bone lesions. No fractures. -Normal TM joints. CT/CT soft tissue neck wo IV con IMPRESSION: 1. Study for peritonsillar abscess is extremely limited without the benefit of IV contrast. There is left greater than right palatine tonsillitis. There is a suggestion of a hypoattenuating focus within the left peritonsillar region measuring 1.2 x 1.0 x 1.2 cm, concerning for a peritonsillar abscess. 2. Reactive appearing anterior and posterior cervical chain lymphadenopathy. 3. Additional ancillary findings as discussed in the body of the report. Electronically signed by: Ron Lozada MD 08/06/2024 04:14 PM EDT RP
[2024-08-06 13:08] VITALS: BP 106/70; PULSE 80; O2SAT 100
[2024-08-06 13:19] VITALS: BP 114/58; PULSE 81; RESP 16; TEMP 37.2; O2SAT 100; BMI 23.0
--- NOTE | 2024-08-06 13:42 | ED_ITS ---
HPI - General Adult General Chief complaint: Upper Respiratory Symptoms Stated complaint: Sore throat, nausea x2 days, reproducible CP Time Seen by Provider: 08/06/24 13:15 History of Present Illness HPI narrative: Patient is a 29-year-old female presents today with having sore throat worse on the left side. Pain on swallowing. Patient has been on penicillin for possible strep. Test was negative. Patient been taking Motrin Tylenol for fever. Voice been muffled. No difficulty breathing. Pain on swallowing. Patient from home. Related Data Home Medications ?Medication ?Instructions ?Recorded ?Confirmed cyclobenzaprine 5 mg tablet 5 mg PO TID PRN Muscle Spasm 04/21/23 07/17/24 Previous Rx's ?Medication ?Instructions ?Recorded diphenoxylate-atropine 2.5 1 tab PO TID PRN diarrhea #10 tabs 04/21/23 mg-0.025 mg tablet (Lomotil) ondansetron 4 mg disintegrating 4 mg PO Q8H PRN nausea and 04/21/23 tablet vomiting #10 tabs omeprazole 20 mg capsule,delayed 20 mg PO BID@0630,1630 #28 caps 04/25/23 release amoxicillin 500 mg tablet 500 mg PO BID #20 tabs 06/16/23 ondansetron 4 mg disintegrating 4 mg PO TID PRN nausea and 06/16/23 tablet vomiting #7 tabs polyethylene glycol 3350 17 17 g PO DAILY #119 grams 06/16/23 gram/dose oral powder (Miralax) sennosides 8.6 mg capsule (senna) 8.6 mg PO BEDTIME PRN constipation 06/16/23 #7 caps acetaminophen 500 mg tablet 1,000 mg (2 x 500 mg) PO Q8H PRN 08/11/23 (Tylenol Extra Strength) fever or pain #30 tabs cephalexin 500 mg capsule 500 mg PO QID 5 days #20 caps 08/11/23 ibuprofen 600 mg tablet 600 mg PO Q6H PRN fever or pain 08/11/23 #30 tabs morphine 15 mg immediate release 15 mg PO BID PRN pain #5 tabs 08/11/23 tablet clindamycin HCl 300 mg capsule 300 mg PO TID #20 caps 08/06/24 morphine 10 mg/5 mL oral solution 5 mg (2.5 mL) PO Q4H PRN pain #20 08/06/24 mL prednisone 20 mg tablet 40 mg (2 x 20 mg) PO DAILY #10 tabs 08/06/24 Allergies Allergy/AdvReac Type Severity Reaction Status Date / Time Iodinated Contrast Media Allergy Intermediate RASH Verified 08/06/24 13:24 [Iodinated Contrast Media - IV Dye] oxycodone [From PERCOCET] Allergy Intermediate TACHYCARDIA Verified 08/06/24 13:24 ketorolac [From Toradol] Allergy Confusion Verified 08/06/24 13:24 Review of Systems 2 Review of Systems: Positive sore throat Yes all other systems are reviewed and are negative [facility] Past Medical History Attestation statement: The following information was validated with the patient. Medical History Muscle spasm Ovarian cyst Social History Social History Household Members: Family Housing: Apartment Unable to assess alcohol history related to: Unknown Alcohol intake: never Patient Tobacco Use Status: Never used Tobacco Smoked in Last 30 Days: No Use of substances other than those prescribed or required for medical reasons: No Substance Use Type: Marijuana Advance Directives: No Advance Directives Information Provided: No Do you have a plan to hurt others: No Plan Patient : No service: No Physical Exam ED Vital Signs: Vital Signs - 24 hr 08/06/24 13:19 08/06/24 14:07 08/06/24 14:14 Temperature 98.9 F 99.5 F Pulse Rate 81 78 Respiratory Rate 16 18 Blood Pressure 114/58 L 108/56 L Pulse Oximetry 100 100 98 Oxygen Delivery Method Room Air Room Air Room Air BMI result Body Mass Index 23.0 Appearance: Alert. Oriented X3. No acute distress. Eyes: Pupils equal, round and reactive to light. ENT: Posterior pharynx shows enlarged tonsils worse on the left side. Almost touching the uvula. Exudates noted. Neck: Normal inspection. Neck supple. No lymph nodes noted. No crepitus CVS: Normal heart rate and rhythm. Pulses normal. Normal S1 and S2 Respiratory: No respiratory distress. Breath sounds normal. No Wheezing. No rales Abdomen: Soft and nontender. No rigidity. No distention. good BS x4 Skin: Skin warm and dry. Normal skin color. Normal skin turgor. Extremities: No lower extremity edema. Neurovascular intact to all extremities. No Lacerations. No Rash Neuro: Oriented X 3. No motor deficit. No sensory deficit. Moving all extermities. No slurred speech Medications Administered Discontinued Medications Generic Name Dose Route Start Last Admin Trade Name Faizanq PRN Reason Stop Dose Admin Dexamethasone Sodium Phosphate 10 mg 08/06/24 13:34 08/06/24 13:43 Dexamethasone Sod Phosphate 10 Mg/Ml Vial IVPUSH 08/06/24 13:35 10 mg ONCE ONE Administration Sodium Chloride 1,000 mls @ 999 mls/hr 08/06/24 13:45 08/06/24 15:00 Ns IV 08/06/24 14:45 Infused .Q1H1M JESSICA Infusion Clindamycin Phosphate 600 mg in 50 mls @ 100 mls/hr 08/06/24 13:34 08/06/24 15:30 Cleocin IV 08/06/24 14:03 Infused ONCE ONE Infusion Ondansetron HCl 4 mg 08/06/24 16:01 08/06/24 16:13 Ondansetron Hcl 4 Mg/2 Ml Vial IVPUSH 08/06/24 16:02 4 mg ONCE ONE Administration Medical Decision Making Medical Decision Making MDM Narrative: Patient's CT scan by radiology's reading was positive for a likely peritonsillar abscess. There is no other abscess noted. Given clindamycin IV fluid and steroid with good relief of symptoms. After getting verbal consent. We elected to do a needle decompression of the peritonsillar abscess. I numbed the area using lidocaine. Then an 18 gauge needle was inserted. Approximately 2 cc of purulent material was withdrawn from the left peritonsillar area. There was no complications. Patient was given additional pain medication. Patient's case discussed with ENT at [facility] Dr. taylor. She was okay with following up at her office on an outpatient basis. Additional script for clindamycin and steroid was given. Patient is currently tolerating p.o.. Explained to patient worsening condition return including worsening breathing worsening swallowing unable to talk. Differential Diagnosis Differential Diagnoses: The differential diagnosis associated with the presentation includes Peritonsillar abscess Admission/Observation Consideration of admission/observation: Escalation of care including admission/observation considered Consult Healthcare Provider Management of the patient was discussed with: Eligibility Services Representative (ENT at [facility]) Lab Data MDM Lab Attestation statement: I reviewed the patient's lab results. 08/06/24 13:54 08/06/24 13:54 Labs: Lab Results 08/06/24 Range/Units 13:54 WBC 11.0 H (4.8-10.8) X10*3/uL RBC 4.61 (4.20-5.50) X10*6/uL Hgb 12.1 (12.0-16.0) g/dl Hct 37.7 (37.0-47.0) % MCV 81.8 (80.0-98.0) fL MCH 26.2 L (27.0-33.0) pg MCHC 32.1 (31.0-35.0) g/dl RDW 14.5 (11.0-16.0) % Plt Count 233 (160-400) X10*3/uL MPV 9.2 L (9.4-12.3) fL Immature Gran % (Auto) 0.4 (0.0-0.4) % Neut % (Auto) 79.2 H (45-73) % Lymph % (Auto) 10.3 L (20-40) % Glasscock % (Auto) 9.7 (2-11) % Eos % (Auto) 0.0 (0-4) % Baso % (Auto) 0.4 (0-2) % Lymph # (Auto) 1.1 L (1.2-4.9) X10*3/uL Glasscock # (Auto) 1.1 (0.1-1.2) X10*3/uL Eos # (Auto) 0.0 (0.0-0.4) X10*3/uL Baso # (Auto) 0.0 (0.0-0.2) X10*3/uL Abs Immat Gran (auto) 0.04 H (0.00-0.03) X10*3/uL Absolute Neuts (auto) 8.7 H (2.0-8.3) x10*3/uL Absolute Nucleated RBC 0.000 (0.0-0.012) X10*3/uL Nucleated RBC % (auto) 0.0 (0.0-0.2) /100WBC Sodium 140 (135-145) mmol/L Potassium 3.5 (3.3-5.1) mmol/L Chloride 107 (96-108) mmol/L Carbon Dioxide 26 (22-29) mmol/L Anion Gap 11 L (12-20) BUN 11 (9-16) mg/dL Creatinine 0.64 (0.5-1.4) mg/dL Estim Creat Clear Calc 106.3 Estimated GFR > 60 Random Glucose 89 (60-115) mg/dL Lactic Acid 1.8 (0.5-2.0) mmol/L Calcium 8.6 (8.4-10.2) mg/dL Independent Interpretation I performed an independent interpretation of an: CT Scan (Positive swelling in the left tonsil area) Radiology Impression Discussion of test interpretation with radiology: I have reviewed the radiologist's reading. Discharge Plan Discharge Clinical Impression: Abscess, peritonsillar Patient Disposition: Home, Self-Care Instructions: Peritonsillar Abscess (DC), Abscess Incision and Drainage (DC) Prescriptions: New clindamycin HCl 300 mg capsule 300 mg PO TID Qty: 20 0RF prednisone 20 mg tablet 40 mg PO DAILY Qty: 10 0RF morphine 10 mg/5 mL solution 5 mg PO Q4H PRN (Reason: pain) Qty: 20 0RF Rx Instructions: Partial Fill upon patient request. No Action ondansetron 4 mg tablet,disintegrating 4 mg PO Q8H PRN (Reason: nausea and vomiting) Qty: 10 0RF diphenoxylate-atropine [Lomotil] 2.5-0.025 mg tablet 1 tab PO TID PRN (Reason: diarrhea) Qty: 10 0RF Rx Instructions: Keep this medication out of reach of children cyclobenzaprine 5 mg Tablet 5 mg PO TID PRN (Reason: Muscle Spasm) omeprazole 20 mg Capsule,Delayed Release(Dr/Ec) 20 mg PO BID@0630,1630 Qty: 28 0RF amoxicillin 500 mg tablet 500 mg PO BID Qty: 20 0RF polyethylene glycol 3350 [Miralax] 17 gram/dose powder 17 g PO DAILY Qty: 119 0RF senna 8.6 mg capsule 8.6 mg PO BEDTIME PRN (Reason: constipation) Qty: 7 0RF ondansetron 4 mg tablet,disintegrating 4 mg PO TID PRN (Reason: nausea and vomiting) Qty: 7 0RF cephalexin 500 mg capsule 500 mg PO QID 5 Days Qty: 20 0RF ibuprofen 600 mg tablet 600 mg PO Q6H PRN (Reason: fever or pain) Qty: 30 0RF acetaminophen [Tylenol Extra Strength] 500 mg tablet 1,000 mg PO Q8H PRN (Reason: fever or pain) Qty: 30 0RF morphine 15 mg tablet 15 mg PO BID PRN (Reason: pain) Qty: 5 0RF Rx Instructions: Partial Fill upon patient request. Referrals: Anam Taylor MD [Physician] - 08/08/24 Print Language: Serbian
[2024-08-06] MEDS: 0.9 % Sodium Chloride 1,000 ML 999 ML IV (13:43)
[2024-08-06] MEDS: dexAMETHasone sod phosphate 10 MG/ML VIAL IVPUSH (13:43)
[2024-08-06 14:00] LABS: MANUAL DIFF FLAG NO
[2024-08-06 14:01] LABS: Basophils Percent Auto 0.4 % (0-2); Hematocrit 37.7 % (37.0-47.0); Hemoglobin 12.1 g/dl (12.0-16.0); Imm Gran Abs Auto 0.04 X10*3/uL (0.00-0.03); Imm Gran Pct Auto 0.4 % (0.0-0.4); Lymphocytes Absolute Auto 1.1 X10*3/uL (1.2-4.9); Lymphocytes Percent Auto 10.3 % (20-40); Mean Corpuscular HGB Conc 32.1 g/dl (31.0-35.0); Mean Corpuscular Hemoglobin 26.2 pg (27.0-33.0); Mean Corpuscular Volume 81.8 fL (80.0-98.0); Mean Platelet Volume 9.2 fL (9.4-12.3); Monocytes Absolute Auto 1.1 X10*3/uL (0.1-1.2); Monocytes Percent Auto 9.7 % (2-11); Neutrophils Absolute Auto 8.7 x10*3/uL (2.0-8.3); Neutrophils Percent Auto 79.2 % (45-73); Platelet Count 233 X10*3/uL (160-400); Red Blood Count 4.61 X10*6/uL (4.20-5.50); Red Cell Distribution Width 14.5 % (11.0-16.0)
[2024-08-06 14:07] VITALS: O2SAT 100
[2024-08-06 14:14] VITALS: BP 108/56; PULSE 78; RESP 18; TEMP 37.5; O2SAT 98
[2024-08-06 14:16] LABS: Anion Gap 11 (12-20); Blood Urea Nitrogen 11 mg/dL (9-16); Calcium 8.6 mg/dL (8.4-10.2); Carbon Dioxide 26 mmol/L (22-29); Chloride 107 mmol/L (96-108); Creatinine Clr Calc Pharmacy 106.3; Estimated Glomerular Filt Rate > 60; Glucose Random 89 mg/dL (60-115); Lactic Acid 1.8 mmol/L (0.5-2.0); Potassium 3.5 mmol/L (3.3-5.1); Sodium 140 mmol/L (135-145)
[2024-08-06] MEDS: Clindamycin Phosphate/D5W 600 MG/50 ML PIGGYBACK 100 MG IV (14:59)
[2024-08-06] MEDS: ondansetron HCL 4 MG/2 ML VIAL IVPUSH (16:13)
--- OUTSIDE RECORDS SUMMARY | 2024-08-06 16:20 | XMS_ITS | Encounter Summary ---
Author Organization [employer] Address [address] [facility] [place] [address] Care Team Providers Care Staff Consultant Name Role Phone Yolanda Bess IT APPLICATIONS DEVELOPER Primary Care Provider [phone] Encounter Details Date Type Department Care Team (Late st Contact Info) Description 08/06/2024 Orders Only [facility] External Provider, [facility] Social History Tobacco Use Types Packs/Day Years [...] Access Q2 Not on file 05/08/2024 Comments No Sex and Gender Information Value Date Recorded Sex Assigned at Female 12/27/2021 10:19 AM EDT Legal Sex Female 10:19 AM EDT Gender Identity Female 12/27/2021 10:19 AM EDT Sexual Orientation Straight 12/27/2021 10 :19 AM EDT documented as of this encounter Plan of Treatment Upcoming Encounters Date Type Department Care Team (Late st Contact Info) Description 08/28/2024 9:30 AM EDT Office Visit [facility] [address] [place] [address] Yolanda Bess, IT APPLICATIONS DEVELOPER [address] [place] [address] documented as of this encounter Procedures Procedure Name Priority Date/Time Associated Diagnosis Comments CT SOFT TISSUE NECK WO CONTRAST Routine 08/06/2024 2:20 PM EDT documented in this encounter Results * CT Soft Tissue Neck w/o Contrast (08/06/2024 2:20 PM EDT) Anatomical Region Laterality Modality Head, Neck Computed Tomogra phy 08/06/2024 2:20 PM EDT Narrative 08/06/2024 4:17 PM EDT ? [facility] ?[address] ?[place] [address] ? CT Scan Report ? Signed ? Patient: Rangelraisa Jackson,Miguelina ?MR#: [id number] ?? [id number] ? : 1995 ?Acct:[id number] ? Age/Sex: 29 / F ?ADM Date: 06/10/25 ? Loc: HO.ED ? Attending Dr: ? Ordering Physician: Sindy Dias MD ?? Date of Service: 08/06/24 ?? Procedure(s): CT soft tissue neck wo IV con ?? Accession Number(s): [id number] ? cc: [facility]; Sindy Dias MD ? Report Number: ?? [id number]: Total DLP = ?0.00 mGy-cm ?? EXAMINATION: ?? CT SOFT TISSUE NECK WITHOUT CONTRAST ? CLINICAL INFORMATION: ?? Swelling, worse on left side hypopharynx. ? COMPARISON: ?? None available. ? TECHNIQUE: ?? Without IV contrast, helical imaging was performed in the axial plane ?? with generation of coronal and sagittal reformatted images. ? This CT examination was performed using dose optimization techniques as ?? appropriate, variously including the following: ?? *Automated exposure control ?? *Adjustment of mA and/or kV according to patient size (this includes ?? techniques or standardized protocols for targeted exams where dose is ?? matched to indication/reason for exam; i.e. extremities or head) ?? *Use of iterative reconstruction technique ? FINDINGS: ?? Study is significantly limited, almost nondiagnostic for peritonsillar ?? or other abscess, without the benefit of IV contrast. ? Lymph Nodes: ?? -There are reactive appearing anterior and posterior cervical chain ?? lymph nodes bilaterally. ? Carotid Sheath Structures: ?? -Normal noncontrast appearance. ? Salivary Glands: ?? -Normal. ? Tongue Base/Floor of Mouth: ?? -Normal ? Mucosal Space: ?? -Left greater than right palatine tonsillar hypertrophy. ?? -Within the left palatine tonsil, there is a 1.2 x 1.0 x 1.2 cm ?? hypoattenuating fluid collection suspicious for abscess. ?? -Normal aryepiglottic folds and epiglottis. ? Visceral Space: ?? -Thyroid gland: Normal. ?? -Subglottic trachea and esophagus are normal. ? Retropharangeal Space: ?? - Normal. ? Parapharyngeal Fat Planes: ?? -Normal. ? Beer Still Runner Compounder Spaces: ?? -Normal. ? Anterior Cervical Space: ?? -Normal. ? Imaged Intracranial Contents: ?? -No mass effect, edema, or hemorrhage. The skull base is normal. ? Globes and Orbits: ?? -Normal. ? Paranasal Sinuses/Mastoids/Tympanic Spaces: ?? -Normally aerated bilaterally. ? Lung Apices and Superior Mediastinal Structures: ?? -Imaged lung apices are clear and superior mediastinal structures are ?? normal. ? Bony Structures: ?? -No suspicious bone lesions. No fractures. ?? -Normal TM joints. ? CT/CT soft tissue neck wo IV con ?? IMPRESSION: ?? 1. Study for peritonsillar abscess is extremely limited without the ?? benefit of IV contrast. There is left greater than right palatine ?? tonsillitis. There is a suggestion of a hypoattenuating focus within ?? the left peritonsillar region measuring 1.2 x 1.0 x 1.2 cm, concerning ?? for a peritonsillar abscess. ?? 2. Reactive appearing anterior and posterior cervical chain ?? lymphadenopathy. ?? 3. Additional ancillary findings as discussed in the body of the report. ? Electronically signed by: ??Ron Lozada MD ??08/06/2024 04:14 PM EDT RP ? Dictated By: ?Ron Lozada MD ? Signed By: ?<Electronically signed by Ron Lozada MD in OV> ?08/06/24 1614 ? DD/ 1420 ? TD/TT: 08/06/24 1538 ? [facility]: ? Procedure Note Lit Espinoza - 08/06/[address] [address] [address] Scan Report Signed Patient: Saul Walsh#: [id number] : 1995Acct:[id number] Age/Sex: 29 / FADM Date: 08/06/24 Loc: HO.ED Attending Dr: Ordering Physician: Sindy Dias MD Date of Service: 08/06/24 Procedure(s): CT soft tissue neck wo IV con Accession Number(s): [id number] cc: [facility]; ArunSindy Ramirez MD Report Number: [id number]: Total DLP = 0.00 mGy-cm EXAMINATION: CT SOFT TISSUE NECK WITHOUT CONTRAST CLINICAL INFORMATION: Swelling, worse on left side hypopharynx. COMPARISON: None available. TECHNIQUE: Without IV contrast, helical imaging was performed in the axial plane with generation of coronal and sagittal reformatted images. This CT examination was performed using dose optimization techniques as appropriate, variously including the following: *Automated exposure control *Adjustment of mA and/or kV according to patient size (this includes techniques or standardized protocols for targeted exams where dose is matched to indication/reason for exam; i.e. extremities or head) *Use of iterative reconstruction technique FINDINGS: Study is significantly limited, almost nondiagnostic for peritonsillar or other abscess, without the benefit of IV contrast. Lymph Nodes: -There are reactive appearing anterior and posterior cervical chain lymph nodes bilaterally. Carotid Sheath Structures: -Normal noncontrast appearance. Salivary Glands: -Normal. Tongue Base/Floor of Mouth: -Normal Mucosal Space: -Left greater than right palatine tonsillar hypertrophy. -Within the left palatine tonsil, there is a 1.2 x 1.0 x 1.2 cm hypoattenuating fluid collection suspicious for abscess. -Normal aryepiglottic folds and epiglottis. Visceral Space: -Thyroid gland: Normal. -Subglottic trachea and esophagus are normal. Retropharangeal Space: - Normal. Parapharyngeal Fat Planes: -Normal. Beer Still Runner Compounder Spaces: -Normal. Anterior Cervical Space: -Normal. Imaged Intracranial Contents: -No mass effect, edema, or hemorrhage. The skull base is normal. Globes and Orbits: -Normal. Paranasal Sinuses/Mastoids/Tympanic Spaces: -Normally aerated bilaterally. Lung Apices and Superior Mediastinal Structures: -Imaged lung apices are clear and superior mediastinal structures are normal. Bony Structures: -No suspicious bone lesions. No fractures. -Normal TM joints. CT/CT soft tissue neck wo IV con IMPRESSION: 1. Study for peritonsillar abscess is extremely limited without the benefit of IV contrast. There is left greater than right palatine tonsillitis. There is a suggestion of a hypoattenuating focus within the left peritonsillar region measuring 1.2 x 1.0 x 1.2 cm, concerning for a peritonsillar abscess. 2. Reactive appearing anterior and posterior cervical chain lymphadenopathy. 3. Additional ancillary findings as discussed in the body of the report. Electronically signed by: Ron Lozada MD 08/06/2024 04:14 PM EDT RP Dictated By: Ron Lozada MD Signed By: <Electronically signed by Ron Lozada MD in OV> 08/06/24 1614 DD/ 1420 TD/TT: 08/06/24 1538 [facility]: [facility] External Provider IMG CT PROCEDURES Final Result documented in this encounter Visit Diagnoses Not on filedocumented in this encounter Additional Health Concerns Assessment Noted Time PHQ-9 Depression Total Score: 20 025 3:13 PM EDT documented as of this encounter Care Teams Staff Consultant Relationship Specialty Start Date End Date Yolanda Bess FNP [address] [place] [id number] PCP - General Family Medicine 05/08/24 documented as of this encounter
[2024-08-06] MEDS: Morphine Sulfate 4 MG/ML CARTRIDGE IVPUSH (17:21)
[2024-08-06] MEDS: Lidocaine HCl 4 % Laryng-O-Jet 4 ML 1 APPL TOPICAL (17:22)
[2024-08-06 17:25] VITALS: BP 100/53; PULSE 81; RESP 18; O2SAT 100
--- NOTE | 2024-08-06 17:32 | PC.NURSE ---
29 F presents to ED with n/v abdominal pain x 4 days and throat pain. A+OX4 and ambulatory. Pt found to have a peritonsillar abscess, which was drained by the MD. RR even and unlabored, denies SOB. Pt now denying abdominal pain and states mouth hurts from drainage. Airway is clear, no visible s/s of distress.
[2024-08-06 17:53] VITALS: BP 100/53; PULSE 81; RESP 18; TEMP -17.7; TEMP 0; O2SAT 100
== END 2024-08-06 17:55 | disposition home or self-care (01) ==
PROVIDERS: Emergency Provider Emergency Medicine Emergency Medical Services
DX: J36 Peritonsillar abscess (principal); R22.1 Localized swelling, mass and lump, neck; R11.0 Nausea; R07.89 Other chest pain; Z79.899 Other long term (current) drug therapy
CPT/HCPCS: 36415; 70490; 80048; 83605; 85025; 87040; 96361; 96365; 96375; 99285; J0736; J1100; J2270; J2405

== ENCOUNTER → 2024-08-06 13:34 | Outpatient (BNV) | payer MEDICAID, SELFPAY | PROVIDERS: Emergency Provider Emergency Medicine Emergency Medical Services; Visit Provider Radiology Diagnostic Radiology | DX: J36 Peritonsillar abscess (principal) | CPT/HCPCS: 70490 ==

== ENCOUNTER 2024-08-22 16:01 | Emergency (ER) | payer MEDICAID, SELFPAY ==
[2024-08-22 16:10] VITALS: BP 104/60; PULSE 90; O2SAT 99
[2024-08-22 16:14] VITALS: BP 117/46; PULSE 102; RESP 18; TEMP 36.9; O2SAT 100
[2024-08-22 16:17] VITALS: BP 117/46; PULSE 105; RESP 16; TEMP 36.8; O2SAT 100; BMI 20.2
[2024-08-22] MEDS: Lidocaine HCl 4 % Laryng-O-Jet 4 ML 1 APPL TOPICAL (17:03)
[2024-08-22] MEDS: Lactated Ringers 1,000 ML 999 ML IV (17:25)
[2024-08-22] MEDS: Morphine Sulfate 4 MG/ML CARTRIDGE IVPUSH (17:25)
[2024-08-22] MEDS: dexAMETHasone sod phosphate 10 MG/ML VIAL IVPUSH (17:25)
[2024-08-22] MEDS: diazePAM 10 MG/2 ML CARTRIDGE 2.5 MG IVPUSH (17:26)
[2024-08-22 17:28] LABS: MANUAL DIFF FLAG NO
[2024-08-22 17:34] LABS: Basophils Percent Auto 0.2 % (0-2); Hematocrit 35.2 % (37.0-47.0); Hemoglobin 11.9 g/dl (12.0-16.0); Imm Gran Abs Auto 0.03 X10*3/uL (0.00-0.03); Imm Gran Pct Auto 0.3 % (0.0-0.4); Lymphocytes Absolute Auto 0.8 X10*3/uL (1.2-4.9); Lymphocytes Percent Auto 8.2 % (20-40); Mean Corpuscular HGB Conc 33.8 g/dl (31.0-35.0); Mean Corpuscular Hemoglobin 26.3 pg (27.0-33.0); Mean Corpuscular Volume 77.7 fL (80.0-98.0); Mean Platelet Volume 9.3 fL (9.4-12.3); Monocytes Absolute Auto 0.8 X10*3/uL (0.1-1.2); Monocytes Percent Auto 8.9 % (2-11); Neutrophils Absolute Auto 7.8 x10*3/uL (2.0-8.3); Neutrophils Percent Auto 82.4 % (45-73); Platelet Count 280 X10*3/uL (160-400); Red Blood Count 4.53 X10*6/uL (4.20-5.50); Red Cell Distribution Width 13.8 % (11.0-16.0); White Blood Count 9.5 X10*3/uL (4.8-10.8)
[2024-08-22 17:42] LABS: IDNOW Serial# 58CA691E; Strep A Nucleic Acid Negative (Negative)
[2024-08-22 17:48] LABS: Lactic Acid 1.1 mmol/L (0.5-2.0)
--- NOTE | 2024-08-22 17:58 | PC.NURSE ---
Lab called for recollect on CMP - 2 green gels initially sent - per Latoya at lab both tubes had hemolized, will need to be recollected.
[2024-08-22 18:08] LABS: Influenza A PCR NEGATIVE (Negative); Influenza B PCR NEGATIVE (Negative); Resp Syncy Virus RNA Qual PCR NEGATIVE (Negative); SARS COV2 PCR INHOUSE NEGATIVE (Negative)
[2024-08-22 18:36] LABS: Alanine Aminotransferase 17 U/L (0-31); Albumin Level 4.1 g/dL (3.5-5.0); Alkaline Phosphatase 66 U/L (39-117); Anion Gap 13 (12-20); Aspartate Amino Transferase 23 U/L (5-31); Bilirubin Total 0.8 mg/dL (0.0-1.0); Blood Urea Nitrogen 10 mg/dL (9-16); Calcium 8.3 mg/dL (8.4-10.2); Carbon Dioxide 20 mmol/L (22-29); Chloride 108 mmol/L (96-108); Creatinine Clr Calc Pharmacy 120.7; Estimated Glomerular Filt Rate > 60; Glucose Random 98 mg/dL (60-115); Potassium 3.1 mmol/L (3.3-5.1); Sodium 138 mmol/L (135-145); Total Protein 6.9 g/dL (6.5-8.0)
[2024-08-22 18:37] VITALS: BP 112/55; PULSE 100; RESP 20; TEMP 37.3; O2SAT 96
[2024-08-22] MEDS: cefTRIAXone sodium 1 GM VIAL IVPUSH (18:41)
--- NOTE | 2024-08-22 19:26 | ED_ITS ---
HPI - General Adult General Chief complaint: Upper Respiratory Symptoms Stated complaint: sore throat, N/V Time Seen by Provider: 08/22/24 16:41 Source: patient Mode of arrival: ambulatory Limitations: no limitations History of Present Illness ED Provider: Rakan Jackson PA-C HPI narrative: 29-year-old female without significant medical history presents to the ED due to 3 days of throat pain. 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 Patient went to walk-in clinic today due to having throat pain that felt similar with difficulty swallowing and associated chills, nausea and vomiting. Walk-in clinic advised her to come to the ED for further evaluation due to her symptoms. Denies chest pain, shortness of breath, hematemesis, black/tarry stool, complaint: throat pain Onset (ago): day(s) (3) Radiation: non-radiation Severity: moderate Related Data Home Medications ?Medication ?Instructions ?Recorded ?Confirmed cyclobenzaprine 5 mg tablet 5 mg PO TID PRN Muscle Spa sm 04/21/23 07/17/24 Previous Rx's ?Medication ?Instructions ?Recorded diphenoxylate-atropine 2.5 1 tab PO TID PRN diarrhea # 10 tabs 04/21/23 mg-0.025 mg tablet (Lomotil) ondansetron 4 mg disintegrating 4 mg PO Q8H PRN nausea and 04/21/23 tablet vomiting #10 tabs omeprazole 20 mg capsule,delayed 20 mg PO BID@0630,163 0 #28 caps 04/25/23 release amoxicillin 500 mg tablet 500 mg PO BID #20 tabs 06/15 ondansetron 4 mg disintegrating 4 mg PO TID PRN nausea and 06/16/23 tablet vomiting #7 tabs polyethylene glycol 3350 17 17 g PO DAILY #119 grams 0 06/16/23 gram/dose oral powder (Miralax) sennosides 8.6 mg capsule (senna) 8.6 mg PO BEDTIME SC N constipation 06/16/23 #7 caps acetaminophen 500 mg tablet 1,000 mg (2 x 500 mg) PO Q 8H PRN 08/11/23 (Tylenol Extra Strength) fever or pain #30 tabs cephalexin 500 mg capsule 500 mg PO QID 5 days #20 cap s 08/11/23 ibuprofen 600 mg tablet 600 mg PO Q6H PRN fever or p ain 08/11/23 #30 tabs morphine 15 mg immediate release 15 mg PO BID PRN pain #5 tabs 08/11/23 tablet clindamycin HCl 300 mg capsule 300 mg PO TID #20 caps 08/06/24 morphine 10 mg/5 mL oral solution 5 mg (2.5 mL) PO Q4H PRN pain #20 08/06/24 mL prednisone 20 mg tablet 40 mg (2 x 20 mg) PO DAILY # 10 tabs 08/06/24 acetaminophen 500 mg tablet 500 mg PO Q6H PRN fever or pain 08/22/24 (Tylenol Extra Strength) #30 tabs cefuroxime axetil 500 mg tablet 500 mg PO BID 7 days # 14 tabs 08/22/24 ibuprofen 200 mg capsule (Motrin 400 mg (2 x 200 mg) P O Q8H 1 week 08/22/24 IB) #42 caps Allergies Allergy/AdvReac Type Severity Reaction Status Date / Time Iodinated Contrast Media Allergy Intermediate RASH Verified 08/22/24 16:21 (Iodinated Contrast Media - IV Dye) oxycodone (From PERCOCET) Allergy Intermediate TACHYCARDIA Verified 08/22/24 16:21 ketorolac (From Toradol) Allergy Confusion Verified 08/22/24 16:21 Review of Systems 2 Review of Systems: CONST: Negative for fever, body aches and chills. HENT: Negative for neck pain/stiffness, headache, congestion. POS sore throat, swelling, pain with swallowing. EYES: Negative for discharge/pain or vision changes. RESP: Negative for cough/hemoptysis and shortness of breath. CV: Negative chest pain, difficulty breathing, palpitations. ABD: Negative pain, nausea, vomiting. : Negative increase frequency, dysuria, blood in urine or stool. MUSC: Negative for muscle aches, edema. SKIN: Negative rash, lesions/sores. NEURO: Negative headache, dizziness, weakness. Yes all other systems are reviewed and are negative PMFSH Past Medical History Attestation statement: The following information was validated with the patient. Source: old records reviewed and nursing notes reviewed Medical History Muscle spasm Ovarian cyst Social History Social History Household Members: Family Housing: Apartment Unable to assess alcohol history related to: Unknown Alcohol intake: never Patient Tobacco Use Status: Never used Tobacco Smoked in Last 30 Days: Yes Substance Use Type: Marijuana Substance Use Frequency: Daily Advance Directives: No Advance Directives Information Provided: No Do you have a plan to hurt others: No Plan service: No Physical Exam ED Vital Signs: Vital Signs - 24 hr 08/22/24 16:14 08/22/24 16:17 08/22/24 18:37 Temperature 98.5 F 98.3 F 99.2 F Pulse Rate 102 H 105 H 100 Respiratory Rate 18 16 20 Blood Pressure 117/46 L 117/46 L 112/55 L Pulse Oximetry 100 100 96 Oxygen Delivery Method Room Air Room Air Room Air BMI result Body Mass Index 20.2 GENERAL APPEARANCE: ?AxOx4, tired, ill appearing, tearful due to pain. HEENT: ?NC, AT. MMM. EOMI, clear conjunctiva, oropharynx clear. B/L Tonsilar edema with exudates visualized, no uvular edema. NECK: ?Supple with anterior lymphadenopathy.? No stiffness or restricted ROM. HEART:? Normal rate and regular rhythm, normal S1/S1, no m/r/g LUNGS:? CTAB, moving air well. No crackles or wheezes are heard. ABDOMEN: ?Soft, nontender, nondistended with good bowel sounds heard. BACK: No CVAT, no obvious deformity. EXTREMITIES: ?Without cyanosis, clubbing or edema. NEUROLOGICAL: ?Grossly nonfocal. Alert and oriented, moving all 4 extremities. Observed to ambulate with normal gait. Skin: ?Warm and dry without any rash. Medications Administered Discontinued Medications Generic Name Dose Route Start Last Admin Trade Name Freq PRN Reason Stop Dose Admin Ceftriaxone Sodium 1 gm 08/22/24 18:31 08/22/24 18:41 Ceftriaxone Sodium 1 Gm Vial IVPUSH 08/22/24 18:32 1 gm ONCE ONE Administration Dexamethasone Sodium Phosphate 10 mg 08/22/24 17:00 08/22/24 17:25 Dexamethasone Sod Phosphate 10 Mg/Ml Vial IVPUSH 08/22/24 17:01 10 mg ONCE ONE Administration Diazepam 2.5 mg 08/22/24 17:09 08/22/24 17:26 Diazepam 10 Mg/2 Ml Cartridge IVPUSH 08/22/24 17:10 2.5 mg STAT STA Administration Lactated Ringer's 1,000 mls @ 999 mls/hr 08/22/24 17:00 08/22/24 17:25 Lr IV 08/22/24 18:00 999 mls/hr .Q1H1M ONE Administration Lidocaine HCl 1 appl 08/22/24 16:59 08/22/24 17:03 Lidocaine Hcl 4 % Fccsgu-D-Job 4 Ml TOPICAL 08/22/24 17:00 1 appl ONCE ONE Administration Morphine Sulfate 4 mg 08/22/24 17:00 08/22/24 17:25 Morphine Sulfate 4 Mg/Ml Cartridge IVPUSH 08/22/24 17:01 4 mg ONCE ONE Administration Protocol Medical Decision Making Medical Decision Making MDM Narrative: 29-year-old female without significant medical history presents to the ED due to 3 days of throat pain. 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 Patient went to walk-in clinic today due to having throat pain that felt similar with difficulty swallowing and associated chills, nausea and vomiting. Walk-in clinic advised her to come to the ED for further evaluation due to her symptoms. Vital signs reveal mild tachycardia at 102 beats per minute, T-max of 99.2?. Patient ill-appearing, tearful due to pain. On physical exam posterior oropharynx clear, with bilateral tonsillar edema and exudates visualized. No uvular edema, no displaced uvula. No submental swelling, no sublingual swelling. Patient tolerating oral secretions, no increased work of breathing, no difficulty breathing. Labs without leukocytosis, lactic acid WNL. Patient does not meet sepsis criteria at this time. I consulted my attending doctor, Dr. Ruth who does not believe that this is a peritonsillar abscess and who advised me to start the patient with 1 g of ceftriaxone. Viral serology negative for COVID/flu/RSV, rapid strep negative for strep infection. Patient medicated with IV fluids, 10 mg IV Decadron for swelling, 4 mg morphine for pain, 2.5 mg Ativan for anxiety with good effect., 1 g ceftriaxone to cover for infection. At this time I suspect pharyngitis after discussing with my attending , we will discharge patient with course of cefuroxime to cover for infection. Discussed with patient the importance of hydration, soft foods until able to advance. Counseled patient on using Tylenol and Motrin every 6 hours for pain and swelling, and strict return precautions. Differential Diagnosis Differential Diagnoses: The differential diagnosis associated with the presentation includes Viral illness D[employer] TE[employer]ICIAN Fortino's angina Pharyngitis Admission/Observation Consideration of admission/observation: Escalation of care including admission/observation considered Lab Data MDM Lab Attestation statement: I reviewed the patient's lab results. 08/22/24 17:20 08/22/24 18:10 Labs: Lab Results 08/22/24 08/22/24 08/22/24 Range/Units 15:56 17:20 18:10 WBC 9.5 (4.8-10.8) X10*3/uL RBC 4.53 (4.20-5.50) X10*6/uL Hgb 11.9 L (12.0-16.0) g/dl Hct 35.2 L (37.0-47.0) % MCV 77.7 L (80.0-98.0) fL MCH 26.3 L (27.0-33.0) pg MCHC 33.8 (31.0-35.0) g/dl RDW 13.8 (11.0-16.0) % Plt Count 280 (160-400) X10*3/uL MPV 9.3 L (9.4-12.3) fL Immature Gran % (Auto) 0.3 (0.0-0.4) % Neut % (Auto) 82.4 H (45-73) % Lymph % (Auto) 8.2 L (20-40) % [place] % (Auto) 8.9 (2-11) % Eos % (Auto) 0.0 (0-4) % Baso % (Auto) 0.2 (0-2) % Lymph # (Auto) 0.8 L (1.2-4.9) X10*3/uL [place] # (Auto) 0.8 (0.1-1.2) X10*3/uL Eos # (Auto) 0.0 (0.0-0.4) X10*3/uL Baso # (Auto) 0.0 (0.0-0.2) X10*3/uL Abs Immat Gran (auto) 0.03 (0.00-0.03) X10*3/uL Absolute Neuts (auto) 7.8 (2.0-8.3) x10*3/uL Absolute Nucleated RBC 0.000 (0.0-0.012) X10*3/uL Nucleated RBC % (auto) 0.0 (0.0-0.2) /100WBC Hold Blue Top SEE NOTE Sodium 138 (135-145) mmol/L Potassium 3.1 L (3.3-5.1) mmol/L Chloride 108 (96-108) mmol/L Carbon Dioxide 20 L (22-29) mmol/L Anion Gap 13 (12-20) BUN 10 (9-16) mg/dL Creatinine 0.61 (0.5-1.4) mg/dL Estim Creat Clear Calc 120.7 Estimated GFR > 60 Random Glucose 98 (60-115) mg/dL Lactic Acid 1.1 (0.5-2.0) mmol/L Calcium 8.3 L (8.4-10.2) mg/dL Total Bilirubin 0.8 (0.0-1.0) mg/dL AST 23 (5-31) U/L ALT 17 (0-31) U/L Alkaline Phosphatase 66 (39-117) U/L Total Protein 6.9 (6.5-8.0) g/dL Albumin 4.1 (3.5-5.0) g/dL Influenza Type A (PCR) NEGATIVE (Negative) Influenza Type B (PCR) NEGATIVE (Negative) RSV RNA Qual (PCR) NEGATIVE (Negative) SARS-CoV-2 RNA (RT-PCR) NEGATIVE (Negative) S. pyogenes GrpA GURMEET Negative (Negative) External Record Review External record reviewed: Inpatient record, Office record and Outpatient record Discharge Plan Discharge Clinical Impression: Pharyngitis Patient Disposition: Home, Self-Care Instructions: Pharyngitis (ED) Additional Instructions: You were evaluated in the ED today due to throat pain, difficulty swallowing, nausea and vomiting. Your viral swabs including COVID/RSV/flu, and rapid strep test were negative. On physical exam was not noted that you have a peritonsillar abscess at this time due to location of the tonsillar swelling. You were medicated with IV fluids, 10 mg of IV Decadron which is a steroid for swelling, 4 mg of morphine for pain, 2.5 mg of Ativan for anxiety, and 1 g of an antibiotic called ceftriaxone to cover for infection. You will be prescribed a 7 day course of cefuroxime for pharyngitis. Please complete the dose as indicated do not finish this course of medication in the earlier skip doses. Additionally you will be prescribed Tylenol Motrin that you can use for pain management and swelling. You can take this medication every 6 hours. Please follow up with your PCP to ensure improvement. Please return to the emergency department if you develop a fever greater than 100.4?, increased throat pain, increased throat swelling, difficulty breathing, increased swelling of the neck and/or face, worsening nausea, increased vomiting or any other new/worsening/concerning symptoms. Prescriptions: New acetaminophen [Tylenol Extra Strength] 500 mg tablet 500 mg PO Q6H PRN (Reason: fever or pain) Qty: 30 0RF ibuprofen [Motrin IB] 200 mg capsule 400 mg PO Q8H 7 Days Qty: 42 0RF cefuroxime axetil 500 mg tablet 500 mg PO BID 7 Days Qty: 14 0RF No Action ondansetron 4 mg tablet,disintegrating 4 mg PO Q8H PRN (Reason: nausea and vomiting) Qty: 10 0RF diphenoxylate-atropine [Lomotil] 2.5-0.025 mg tablet 1 tab PO TID PRN (Reason: diarrhea) Qty: 10 0RF Rx Instructions: Keep this medication out of reach of children cyclobenzaprine 5 mg Tablet 5 mg PO TID PRN (Reason: Muscle Spasm) omeprazole 20 mg Capsule,Delayed Release(Dr/Ec) 20 mg PO BID@0630,1630 Qty: 28 0RF clindamycin HCl 300 mg capsule 300 mg PO TID Qty: 20 0RF prednisone 20 mg tablet 40 mg PO DAILY Qty: 10 0RF morphine 10 mg/5 mL solution 5 mg PO Q4H PRN (Reason: pain) Qty: 20 0RF Rx Instructions: Partial Fill upon patient request. amoxicillin 500 mg tablet 500 mg PO BID Qty: 20 0RF polyethylene glycol 3350 [Miralax] 17 gram/dose powder 17 g PO DAILY Qty: 119 0RF senna 8.6 mg capsule 8.6 mg PO BEDTIME PRN (Reason: constipation) Qty: 7 0RF ondansetron 4 mg tablet,disintegrating 4 mg PO TID PRN (Reason: nausea and vomiting) Qty: 7 0RF cephalexin 500 mg capsule 500 mg PO QID 5 Days Qty: 20 0RF ibuprofen 600 mg tablet 600 mg PO Q6H PRN (Reason: fever or pain) Qty: 30 0RF acetaminophen [Tylenol Extra Strength] 500 mg tablet 1,000 mg PO Q8H PRN (Reason: fever or pain) Qty: 30 0RF morphine 15 mg tablet 15 mg PO BID PRN (Reason: pain) Qty: 5 0RF Rx Instructions: Partial Fill upon patient request. Print Language: Sami
[2024-08-22 19:57] VITALS: BP 117/55; PULSE 98; RESP 16; TEMP 37.1; O2SAT 98
== END 2024-08-22 19:58 | disposition home or self-care (01) ==
PROVIDERS: Emergency Provider Internal Medicine
DX: J02.9 Acute pharyngitis, unspecified (principal); R11.2 Nausea with vomiting, unspecified; Z03.818 Encounter for observation for suspected exposure to other biological agents ruled out; Z79.899 Other long term (current) drug therapy
CPT/HCPCS: 0241U; 36415; 80053; 83605; 85025; 87040; 87651; 96374; 96375; 99284; J0696; J1100; J2270; J3360; J7120

== ENCOUNTER 2024-10-13 22:48 | Emergency (ER) | payer MEDICAID, SELFPAY ==
[2024-10-13 22:53] VITALS: BP 109/57; PULSE 83; O2SAT 97
[2024-10-13 22:58] VITALS: BP 112/57; PULSE 88; RESP 16; TEMP 37.2; O2SAT 98; BMI 22.5
--- NOTE | 2024-10-13 23:30 | PC.NURSE ---
at time of triage pt made note that she was previously seen at [facility] for pink/brown discharge and lower abd discomfort, had u/s done which was normal. [facility] unable to get an appt at this time. pt reports the discharge/pain stopped for some time and onset again yesterday. Ron PELAEZ and Ray MONTENEGRO made aware of complaints and at this time verbal order for UA & HCG level. will assess need for imaging during eval by ed provider. regarding respiratory sx, to order sars and strep. pt did report was supposed to have a tonsillectomy d/t frequent infections but hasn't scheduled this d/t .
--- OUTSIDE RECORDS SUMMARY | 2024-10-14 01:14 | XMS_ITS | Clinical Summary ---
Author Organization [employer] Address [address] [facility] [address] [place] [address] Care Team Providers Care Registry Rn Name Role Phone Yolanda Bess [employer]UM [employer]OCIATION MANAGER Primary Care Provider [phone] Maru Craig Unavailable [phone] Karime Walker Unavailable Allergies Active Allergy Reactions Criticality Noted Date Comments Acetaminophen 02/06/2018 Iodinated Contrast Media 07/25/2018 Oxycodone 02/06/2018 Oxycodone-Acetaminophen Palpitations,Unknown Low Oxycodone allergy Medications * This document contains information received from the source organization and may not represent a complete record from that organization. omeprazole (PriLOSEC) [address] capsule Take 1 capsule by mouth every 48 hours. 1 Active Senna-Time 8.6 MG tablet Take 1 tablet by mouth if needed for constipation. 4 Active cholecalciferol (Vitamin D-3) 50 MCG (1999) capsule Take 1 capsule (50 mcg) by mouth Once per day. 90 capsule 3 5 09/03/19 26 Active multivitamin () 27-0.8 MG tablet Take 1 tablet by mouth Once per day. 90 tablet 1 5 Active cyclobenzaprine (Flexeril) 10 MG tabletIndicatio ns:Temporomandi bular disorder Take 10 mg by mouth at bedtime. 10/03/19 25 Discontinu ed(Other) ibuprofen 600 MG tablet Take 1 tablet (600 mg) by mouth every 6 (six) hours if needed for mild pain. 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 Date Type Department Care Team Description 10/09/2024 Patient Outreach [address] [address] Yolanda Bess, CON[employer]INIUM ASSOCIATION MANAGER Care Coordination (c3/VENKATW JED Chapa- [facility], [facility]–1983 ADT Outreach-Agrees to participate) 10/09/2024 Patient Outreach [address] [address] Rao Besse, CONDOMINIUM ASSOCIATION MANAGER Care Coordination (C3/SHANNON Walker, Chart Review) 10/09/2024 Patient Outreach [address] [address] Yolanda Bess, CONDOMINIUM ASSOCIATION MANAGER Care Management (C3CM chart review) 10/09/2024 Patient Outreach [address] [address] Yolanda Bess, CONDOMINIUM ASSOCIATION MANAGER 10/03/[address] [address] Yolanda Bess, CONDOMINIUM ASSOCIATION MANAGER Results 10/02/2024 3:30 PM EDT Office Visit [address] [address] Yolanda Bess FNP Missed period (Primary Dx); Encounter for test, result positive 10/02/2024 Travel 09/26/[address] [address] Yolanda Bess FNP Med Refill 09/26/[address] [address] Yolanda Bess FNP Appointment Request 09/23/[address] [address] Yolanda Bess FNP Referral (Pt requesting OBGYN referral pt stated she found out she's recently ) 09/02/[address] [address] Yolanda Bess FNP 08/27/[address] [address] Liam Dong MA CHARTPREP 08/22/2024 3:00 PM EDT [facility] [address] [address] Jodie Mendoza MD Acute bacterial tonsillitis (Primary Dx) 08/22/2024 Travel 08/16/2024 3:30 PM EDT Office Visit [address] [address] Yolanda Bess FNP Peritonsillar abscess (Primary Dx) 08/16/2024 Travel 08/06/2024 Orders Only [facility] External Provider, [facility] 08/02/[address] [address] Yolanda Bess FNP Lab Add On 08/01/2024 3:20 PM EDT Office Visit [facility] [address] [address] Love Yuen DO Alopecia areata (Primary Dx) from Last 3 Months Immunizations Immunization Administration Dates Next Due Tdap 08/11/2023 Family History Medical History Relation Name Comments Breast cancer Mother's Sister Relation Name Status Comments Mother's Sister Social History Tobacco Use Types Packs/Day Years Used Date Smoking Tobacco: Former Cigarettes Passive Smoke Exposure: Past Smokeless Tobacco: Former Tobacco Cessation:Counseling Given: Not Answered Alcohol Use Standard Drinks/Week Comments Not Asked 0 (1 standard drink = 0.6 oz pur e alcohol) Occasional Depression Answer Date Recorded Patient Health Questionnaire-9 Score 20 06/14/2024 Patient Health Questionnaire-9 Score 20 06/14/2024 Last PHQ-9: Questionnaire Data Not on file 0 06/14/2024 Housing Stability Answer Date Recorded What is your housing situation today? I have laurafarrah lynn 10/09/[address] you li ve. Do you have problems with any of the following? None of the above 10/09/2024 Food Insecurity Answer Date Recorded Within the past 12 months, y ou worried that your food would run out before you got money to buy more: Never True 10/09/2024 Within the past 12 months,th e food you bought just didn't last and you didn't have enough money to get more: Never True Transportation Answer Date Recorded In the past 12 months, has l ack of transportation kept you from medical appts, meetings, work or from getting things needed for daily living? No 10/09/2024 Utilities Answer Date Recorded In the past 12 months, has t he electric, gas, oil or water company threatened to shut off services in your home? No 05/08/2024 Depression Answer Date Recorded Patient Health Questionnaire-2 Score 4 06/14/2024 Internet Access Answer Date Recorded Internet Access Q1 Yes 05/08/2024 Internet Access Q2 Not on file 05/08/2024 Comments Yes Intention Date Recorded Ambivalent about becoming (find ing) 06/14/2024 Sex and Gender Information Value Date Recorded Sex Assigned at Female 12/27/2021 10:19 AM EDT Legal Sex Female 10:19 AM EDT Gender Identity Female 12/27/2021 10:19 AM EDT Sexual Orientation Straight 12/27/2021 10 :19 AM EDT Last Filed Vital Signs Vital Sign Reading Time Taken Comments Blood Pressure 108/58 10/02/2024 3:33 PM EDT Pulse 84 10/02/2024 3:33 PM EDT Temperature 37.1 C (98.8 F) 10/02/2024 3:33 PM EDT Respiratory Rate 18 10/02/2024 3:33 PM EDT Oxygen Saturation 99% 10/02/2024 3:33 PM EDT Inhaled Oxygen Concentration - - Weight 58.2 kg (128 lb 6 oz) 10/02/2024 3:33 PM EDT Height 160 cm (5' 3 ) 10/02/2024 3:33 PM EDT Body Mass Index 22.74 10/02/2024 3:33 PM EDT Plan of Treatment Health Maintenance Due Date Last Done Comments HPV Vaccines (1 - 3-dose series) 2009 Hepatitis B Vaccines (1 of 3 - 19+ 3-dose series) 2013 COVID-19 Vaccine ( - 2023-2 5 season) 2023 Influenza Vaccine (#1) 2024 02/05/2017 Depression Monitoring 12/14/2024 06/14/2024 , 06/14/2024 Alcohol/Substance Use Screening 05/08/2025 05/08/2024 Family Planning (PISQ) 06/17/2025 06/17/2024 Disability Screening 08/16/2025 08/16/2024 Tobacco Screening 10/02/2025 10/02/2024 SDOH Screening 10/09/2025 10/09/2024 Pap Smear 05/10/2027 05/09/2024, 05/08/2024, 05/08/2024 Cervical Cancer Screening 05/09/2029 HPV/Cotest 05/09/2029 05/09/2024, 05/08/2024 DTaP/Tdap/Td Vaccines (3 - T d or Tdap) 08/10/2033 08/11/2023, 11/24/2016 Zoster Vaccines (1 of 2) 2044 RSV [...] Procedure Name Priority Date/Time Associated Diagnosis Comments POCT , URINE Routine 10/02/2024 3:59 PM EDT Missed period POCT INFLUENZA B (ID NOW RAPID MOLECULAR) Routine 08/22/2024 3:33 PM EDT Acute bacterial tonsillitis POCT INFLUENZA A (ID NOW RAPID MOLECULAR) Routine 08/22/2024 3:33 PM EDT Acute bacterial tonsillitis POCT RAPID COVID ANTIGEN Routine 08/22/2024 3:33 PM EDT Acute bacterial tonsillitis CT SOFT TISSUE NECK WO CONTRAST Routine [...] Routine 08/01/2024 3:34 PM EDT Alopecia areata HM PAP/HPV Routine 05/09/2024 HEPATITIS C AB W/REFL TO HCV RNA, QN, PCR Routine 05/08/2024 10:41 AM EDT Screening examination for venereal disease HIV 1/2 ANTIGEN/ANTIBODY, FOURTH GENERATION W/RFL Routine 05/08/2024 10:41 AM EDT Screening examination for venereal disease from Last 3 Months or Most Recently Relevant to Health Maintenance Results * (ABNORMAL) POCT Urine (10/02/2024 3:59 PM EDT) Preg Test, Ur Positive (A) Negative, Indeterminate, None Detected, Invalid, Specimen unsatisfactory for evaluation, Weakly Positive, 2+ QC Media Lot # [id number] Lot# Expiration Date ,02 6 Urine 10/02/2024 3:59 PM EDT Yolanda Bess [employer] ASSOCIATION MANAGER POINT OF CARE TEST ENTER/EDIT ORDERABLES Final Result * Influenza B (ID NOW Rapid Molecular) (08/22/2024 3:33 PM EDT) Influenza B Negative Negative, Indeterminate [facility] Swab 08/22/2024 3:33 PM EDT Jodie Mendoza MD POINT OF CARE TEST ENTER/EDIT OR DERABLES Final Result Performing Organization Address [facility]/ZIP Co de Phone Number [facility] [address] [place] [phone] * Influenza A (ID NOW Rapid Molecular) (08/22/2024 3:33 PM EDT) Pathologist [facility] Influenza A Negative Negative, Indeterminate [facility] Swab 08/22/2024 3:33 PM EDT Jodie Mendoza MD POINT OF CARE TEST ENTER/EDIT OR DERABLES Final Result Performing Organization Address [facility] Co de Phone Number [facility] [address] [place] [phone] * POCT Rapid COVID Ag (08/22/2024 3:33 PM EDT) Rapid COVID Ag Negative [facility] Swab 08/22/2024 3:33 PM EDT Jodie Mendoza MD POINT OF CARE TEST ENTER/EDIT OR DERABLES Final Result Performing Organization Address [facility] Co de Phone Number [facility] [address] [place] [phone] * CT Soft Tissue Neck w/o Contrast (08/06/2024 2:20 PM EDT) Anatomical Region Laterality Modality Head, Neck Computed Tomogra phy 08/06/2024 2:20 PM EDT Narrative 08/06/2024 4:17 PM EDT [address] [address] [address] Scan Report Signed Patient: Miguelina Walsh MR#: [id number] : 1995 Acct:[id number] Age/Sex: 29 / F ADM Date: 08/06/24 Loc: HO.ED Attending Dr: Ordering Physician: Sindy Dias MD Date of Service: 08/06/24 Procedure(s): CT soft tissue neck wo IV con Accession Number(s): [id number] cc: [facility]; Sindy Dias MD Report Number: [id number]: Total DLP = 0.00 mGy-cm EXAMINATION: CT [...] Space: - Normal. Parapharyngeal Fat Planes: -Normal. Director Of Security Spaces: -Normal. Anterior Cervical Space: -Normal. Imaged [...] 08/06/24 1614 DD/ 1420 TD/TT: 08/06/24 1538 Saw Repairer: Procedure Note Donotuseinterpreter, Image - 08/06/[address] [place] [address] [address] Scan Report Signed Patient: Saul Walsh#: [id number] : 1995Acct:[id number] Age/Sex: 29 / FADM Date: 08/06/24 Loc: HO.ED Attending Dr: Ordering Physician: Sindy Dias MD Date of Service: 08/06/24 Procedure(s): CT soft tissue neck wo IV con Accession Number(s): [id number] cc: [facility]; Sindy Dias MD Report Number: [id number]: Total DLP = 0.00 mGy-cm EXAMINATION: CT [...] Space: - Normal. Parapharyngeal Fat Planes: -Normal. Director Of Security Spaces: -Normal. Anterior Cervical Space: -Normal. Imaged [...] 08/06/24 1614 DD/ 1420 TD/TT: 08/06/24 1538 Saw Repairer: [facility] External Provider IMG CT PROCEDURES Final Result * Blood Culture (First) (08/06/2024 1:54 PM EDT) Blood Venous blood specimen / Unknown 08/06/2024 1:54 PM EDT 08/06/2024 1:58 PM EDT Comment:Blood [facility] - 08/11/2024 3:58 PM EDT Blood Culture (First) No growth after 5 days. Specimen Source: Blood Generic External Data Provider LAB MICROBIOLOGY - GENERAL ORDERABLES Final Result Performing Organization Address City/[facility]/ZIP Co de Phone Number [facility] [address] [place] [phone] * Blood Culture (Second) (08/06/2024 1:54 PM EDT) Blood Venous blood specimen / Unknown 08/06/2024 1:54 PM EDT 08/06/2024 1:58 PM EDT Comment:Blood [facility] - 08/11/2024 3:58 PM EDT Blood Culture (Second) No growth after 5 days. Specimen Source: Blood Generic External Data Provider LAB MICROBIOLOGY - GENERAL ORDERABLES Final Result Performing Organization Address [facility]/ZIP Co de Phone Number [facility] [address] [place] [phone] * (ABNORMAL) CBC auto differential (08/06/2024 1:54 PM EDT) Only the most recent of2 resultswithin the time period is included. White Blood Count 11.0(H) 4.8 - 10.8 X10*3/uL [facility] Red Blood Count 4.61 4.20 - 5.50 X10*6/uL [facility] Hemoglobin 12.1 12.0 - 16.0 g/dl [facility] Hematocrit 37.7 37.0 - 47.0 % [facility] Mean Corpuscular Volume 81.8 80.0 - 98.0 fL [facility] Mean Corpuscular Hemoglobin 26.2(L) 27.0 - 33.0 pg [facility] Mean Corpuscular HGB Conc 32.1 31.0 - 35.0 g/dl [facility] Red Cell Distribution Width 14.5 11.0 - 16.0 % [facility] Platelet Count 233 160 - 400 X10*3/uL [facility] Mean Platelet Volume 9.2(L) 9.4 - 12.3 fL [facility] Neutrophils Percent Auto 79.2(H) 45 - 73 % [facility] Imm Gran Pct Auto 0.4 0.0 - 0.4 % [facility] Lymphocytes Percent Auto 10.3(L) 20 - 40 % [facility] Monocytes Percent Auto 9.7 2 - 11 % [facility] Eosinophils Percent Auto 0.0 0 - 4 % [facility] Basophils Percent Auto 0.4 0 - 2 % [facility] NRBC Pct Auto 0.0 0.0 - 0.2 /100WBC [facility] Neutrophils Absolute Auto 8.7(H) 2.0 - 8.3 x10*3/uL [facility] Imm Gran Abs Auto 0.04(H) 0.00 - 0.03 X10*3/uL [facility] Lymphocytes Absolute Auto 1.1(L) 1.2 - 4.9 X10*3/uL [facility] Monocytes Absolute Auto 1.1 0.1 - 1.2 X10*3/uL [facility] Eosinophils Absolute Auto 0.0 0.0 - 0.4 X10*3/uL [facility] Basophils Absolute Auto 0.0 0.0 - 0.2 X10*3/uL [facility] NRBC Abs Auto 0.000 0.0 - 0.012 X10*3/uL [facility] 08/06/2024 1:54 PM EDT 08/06/2024 1:58 PM EDT Generic External Data Provider LAB BLOOD ORDERAB LES Final Result Performing Organization Address [facility]/ZIP Co de Phone Number [facility] [address] [place] [phone] * Lactic Acid (08/06/2024 1:54 PM EDT) Lactic Acid 1.8 0.5 - 2.0 mmol/L [facility] 08/06/2024 1:54 PM EDT 08/06/2024 1:58 PM EDT Generic External Data Provider LAB BLOOD ORDERAB LES Final Result Performing Organization Address [facility] Co de Phone Number [facility] [address] [place] [phone] * (ABNORMAL) Basic Metabolic Panel (08/06/2024 1:54 PM EDT) Only the most recent of2 resultswithin the time period is included. Sodium 140 135 - 145 mmol/L [facility] Potassium 3.5 3.3 - 5.1 mmol/L [facility] Chloride 107 96 - 108 mmol/L [facility] Carbon Dioxide 26 22 - 29 mmol/L [facility] Anion Gap 11(L) 12 - 20 [facility] Urea Nitrogen (BUN) 11 9 - 16 mg/dL [facility] Creatinine, Serum 0.64 0.5 - 1.4 mg/dL [facility] Creatinine Clr Calc Pharmacy 106.3 [facility] Comment:Provided height and weight: 160.02 cm,58.967 kg.eGFR (calculated from the MDRD study equation) and eCrCl(calculated from the Cockcroft-Gault equation) are based ondifferent parameters and may not yield comparable results.If eCrCl result is absurd, please check patient'sheight/weight. Estimated Glomerular Filt Rate >60 [facility] Comment:Chronic Kidney Disea se: Estimated GFR < 60 mL/min/1.24l1Uwojks Kidney Disease: Estimated GFR < 15 mL/min/1.73m2 Glucose 89 60 - 115 mg/dL [facility] Calcium 8.6 8.4 - 10.2 mg/dL [facility] 08/06/2024 1:54 PM EDT 08/06/2024 1:58 PM EDT us Generic External Data Provider LAB BLOOD ORDERAB LES Final Result Performing Organization Address [facility] Co de Phone Number [facility] [address] [place] [phone] * Iron And Total Iron Binding Capacity (08/02/2024) Only the most recent of2 resultswithin the time period is included. Blood Venous blood specimen / Unknown us Yolanda Bess [employer]IUM ASSOCIATION MANAGER LAB BLOOD ORDERABLES Final Res ult Performing Organization Address [facility] de Phone Number [facility] [address] [place] [phone] * (ABNORMAL) Vitamin D, 25-Hydroxy, Total, Immunoassay (08/01/2024 3:34 PM EDT) Vitamin D 25-OH Total 20.2(L) >30 ng/mL [facility] Comment: Health Based Reference Values*< 20 ng/mL [id number] ng/mL Insufficient> 30 ng/mL Sufficient*Laurie BOOKER. N [...] ORDERABLES Final R esult Performing Organization Address [facility]/ZIP Co de Phone Number [facility] [address] [place] [phone] * TSH (08/01/2024 3:34 PM EDT) Thyroid Stimulating Hormone 0.98 0.32 - 4.0 uIU/mL [facility] Comment:TSH 3rd Generation ( [employer]) Blood Venous blood specimen / Unknown 08/01/2024 3:34 PM EDT 08/01/2024 4:09 PM EDT Love Yuen LAB BLOOD ORDERABLES Final R esult Performing Organization Address City/[facility]/ZIP Co de Phone Number [facility] [address] [place] [phone] * T4, Free (08/01/2024 3:34 PM EDT) Free T4 (Free Thyroxine) 1.07 0.71 - 1.85 ng/dL [facility] Blood Venous blood specimen / Unknown 08/01/2024 3:34 PM EDT 08/01/2024 4:09 PM EDT us Love Yuen DO LAB BLOOD ORDERABLES Final R esult Performing Organization Address City/[facility]/ZIP Co de Phone Number [facility] [address] [place] [phone] * Hemoglobin A1c (08/01/2024 3:34 PM EDT) Hemoglobin A1c 5.3 <6.0 % [facility] Comment:Hemoglobin A1C Refer ence Range Adults: 4.8 - 6.0 % Non diabetic: < 6.0 % Goal: < 7.0 %Additional Action Suggested: > 8.0 %Note: Hemoglobin A1c results are invalid for patients with abnormal amounts of HbF. Blood transfusions may impact the HbA1c concentration in the patient sample. Estimated Average Glucose 105 mg/dL [facility] Comment:eAG = Estimated ave rage glucose which is %A1C expressed asaverage glucose, using the formula of the W7A-VgsubvaWsclgoz Glucose study (ADAG), Diabetes Care, Vol.31,#8,Sep. 2007 Blood Venous blood specimen / Unknown 08/01/2024 3:34 PM EDT 08/01/2024 4:03 PM EDT us Love Yuen DO LAB BLOOD ORDERABLES Final R esult Performing Organization Address [facility]/ZIP Co de Phone Number [facility] [address] [place] [phone] * Ferritin (08/01/2024 3:34 PM EDT) Ferritin 33 10 - 122 ng/mL [facility] 08/01/2024 3:34 PM EDT 08/01/2024 4:09 PM EDT us Love Yuen DO LAB BLOOD ORDERABLES Final R esult [facility] [address] [place] [phone] * (ABNORMAL) PAP/HPV (05/09/2024) Pap Smear 1. NILM 1. NILM HPV Detected(A ) Undetected, Indeterminate , Quantitative, Not Detected us Historical Provider HEALTH MAINTENANCE Final Result * Hepatitis C Antibody with Reflex to HCV, RNA, Quantitative, Real-Time PCR (05/08/2024 10:41 AM EDT) Pathologist [facility] Hepatitis C Antibody Nonreactive Nonreactive [facility] Comment:Antibodies to HCV no t detected; does not exclude early acuteHCV infection. Blood Venous blood specimen / Unknown 05/08/2024 10:41 AM EDT 05/08/2024 11:45 AM EDT Yolanda Bess [facility] LAB BLOOD ORDERABLES Final Res ult [facility] [address] [place] [phone] * HIV-1/2 Antigen and Antibodies, Fourth Generation, with Reflexes (05/08/2024 10:41 AM EDT) Pathologist [facility] HIV AB/AG Nonreactive Nonreactive [facility] Comment:HIV-1 p24 Ag and/or HIV-1/HIV-2 Ab not detected.A test result that is nonreactive does not exclude thepossibility of exposure to or infection with HIV-1 and/orHIV-2. Nonreactive results in this assay for individualswith prior exposure to HIV-1 and/or HIV-2 may be due toantigen and antibody levels that are below the limit ofdetection of this assay.The Mohive HIV Ag/Ab Combo assay result andsupplemental assay results should be interpreted inconjunction with the patient's clinical presentation,history and other laboratory results. If the results areinconsistent with clinical evidence, additional testing issuggested to confirm the result. Blood Venous blood specimen / Unknown 05/08/2024 10:41 AM EDT 05/08/2024 11:45 AM EDT Yolanda BRONSON LAB BLOOD ORDERABLES Final Res ult [facility] [address] [place], [place] [phone] from Last 3 Months or Most Recently Relevant to Health Maintenance Insurance [employer] C3 Care Teams Registry Rn Relationship Specialty Start Date End Date Yolanda Bess FNP [address] [place] [phone] PCP - General Family Medicine 05/08/24 Maru Craig Registered Nurse 10/09/24 Karime Walker 10/09/24
--- OUTSIDE RECORDS SUMMARY | 2024-10-14 01:14 | XMS_ITS | Encounter Summary ---
Author Organization [facility] Address [address] [place] [phone] Phone Care Team Providers Care Curriculum Development Coordinator Name Role Phone Ghazala Cabezas MD Primary Care Provider Roberto Frank DMD Unavailable [phone] Yolanda Bess [employer] ENGINEER Primary Care Provider + Encounter Details Date Type Department Care Team (Late st Contact Info) Description 06/10/2024 Procedure Pass [facility], Ct Scan - [address] [address] Social History Tobacco Use Types Packs/Day Years Used Date Smoking Tobacco: Never Smokeless Tobacco: Never Alcohol Use Standard Drinks/Week Comments Yes 1 (1 standard drink = 0.6 oz pur e alcohol) Education Answer Date Recorded Are you interested in more education? Not on mai e 06/24/2022 Are you concerned about learning? Not on file 06/24/2022 No 06/24/2022 No 06/24/2022 Digital Access Answer Date Recorded No 07/26/2022 No 07/26/2022 Reliable internet access at home? Not on file 07/26/2022 Device with a working camera? Not on file Comments No Sex and Gender Information Value Date Recorded Sex Assigned at Female 10/12/2024 9:20 PM EDT Legal Sex Female 4:15 PM EDT Gender Identity Female 10/12/2024 9:20 PM EDT Sexual Orientation Choose not to disclose 2024 9:20 PM EDT documented as of this encounter Plan of Treatment Not on file documented as of this encounter Visit Diagnoses Not on filedocumented in this encounter Care Teams Curriculum Development Coordinator Relationship Specialty Start Date End Date Ghazala Cabezas MD [address] [place] [phone] PCP - General Internal Medicine 06/04/18 07/04/24 Yolanda Bess FNP [address] [place] [address] PCP - General Nurse Practitioner 07/05/24 Roberto Frank DMD [address] [place] [phone] [email or web address] 11/09/20 documented as of this encounter Additional Source Comments The information contained in this document represents components of the legal health record. It is not the complete legal health record.[facility]
--- OUTSIDE RECORDS SUMMARY | 2024-10-14 01:14 | XMS_ITS | Patient Health Record ---
Author Organization [facility] Address [address], [place] [address] Care Team Providers Care Private Branch Exchange Operator Name Role Phone BURKE KENT Primary Care Provider [phone] Allergies Allergen (clinical drug ingredient) Drug/Non Drug Allergy documented on EMR Reaction Allergy Type Onset Date Status acetaminophen / oxycodone Percocet Unknown Drug Allergy Active Reason For Referral No Information Medications Medication SIG (Take, Route, Frequency, Duration) Notes Start Date End Date Status CeleXA 20 MG 1 tablet Orally Once a day; Duration: 90 days 05/19/2022 Unknown Cyclobenzaprine HCl 10 MG 1 tablet at be dtime as needed Orally Once a day Unknown Problems Problem Type SNOMED Code ICD Code Onset Dates Problem Status W/U Status Risk Notes Problem Slow transit constipation (58758205) Slow transit constipation (K59.01) Active confirmed Problem Fatigue (31331348) Other fatigue (R53.83) Active confirmed Problem Cyst of right ovary (334109675654261 08) Unspecified ovarian cyst, right side (N83.201) Active confirmed Problem Cyst of left ovary (938448979274754 08) Unspecified ovarian cyst, left side (N83.202) Active confirmed Problem Anxiety (40360487) Anxiety (F41.9) Active confirmed Problem Body mass index 20-24 - normal (099178234) BMI 20.0-20.9, adult (Z68.20) Active confirmed Problem Moderate recurrent major depression (93523217) Moderate episode of recurrent major depressive disorder (F33.1) Active confirmed Problem Venereal disease screening (584278245) Screen for STD (sexually transmitted disease) (Z11.3) Active confirmed Problem 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
--- NOTE | 2024-10-14 01:30 | ED_ITS ---
HPI - URI/Sore Throat General Chief Complaint: Upper Respiratory Symptoms Stated Complaint: sore throat chills Time Seen by Provider: 10/14/24 01:15 Source: patient Mode of arrival: ambulatory Limitations: no limitations History of Present Illness ED Provider: Ron PELAEZ HPI Narrative: The patient is a 29-year-old female presenting to the emergency department for evaluation of sore throat which began yesterday and worsened when waking this morning. The patient reports she was seen back in July for evaluation of sore throat and was diagnosed with a peritonsillar abscess which required drainage. Patient was seen once again at the end of July and at that time was diagnosed with viral pharyngitis. The patient reports she was feeling well up until yesterday when she developed recurrent sore throat with tenderness of the right anterior cervical chain, with subjective chills and malaise. The patient was seen at [facility] ED where she states she was negative for strep throat and discharged home. The patient reports she is currently 7 weeks , with a documented IUP. The patient reports she is also currently experiencing some slight suprapubic discomfort, denies associated vaginal bleeding. Patient denies associated objective fever, vomiting, diarrhea, chest pain, cough, shortness of breath, or recent sick contacts. Patient reports she was working on scheduling a tonsillectomy, however then found out she was and the procedure had to be delayed. Related Data Home Medications ?Medication ?Instructions ?Recorded ?Confirmed cyclobenzaprine 5 mg tablet 5 mg PO TID PRN Muscle Spa sm 04/21/23 07/17/24 Previous Rx's ?Medication ?Instructions ?Recorded diphenoxylate-atropine 2.5 1 tab PO TID PRN diarrhea # 10 tabs 04/21/23 mg-0.025 mg tablet (Lomotil) ondansetron 4 mg disintegrating 4 mg PO Q8H PRN nausea and 04/21/23 tablet vomiting #10 tabs omeprazole 20 mg capsule,delayed 20 mg PO BID@0630,163 0 #28 caps 04/25/23 release amoxicillin 500 mg tablet 500 mg PO BID #20 tabs 06/15 ondansetron 4 mg disintegrating 4 mg PO TID PRN nausea and 06/16/23 tablet vomiting #7 tabs polyethylene glycol 3350 17 17 g PO DAILY #119 grams 0 06/16/23 gram/dose oral powder (Miralax) sennosides 8.6 mg capsule (senna) 8.6 mg PO BEDTIME CA N constipation 06/16/23 #7 caps acetaminophen 500 mg tablet 1,000 mg (2 x 500 mg) PO Q 8H PRN 08/11/23 (Tylenol Extra Strength) fever or pain #30 tabs cephalexin 500 mg capsule 500 mg PO QID 5 days #20 cap s 08/11/23 ibuprofen 600 mg tablet 600 mg PO Q6H PRN fever or p ain 08/11/23 #30 tabs morphine 15 mg immediate release 15 mg PO BID PRN pain #5 tabs 08/11/23 tablet clindamycin HCl 300 mg capsule 300 mg PO TID #20 caps 08/06/24 morphine 10 mg/5 mL oral solution 5 mg (2.5 mL) PO Q4H PRN pain #20 08/06/24 mL prednisone 20 mg tablet 40 mg (2 x 20 mg) PO DAILY # 10 tabs 08/06/24 acetaminophen 500 mg tablet 500 mg PO Q6H PRN fever or pain 08/22/24 (Tylenol Extra Strength) #30 tabs cefuroxime axetil 500 mg tablet 500 mg PO BID 7 days # 14 tabs 08/22/24 ibuprofen 200 mg capsule (Motrin 400 mg (2 x 200 mg) P O Q8H 1 week 08/22/24 IB) #42 caps clindamycin HCl 300 mg capsule 300 mg PO TID #21 caps 10/14/24 (Cleocin HCl) Allergies Allergy/AdvReac Type Severity Reaction Status Date / Time Iodinated Contrast Media Allergy Intermediate RASH Verified 10/13/24 23:03 (Iodinated Contrast Media - IV Dye) oxycodone (From PERCOCET) Allergy Intermediate TACHYCARDIA Verified 10/13/24 23:03 ketorolac (From Toradol) Allergy Confusion Verified 10/13/24 23:03 Review of Systems Review of Systems: Yes all other systems are reviewed and are negative [facility] Past Medical History Medical History Muscle spasm Ovarian cyst Social History Social History Household Members: Family Housing: Apartment Unable to assess alcohol history related to: Unknown Alcohol intake: never Patient Tobacco Use Status: Never used Tobacco Smoked in Last 30 Days: No Use of substances other than those prescribed or required for medical reasons: No Substance Use Type: Marijuana Advance Directives: No Advance Directives Information Provided: No Do you have a plan to hurt others: No Plan service: No Physical Exam Vital Signs: Vital Signs: Last Vital Signs Temp 99 F 10/13/24 22:58 Pulse 88 10/13/24 22:58 Resp 16 10/13/24 22:58 BP 112/57 L 10/13/24 22:58 Pulse Ox 98 10/13/24 22:58 O2 Del Method Room Air 10/13/24 22:58 BMI result Body Mass Index 22.5 CONSTITUTIONAL: The patient appears non-toxic, well nourished and in no acute distress. Vital signs as documented. HEAD: Atraumatic, normocephalic. EYES: EOMs grossly intact, pupils equal, conjunctiva clear, no exudate. ENT: Nares patent, no discharge. Airway patent, no audible stridor, visible mucosa is pink and moist without noted lesions. The posterior pharynx demonstrates a midline nonedematous uvula, with bilateral tonsillar swelling with mild patchy white exudate, without associated peritonsillar swelling. There is no muffled voice, trismus, or pooling of secretions. NECK: Trachea is midline, there is tender lymphadenopathy noted of the right anterior cervical chain, no other obvious masses or gross abnormalities. CHEST: Symmetric movement, normal appearance. LUNGS: LS present and CTAB, no w/r/r. Non-labored work of breathing. CARDIAC: Regular Rhythm, S1/S2 appreciated, no murmurs, rubs or gallops. ABDOMEN: Abdomen soft and non-tender x4 quadrants, mild suprapubic tenderness, negative rebound, no palpable masses or organomegaly. : Deferred. EXTREMITIES: Normal tone, moves all extremities spontaneously without reported pain. No obvious acute injury or deformity noted. NEURO: Alert and oriented x3, CN II-XII appear grossly intact. Cerebellar Functioning grossly intact. No obvious sensory or motor deficits. Speech clear and appropriate. PSYCH: normal affect, appropriate eye contact, fluid speech, with appropriate response to questioning. No reported suicidality or homicidality. SKIN: Warm, dry, color appropriate, normal turgor. No rashes noted. Medications Administered Discontinued Medications Generic Name Dose Route Start Last Admin Trade Name Vanita PRN Reason Stop Dose Admin Acetaminophen 975 mg 10/14/24 02:33 10/14/24 02:38 Acetaminophen 325 Mg Tablet PO 10/14/24 02:34 975 mg ONCE ONE Administration Medical Decision Making Medical Decision Making [facility] Narrative: 2:39 AM 10/14/2024 (Blanca PELAEZ): The patient is a 29-year-old female currently 7 weeks presenting to the ED for evaluation of sore throat over the past 2 days. The patient was seen at [facility] yesterday, strep testing was negative and patient was discharged with instructions for Tylenol q.6 hours. The patient reports symptoms worsened today with some increased white exudate and she returns to the ED for re-evaluation. The patient's exam reveals no muffled voice, trismus, unilateral swelling, peritonsillar swelling, uvular edema, or other evidence of peritonsillar abscess. The patient's viral swab is negative, strep swab is also negative. The patient's lower abdominal pain will be evaluated with a urinalysis and we will treat pain with Tylenol given . The patient is likely suffering from viral pharyngitis however given the patient's recent history of peritonsillar abscess, with new deve lopment of white exudate noted on exam today, with associated lymphadenopathy, low-grade fever, and lack of cough, patient meets 4/4 Centor criteria and we will likely treat prophylactically with antibiotics. We will await urinalysis to determine most effective/appropriate antibiotic therapy. 3:02 AM 10/14/2024 (Blanca PELAEZ): Patient's urinalysis shows no bacteria. Patient will be treated with clindamycin empirically for suspected strep throat. Admission/Observation Consideration of admission/observation: Escalation of care including admission/observation considered Lab Data MDM Lab Attestation statement: I reviewed the patient's lab results. Labs: Lab Results 10/14/24 10/14/24 Range/Units 00:47 02:40 Beta HCG, Quant 35376 mIU/mL Urine Color Yellow Urine Appearance Clear Urine pH 7.5 (5.0-9.0) Ur Specific Castell 1.015 (1.005-1.025) Urine Protein Negative (Neg-Trace) mg/dL Urine Glucose (UA) Negative (Negative) mg/dL Urine Ketones Negative (Negative) mg/dL Urine Blood Moderate (2+) H (Negative) Urine Nitrite Negative (Negative) Ur Leukocyte Esterase Negative (Negative) Urine RBC 11-20 H (0-2) /HPF Urine WBC 0-5 (0-5) /HPF Ur Squamous Epith Cells 0-2 (0-2) /HPF Urine Bacteria None Seen (None Seen) Hyaline Casts 0-2 (0-2) /LPF Influenza Type A (PCR) NEGATIVE (Negative) Influenza Type B (PCR) NEGATIVE (Negative) RSV RNA Qual (PCR) NEGATIVE (Negative) SARS-CoV-2 RNA (RT-PCR) NEGATIVE (Negative) S. pyogenes GrpA GURMEET Negative (Negative) Discharge Plan Discharge Clinical Impression: Pharyngitis Patient Disposition: Home, Self-Care Instructions: Pharyngitis (ED) Additional Instructions: Thank you for choosing [facility]'s Emergency Department for your care today. Your viral swab today was negative for influenza, COVID, and RSV. Your urinalysis was negative for a urinary tract infection or bacteria. At this time there is no indication for admission to the hospital or continued ED observation, and it is safe to discharge you home. Your rapid strep swab was also negative, however your strep culture could still result positive. Given your constellation of symptoms, in conjunction with your recent history of strep throat and peritonsillar abscess we are treating you prophylactically with clindamycin. Please take this as prescribed until finished. You may also take 1 g of Tylenol every 6 hours as needed for additional pain or fever. Please follow up with your primary care physician and OBGYN for re-evaluation, additional management of your symptoms, and continued preventative care. If you do not have a primary care physician, please call the [facility] at [phone] to establish a new primary care physician. While waiting to establish your new primary care physician, you can call our Walk-in Care [facility] at [phone] for non-emergency needs. Please return to the emergency department if you develop a severe or sudden change in your symptoms, a fever over 100.4 that does not improve with Tylenol o r Ibuprofen, recurrent vomiting, or any other new or worsening symptoms or concerns. Prescriptions: New clindamycin HCl [Cleocin HCl] 300 mg capsule 300 mg PO TID Qty: 21 0RF No Action ondansetron 4 mg tablet,disintegrating 4 mg PO Q8H PRN (Reason: nausea and vomiting) Qty: 10 0RF diphenoxylate-atropine [Lomotil] 2.5-0.025 mg tablet 1 tab PO TID PRN (Reason: diarrhea) Qty: 10 0RF Rx Instructions: Keep this medication out of reach of children cyclobenzaprine 5 mg Tablet 5 mg PO TID PRN (Reason: Muscle Spasm) omeprazole 20 mg Capsule,Delayed Release(Dr/Ec) 20 mg PO BID@0630,1630 Qty: 28 0RF clindamycin HCl 300 mg capsule 300 mg PO TID Qty: 20 0RF prednisone 20 mg tablet 40 mg PO DAILY Qty: 10 0RF morphine 10 mg/5 mL solution 5 mg PO Q4H PRN (Reason: pain) Qty: 20 0RF Rx Instructions: Partial Fill upon patient request. amoxicillin 500 mg tablet 500 mg PO BID Qty: 20 0RF polyethylene glycol 3350 [Miralax] 17 gram/dose powder 17 g PO DAILY Qty: 119 0RF senna 8.6 mg capsule 8.6 mg PO BEDTIME PRN (Reason: constipation) Qty: 7 0RF ondansetron 4 mg tablet,disintegrating 4 mg PO TID PRN (Reason: nausea and vomiting) Qty: 7 0RF cephalexin 500 mg capsule 500 mg PO QID 5 Days Qty: 20 0RF ibuprofen 600 mg tablet 600 mg PO Q6H PRN (Reason: fever or pain) Qty: 30 0RF acetaminophen [Tylenol Extra Strength] 500 mg tablet 1,000 mg PO Q8H PRN (Reason: fever or pain) Qty: 30 0RF morphine 15 mg tablet 15 mg PO BID PRN (Reason: pain) Qty: 5 0RF Rx Instructions: Partial Fill upon patient request. acetaminophen [Tylenol Extra Strength] 500 mg tablet 500 mg PO Q6H PRN (Reason: fever or pain) Qty: 30 0RF ibuprofen [Motrin IB] 200 mg capsule 400 mg PO Q8H 7 Days Qty: 42 0RF cefuroxime axetil 500 mg tablet 500 mg PO BID 7 Days Qty: 14 0RF Referrals: [facility] [Primary Care Provider, Medical] Clinical Impression: Pharyngitis Print Language: East Timorese
[2024-10-14 01:31] LABS: Resp Syncy Virus RNA Qual PCR NEGATIVE (Negative); SARS COV2 PCR INHOUSE NEGATIVE (Negative)
[2024-10-14 02:12] LABS: IDNOW Serial# 58CA691E; Strep A Nucleic Acid Negative (Negative)
--- NOTE | 2024-10-14 02:23 | PC.NURSE ---
MICHAEL at bedside. cd technician to obtain UA.
[2024-10-14 02:47] LABS: Appearance Urine Clear; Glucose Urine UA Negative (Negative); PH 7.5 (5.0-9.0); Specific Gravity - Urine 1.015 (1.005-1.025); UMIC TRIGGER UACC YES
--- NOTE | 2024-10-14 02:51 | PC.NURSE ---
Patient medicated per MAR.
[2024-10-14 03:21] VITALS: BP 98/60; PULSE 95; RESP 16; TEMP 38.8; O2SAT 98
== END 2024-10-14 03:22 | disposition home or self-care (01) ==
PROVIDERS: Emergency Provider Emergency Medicine
DX: J02.9 Acute pharyngitis, unspecified (principal)
CPT/HCPCS: 36415; 81001; 84702; 87637; 87651; 99283; 99284

== ENCOUNTER 2024-11-07 17:56 | Outpatient (REF) | payer MEDICAID, SELFPAY ==
[2024-11-07 18:22] LABS: Appearance Urine Clear; Glucose Urine UA Negative (Negative); PH 6.5 (5.0-9.0); Specific Gravity - Urine 1.020 (1.005-1.025); UMIC TRIGGER UACC YES
--- OUTSIDE RECORDS SUMMARY | 2024-11-07 19:02 | XMS_ITS | Encounter Summary ---
Author Organization [facility] Address [address] [place] [address] Phone Care Team Providers Care Pipe Inspector Name Role Phone Ghazala Cabezas MD Primary Care Provider Roberto Frank DMD Unavailable [phone] Yolanda Bess PLC CONTROLS ENGINEER Primary Care Provider + Encounter Details Date Type Department Care Team (Latest Contact Info) Description 08/11/2018 Prep for Surgery [facility] refrigeration plant operator [address], [address] [place] [address] Travis Aguiar, DMD [address] [place] [address] Temporomandibular disorder (Primary Dx) Social History Tobacco Use Types Packs/Day Years Used Date Smoking Tobacco: Never Assessed Comments No Sex and Gender Information Value Date Recorded Sex Assigned at Female 10/12/2024 9:20 PM EDT Legal Sex Female 4:15 PM EDT Gender Identity Female 10/12/2024 9:20 PM EDT Sexual Orientation Choose not to disclose 2024 9:20 PM EDT documented as of this encounter Plan of Treatment Not on file documented as of this encounter Visit Diagnoses Diagnosis Temporomandibular disorder- Primary Unspecified temporomandibular joint disorders documented in this encounter Care Teams Pipe Inspector Relationship Specialty Start Date End Date Ghazala Cabezas MD [address] [place] [address] PCP - General Internal Medicine 06/04/18 07/04/24 Yolanda Bess FNP [address] [place] [address] PCP - General Nurse Practitioner 07/05/24 Roberto Frank DMD [address] [place] [id number] [email or web address] plant [email or web address] 11/09/20 documented as of this encounter Additional Source Comments The information contained in this document represents components of the legal health record. It is not the complete legal health record.[facility]
--- OUTSIDE RECORDS SUMMARY | 2024-11-07 19:02 | XMS_ITS | Encounter Summary ---
Author Organization [facility] Address [address] [facility] [address] [place] [address] Phone Care Team Providers Care Repairer Finished Metal Name Role Phone Ghazala Cabezas MD Primary Care Provider Roberto Frank DMD Unavailable [phone] Yolanda Bess ACTIVITY LEADER Primary Care Provider + Encounter Details Date Type Department Care Team (Late st Contact Info) Description 12/11/2018 Procedure Pass [facility] [address] [place] [id number] Social History Tobacco Use Types Packs/Day Years Used Date Smoking Tobacco: Never Smokeless Tobacco: Never Alcohol Use Standard Drinks/Week Comments Yes 5 (1 standard drink = 0.6 oz pur e alcohol) Comments No Sex and Gender Information Value [...] on filedocumented in this encounter Care Teams Repairer Finished Metal Relationship Specialty Start Date End Date Ghazala Cabezas MD [address] [place] [address] PCP - General Internal Medicine 06/04/18 07/04/24 Yolanda Bess FNP [address] [place] [address] PCP - General Nurse Practitioner 07/05/24 Roberto Frank DMD [address] [place] [id number] [email or web address] 11/09/20 documented as of this encounter Additional Source Comments The information contained in this document represents components of the legal health record. It is not the complete legal health record.[facility]
--- OUTSIDE RECORDS SUMMARY | 2024-11-07 19:02 | XMS_ITS | Patient Health Record ---
Author Organization [facility] Address [address] [place], [place] [address] Care Team Providers Care Beef Cattle Grazier Name Role Phone BURKE KENT Primary Care [...] Status Risk Notes Problem Slow transit constipation (78254241) Slow transit constipation (K59.01) Active confirmed Problem Fatigue (72758382) Other fatigue (R53.83) Active confirmed Problem Cyst of right ovary (038202362549591 08) Unspecified ovarian cyst, right side (N83.201) Active confirmed Problem Cyst of left ovary (241067635631638 08) Unspecified ovarian cyst, left side (N83.202) Active confirmed Problem Anxiety (52111434) Anxiety (F41.9) Active confirmed Problem Body mass index 20-24 - normal (201148705) BMI 20.0-20.9, adult (Z68.20) Active confirmed Problem Moderate recurrent major depression (65813575) Moderate episode of recurrent major depressive disorder (F33.1) Active confirmed Problem Venereal disease screening (483554793) Screen for STD (sexually transmitted disease) (Z11.3) Active confirmed Problem Herpes simplex type 1 infection (068986711) 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
--- OUTSIDE RECORDS SUMMARY | 2024-11-07 19:02 | XMS_ITS | Clinical Summary ---
Author Organization [facility] Address [address] [place] [phone] Phone Care Team Providers Care Records Section Supervisor Name Role Phone Roberto Frank Ruiz DMD Unavailable [phone] Yolanda Bess ORAL THERAPIST Primary Care Provider + Allergies Active Allergy Reactions Criticality Noted Date Comments Iodinated Contrast Media 07/25/2018 Oxycodone-Acetaminophen Palpitations Low 08/01/2018 Oxycodone allergy Ketorolac 10/12/2024 Medications cyclobenzaprin e (FLEXERIL) 5 MG tablet Take 5 mg by mouth nightly at bedtime. Active ibuprofen (ADVIL,MOTRIN) 800 MG tabletIndicati ons:pain Take 800 mg by mouth every 6 (six) hours as needed for pain (specific location in comments). Indications: pain Active acetaminophen (TYLENOL) 500 MG tablet Take 500 mg by mouth every 6 (six) hours as needed for pain (specific location in comments). Active meloxicam (MOBIC) 7.5 MG tablet Take 1 tablet (7.5 mg total) by mouth daily. 60 tablet 12/12/19 Active cyclobenzaprin e (FLEXERIL) 5 MG tablet Take 1 tablet (5 mg total) by mouth nightly at bedtime. 60 tablet 12/12/19 Active HYDROmorphone (DILAUDID) 4 MG tablet Take 1 tablet (4 mg total) by mouth every 4 (four) hours as needed (severe pain). Partial fill ok 12 tablet 12/12/19 Active Additional Information Patient not taking.Reported on 12/19/2018 ibuprofen (ADVIL,MOTRIN) 200 MG tablet Take 2 tablets (400 mg total) by mouth every 6 (six) hours as needed for pain (specific location in comments). 12/12/19 19 Active amoxicillin (AMOXIL) 500 MG capsule Take 500 mg by mouth 3 (three) times a day. Active omeprazole (PRILOSEC) 10 MG capsule Take 10 mg by mouth 2 (two) times a day. Active clindamycin (CLEOCIN) 300 MG capsule Take 300 mg by mouth 3 (three) times a day. Active clarithromycin (BIAXIN) 500 MG tablet Take 500 mg by mouth 2 (two) times a day. Active methylPREDNISo lone (MEDROL DOSEPACK) 4 mg tablet follow package directions 21 tablet 07/16/19 25 Active chlorhexidine (PERIDEX) 0.12 % solution Use as directed 15 mL in the mouth or throat 2 (two) times a day. 120 mL 10/13/19 25 Active chlorhexidine (PERIDEX) 0.12 % solution Use as directed 15 mL in the mouth or throat 2 (two) times a day. 120 mL 10/13/19 25 025 Discontinued Active Problems Problem Noted Date Diagnosed Date Temporomandibular disorder 06/27/2018 Estimated Date of Delivery Comme nts Yes 05/30/2025 Encounters Date Type Department Care Team Description 10/12/2024 7:24 PM EDT - 10/12/2024 10:36 PM EDT Emergency [facility] [address] [place] [address] Discharge Disposition: Home or Self Care from Last 3 Months Social History Tobacco Use Types Packs/Day Years [...] with a working camera? Not on file Intimate Partner Violence Answer Date R ecorded Are you denied basic needs s uch as food, clothing, or medical care? No 10/12/2024 In the past 12 months have y ou been in a relationship with a person who hurts, threatens, or tries to control you? No 10/12/2024 Are you denied basic needs s uch as food, clothing, or medical care? No 10/12/2024 In the past 12 months have y ou been in a relationship with a person who hurts, threatens, or tries to control you? No 10/12/2024 Estimated Date of Delivery Comme nts Yes 05/30/2025 Sex and Gender Information Value Date Recorded Sex Assigned at Female 10/12/2024 9:20 PM EDT Legal Sex Female 4:15 PM EDT Gender Identity Female 10/12/2024 9:20 PM EDT Sexual Orientation Choose not to disclose 2024 9:20 PM EDT Last Filed Vital Signs Vital Sign Reading Time Taken Comments Blood Pressure 123/76 10/12/2024 10:22 PM EDT Pulse 100 10/12/2024 10:22 PM EDT Temperature 36.4 C (97.6 F) 10/12/2024 10:22 PM EDT Respiratory Rate 18 10/12/2024 10:22 PM EDT Oxygen Saturation 97% 10/12/2024 10:22 PM EDT Inhaled Oxygen Concentration - - Weight 57.6 kg (127 lb) 10/12/2024 6:41 PM EDT Height 160 cm (5' 3 ) 10/12/2024 6:41 PM EDT Body Mass Index 22.5 10/12/2024 6:41 PM EDT Plan of Treatment Health Maintenance Due Date Last Done Comments DEPRESSION SCREENING 2006 HEPATITIS C SCREENING 2012 HIV ONE-TIME SCREENING (18-6 5 YEARS) 2012 INFLUENZA VACCINE (#1) 2024 COVID-19 VACCINE ( - 2023-2 5 season) 2024 PAP SMEAR 05/09/2027 05/08/2024 Adult Td,Tdap Booster 08/10/2033 08/11/2023 SMOKING STATUS SCREENING (On ce After 26 Yrs) Completed 07/16/2024 HEPATITIS A VACCINES Aged Out No long er eligible based on patient's age to complete this topic HIB VACCINES Aged Out No longer eligi ble based on patient's age to complete this topic MENINGOCOCCAL VACCINES (ACWY) Aged Out No longer eligible based on patient's age to complete this topic MENINGOCOCCAL VACCINES (B) Aged Out N o longer eligible based on patient's age to complete this topic PNEUMOCOCCAL VACCINES (0-49 years) Aged Out No longer eligible based on patient's age to complete this topic RSV VACCINE (No Doses Required) Completed Medical Devices Implanted Type Area Aquatic Director Device Identifier Shelf Expiration Date Model / Serial / Lot Iud Procedures Procedure Name Priority Date/Time Associated Diagnosis Comments STREPTOCOCCUS, GROUP A CULTURE Routine 10/12/2024 6:44 PM EDT RAPID GROUP A STREP SCREEN STAT 10/12/2024 6:44 PM EDT from Last 3 Months Results * Streptococcus, Group A Culture (10/12/2024 6:44 PM EDT) Special Requests None 10/12/2024 8:03 PM EDT [facility] Group A Strep Culture NEGATIVE FOR GRP A BETA STREPTOCOCCI 10/14/2024 7:29 AM EDT [facility] Throat 10/12/2024 6:44 PM EDT 10/12/2024 8:02 PM EDT Shaila Becerra MD MICROBIOLOGY - GENERAL OR DERABLES Final Result Performing Organization Address City/State/[facility] Co de Phone Number [address] [address] * Rapid Group A Strep Screen (10/12/2024 6:44 PM EDT) Pathologist [facility] RAPID STREP SCREEN Negative Negative [facility] Comment:A culture for Group A strep has been ordered. Results will follow. Other (Throat) 10/12/2024 6: 44 PM EDT 10/12/2024 7:28 PM EDT Shaila Becerra MD MICROBIOLOGY - GENERAL OR DERABLES Final Result [address] [address] from Last 3 Months Insurance C3 ACO C3 ACO C3 ACO C3 ACO C3 ACO C3 ACO C3 ACO C3 ACO C3 ACO Advance Directives For more information, please contact: [phone] (9AM - 5PM [place], Monday-Monday) * Full Code (Presumed) (Latest Code Status on File) Date Activated Date Inactivated Comments 12/11/2018 7:12 AM 12/11/2018 6:09 PM Care Teams Records Section Supervisor Relationship Specialty Start Date End Date Yolanda Bess FNP [address] [place] [address] PCP - General Nurse Practitioner 07/05/24 Roberto Frank, INEZ [address] [place] [address] [email or web address] operator 11/09/20 Additional Source Comments The information contained in this document represents components of the legal health record. It is not the complete legal health record.[facility]
--- OUTSIDE RECORDS SUMMARY | 2024-11-07 19:02 | XMS_ITS | Encounter Summary ---
Author Organization [facility] Address [address] [place] [address] [place] [address] Phone Care Team Providers Care High School Assistant Principal Name Role Phone Ghazala Cabezas MD Primary Care Provider Roberto Frank DMD Unavailable [phone] Yolanda Bess Primary Care Provider + Encounter Details Date Type Department Care Team (Late st Contact Info) Description 06/27/2018 Procedure Pass [facility] [place] [address] [facility]nd [place] [address] Social History Tobacco Use Types Packs/Day Years [...] on filedocumented in this encounter Care Teams High School Assistant Principal Relationship Specialty Start Date End Date Ghazala Cabezas MD [address] [place] [address] PCP - General Internal Medicine 06/04/18 07/04/24 Yolanda Bess FNP [address] [place] [address] PCP - General Nurse Practitioner 07/05/24 Roberto Frank, INEZ [address] [place] [address] [email or web address] teacher 11/09/20 documented as of this encounter Additional Source Comments The information contained in this document represents components of the legal health record. It is not the complete legal health record.[facility]
--- OUTSIDE RECORDS SUMMARY | 2024-11-07 19:02 | XMS_ITS | Encounter Summary ---
Author Organization [facility] Address [address] [place] [address] Phone Care Team Providers Care Business Law Teacher Name Role Phone Ghazala Cabezas MD Primary Care Provider Roberto Frank DMD Unavailable [phone] Yolanda Bess TIE SAWYER Primary Care Provider + Encounter Details Date Type Department Care Team (Late st Contact Info) Description 06/10/2024 Procedure Pass [facility], [address] [address] Social History Tobacco Use Types Packs/Day Years [...] on filedocumented in this encounter Care Teams Business Law Teacher Relationship Specialty Start Date End Date Ghazala Cabezas MD [address] [place] [address] PCP - General Internal Medicine 06/04/18 07/04/24 Yolanda Bess FNP [address] [place] [address] PCP - General Nurse Practitioner 07/05/24 Roberto Frank DMD [address] [place] [address] [email or web address] executive assistant 11/09/20 documented as of this encounter Additional Source Comments The information contained in this document represents components of the legal health record. It is not the complete legal health record.[facility]
--- OUTSIDE RECORDS SUMMARY | 2024-11-07 19:02 | XMS_ITS | Encounter Summary ---
Author Organization [facility] Address [address] [place] [address] Phone Care Team Providers Care Informatics Scientist Name Role Phone Ghazala Cabezas MD Primary Care Provider Roberto Frank DMD Unavailable [phone] Yolanda Bess [employer]BER Primary Care Provider + Encounter Details Date Type Department Care Team (Late st Contact Info) Description 06/10/2024 Procedure Pass [facility], [facility] Scan - [address] [address] Social History Tobacco Use Types Packs/Day Years [...] on filedocumented in this encounter Care Teams Informatics Scientist Relationship Specialty Start Date End Date Ghazala Cabezas MD [address] [place] [address] PCP - General Internal Medicine 06/04/18 07/04/24 Yolanda Bess FNP [address] [place] [address] PCP - General Nurse Practitioner 07/05/24 Roberto Frank DMD [address] [place] [address] [email or web address] attendant 11/09/20 documented as of this encounter Additional Source Comments The information contained in this document represents components of the legal health record. It is not the complete legal health record.[facility]
== END 2024-11-07 17:57 | disposition home or self-care (01) ==
LOC: HO.HHCLNP 17:56
PROVIDERS: Visit Provider Family Medicine
DX: Z34.91 Encounter for supervision of normal pregnancy, unspecified, first trimester (principal); Z3A.10 10 weeks gestation of pregnancy
CPT/HCPCS: 81001

== ENCOUNTER 2025-02-23 18:19 | Emergency (ER) | payer MEDICAID, SELFPAY ==
[2025-02-23 18:23] VITALS: BP 116/59; PULSE 105; RESP 20; TEMP 36.8; O2SAT 99; BMI 31.0
--- NOTE | 2025-02-23 18:24 | ED.GENADULT ---
HPI - General Adult General Chief complaint: Upper Respiratory Symptoms Stated complaint: flu like symptoms Time Seen by Provider: 02/23/25 23:04 Source: patient Mode of arrival: ambulatory Limitations: no limitations History of Present Illness ED Provider: Dr. Miguelina Dunham HPI narrative: Patient comes to the emergency room complaining of runny nose, cough, body aches for several days. Patient states that she has it has been also been having nausea got it is blood controlled by her medication that was prescribed by her OBGYN. Patient known to be 26 weeks of gestational age. Patient denies any abdominal pain or cramping, no vaginal discharge or bleeding. Patient denies fever. Related Data Home Medications ?Medication ?Instructions ?Recorded ?Confirmed cyclobenzaprine 5 mg tablet 5 mg PO TID PRN Muscle Spasm 04/21/23 07/17/24 Previous Rx's ?Medication ?Instructions ?Recorded diphenoxylate-atropine 2.5 1 tab PO TID PRN diarrhea #10 tabs 04/21/23 mg-0.025 mg tablet (Lomotil) ondansetron 4 mg disintegrating 4 mg PO Q8H PRN nausea and 04/21/23 tablet vomiting #10 tabs omeprazole 20 mg capsule,delayed 20 mg PO BID@0630,1630 #28 caps 04/25/23 release amoxicillin 500 mg tablet 500 mg PO BID #20 tabs 06/16/23 ondansetron 4 mg disintegrating 4 mg PO TID PRN nausea and 06/16/23 tablet vomiting #7 tabs polyethylene glycol 3350 17 17 g PO DAILY #119 grams 06/16/23 gram/dose oral powder (Miralax) sennosides 8.6 mg capsule (senna) 8.6 mg PO BEDTIME PRN constipation 06/16/23 #7 caps acetaminophen 500 mg tablet 1,000 mg (2 x 500 mg) PO Q8H PRN 08/11/23 (Tylenol Extra Strength) fever or pain #30 tabs cephalexin 500 mg capsule 500 mg PO QID 5 days #20 caps 08/11/23 ibuprofen 600 mg tablet 600 mg PO Q6H PRN fever or pain 08/11/23 #30 tabs morphine 15 mg immediate release 15 mg PO BID PRN pain #5 tabs 08/11/23 tablet clindamycin HCl 300 mg capsule 300 mg PO TID #20 caps 08/06/24 morphine 10 mg/5 mL oral solution 5 mg (2.5 mL) PO Q4H PRN pain #20 08/06/24 mL prednisone 20 mg tablet 40 mg (2 x 20 mg) PO DAILY #10 tabs 08/06/24 acetaminophen 500 mg tablet 500 mg PO Q6H PRN fever or pain 08/22/24 (Tylenol Extra Strength) #30 tabs cefuroxime axetil 500 mg tablet 500 mg PO BID 7 days #14 tabs 08/22/24 ibuprofen 200 mg capsule (Motrin 400 mg (2 x 200 mg) PO Q8H 1 week 08/22/24 IB) #42 caps clindamycin HCl 300 mg capsule 300 mg PO TID #21 caps 10/14/24 (Cleocin HCl) acetaminophen 500 mg tablet 500 mg PO Q6H PRN fever or pain 02/23/25 #30 tabs Allergies Allergy/AdvReac Type Severity Reaction Status Date / Time Iodinated Contrast Media Allergy Intermediate RASH Verified 02/23/25 18:26 (Iodinated Contrast Media - IV Dye) oxycodone (From PERCOCET) Allergy Intermediate TACHYCARDIA Verified 02/23/25 18:26 ketorolac (From Toradol) Allergy Confusion Verified 02/23/25 18:26 Review of Systems Review of Systems: Constitutional : No Weight loss, No Fever, No Chills, No Night Sweats, No Fatigue, No Malaise ENT/Mouth : No Hearing loss, No Ear Pain, No Nasal Congestion, No Sinus Pain, No Hoarseness, No sore throat, No Rhinorrhea, No Swallowing Difficulty Eyes: No Eye Pain, No Swelling, No Redness, No Foreign Body, No Discharge, No Vision Changes Cardiovascular : No Chest Pain, no orthopnea no palpitations no edema Respiratory : Complaining of cough and runny nose Gastrointestinal : No Nausea, No Vomiting, No Diarrhea, No Constipation, No abdominal Pain, No Hematochezia, No Melena Genitourinary : no irregular bleeding, No Dysuria, No Urinary Frequency, No Hematuria, No Urinary Incontinence, No Urgency, No Flank Pain, No Urinary Flow Changes, No Hesitancy Musculoskeletal : No joint pain, No Myalgias, No Joint Swelling Skin : No Skin Lesions, No rash Neuro : No Weakness, No Numbness, No Paresthesias, No Loss of Consciousness, No Dizziness, No Headache Psych : No Anxiety/Panic, No Depression, No SI/HI/AH/VH, No Social Issues, Heme/Lymph: No Bruising, No Bleeding,No Lymphadenopathy Endocrine : No Polyuria, No Polydipsia, No Temperature Intolerance [facility] Past Medical History Medical History Muscle spasm Ovarian cyst Social History Social History Household Members: Family Housing: Apartment Alcohol intake: never Patient Tobacco Use Status: Never used Tobacco Substance Use Type: Marijuana Advance Directives: No Advance Directives Information Provided: No Do you have a plan to hurt others: No Plan service: No Physical Exam ED Exam Exam: Appearance: Alert. Oriented X3. No acute distress. Well-appearing Eyes: Pupils equal, round and reactive to light. ENT: Pharynx normal. Neck: Normal inspection. Neck supple. No lymph nodes noted. No crepitus CVS: Normal heart rate and rhythm. Pulses normal. Normal S1 and S2 Respiratory: No respiratory distress. Breath sounds normal. No Wheezing. No rales Abdomen: Soft and nontender. No rigidity. No distention. Bedside ultrasound shows a heart rate between 120 and 130, good movement Skin: Skin warm and dry. Normal skin color. Normal skin turgor. Extremities: No lower extremity edema. No Lacerations. No Rash Neuro: Oriented X 3. No motor deficit. No sensory deficit. Moving all extremities. No slurred speech. CN 2 through 12 grossly intact Psych: calm, cooperative, normal affect Vital Signs: Vital Signs - 24 hr 02/23/25 18:23 Temperature 98.3 F Pulse Rate 105 H Respiratory Rate 20 Blood Pressure 116/59 L Pulse Oximetry 99 Oxygen Delivery Method Room Air BMI result Body Mass Index 31.0 Course Course Course Narrative: Rapid medical examination performed in triage by Rosa Orourke PA-C: Patient is a 29 year old female presenting to the emergency department with a cough and feeling generally unwell. Detailed physical exam and review of systems are deferred to the helicopter dispatcher. Swabs ordered. Patient placed back in the waiting room pending room availability and results. Medications Administered Discontinued Medications Generic Name Dose Route Start Last Admin Trade Name Freq PRN Reason Stop Dose Admin Ondansetron HCl 4 mg 02/23/25 22:30 02/23/25 22:38 Ondansetron Odt 4 Mg Tab.Martínez TRANSLINGU 02/23/25 22:31 4 mg ONCE ONE Administration Medical Decision Making Medical Decision Making [facility] Narrative: Patient has a viral URI. No fever, no coughing at this time, pneumonia is not suspected. Serology negative for influenza are RSV and COVID Patient has an appointment tomorrow with her OBGYN. Patient states that her nauseous fairly well controlled with her current medications. Lab Data [facility] Lab Attestation statement: I reviewed the patient's lab results. Labs: Lab Results 02/23/25 Range/Units 18:33 Influenza Type A (PCR) NEGATIVE (Negative) Influenza Type B (PCR) NEGATIVE (Negative) RSV RNA Qual (PCR) NEGATIVE (Negative) SARS-CoV-2 RNA (RT-PCR) NEGATIVE (Negative) Discharge Plan Discharge Clinical Impression: Viral URI Patient Disposition: Home, Self-Care Instructions: Upper Respiratory Infection (ED) Additional Instructions: Please follow-up with your primary care physician tomorrow. If you have any worsening or new symptoms, please return to the emergency room or call 911 Prescriptions: New acetaminophen 500 mg tablet 500 mg PO Q6H PRN (Reason: fever or pain) Qty: 30 0RF No Action ondansetron 4 mg tablet,disintegrating 4 mg PO Q8H PRN (Reason: nausea and vomiting) Qty: 10 0RF diphenoxylate-atropine [Lomotil] 2.5-0.025 mg tablet 1 tab PO TID PRN (Reason: diarrhea) Qty: 10 0RF Rx Instructions: Keep this medication out of reach of children cyclobenzaprine 5 mg Tablet 5 mg PO TID PRN (Reason: Muscle Spasm) omeprazole 20 mg Capsule,Delayed Release(Dr/Ec) 20 mg PO BID@0630,1630 Qty: 28 0RF clindamycin HCl 300 mg capsule 300 mg PO TID Qty: 20 0RF prednisone 20 mg tablet 40 mg PO DAILY Qty: 10 0RF morphine 10 mg/5 mL solution 5 mg PO Q4H PRN (Reason: pain) Qty: 20 0RF Rx Instructions: Partial Fill upon patient request. clindamycin HCl [Cleocin HCl] 300 mg capsule 300 mg PO TID Qty: 21 0RF amoxicillin 500 mg tablet 500 mg PO BID Qty: 20 0RF polyethylene glycol 3350 [Miralax] 17 gram/dose powder 17 g PO DAILY Qty: 119 0RF senna 8.6 mg capsule 8.6 mg PO BEDTIME PRN (Reason: constipation) Qty: 7 0RF ondansetron 4 mg tablet,disintegrating 4 mg PO TID PRN (Reason: nausea and vomiting) Qty: 7 0RF cephalexin 500 mg capsule 500 mg PO QID 5 Days Qty: 20 0RF ibuprofen 600 mg tablet 600 mg PO Q6H PRN (Reason: fever or pain) Qty: 30 0RF acetaminophen [Tylenol Extra Strength] 500 mg tablet 1,000 mg PO Q8H PRN (Reason: fever or pain) Qty: 30 0RF morphine 15 mg tablet 15 mg PO BID PRN (Reason: pain) Qty: 5 0RF Rx Instructions: Partial Fill upon patient request. acetaminophen [Tylenol Extra Strength] 500 mg tablet 500 mg PO Q6H PRN (Reason: fever or pain) Qty: 30 0RF ibuprofen [Motrin IB] 200 mg capsule 400 mg PO Q8H 7 Days Qty: 42 0RF cefuroxime axetil 500 mg tablet 500 mg PO BID 7 Days Qty: 14 0RF Stand Alone Forms: Work/School Release Print Language: Maltese
--- OUTSIDE RECORDS SUMMARY | 2025-02-23 18:37 | XMS_ITS | Encounter Summary ---
Author Organization [facility] Address [address] [place] [address] Phone Care Team Providers Care Linseed Oil Temperer Name Role Phone Ghazala Rausch MD Primary Care Provider Roberto Frank DMD Unavailable [phone] Yolanda Bess NP Primary Care Provider [phone] Encounter Details Date Type Department Care Team (Latest Contact Info) Description 08/11/2018 Prep for Surgery [facility] supercharger repair supervisor Clinic [address] [facility], [address] [place] [address] Travis Aguiar, DMD [address] [place] [address] Temporomandibular disorder (Primary Dx) Social History Tobacco [...] disorders documented in this encounter Care Teams Linseed Oil Temperer Relationship Specialty Start Date End Date Ghazala Rausch MD [address] [place] [address] PCP - General Internal Medicine 06/04/18 07/04/24 Yolanda Bess NP [address] [place] [address] PCP - General Nurse Practitioner 07/05/24 Roberto Frank, INEZ [address] [place] [address] [email or web address] supervisor 11/09/20 documented as of this encounter Additional Source Comments The information contained in this document represents components of the legal health record. It is not the complete legal health record.[facility]
--- OUTSIDE RECORDS SUMMARY | 2025-02-23 18:37 | XMS_ITS | Encounter Summary ---
Author Organization [facility] Address [address] [place] [address] Phone Care Team Providers Care Wall Crane Operator Name Role Phone Ghazala Rausch MD Primary Care Provider Roberto Frank DMD Unavailable [phone] Yolanda Bess APPLICATIONS SUPPORT LEAD Primary Care Provider [phone] Encounter Details Date Type Department Care Team (Late st Contact Info) Description 12/11/2018 Procedure Pass [facility] PERIOPERATIVE DEPT [address] [place] [id number] Social History Tobacco Use Types Packs/Day [...] on filedocumented in this encounter Care Teams Wall Crane Operator Relationship Specialty Start Date End Date Ghazala Rausch MD [address] [place] [address] PCP - General Internal Medicine 06/04/18 07/04/24 Yolanda Bess NP [address] [place] [address] PCP - General Nurse Practitioner 07/05/24 Roberto Frank DMD [address] [place] [address] [email or web address] 11/09/20 documented as of this encounter Additional Source Comments The information contained in this document represents components of the legal health record. It is not the complete legal health record.[facility]
--- OUTSIDE RECORDS SUMMARY | 2025-02-23 18:37 | XMS_ITS | Patient Health Record ---
Author Organization [facility] Address [address], [place] [address] Care Team Providers Care Branding Specialist Name Role Phone BURKE KENT Primary Care [...] Status Risk Notes Problem Slow transit constipation (59023454) Slow transit constipation (K59.01) Active confirmed Problem Fatigue (20725283) Other fatigue (R53.83) Active confirmed Problem Cyst of right ovary (168457282211489 08) Unspecified ovarian cyst, right side (N83.201) Active confirmed Problem Cyst of left ovary (738805842605936 08) Unspecified ovarian cyst, left side (N83.202) Active confirmed Problem Anxiety (82755762) Anxiety (F41.9) Active confirmed Problem Body mass index 20-24 - normal (504021107) BMI 20.0-20.9, adult (Z68.20) Active confirmed Problem Moderate recurrent major depression (29630742) Moderate episode of recurrent major depressive disorder (F33.1) Active confirmed Problem Venereal disease screening (420280164) Screen for STD (sexually transmitted disease) (Z11.3) Active confirmed Problem Herpes simplex type 1 infection (448472387) 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
--- OUTSIDE RECORDS SUMMARY | 2025-02-23 18:37 | XMS_ITS | Encounter Summary ---
Author Organization [facility] Address [address] [place] [address] [place] [address] Phone Care Team Providers Care Colon Therapist Name Role Phone Ghazala Rausch MD Primary Care Provider Roberto Frank DMD Unavailable [phone] Yolanda Bess NP Primary Care Provider [phone] Encounter Details Date Type Department Care Team (Late st Contact Info) Description 06/27/2018 Procedure [place] [facility] [place] 2 [address] [facility], 2nd [place] [address] Social History Tobacco Use Types Packs/Day Years [...] on filedocumented in this encounter Care Teams Colon Therapist Relationship Specialty Start Date End Date Ghazala Rausch MD [address] [place] [address] PCP - General Internal Medicine 06/04/18 07/04/24 Yolanda Bess NP [address] [place] [address] PCP - General Nurse Practitioner 07/05/24 Roberto Frank, INEZ [address] [place] [address] [email or web address] 11/09/20 documented as of this encounter Additional Source Comments The information contained in this document represents components of the legal health record. It is not the complete legal health record.[facility]
--- OUTSIDE RECORDS SUMMARY | 2025-02-23 18:37 | XMS_ITS | Encounter Summary ---
Author Organization [facility] Address [address] [place] [address] Phone Care Team Providers Care Malt Loader Name Role Phone Ghazala Rausch MD Primary Care Provider Roberto Frank DMD Unavailable [phone] Yolanda Bess NP Primary Care Provider [phone] Encounter Details Date Type Department Care Team (Late st Contact Info) Description 06/10/2024 Procedure Pass [facility], Ct Scan - [address] [address] Social History Tobacco Use Types Packs/Day Years [...] on filedocumented in this encounter Care Teams Malt Loader Relationship Specialty Start Date End Date Ghazala Rausch MD [address] [place] [address] PCP - General Internal Medicine 06/04/18 07/04/24 Yolanda Bess NP [address] [place] [address] PCP - General Nurse Practitioner 07/05/24 Roberto Frank, INEZ [address] [place] [address] [email or web address] 11/09/20 documented as of this encounter Additional Source Comments The information contained in this document represents components of the legal health record. It is not the complete legal health record.[facility]
--- OUTSIDE RECORDS SUMMARY | 2025-02-23 18:37 | XMS_ITS | Encounter Summary ---
Author Organization [facility] Address [address] [place] [address] Phone Care Team Providers Care Medical Facilities Section Director Name Role Phone Ghazala Rausch MD Primary Care Provider Roberto Frank DMD Unavailable [phone] Yolanda Bess NP Primary Care Provider [phone] Encounter Details Date Type Department Care Team (Late st Contact Info) Description 06/10/2024 Procedure Pass [facility], [address] [address] Social History Tobacco Use Types Packs/Day Years [...] on filedocumented in this encounter Care Teams Medical Facilities Section Director Relationship Specialty Start Date End Date Ghazala Rausch MD [address] [place] [address] PCP - General Internal Medicine 06/04/18 07/04/24 Yolanda Bess NP [address] [place] [address] PCP - General Nurse Practitioner 07/05/24 Roberto Frank, INEZ [address] [place] [address] [email or web address] 11/09/20 documented as of this encounter Additional Source Comments The information contained in this document represents components of the legal health record. It is not the complete legal health record.[facility]
--- OUTSIDE RECORDS SUMMARY | 2025-02-23 18:37 | XMS_ITS | Clinical Summary ---
Author Organization [facility] Address [address] [address] Phone Care Team Providers Care Transformer Coil Winder Name Role Phone ZacRoberto lubin Ruiz DMD Unavailable [phone] Yolanda Bess UTILITY AIRCREWMAN Primary Care Provider [phone] Allergies Active Allergy Reactions Criticality Noted Date Comments Iodinated Contrast Media 07/25/2018 Oxycodone-Acetaminophen Palpitations Low 08/01/2018 Oxycodone allergy Ketorolac 10/12/2024 Medications cyclobenzaprine (FLEXERIL) 5 MG tablet Take 5 mg by mouth nightly at bedtime. Active ibuprofen (ADVIL,MOTRIN) 800 MG tabletIndicatio ns:pain Take 800 mg by mouth every 6 (six) hours as needed for pain (specific location in comments). Indications: pain Active acetaminophen (TYLENOL) 500 MG tablet Take 500 mg by mouth every 6 (six) hours as needed for pain (specific location in comments). Active meloxicam (MOBIC) 7.5 MG tablet Take 1 tablet (7.5 mg total) by mouth daily. 60 tablet 9 Active cyclobenzaprine (FLEXERIL) 5 MG tablet Take 1 tablet (5 mg total) by mouth nightly at bedtime. 60 tablet 9 Active HYDROmorphone (DILAUDID) 4 MG tablet Take 1 tablet (4 mg total) by mouth every 4 (four) hours as needed (severe pain). Partial fill ok 12 tablet 9 Active Additional Information Patient not taking.Reported on 12/19/2018 ibuprofen (ADVIL,MOTRIN) 200 MG tablet Take 2 tablets (400 mg total) by mouth every 6 (six) hours as needed for pain (specific location in comments). 9 Active amoxicillin (AMOXIL) 500 MG capsule Take [...] mouth 2 (two) times a day. Active methylPREDNISol one (MEDROL DOSEPACK) 4 mg tablet follow package directions 21 tablet 5 Active chlorhexidine (PERIDEX) 0.12 % solution Use as directed 15 mL in the mouth or throat 2 (two) times a day. 120 mL 5 Active Active Problems Problem Noted Date Diagnosed Date Temporomandibular disorder 06/27/2018 Estimated Date of Delivery Comme nts Yes 05/30/2025 Social History Tobacco Use Types Packs/Day Years [...] 2012 INFLUENZA VACCINE (#1) 2024 COVID-19 VACCINE (2024-2 6 season) 2024 PAP SMEAR 05/09/2027 05/08/2024 Adult [...] Required) Completed Medical Devices Implanted Type Area Ibm Mainframe Developer Device Identifier Shelf Expiration Date Model / Serial / Lot Iud Insurance C3 ACO C3 ACO C3 ACO C3 ACO C[employer] [place] [place] [place] [address] [place] [address] [place] [address] [place] [address] C3 ACO Advance Directives For more information, please contact: [phone] (9AM - 5PM [place], Monday-Monday) * Full Code (Presumed) (Latest Code Status on File) Date Activated Date Inactivated Comments 12/11/2018 7:12 AM 12/11/2018 6:09 PM Care Teams Transformer Coil Winder Relationship Specialty Start Date End Date Yolanda Bess NP [address] [place] [address] PCP - General Nurse Practitioner 07/05/24 Roberto Frank, INEZ [address] [place] [address] [email or web address] 11/09/20 Additional Source Comments The information contained in this document represents components of the legal health record. It is not the complete legal health record.[facility]
[2025-02-23 19:14] LABS: Resp Syncy Virus RNA Qual PCR NEGATIVE (Negative); SARS COV2 PCR INHOUSE NEGATIVE (Negative)
[2025-02-23 23:50] VITALS: BP 107/54; PULSE 91; RESP 20; TEMP 36.9; O2SAT 99
--- NOTE | 2025-02-23 23:53 | PC.NURSE ---
provider into assess pt, bedside ultra sound,reviewed pt discharge instructions with pt. pt verbalized understanding, no sign of distress upon discharge.
[2025-02-23 23:54] VITALS: BP 107/54; PULSE 91; RESP 20; TEMP 36.9; O2SAT 99
== END 2025-02-23 23:55 | disposition home or self-care (01) ==
PROVIDERS: Physician Assistant Medical; Emergency Provider Emergency Medicine; PCP Internal Medicine
DX: J06.9 Acute upper respiratory infection, unspecified (principal); R05.9 Cough, unspecified; M79.10 Myalgia, unspecified site
CPT/HCPCS: 87637; 99283; 99284